=== PATIENT | male | born 1945 | race Caucasian/White ===

== ENCOUNTER → 2018-08-30 10:08 | Outpatient (CLI) | payer MEDICARE, SELFPAY ==
--- NOTE | 2018-08-30 10:39 | EKG12_ITS ---
Test Reason : PREOP Blood Pressure : / mmHG Vent. Rate : 077 BPM Atrial Rate : 077 BPM P-R Int : 178 ms QRS Dur : 074 ms QT Int : 340 ms P-R-T Axes : 054 017 -17 degrees QTc Int : 384 ms Normal sinus rhythm Possible inferior and posterior infarct, age undetermined Abnormal ECG When compared with ECG of 11-OCT-2007 01:23, No significant change was found Confirmed by JESENIA BARNETT ([id number]), photographic editor DEVONTE JENNINGS ([id number]) on 09/01/2018 10:58:08 AM Referred By: Shari Dunaway Confirmed By:JESENIA BARNETT
[2018-08-30 10:49] LABS: Absolute Lymphocyte Count 1.76 X10^3/ul (0.83-4.51); Absolute Neutrophil Count 2.7 X10^3/uL (2.0-7.7); Basophil# 0.02 X10^3/uL; Basophil% 0.4 % (0-1); Eosinophil# 0.19 X10^3/uL; Eosinophils% 3.8 % (0-5); Hematocrit 44.8 % (40-54); Hemoglobin 14.9 g/dl (13.0-16.5); Lymphocyte # 1.76 X10^3/ul (4.0); Lymphocyte % 34.9 % (19-41); Mean Corp Hgb Conc 33.3 g/gl (32-36); Mean Corpuscular Hgb 31.2 pg (27.0-32.0); Mean Corpuscular Volume 93.7 fL (80-94); Mean Platelet Vol. 9.2 fl (6.2-12.0); Monocyte# 0.39 X10^3/uL; Monocyte% 7.7 % (0-10); Neutrophil # 2.66 X10^3/uL (2.7-7.7); Neutrophil % 52.8 % (47-70); Platelet Count 224 K/mm3 (150-450); RBC Distribution Width CV 13.3 % (11.6-14.6); RBC Distribution Width SD 44.5 fl (35.1-43.9); Red Blood Count 4.78 M/mm3 (4.6-6.2)
[2018-08-30 10:50] LABS: POSITIVE COUNT NO; POSITIVE DIFFERENTIAL NO; POSITIVE MORPHOLOGY NO
[2018-08-30 11:20] LABS: Anion Gap 10 (5-15); BUN 16 mg/dL (7-18); BUN/Creat Ratio 17.4 RATIO (10-20); Calcium,Total 8.9 mg/dL (8.5-10.1); Chloride 107 mmol/L (98-107); Creatinine, Serum 0.92 mg/dL (0.70-1.30); EST Glomerular Filtration Rate 86 mL/min (>60); Est Glom Filt Rate - Afr Amer 104 mL/min (>60); Glucose 104 mg/dL (74-106); Potassium 4.1 mmol/L (3.5-5.1); Sodium Level 143 mmol/L (136-145)
== END ==
PROVIDERS: Family Provider Internal Medicine; PCP Internal Medicine; Referring Provider Podiatrist Foot & Ankle Surgery; Visit Provider Podiatrist Foot & Ankle Surgery
DX: Z01.810 Encounter for preprocedural cardiovascular examination (principal); Z01.818 Encounter for other preprocedural examination
CPT/HCPCS: 36415; 80048; 85025; 93005

== ENCOUNTER 2018-09-07 09:05 | Day surgery (SDC) | payer MEDICARE, SELFPAY ==
[2018-09-07 09:27] VITALS: BP 130/71; PULSE 84; RESP 18; TEMP 36.6; O2SAT 97; BMI 25.7
[2018-09-07] MEDS: Cefazolin 2 GM in 0.9% Normal Saline 100 ML IV (10:35)
--- NOTE | 2018-09-07 10:52 | RAD_ITS ---
STUDY: X-RAY - RIGHT ANKLE REASON FOR EXAM: Male, 73 years old. Open reduction and internal fixation of the distal fibular fracture. TECHNIQUE: 6 cone-down intraoperative view(s) of the ankle. COMPARISON: None. FINDINGS: Intraoperative imaging was provided for open reduction and fixation of the distal fibular fracture using screws and sideplate fixation device. RAD/Ankle 2 Views IMPRESSION: Intraoperative imaging provided for open reduction and internal fixation of the distal fibula. Electronically Signed: Yohan Ohara MD at 14:15 EST Tel [phone], Service support ,
[2018-09-07 12:55] VITALS: BP 110/75; BP 130/71; PULSE 66; RESP 18; TEMP 36.2; O2SAT 95
[2018-09-07 13:00] VITALS: BP 116/83; BP 130/71; PULSE 67; RESP 18; O2SAT 95
--- NOTE | 2018-09-07 13:01 | PCM.IMDPSTOP ---
Immediate Post-Op Note Date of Procedure: 09/07/18 Primary Surgeon/Physician: Shari Dunaway DPM assembler cards and announcements: Herberth Baig Pre-Operative Diagnosis: R distal fibula fracture with syndesmotic disruption Post-Operative Diagnosis: same Surgery/Procedure Performed:: R ORIF distal fibula with transsyndesmotic screw fixation Description of Surgical Findings:: see dictation Estimated Blood Loss: minimal Specimen's removed: none Drains: none Type of Anesthesia:: Block,Regional - post operative RLE distal sciatic block by anesthesia, Spinal - Admit VTE Documentation VTE Present on Admission: No VTE Mechan Device Prophylaxis: SCD's, Knee High DIAMOND Gómez
--- NOTE | 2018-09-07 13:04 | OP.PN_ITS ---
Immediate Post-Op Note Date of Procedure: 09/07/18 Primary Surgeon/Physician: Shari Dunaway DPM carroter: Herberth Baig Pre-Operative Diagnosis: R distal fibula fracture with syndesmotic disruption Post-Operative Diagnosis: same Surgery/Procedure Performed:: R ORIF distal fibula with transsyndesmotic screw fixation Description of Surgical Findings:: see dictation Estimated Blood Loss: minimal Specimen's removed: none Drains: none Type of Anesthesia:: Block,Regional - post operative RLE distal sciatic block by anesthesia, Spinal - Admit VTE Documentation VTE Present on Admission: No VTE Mechan Device Prophylaxis: SCD's, Knee High DIAMOND Gómez
--- NOTE | 2018-09-07 13:04 | PCM.DC.ORTHO ---
Discharge Activity: May Not Drive, May not drive while taking narcotic pain medications., May Not Shower, Use Walker, Use Crutches Ice area for (Minutes): 20 - 20 minutes of each hour while awake behind right knee Weight Bearing Status: No weight bearing Keep extremity elevated above heart level: Operative Extremity Call your doctor if your incision/area has: Sudden Increased Bleeding, Increased Pain/ Swelling Call your doctor if you observe: Fever of 101 or Higher, Numbness or Tingling, Inability to urinate, Shortness of breath, Chest pain, Calf discomfort, Uncontrolled pain Cleanse incision/area with: Keep Dressing Clean & Dry Allergies/Adverse Reactions: Allergies aspirin Adverse Reaction (Verified 09/06/18 08:43) Other GASTRIC ISSUES naproxen Adverse Reaction (Verified 09/06/18 08:43) Other GASTRIC ISSUES Medications to take at Discharge Diclofenac [Voltaren] 75 mg PO BIDCM 09/06/18 Doxazosin Mesylate [Cardura] 2 mg PO DAILY 09/06/18 Omeprazole [Prilosec] 20 mg PO DAILY 09/06/18 Hydrocodone Bitart/Apap 5-325 [[place] 5MG-325MG] 1 tab PO Q4H PRN PRN 7 Days #30 tab 09/07/18 The following prescriptions were given: Hydrocodone Bitart/Apap 5-325 [[place] 5MG-325MG] 1 tab PO Q4H PRN PRN 7 Days #30 tab PRN Reason: Pain Primary Care Physician: Aggie Powers MD [Primary Care Provider] - Test Results: Test results from this visit will be discussed in further detail at your follow-up appointment, if applicable. Please Follow Up With: Shari Dunaway DPM When: at your previousyl scheduled post operative appointment
--- NOTE | 2018-09-07 13:09 | DCINST_ITS ---
Discharge Activity: May Not Drive, May not drive while taking narcotic pain medications., May Not Shower, Use Walker, Use Crutches Ice area for (Minutes): 20 - 20 minutes of each hour while awake behind right knee Weight Bearing Status: No weight bearing Keep extremity elevated above heart level: Operative Extremity Call your doctor if your incision/area has: Sudden Increased Bleeding, Increased Pain/ Swelling Call your doctor if you observe: Fever of 101 or Higher, Numbness or Tingling, Inability to urinate, Shortness of breath, Chest pain, Calf discomfort, Uncontrolled pain Cleanse incision/area with: Keep Dressing Clean & Dry Allergies/Adverse Reactions: Allergies aspirin Adverse Reaction (Verified 09/06/18 08:43) Other GASTRIC ISSUES naproxen Adverse Reaction (Verified 09/06/18 08:43) Other GASTRIC ISSUES Medications to take at Discharge Diclofenac [Voltaren] 75 mg PO BIDCM 09/06/18 Doxazosin Mesylate [Cardura] 2 mg PO DAILY 09/06/18 Omeprazole [Prilosec] 20 mg PO DAILY 09/06/18 Hydrocodone Bitart/Apap 5-325 [[place] 5MG-325MG] 1 tab PO Q4H PRN PRN 7 Days #30 tab 09/07/18 The following prescriptions were given: Hydrocodone Bitart/Apap 5-325 [[place] 5MG-325MG] 1 tab PO Q4H PRN PRN 7 Days #30 tab PRN Reason: Pain Primary Care Physician: Aggie Powers MD [Primary Care Provider] - Test Results: Test results from this visit will be discussed in further detail at your follow- up appointment, if applicable. Please Follow Up With: Shari Dunaway DPM When: at your previousyl scheduled post operative appointment
[2018-09-07 13:15] VITALS: BP 115/92; BP 130/71; PULSE 66; RESP 18; O2SAT 95
[2018-09-07 13:30] VITALS: BP 124/80; BP 130/71; PULSE 61; RESP 18; TEMP 36.1; O2SAT 96
[2018-09-07 15:27] VITALS: BP 124/67; BP 130/71; PULSE 74; RESP 16; TEMP 36.2; O2SAT 96
--- NOTE | 2018-09-09 10:44 | OP.PCM_ITS ---
Report of Operation Date of Procedure: 09/07/18 Pre-Operative Diagnosis: R distal fibula fracture with syndesmotic disruption Post-Operative Diagnosis: same Surgery/Procedure Performed:: R ORIF distal fibula with transsyndesmotic screw fixation Description of Surgical Findings:: see dictation research and development chemist: Herberth Baig Type of Anesthesia:: Block,Regional - post operative RLE distal sciatic block by anesthesia, Spinal Specimen's removed: none Drains: none Estimated Blood Loss (mL): minimal Description of Procedure: Indications: Pt is a 73 yo M who presented to my clinic for a Right distal fibula oblique fracture with syndesmotic disruption and a increased medial clear space on radiographs. Pt presents today for surgical intervention. All risk, complications and alternatives were discussed with the patient and the patient signed an informed consent. No guarantees were given. Procedure: on September 07, 2018 Miranda Barr was visually and verbally identified in the pre operative holding area. The consent was again reviewed, as were all risks, complications and alternatives. The patient wished to proceed with the proposed surgery. The right ankle was marked as the correct operative extremity. The patient was brought into the room and placed on the operating room table in a lazy lateral position. A time out was performed and all present were in agreement. After anesthesia was confirmed a pneumatic thigh tourniquet was placed on the right leg. The right leg was then prepped and draped in the usual sterile fashion. The right leg was then elevated and after exsanguination with an esmarch the thigh tourniquet was then inflated to 300mmHg. At this time attention was directed to the right lateral ankle. The fracture of the fibula was again identified on intra operative fluoroscopy and the a curvilinear incision was made over the distal fibula. The incision was carried bluntly carried deep with all bleeders tied or bovied as necessary, all vital neurovascular structures and tendons were retracted. The fracture was identified and using curettes the fracture was debrided and all soft tissue was retracted. Using a bone hook and bone reduction clamps the fracture was reduced. This was directly visualized and also confirmed on intra operative fluoroscopy. The f ibula was noted to be out to length and with proper rotation. I decided to not place an interfragmentary screw across the fracture site given its nature and location and the need to obtain stability of the syndesmosis and ankle joint with a syndesmotic screw. A queenie variax plate was then placed wit marques combination of locking and nonlocking screws. The plate and screws were measured and placed under intra operative fluroscopy and direct visualization After stabilization of the fibula a bone hook was used to stress the ankle as well as external rotation. It was noted to have increase tibiofibular joint widening and increased medial clear space. A syndesmotic screw was then placed from the fibula through the plate into the tibia. The stress views were then repeat and decreased gapping that was most appropriate was noted. The incision was the flushed with copious amounts of normal sterile saline and layered closure was initiated. 2.0 vicryl was used for deep layers, 3.0 vicryl for subcutaneous layers and 3.0 prolene for skin. Adaptic, DSD and PRECIOUS compression dressing with a posterior splint was applied. Total tourniquet time was 101 minutes and immediate capillary refill was noted to all digits upon deflation. The patient tolerated the procedure and anesthesia well. A RLE lower sciatic block was placed by anesthesia for post operative pain control. The patient was transported to the PACu by myself and member of the anesthesia care team with AVSS and NV RLE equal to pre operative levels. At the end of the case, all needle sponge and instrument counts were found to be the same. Grafts/Implants Used: Queenie Variax plate and locking and nonlocking screws - Complications none - Admit VTE Documentation VTE Present on Admission: No VTE Mechan Device Prophylaxis: SCD's, Knee High DIAMOND Hose VTE Pharm Prophylaxis ordered?: Yes
== END 2018-09-07 15:46 | disposition home or self-care (01) ==
LOC: SDC 09:05 → AC 09:06
PROVIDERS: Family Provider Internal Medicine; PCP Internal Medicine; Referring Provider Podiatrist Foot & Ankle Surgery; Visit Provider Podiatrist Foot & Ankle Surgery
PROC: (CPT 27792; principal; 2018-09-07 10:10)
DX: S82.831A Other fracture of upper and lower end of right fibula, initial encounter for closed fracture (principal); W18.40XA Slipping, tripping and stumbling without falling, unspecified, initial encounter; Y93.53 Activity, golf; Y92.9 Unspecified place or not applicable; K21.9 Gastro-esophageal reflux disease without esophagitis; Z79.899 Other long term (current) drug therapy; R33.9 Retention of urine, unspecified; Z98.890 Other specified postprocedural states; N40.0 Benign prostatic hyperplasia without lower urinary tract symptoms
CPT/HCPCS: 27792; 64445; 51702; 64450; 73600; 76000; 81001; 99283; C1713; J7120

== ENCOUNTER 2018-09-07 19:42 | Emergency (ER) | payer MEDICARE, SELFPAY ==
[2018-09-07 19:42] VITALS: BP 173/89; PULSE 107; RESP 18; TEMP 36.8; O2SAT 95; BMI 25.5
[2018-09-07 20:31] LABS: Mucous, Urine 0 SEEN /hpf (<or=2+); Squamous Epithelial Cells - UA 0 SEEN /hpf (0-5); White Blood Cells 0 SEEN /hpf (0-5)
[2018-09-07 20:36] LABS: Color, Urine Yellow (Yellow); Glucose, Dipstick Normal (Normal); Ketone-Dipstick Negative (Negative); Leukocyte Esterase-Dipstick Negative /ul (Negative); Nitrite-Dipstick Negative (Negative); Occult Blood-Urine 25 /ul (Negative); Protein-Dipstick Negative (Negative); Urine Bilirubin Dipstick Negative (Negative); Urine Clarity Clear (Clear); Urine Urobilinogen Normal (Normal); Urine pH 6.5 (5.0 - 8.0)
--- NOTE | 2018-09-07 20:39 | ED.VISSUMM ---
- ER Visit Summary Date of Service: 09/07/18 Chief Complaint: Unable to urinate History of Present Illness: The patient is a 73 M has a prior history of urinary retention after surgery. Today patient had a right foot surgery done at [facility]. And is been unable to void since. Prior to the surgery he said he felt fine. Denies any gross hematuria or dysuria. He does have a history of enlarged prostate. He has needed Luis catheters before in the past. Otherwise he denies fever or chills. He denies nausea or vomiting. He is complaining of suprapubic abdominal discomfort. Physical Examination: Older male complaining of urinary retention. Vital signs are stable afebrile. HEENT exam unremarkable. Lungs clear to auscultation. Heart regular rhythm no murmur rate about 107. Abdomen soft. Suprapubic bladder distention and tender. Otherwise abdomen is nontender. And soft. Positive bowel sounds. No pulsatile mass. He is moving all 4 extremities. He has a large dressing on his right lower extremity. Neurologically he is awake and alert. Test Results: Urinalysis is pending. Emergency Department Course and Treatment: Nurse was able to place a 16 Romanian Luis catheter without difficulty. He had over 900 cc of clear yellow urine out. No gross blood. On repeat exam patient is doing very well at 2039. He is pain-free. He wants to be discharged home. Treatment Plan: Follow-up with Dr. Carpenter. Patient states he will most likely pull the Luis catheter out himself he is done this before. Disposition: Discharge Impression: Acute urinary retention status post right foot surgery History of BPH This note was generated with Nazar dictation software. It may contain incorrect words, spelling, and punctuation that were not noted in review of the chart prior to signing ED Disposition - Plan for ED Patient: Chief Complaint: Complaint Referrals: Aggie Powers MD [Primary Care Provider] -
--- NOTE | 2018-09-07 20:42 | ED.DEP ---
ED Disposition - Plan for ED Patient: Disposition: Home or Assisted Living Chief Complaint: Complaint Instructions: ED Retention Urinary Male Referrals: Joseph Carpenter MD [STAFF PHYSICIAN] - 2 Days Additional Instructions: Return if Luis not working or gross blood. Follow-up with a urologist.
[2018-09-07 20:45] LABS: Red Blood Cells-Urine 0-5 SEEN /hpf (0-5)
[2018-09-07 20:46] LABS: Bacteria RARE /hpf (None Seen)
[2018-09-07 21:00] VITALS: BP 154/80; PULSE 76; RESP 16; O2SAT 98
== END 2018-09-07 21:03 | disposition home or self-care (01) ==
PROVIDERS: Emergency Provider Emergency Medicine; Family Provider Internal Medicine; PCP Internal Medicine
DX: R33.9 Retention of urine, unspecified (principal); Z98.890 Other specified postprocedural states; N40.0 Benign prostatic hyperplasia without lower urinary tract symptoms; Z79.899 Other long term (current) drug therapy
CPT/HCPCS: 51702; 81001

== ENCOUNTER → 2022-12-25 | Outpatient (CLI) | payer MEDICARE, SELFPAY ==
[2022-12-25 09:55] LABS: Absolute Lymphocyte Count 2.61 X10^3/uL (0.83-4.51); Basophil# 0.04 X10^3/uL; Basophil% 0.8 % (0-1); Eosinophil# 0.27 X10^3/uL; Eosinophils% 5.2 % (0-5); Hematocrit 47.8 % (40-54); Hemoglobin 15.6 g/dL (13.0-16.5); Lymphocyte # 2.61 X10^3/ul (0.83-4.51); Mean Corp Hgb Conc 32.6 g/dL (32-36); Mean Corpuscular Hgb 30.8 pg (27.0-32.0); Mean Corpuscular Volume 94.3 fL (80-94); Mean Platelet Vol. 9.4 fl (6.2-12.0); Monocyte# 0.32 X10^3/uL; Monocyte% 6.1 % (0-10); NRBC Flagged by Analyzer 0 % (0-5); Neutrophil # 1.96 X10^3/uL (2.7-7.7); Neutrophil % 37.5 % (47-70); Platelet Count 207 K/mm3 (150-450); RBC Distribution Width CV 12.8 % (11.6-14.6); RBC Distribution Width SD 44.2 fl (35.1-43.9); Red Blood Count 5.07 M/mm3 (4.6-6.2); White Blood Count 5.2 K/mm3 (4.4-11.0)
[2022-12-25 10:24] LABS: Vitamin D,25 Hydroxy 14.4 ng/mL
[2022-12-25 10:29] LABS: AST(SGOT) 24 U/L (15-37); Alanine Aminotransfer ALT/SGPT 33 U/L (16-61); Albumin, Serum 3.8 g/dL (3.2-5.0); Alkaline Phosphatase 50 U/L (45-117); Anion Gap 5 (5-15); BUN 17 mg/dL (7-18); BUN/Creat Ratio 17.8 RATIO (10-20); Chloride 104 mmol/L (98-107); Cholesterol 185 mg/dL (200); Creatinine, Serum 0.96 mg/dL (0.70-1.30); EST Glomerular Filtration Rate 81 mL/min (>60); Est Glom Filt Rate - Afr Amer 98 mL/min (>60); Globulin 3.7 g/dL (2.2-4.2); Glucose 100 mg/dL (74-106); High Density Lipoprotein 36 mg/dL; PSA,Total - Annual Screen 3.19 ng/mL (0.00-4.00); Potassium 3.9 mmol/L (3.5-5.1); Protein, Total 7.5 g/dL (6.4-8.2); Sodium Level 138 mmol/L (136-145); Thyroid Stim Hormone (TSH) 2.08 uIU/mL (0.358-3.74); Triglycerides 111 mg/dL; Very Low Density Lipoprotein 22 mg/dL (5-40)
== END | disposition home or self-care (01) ==
PROVIDERS: PCP Internal Medicine; Referring Provider Internal Medicine; Visit Provider Internal Medicine
DX: E78.5 Hyperlipidemia, unspecified (principal); K21.9 Gastro-esophageal reflux disease without esophagitis; Z12.5 Encounter for screening for malignant neoplasm of prostate; E55.9 Vitamin D deficiency, unspecified
CPT/HCPCS: 36415; 80053; 80061; 82306; 84153; 84443; 85025; G0103

== ENCOUNTER → 2023-08-03 | Outpatient (CLI) | payer MEDICARE, SELFPAY ==
--- NOTE | 2023-08-03 13:32 | CT_ITS ---
ACR Level 3 findings have been noted. An addendum which confirms receipt of the report will follow. INDICATION: GROSS HEMATURIA EXAMINATION: CT UROGRAM- CT Abdomen And Pelvis WO/W Contrast Injection TECHNIQUE: Helically acquired images were obtained of the abdomen and pelvis both before and after IV contrast. A radiation dose optimization technique was used for this scan. Noncontrast images were obtained through the abdomen. Postcontrast images were acquired through the abdomen and pelvis during the nephrographic and urographic phases. IV Contrast dosage and agent: 100 Isovue 300 Oral contrast: None. RADIATION DOSAGE (If Supplied By Facility): CTDIvol = ( 14.14 ) mGy, DLP = ( 1757.30 ) mGycm COMPARISON: No relevant prior comparison study available FINDINGS: LOWER CHEST: Lung bases are clear. No cardiomegaly or pericardial effusion. Coronary calcifications present. KIDNEYS, URETERS AND BLADDER: Normal in size, axis and morphology exhibiting symmetric enhancement bilaterally. There are a few bilateral simple renal cysts which are benign. No urinary calculi. Ureters normal in course and caliber. No hydronephrosis. There is a 2.4 x 1.9 x 2.6 cm mass in the left posterolateral bladder compatible with a neoplasm. LIVER: Normal in size, contour and morphology. There are a couple subcentimeter cysts. No suspicious liver lesions. GALLBLADDER AND BILIARY TREE: No calcified gallstones. No gallbladder distension or wall edema. No intra- or extrahepatic biliary ductal dilation. PANCREAS: No focal cystic or solid mass. SPLEEN: Normal size without focal cystic or solid mass. ADRENAL GLANDS: No nodules. PERITONEUM: No ascites or free air. No other fluid collection. BOWEL: No intestinal obstruction or inflammation. Left clonic diverticulosis without evidence of diverticulitis. No evidence of appendicitis. LYMPH NODES: No enlarged mesenteric or retroperitoneal lymph nodes. VESSELS: Aorta is non-dilated. REPRODUCTIVE ORGANS: No pelvic masses. ABDOMINAL WALL: There is a direct internal hernia on the right containing a portion of the right anterolateral bladder. Previous left inguinal herniorrhaphy. Small fat-containing umbilical hernia. BONES: No acute or suspicious osseous abnormalities. CT/CT Abd/Pelvis W/WO Contrast IMPRESSION: * There is a 2.6 cm mass in the left posterolateral bladder compatible with a urothelial neoplasm. Urology consultation recommended. * No evidence of metastatic disease within the abdomen or pelvis. Electronically Signed: Kalen Masters MD at 19:35 EDT ,
[2023-08-03 14:07] LABS: CREATININE FINGERSTICK < 0.9 mg/dL (0.70-1.30); EGFR FINGERSTICK > 60.0000 mL/min (>60)
== END | disposition home or self-care (01) ==
LOC: CT 13:30
PROVIDERS: PCP Internal Medicine; Referring Provider Nurse Practitioner; Visit Provider Nurse Practitioner
DX: R31.0 Gross hematuria (principal)
CPT/HCPCS: 74178; Q9967; A4216

== ENCOUNTER 2023-10-07 12:29 | Day surgery (SDC) | payer MEDICARE, SELFPAY ==
[2023-10-07] VITALS (7 sets, daily range): BP systolic 142–153; BP diastolic 68–85; PULSE 67–82; RESP 16–18; TEMP 36.2–36.7; O2SAT 96–98; BMI 25.4
--- NOTE | 2023-10-07 | BLB_PTH ---
PATIENT: ARIA HERNANDEZ LOC: [facility] – [place], [place] U#:[id number] AGE/SX: 78/M ROOM: RE10/07/[address]: Dr. Joseph Carpenter MD : [id number] BED: DIS: 10/07/2023 SPEC #: [id number] RECD: 10/07/23 18:25 STATUS: ANGUS REDano #: [id number] NEO: 10/07/23 00:[address]: Joseph Carpenter DEPT: SURGICAL PATHOLOGY RECD BY: Osmany Vizcaino ENTERED: 10/08/23 08:59 SP TYPE: TURB OTHR DR: Dr. Mary Ellen Jules MD Tissues: Urinary bladder, NOS Procedures: Surgery Specimen Level V HEADER OPERATION: Transurethral resection of bladder tumor PRE-OP DIAGNOSIS: Bladder tumor TISSUE SUBMITTED: Bladder tumor MICROSCOPIC DIAGNOSIS Urinary bladder tumor, transurethral resection: Papillary urothelial carcinoma. See synoptic report below. AM:hugo 10/09/2023 COMMENT BLADDER CANCER (TUR) SUMMARY Procedure: Transurethral resection of bladder tumor (TURBT) Tumor site: Not specified Histologic type: Papillary urothelial carcinoma Associated epithelial lesions: None identified Histologic grade: 1-2/3 Tumor configuration: Papillary Muscularis propria presence: Muscularis propria is present and free of tumor. Lymphvascular invasion: Not identified Tumor extension: Confined to urothelium. Additional pathologic findings: Minimal chronic inflammation. PATHOLOGIC STAGE: The above summary is in compliance with [employer] [place] [employer] (CAP) Cancer Protocols Checklist and [place] Joint Committee on Cancer (AJCC), Staging Manual, 8th Ed. Case has been reviewed in consultation with Dr. Patterson who concurs with the above diagnosis. DINO:SONIA MICROSCOPIC DESCRIPTION Slides are reviewed. GROSS DESCRIPTION Received in fixative is one container labeled with the patient's name and designated bladder tumor. The specimen consists of multiple irregular fragments of brown soft tissue that in aggregate measure 5.0 x 3.0 x 0.3 cm. The entire specimen is submitted in two cassettes. / SJ:hugo 10/08/2023 TC:0 CPT: 20349
--- NOTE | 2023-10-07 12:30 | EKG12_ITS ---
Test Reason : PREOP Blood Pressure : / mmHG Vent. Rate : 073 BPM Atrial Rate : 073 BPM P-R Int : 180 ms QRS Dur : 074 ms QT Int : 352 ms P-R-T Axes : 046 024 -16 degrees QTc Int : 387 ms Normal sinus rhythm Low voltage QRS Borderline ECG When compared with ECG of 30-AUG-2018 10:46, No significant change was found Confirmed by ANABEL STEVENSON, ROBERT ([id number]), technical editor SHAI PATTERSON ([id number]) on 10/13/2023 11:25:22 AM Referred By: Joseph Carpenter Confirmed By:ROBERT LITTLE MD
[2023-10-07] MEDS: Lactated Ringers 1,000 ML 15 ML IV (13:12)
--- NOTE | 2023-10-07 14:51 | PCM.HP.STD ---
HPI - General General Date of Service: 10/07/23 Chief Complaint: Bladder tumor HPI Narrative ARIA HERNANDEZ, is a 78 M who presents transurethral resection of a bladder tumor [facility] Medical History (Updated 09/16/23 @ 11:27 by Gale Garvin) Abnormal prostate by palpation Alcohol use Back pain Bladder disease Gastric reflux History of echocardiogram History of stress test Leg cramps Non-smoker Right fibular fracture Superior mesenteric artery syndrome Torn Achilles tendon Wears glasses Home Medications doxazosin 2 mg tablet (Cardura) 2 mg PO QHS #90 tabs 06/17/23 [Rx Last Taken Unknown] omeprazole 20 mg capsule,delayed release 20 mg PO QHS #90 caps 06/17/23 [Rx Last Taken Unknown] Allergy/AdvReac Type Severity Reaction Status Date / Time aspirin AdvReac Other Verified 10/07/23 13:05 Family History Mother Mental disorder Alzheimer's after age 80 Surgical History (Updated 09/16/23 @ 11:27 by Gale Garvin) H/O hemorrhoidectomy H/O hernia repair History of appendectomy History of cataract extraction with lens replacement History of open reduction and internal fixation (ORIF) procedure Hx of tonsillectomy Social History Smoking Status: Never smoker alcohol intake: current details: beer or wine only and very infrequently substance use type: does not use what type of physical activity do you participate in: walking frequency: 1-2 times per week Vital Signs Vital Signs Vital Signs: 10/07/23 13:07 10/07/23 13:07 Temperature 98.0 F Temperature Source Temporal Pulse Rate 72 Respiratory Rate 18 Respiratory Pattern Normal Blood Pressure 151/68 H Blood Pressure Mean 95 Blood Pressure Source Monitor Blood Pressure Position Sitting Blood Pressure Location Left Arm Pulse Ox 98 Oxygen Delivery Method Room Air Weight Weight: 83 kg Body Mass Index (BMI) 25.4
[2023-10-07] MEDS: Cefazolin 2 GM in 0.9% Normal Saline (100mL Bag) 100 ML IV (15:14)
--- NOTE | 2023-10-07 15:25 | PCM.DC ---
Discharge Instructions Diet Discharge Diet: No restrictions Activity Discharge Activity: Return to Normal Activity Dressing / Incision Catheter: Luis to leg bag and Luis to large bag Drain: [place] Follow Up Care Please Follow Up With: Joseph Carpenter MD When: call for appt Test Results: Test results from this visit will be discussed in further detail at your follow-up appointment, if applicable. Discharge Plan Admission Primary Reason for Your Visit: Resection of bladder tumor Attending Provider: Joseph Carpenter Primary Care Provider: Mary Ellen Jules Discharge Orders/Prescriptions Prescriptions: New ciprofloxacin HCl [Cipro] 500 mg tablet 500 mg PO BID Qty: 10 0RF ibuprofen 600 mg tablet 600 mg PO Q6H PRN (Reason: fever or pain) Qty: 20 0RF phenazopyridine [Pyridium] 100 mg tablet 100 mg PO TID PRN (Reason: pain) Qty: 14 0RF Continued doxazosin [Cardura] 2 mg tablet 2 mg PO QHS Qty: 90 3RF omeprazole 20 mg capsule,delayed release(DR/EC) 20 mg PO QHS Qty: 90 3RF Referrals / Follow Up: Joseph Carpenter MD [Med Staff - Active Staff] - Mary Ellen Jules MD [Primary Care Provider] - Disposition Disposition (needs filled in before D/C Order can be placed): Home, Self Care
--- NOTE | 2023-10-07 16:05 | PCM.OPRPT ---
Report of Operation Date of Procedure: 10/07/23 Pre-Operative Diagnosis: Bladder tumor Post-Operative Diagnosis: The same Description of Surgical Findings:: Patient presented to the hospital for treatment of a tumor that was found in the bladder on CT scan. Patient understands is possible it may not be able to resect the entire tumor. Patient also understands is possible that the patient may need multiple procedures or more invasive procedures to cure him of this cancer. Patient was taken back to the operating room after smooth induction of anesthesia the patient was placed supine on the table. The patient was placed in dorsolithotomy position. The urethra and genitals prepped and draped in usual sterile fashion. I went into the bladder with a 30 degree lens and a cystoscope was performed and identified the tumor the tumors which was about 5 cm in size and occupying mostly the left lateral wall of the bladder. I then switched over to the 70 degree lens and inspected the rest of the bladder with a 70 degree lens to make sure there is no other tumors in the bladder and to identify all the tumor locations. The right and left ureteral orifice were identified. The tumor was not involved in the ureteral orifices. I then placed the Olympus bipolar resectoscope with a large loop into the bladder. I then started resected the tumor and started superficially shaving small little pieces working my way to the base of the tumor. As I went along I then cauterize any bleeders that were encountered during the resection. The tumor pieces were then flushed out of the bladder and continued resecting the tumor until finally I got down to the base of the tumor and the muscle of the bladder was then identified a small little bit of muscle was taken with the resection. The Ellik was used then to evacuate all the tumor pieces out of the bladder. I then cauterized extensively the tumor base and also circumferentially around where the tumor was. Again we made sure to evacuate all the pieces out the bladder. I made sure there was no more bleeding from the base of the bladder and then over the tumor pieces were then evacuated out and sent off as a specimen. After the resection of the entire tumor was completed then treatment with Mitomycin-C was performed. We then placed the catheter in the bladder and the patient was taken back to the PACU in stable condition. Surgeon: Joseph Carpenter Type of Anesthesia: General Drains: 20 fr velez Estimated Blood Loss (mL): 0 Admit VTE Documentation VTE Present on Admission: No VTE Mechan Device Prophylaxis: SCD's VTE Pharm Prophylaxis ordered?: No
[2023-10-07] MEDS: MitoMYcin 40 MG in Syringe 1 EACH 2400 MG INSTILLAT (16:10)
--- NOTE | 2023-10-07 17:44 | SUR.PHASEII ---
PT CAME TO PACU WITH DALEY IN PLACE, SWITCHED TO LEG BAG AND GIVEN SUPPLIES TO D/C CATHETER AND TO REINSERT IF NEEDED AT HOME, THIS WAS PER DR. HARTMANN.
== END 2023-10-07 18:09 | disposition home or self-care (01) ==
LOC: SDC 12:35 → AC 12:54
PROVIDERS: PCP Internal Medicine; Referring Provider Urology; Visit Provider Urology
PROC: 0T5B8ZZ Destruction of Bladder, Via Natural or Artificial Opening Endoscopic (ICD-10-PCS; CPT 51720; principal; 2023-10-07 14:25)
DX: C67.9 Malignant neoplasm of bladder, unspecified (principal); K21.9 Gastro-esophageal reflux disease without esophagitis; Z79.899 Other long term (current) drug therapy
CPT/HCPCS: 52235; 00912; 88307; 93005; J7120; J9280; A4216; J2405

== ENCOUNTER 2023-10-11 20:59 | Emergency (ER) | payer MEDICARE, SELFPAY ==
[2023-10-11 21:00] VITALS: BP 142/81; PULSE 91; RESP 16; TEMP 36.4; O2SAT 94; BMI 26.5
[2023-10-11 22:34] LABS: Bacteria 0 SEEN /hpf (None Seen); Mucous, Urine 0 SEEN /hpf (<or=2+); White Blood Cells 0 SEEN /hpf (0-5)
[2023-10-11 22:36] LABS: Color, Urine Red (Yellow); Glucose, Dipstick Normal (Normal); Ketone-Dipstick 5 mg/dl (Negative); Leukocyte Esterase-Dipstick Negative /ul (Negative); Nitrite-Dipstick Negative (Negative); Occult Blood-Urine 150 /ul (Negative); Protein-Dipstick 500 mg/dl (Negative); Urine Bilirubin Dipstick Negative (Negative); Urine Clarity Cloudy (Clear); Urine Urobilinogen Normal (Normal); Urine pH 6.5 (5.0 - 8.0)
[2023-10-11 22:39] LABS: Red Blood Cells-Urine > 100 SEEN /hpf (0-5); Squamous Epithelial Cells - UA 0-5 SEEN /hpf (0-5)
[2023-10-11 22:40] LABS: Amorphous Sediment 1+ URATE
--- NOTE | 2023-10-11 22:56 | EDS_ITS ---
HPI History of Present Illness Chief Complaint: Complaint Informant: patient Narrative Narrative: Patient started having hematuria today along with pain at the tip of the penis, no abdominal pain, nausea, vomiting, lightheadedness, fevers or chills. 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 Catheter was removed, she still was not able to urinate so the catheter was placed back in within the last couple days, and spontaneous bleeding started tonight. He denies any blockage of flow of urine or leaking around the catheter. He is on no anticoagulants or antiplatelets. [facility] Medical History Abnormal prostate by palpation Alcohol use Back pain Bladder disease Gastric reflux History of echocardiogram History of stress test Leg cramps Non-smoker Right fibular fracture Superior mesenteric artery syndrome Torn Achilles tendon Wears glasses Home Medications doxazosin 2 mg tablet (Cardura) 2 mg PO QHS #90 tabs 06/17/23 [Rx Last Taken Unknown] omeprazole 20 mg capsule,delayed release 20 mg PO QHS #90 caps 06/17/23 [Rx Last Taken Unknown] ciprofloxacin HCl 500 mg tablet (Cipro) 500 mg PO BID #10 tabs 10/07/23 [Rx Last Taken Unknown] ibuprofen 600 mg tablet 600 mg PO Q6H PRN fever or pain #20 tabs 10/07/23 [Rx Last Taken Unknown] Allergy/AdvReac Type Severity Reaction Status Date / Time phenazopyridine Allergy Severe other Verified 10/11/23 21:04 aspirin AdvReac Other Verified 10/07/23 13:05 Family History Mother Mental disorder Alzheimer's after age 80 Surgical History H/O hemorrhoidectomy H/O hernia repair History of appendectomy History of cataract extraction with lens replacement History of open reduction and internal fixation (ORIF) procedure Hx of tonsillectomy Social History Smoking Status: Never smoker alcohol intake: current details: beer or wine only and very infrequently substance use type: does not use what type of physical activity do you participate in: walking frequency: 1-2 times per week ROS ROS ED Constitutional Constitutional ED: Denies chills or fever(s) Eyes Eyes: Denies change in vision or diplopia ENT ENT ED: Denies rhinorrhea or sore throat Cardiovascular Cardiovascular: Denies chest pain or palpitations Respiratory/Chest Respiratory/Chest: Denies cough or dyspnea Gastrointestinal Gastrointestinal: Denies abdominal pain, diarrhea, nausea or vomiting Genitourinary Genitourinary ED: Reports hematuria and other Details: Penile pain see HPI ; Denies dysuria Musculoskeletal Musculoskeletal: Denies back pain or neck pain Integumentary Denies abscess or rash Neurologic Neurologic: Denies headache(s), paresthesias or weakness Psychiatric Psychiatric: Denies anxiety or suicidal thoughts EXAM Physical Exam Const Vital Signs: 10/11/23 21:00 Temperature 97.5 F L Temperature Source Temporal Pulse Rate 91 Respiratory Rate 16 Blood Pressure 142/81 H Blood Pressure Mean 101 Pulse Ox 94 Oxygen Delivery Method Room Air Positive well nourished and well developed General Appearance ED: well developed and NAD HEENT Reports moist mucous membranes normocephalic and atraumatic Eyes PERRL and EOMs intact bilaterally Neck full ROM and supple Resp normal respiratory effort and clear to auscultation bilaterally GI non-tender and non-distended Auscultation: normoactive bowel sounds Palpation: soft Narrative: Luis catheter within uncircumcised penis, normal-appearing no tenderness no leakage around the catheter. Gross hematuria within the catheter in the bag. Back/Spine no CVA tenderness General Back: other FROM Extremity normal to inspection General Extremety ED: Negative for edema, pulses abnormal or tenderness General Extremity: Negative for edema or pulses abnormal Neuro oriented x3, CN's II-XII intact bilaterally and no sensory deficits noted Sensorium / Orientation: awake and alert Motor Exam: strength 5/5 throughout Skin no rashes or lesions noted and no wounds MDM MDM MDM Narrative Medical decision making narrative: Nursing irrigated the catheter, and after 700 cc of irrigating, it was draining clear urine. However then it started to get bloody again and on my evaluation it is pink without clots. Patient is feeling better. He prefers to go home. I discussed with his surgeon Dr. Carpenter, and he agrees and will have the patient follow-up and call tomorrow. Lab Data Attestation: I reviewed the patient's lab results. Labs: Laboratory Results - last 24 hr 10/11/23 22:32 Urine Color Red Urine Clarity Cloudy Urine pH 6.5 Ur Specific [place] 1.020 Urine Protein 500 H Urine Glucose (UA) Normal Urine Ketones 5 H Urine Occult Blood 150 H Urine Nitrite Negative Urine Bilirubin Negative Urine Urobilinogen Normal Ur Leukocyte Esterase Negative Urine RBC > 100 SEEN Urine WBC 0 SEEN Ur Squamous Epith Cells 0-5 SEEN Amorphous Sediment 1+ URATE Urine Bacteria 0 SEEN Urine Mucus 0 SEEN Management Discussion w/another healthcare provider: [employer] (Urology) Discharge Plan Triage Chief Complaint: Complaint ED Provider: Jabari Elizabeth Dx/Rx/DC Orders Clinical Impression: Hematuria Instructions: ED Hematuria Prescriptions: No Action doxazosin [Cardura] 2 mg tablet 2 mg PO QHS Qty: 90 3RF omeprazole 20 mg capsule,delayed release(DR/EC) 20 mg PO QHS Qty: 90 3RF ciprofloxacin HCl [Cipro] 500 mg tablet 500 mg PO BID Qty: 10 0RF ibuprofen 600 mg tablet 600 mg PO Q6H PRN (Reason: fever or pain) Qty: 20 0RF Primary Care Provider: Mary Ellen Jules Referrals: Joseph Carpenter MD [Med Staff - Active Staff] - As soon as possible Mary Ellen Jules MD [Primary Care Provider] - Disposition Disposition: Home, Self Care
== END 2023-10-12 01:32 | disposition home or self-care (01) ==
PROVIDERS: Emergency Provider Emergency Medicine; PCP Internal Medicine; Referring Provider Emergency Medicine; Visit Provider Emergency Medicine
DX: R31.9 Hematuria, unspecified (principal); K21.9 Gastro-esophageal reflux disease without esophagitis; Z79.899 Other long term (current) drug therapy; Z90.49 Acquired absence of other specified parts of digestive tract; Z98.49 Cataract extraction status, unspecified eye
CPT/HCPCS: 81001; 99282

== ENCOUNTER 2023-10-14 16:51 | Observation (INO) | payer MEDICARE, SELFPAY ==
[2023-10-14 16:52] VITALS: BP 167/70; PULSE 82; RESP 14; TEMP 37; O2SAT 98; BMI 26.2
--- NOTE | 2023-10-14 17:11 | EDS_ITS ---
HPI <JESSE Muñoz - Last Filed: 10/14/23 19:35> History of Present Illness Chief Complaint: Luis C/O Narrative Narrative: Patient presenting today due to urinary retention that he has had since around 10 AM this morning. He reports that around 8 AM, he woke up and noticed that his urinary Luis bag had a moderate amount of bloody urine in it. He then clamped his Luis catheter. He called his urologist, Dr. Carpenter who encouraged him to come into the ED for evaluation. Patient recently underwent a transurethral resection of a bladder tumor on 10/07/23. He is not on any blood thinners. He reports suprapubic discomfort. He denies any fever or chills. PFSH <JESSE Muñoz - Last Filed: 10/14/23 19:35> PFSH Medical History Abnormal prostate by palpation Alcohol use Back pain Bladder disease Gastric reflux History of echocardiogram History of stress test Leg cramps Non-smoker Right fibular fracture Superior mesenteric artery syndrome Torn Achilles tendon Wears glasses Home Medications doxazosin 2 mg tablet (Cardura) 2 mg PO QHS BLOOD PRESSURE #90 tabs 06/17/23 [Rx Last Taken 10/13/23] omeprazole 20 mg capsule,delayed release 20 mg PO QHS ACID REFLUX #90 caps 06/17/23 [Rx Last Taken 10/13/23] Allergy/AdvReac Type Severity Reaction Status Date / Time phenazopyridine Allergy Severe other Verified 10/14/23 16:51 aspirin AdvReac Other Verified 10/14/23 16:51 Family History Mother Mental disorder Alzheimer's after age 80 Surgical History H/O hemorrhoidectomy H/O hernia repair History of appendectomy History of cataract extraction with lens replacement History of open reduction and internal fixation (ORIF) procedure Hx of tonsillectomy Social History Smoking Status: Never smoker alcohol intake: current details: beer or wine only and very infrequently substance use type: does not use what type of physical activity do you participate in: walking frequency: 1-2 times per week ROS <JESSE Muñoz - Last Filed: 10/14/23 19:35> ROS ED Constitutional Constitutional ED: Denies chills or fever(s) Cardiovascular Cardiovascular: Denies chest pain Respiratory/Chest Respiratory/Chest: Denies cough or dyspnea Gastrointestinal Gastrointestinal: Denies abdominal pain, nausea or vomiting Genitourinary Genitourinary ED: Reports hematuria Musculoskeletal Musculoskeletal: Denies arthralgias or myalgias Integumentary Denies rash Neurologic Neurologic: Denies weakness EXAM <JESSE Muñoz - Last Filed: 10/14/23 19:35> Physical Exam Const Vital Signs: 10/14/23 16:52 Temperature 98.6 F Temperature Source Temporal Pulse Rate 82 Respiratory Rate 14 Blood Pressure 167/70 H Blood Pressure Mean 102 Pulse Ox 98 Oxygen Delivery Method Room Air Positive well nourished, well developed and no apparent distress General Appearance ED: well developed HEENT Reports normocephalic and head/scalp atraumatic Mouth ED: Yes moist mucous membranes normal Eyes PERRL and EOMs intact bilaterally Neck full ROM and supple Chest Wall inspection of chest normal Resp normal respiratory effort and clear to auscultation bilaterally Cardio regular rate and regular rhythm GI soft to palpation, non-tender, non-distended and no masses Back/Spine normal ROM and normal to inspection Extremity normal to inspection and full ROM Neuro oriented x3, CN's II-XII intact bilaterally, moves all extremities, no focal motor deficits and no sensory deficits noted Sensorium / Orientation: awake and alert Psych mental status grossly normal and thought process normal Skin no rashes or lesions noted and no wounds <Benedicto Garland MD - Last Filed: 10/14/23 21:55> Physical Exam Const Vital Signs: 10/14/23 16:52 Temperature 98.6 F Temperature Source Temporal Pulse Rate 82 Respiratory Rate 14 Blood Pressure 167/70 H Blood Pressure Mean 102 Pulse Ox 98 Oxygen Delivery Method Room Air MDM <JESSE Muñoz - Last Filed: 10/14/23 19:35> MDM MDM Narrative Medical decision making narrative: Patient presenting due to hematuria. He is well-appearing and in no acute distress. He had a transurethral bladder tumor removal performed by Dr. Carpenter 10/07/23. He presented here on 10/11/2023 due to hematuria, his Luis was irrigated at that time and he was discharged home but continued to have problems with it. Today he woke up with a large amount of blood in his Luis bag and then eventually clamped it off to stop the bleeding and came in for evaluation. His urologist, Dr. Carpenter, called to give report and requested that labs be obtained and requested that the Luis be irrigated as he may possibly be taking patient to surgery. Luis was irrigated, the Luis is now draining well and is slightly bloody, but much improved from earlier today. Dr. Carpenter and I did come in to see the patient and will be admitting him under his service for possible surgery/observation. Basic labs are unremarkable, patient will be admitted in stable condition and is comfortable with plan. Lab Data Attestation: I reviewed the patient's lab results. Labs: Laboratory Results - last 24 hr 10/14/23 17:35 WBC 6.8 RBC 4.80 Hgb 14.7 Hct 45.3 MCV 94.4 H MCH 30.6 MCHC 32.5 RDW Std Deviation 44.2 H RDW Coeff of Jose 12.8 Plt Count 243 MPV 9.3 Immature Gran % (Auto) 0.900 Neut % (Auto) 67.3 Lymph % (Auto) 22.0 Walsh % (Auto) 6.8 Eos % (Auto) 2.3 Baso % (Auto) 0.7 Absolute Neuts (auto) 4.6 Absolute Lymphs (auto) 1.50 Nucleated RBC % 0 Sodium 141 Potassium 3.8 Chloride 106 Carbon Dioxide 25.0 Anion Gap 10 BUN 17 Creatinine 1.03 Estim Creat Clear Calc 61.94 Est GFR (MDRD) Af Amer 90 Est GFR (MDRD) Non-Af 74 BUN/Creatinine Ratio 16.5 Glucose 109 H Calcium 8.9 <Benedicto Garland MD - Last Filed: 10/14/23 21:55> [facility] MDM Narrative Medical decision making narrative: Patient presenting due to hematuria. He is well-appearing and in no acute distress. He had a transurethral bladder tumor removal performed by Dr. Carpenter 10/07/23. He presented here on 10/11/2023 due to hematuria, his Luis was irrigated at that time and he was discharged home but continued to have problems with it. Today he woke up with a large amount of blood in his Luis bag and then eventually clamped it off to stop the bleeding and came in for evaluation. His urologist, Dr. Carpenter, called to give report and requested that labs be obtained and requested that the Luis be irrigated as he may possibly be taking patient to surgery. Luis was irrigated, the Luis is now draining well and is slightly bloody, but much improved from earlier today. Dr. Carpenter and I did come in to see the patient and will be admitting him under his service for possible surgery/observation. Basic labs are unremarkable, patient will be admitted in stable condition and is comfortable with plan. Dr. Garland: I have personally performed a face to face assessment of the patient and have reviewed the MAURICIO Note. I performed a substantive portion of the visit including all aspects of the following. My davis findings include: History is hematuria, clogged Luis catheter. History of bladder tumor resection 1 week ago. Seen by urology on Thursday, yesterday. Sent in for clogged Luis and possible cystoscopy in the OR. Exam is afebrile. Vital signs noted. Regular rate and rhythm. Lungs clear to auscultation bilaterally. Abdomen soft and nontender with normal active bowel sounds. Luis bag brought in containing dark red urine. Medical Decision Making: Check labs. Discussed with Dr. Carpenter with urology who would like laboratory work. I reviewed the laboratory results which are grossly unremarkable with a hemoglobin of 14.7, BUN normal at 17 with creatinine 1.03. Luis was irrigated. Urology to admit. Patient is in stable condition. Other additions or changes: [None] History & Record Review Discussion w/independent historian: Patient Additional record(s) reviewed:: Prior ED visit Lab Data Labs: Laboratory Results - last 24 hr 10/14/23 17:35 WBC 6.8 RBC 4.80 Hgb 14.7 Hct 45.3 MCV 94.4 H MCH 30.6 MCHC 32.5 RDW Std Deviation 44.2 H RDW Coeff of Jose 12.8 Plt Count 243 MPV 9.3 Immature Gran % (Auto) 0.900 Neut % (Auto) 67.3 Lymph % (Auto) 22.0 Walsh % (Auto) 6.8 Eos % (Auto) 2.3 Baso % (Auto) 0.7 Absolute Neuts (auto) 4.6 Absolute Lymphs (auto) 1.50 Nucleated RBC % 0 Sodium 141 Potassium 3.8 Chloride 106 Carbon Dioxide 25.0 Anion Gap 10 BUN 17 Creatinine 1.03 Estim Creat Clear Calc 61.94 Est GFR (MDRD) Af Amer 90 Est GFR (MDRD) Non-Af 74 BUN/Creatinine Ratio 16.5 Glucose 109 H Calcium 8.9 Discharge Plan Dx/Rx/DC Orders Clinical Impression: Indwelling Luis catheter present, Recurrent gross hematuria Disposition Disposition: Acute Care Hospital [facility] Discharge Date/Time: 10/14/23 19:08
--- OUTSIDE RECORDS SUMMARY | 2023-10-14 17:31 | XMS RPT_ITS | CCD ---
Author Name Unknown Address [address] [place] [address] [id number] [place] [address] Organization [facility] Care Team Providers Care Study Director Name Role Phone Vita Pacheco PA-C Primary Care Provider Allergies Allergy Classification Reported Allergen(s) Allergy Type Date of Onset Reaction(s) Facility (2 sources) Salicylic Acid Drug Allergy 10-11-2007 GI Upset [facility] Medications Completed/Discontinued Medications Medication Drug Class(es) Dates Sig (Normalized) Sig (Original) acetaminophen 500 mg oral tablet (2 sources) Start: 03-26-2020 take 2 tablets by mouth every eight hours as needed acetaminophen (TYLENOL EXTRA STRENGTH) 500 mg tablet Take 2 tablets by mouth every 8 hours as needed for Pain. 0 03/26/2020 Active Problems Active Problems Problem Classification Problem Date Documented Date Episodic/Chronic Esophageal disorders (2 sources) Gastroesophageal reflux disease; Translations: [Gastro-esophageal reflux disease without esophagitis] Onset: 10-11-2007 10-11-2007 Chronic Hyperplasia of prostate (2 sources) Benign prostatic hyperplasia; Translations: [Benign prostatic hyperplasia without lower urinary tract symptoms] Onset: 06-13-2009 03-23-2019 Chronic Past or Other Problems Problem Classification Problem Date Documented Da te Episodic/Chronic Abdominal hernia (2 sources) Diaphragmatic hernia; Translations: [Diaphragmatic hernia without obstruction or gangrene] Onset: 12-13-2007 12-13-2007 Episodic Other connective tissue disease (2 sources) Plantar fascial fibromatosis; Translations: [Plantar fascial fibromatosis] Onset: 09-07-2013 09-07-2013 Episodic Other gastrointestinal disorders (2 sources) History of gastritis; Translations: [Personal history of other diseases of the digestive system] Onset: 07-18-2019 07-18-2019 Episodic Results Test Name Value Interpretation Reference Range Facil ity Encounters Encounter Date Encounter Type Care Provider Facility Start: 04-18-2022 Angelia Watkins on PA-C Work Phone: [facility] Procedures Date Procedure Procedure Detail Performing Clinician Start: 12-08-2020 Adult depression screening assessment Andre Weiss MD Work Phone: Plan of Treatment Date Care Activity Detail Author Start: 11-27-2023 DIABETES SCREEN DIABETES SCREEN [facility] Start: 12-08-2021 Adult depression scr eening assessment DEPRESSION SCREENING [facility] Start: 11-29-2021 COVID-19 VACCINE (4 - Booster for Pfizer series) COVID-19 VACCINE (4 - Booster for Pfizer series) [facility] Start: 10-26-2021 ADVANCE DIRECTIVE DISCUSSION ADVANCE DIRECTIVE DISCUSSION [facility] Start: 06-14-2009 Urine microalbumin profile DTAP,TDAP ,TD (1 - Tdap) [facility] Start: 1963 HEPATITIS C SCREENING HEPATITIS C SC REENING [facility] Immunizations Immunization Date Immunization Notes Care Provider Yvonne ridley 08-19-2021 influenza, high dose seasonal, preservative-free Andre Weiss MD Work Phone: [facility] 07-29-2021 COVID-19 vaccine, ag e 12+ yr (PFIZER-BIONTECH - PURPLE TOP) Andre Weiss MD Work Phone: [facility] 12-29-2020 COVID-19 vaccine, ag e 12+ yr (PFIZER-BIONTECH - PURPLE TOP) Andre Weiss MD Work Phone: [facility] 12-08-2020 COVID-19 vaccine, ag e 12+ yr (PFIZER-BIONTECH - PURPLE TOP) Andre Weiss MD Work Phone: [facility] 10-24-2020 zoster vaccine recombinant Andre Weiss MD Work Phone: [facility] 06-28-2020 zoster vaccine recombinant Andre Weiss MD Work Phone: [facility] 07-18-2019 influenza, high dose seasonal, preservative-free Andre Weiss MD Work Phone: [facility] 08-27-2018 influenza, high dose seasonal, preservative-free Andre Weiss MD Work Phone: [facility] 08-25-2017 influenza, high dose seasonal, preservative-free Andre Weiss MD Work Phone: [facility] 01-01-2017 pneumococcal polysaccharide vaccine, 23 valent Andre Weiss MD Work Phone: [facility] Work Phone: 08-13-2016 influenza, high dose seasonal, preservative-free Andre Weiss MD Work Phone: [facility] Work Phone: 07-26-2015 influenza, high dose seasonal, preservative-free Andre Weiss MD Work Phone: [facility] 06-27-2015 pneumococcal conjuga te vaccine, 13 valent Andre Weiss MD Work Phone: [facility] 07-24-2014 influenza, seasonal, injectable Andre Weiss MD Work Phone: [facility] 08-12-2013 influenza virus vacc ine, unspecified formulation Andre Weiss MD Work Phone: [facility] 08-13-2012 influenza virus vacc ine, unspecified formulation Andre Weiss MD Work Phone: [facility] Work Phone: 07-26-2009 zoster vaccine, live Andre Weiss MD Work Phone: [facility] Work Phone: 06-13-2009 tetanus and diphther ia toxoids, adsorbed, preservative free, for adult use (2 Lf of tetanus toxoid and 2 Lf of diphtheria toxoid) Andre Weiss MD Work Phone: [facility] 09-12-2008 influenza virus vacc ine, unspecified formulation Andre Weiss MD Work Phone: [facility] 09-03-2007 influenza virus vacc ine, unspecified formulation Andre Weiss MD Work Phone: [facility] Work Phone: 09-03-2007 pneumococcal polysaccharide vaccine, 23 valent Andre Weiss MD Work Phone: [facility] Work Phone: Payers Date Payer Category Payer Medicare [employer] MEDICARE A ETNA MEDICARE PPO [id number] 2010-Present [phone] [address] [place] [address] PPO [id number] Social History Date Type Detail Facility Tobacco smoking status NHIS Never smoked tobacco [facility] Start: 12-10-2020 Alcohol intake Current non-dr medical cost consultant of alcohol (finding) [facility] Start: 03-20-2020 History SDOH Alcohol Frequency 3 [facility] Start: 03-20-2020 End: 12-08-2020 History SDOH Alcohol Std Drinks 1 [facility] Start: 03-20-2020 End: 12-08-2020 History SDOH Social Connections Phone 2 [facility] Start: 03-20-2020 History SDOH Social Connections Get Together 98 [facility] Start: 03-20-2020 History SDOH Financial 5 [facility] Start: 03-20-2020 Education 20 [facility] Start: 1945 Sex Assigned At Male C [facility] Note 04-18-2022 Telephone Encounter - Lisbet Espino RN - 04/18/2022 10:44 AM EDT Note Date & Type Note Facility 04-18-2022 Miscellaneous Notes Opened in Error documented in this encounter [facility] Note 04-07-2022 Telephone Encounter - Saul Newman LPN - 04/07/2022 1:49 PM EDT Note Date & Type Note Facility 04-07-2022 Miscellaneous Notes Patient phones requesting refills as follows: Pending Prescriptions Disp Refills DOXAZOSIN 2 MG TABLET 90 tablet 3 Sig: Take 1 tablet by mouth once daily. SAMMI: No ABIGAIL 12/10/20 NOV no upcoming appt. *Pt overdue for follow up appt. message to pt advising of the same. Awaiting response. Please review and advise. Saul Newman LPN documented in this encounter [facility] History of Past illness Narrative 06-07-2015 Note Date & Type Note Facility documented as of this encounter (statuses as of 04/08/2022) [facility] History of Past illness Narrative 06-07-2015 Note Date & Type Note Facility documented as of this encounter (statuses as of 04/18/2022) [facility] Summary Purpose Family History No Family History Records Found Advance Directives No Advanced Directives Records Found Additional Source Comments (unrecognized sect ion and content) No Status Records Found INFORMATION SOURCE (unrecogn ized section and content) Source Comments (unrecognize d section and content) In the event this informatio n is protected by the Federal Confidentiality of Alcohol and Drug Abuse Patient Records regulations: The Federal rules restrict any use of the information to criminally investigate or prosecute any alcohol or drug abuse patient.[facility] the event this information is protected by the Federal Confidentiality of Alcohol and Drug Abuse Patient Records regulations: The Federal rules restrict any use of the information to criminally investigate or prosecute any alcohol or drug abuse patient.[facility] Reason for Visit (unrecogniz ed section and content) Reason Onset Date Comments Opened In Error 04/18/2022 Care Teams (unrecognized sec tion and content) Study Director Relationship Specialty Start Date End Date Vita Pacheco PA-C [address] [place] [address] PCP - General Family Practice 07/18/19 FOR RECORDS PERTAINING TO PATIENTS WHO ARE OR HAVE BEEN ENROLLED IN A CHEMICAL DEPENDENCY/SUBSTANCEABUSE PROGRAM, SOME INFORMATION MAY BE OMITTED. This clinical summary was aggregated from multiple sources. Caution should be exercised in using it in the provision of clinical care. This summary normalizes information from multiple sources, and as a consequence, information in this document may materially change the coding, format and clinical context of patient data. In addition, data may be omitted in some cases. CLINICAL DECISIONS SHOULD BE BASED ON THE PRIMARY CLINICAL RECORDS. [employer] [facility]. provides no warranty or guarantee of the accuracy or completeness of information in this document.
[2023-10-14 17:50] LABS: Absolute Neutrophil Count 4.6 X10^3/uL (2.0-7.7); Basophil# 0.05 X10^3/uL; Basophil% 0.7 % (0-1); Eosinophil# 0.16 X10^3/uL; Eosinophils% 2.3 % (0-5); Hematocrit 45.3 % (40-54); Hemoglobin 14.7 g/dL (13.0-16.5); Mean Corp Hgb Conc 32.5 g/dL (32-36); Mean Corpuscular Hgb 30.6 pg (27.0-32.0); Mean Corpuscular Volume 94.4 fL (80-94); Mean Platelet Vol. 9.3 fl (6.2-12.0); Monocyte# 0.46 X10^3/uL; Monocyte% 6.8 % (0-10); NRBC Flagged by Analyzer 0 % (0-5); Neutrophil # 4.58 X10^3/uL (2.7-7.7); Neutrophil % 67.3 % (47-70); Platelet Count 243 K/mm3 (150-450); RBC Distribution Width CV 12.8 % (11.6-14.6); RBC Distribution Width SD 44.2 fl (35.1-43.9); White Blood Count 6.8 K/mm3 (4.4-11.0)
[2023-10-14 18:00] LABS: Anion Gap 10 (5-15); BUN 17 mg/dL (7-18); BUN/Creat Ratio 16.5 RATIO (10-20); Calcium,Total 8.9 mg/dL (8.5-10.1); Chloride 106 mmol/L (98-107); Creatinine, Serum 1.03 mg/dL (0.70-1.30); EST Glomerular Filtration Rate 74 mL/min (>60); Est Glom Filt Rate - Afr Amer 90 mL/min (>60); Estimated Creatinine Clearance 61.94 ml/min; Glucose 109 mg/dL (74-106); Potassium 3.8 mmol/L (3.5-5.1); Sodium Level 141 mmol/L (136-145)
--- NOTE | 2023-10-14 18:00 | ED.RN ---
velez now draining light pink. no clots noted.
--- NOTE | 2023-10-14 18:24 | HP.PCM_ITS ---
HPI - General General Date of Admission: 10/14/23 Chief Complaint: Gross hematuria status post TURBT HPI Narrative 78-year-old male presents with gross hematuria, had a resection of bladder tumor will admit the patient for observation [facility] Medical History Abnormal prostate by palpation Alcohol use Back pain Bladder disease Gastric reflux History of echocardiogram History of stress test Leg cramps Non-smoker Right fibular fracture Superior mesenteric artery syndrome Torn Achilles tendon Wears glasses Home Medications doxazosin 2 mg tablet (Cardura) 2 mg PO QHS #90 tabs 06/17/23 [Rx Last Taken Un known] omeprazole 20 mg capsule,delayed release 20 mg PO QHS #90 caps 06/17/23 [Rx Last Taken Unknown] ciprofloxacin HCl 500 mg tablet (Cipro) 500 mg PO BID #10 tabs 10/07/23 [Rx Last Taken Unknown] ibuprofen 600 mg tablet 600 mg PO Q6H PRN fever or pain #20 tabs 10/07/23 [Rx Last Taken Unknown] Allergy/AdvReac Type Severity Reaction Status Date / Time phenazopyridine Allergy Severe other Verified 10/14/23 16:51 aspirin AdvReac Other Verified 10/14/23 16:51 Family History Mother Mental disorder Alzheimer's after age 80 Surgical History H/O hemorrhoidectomy H/O hernia repair History of appendectomy History of cataract extraction with lens replacement History of open reduction and internal fixation (ORIF) procedure Hx of tonsillectomy Social History Smoking Status: Never smoker alcohol intake: current details: beer or wine only and very infrequently substance use type: does not use what type of physical activity do you participate in: walking frequency: 1-2 times per week ROS Constitutional Constitutional: Denies chills, fever(s) or malaise Eyes Eyes: Denies blurry vision or change in vision ENT HEENT: Reports none Cardiovascular Cardiovascular: Denies chest pain or palpitations Respiratory/Chest Respiratory/Chest: Denies cough or shortness of breath with exertion Gastrointestinal Gastrointestinal: Denies abdominal pain, constipation or diarrhea Musculoskeletal Musculoskeletal: Denies back pain, joint stiffness or joint swelling Integumentary Integumentary: Denies dry skin, jaundice, lesions or rash Neurologic Neurologic: Denies confusion, syncope or weakness Psychiatric Psychiatric: Reports none; Denies anxiety or depression Endocrine Endocrinology: Denies excessive sweating, fatigue or flushing Hematologic/Lymphatic Hematologic/Lymphatic: Denies anemia, easy bleeding or easy bruising Vital Signs Vital Signs Vital Signs: 10/14/23 16:52 Temperature 98.6 F Temperature Source Temporal Pulse Rate 82 Respiratory Rate 14 Blood Pressure 167/70 H Blood Pressure Mean 102 Pulse Ox 98 Oxygen Delivery Method Room Air Weight Weight: 85.1 kg Body Mass Index (BMI) 26.2 Physical Exam Const alert and oriented x3 General Appearance: cooperative HEENT normocephalic, head/scalp atraumatic, EAC's normal and TM's normal bilaterally Eyes PERRL and EOMs intact bilaterally Pupil: sluggish Neck no lymphadenopathy, supple and no JVD General: trachea midline Lymph Lymphatic: no lymphadenopathy noted, lymphedema and lymphadenopathy Resp normal respiratory effort, normal air movement and clear to auscultation bilaterally Cardio regular rate, regular rhythm and peripheral pulses 2+ throughout GI soft to palpation, non-tender and non-distended Extremity normal capillary refill and no clubbing, cyanosis or edema General Extremity: no tenderness to palpation of joints or extremities Skin no rashes or lesions noted General Skin Exam: turgor normal Lesions: no lesions Rashes: no rashes Neuro CN's II-XII intact bilaterally Speech: speech normal Motor Exam: strength 5/5 throughout; Negative for general weakness Psych thought process normal, cooperative and affect normal Appearance: appropriate Results Medical Records Data Attestation: I reviewed the patient's medical records Lab / Micro Data 10/14/23 17:35 10/14/23 17:35 Labs: Laboratory Results - last 24 hr 10/14/23 17:35: WBC 6.8, RBC 4.80, Hgb 14.7, Hct 45.3, MCV 94.4 H, MCH 30.6, M CHC 32.5, RDW Std Deviation 44.2 H, RDW Coeff of Jose 12.8, Plt Count 243, MPV 9.3, Immature Gran % (Auto) 0.900, Neut % (Auto) 67.3, Lymph % (Auto) 22.0, Harvey % (Auto) 6.8, Eos % (Auto) 2.3, Baso % (Auto) 0.7, Absolute Neuts (auto) 4.6, Absolute Lymphs (auto) 1.50, Nucleated RBC % 0, Sodium 141, Potassium 3.8, Chloride 106, Carbon Dioxide 25.0, Anion Gap 10, BUN 17, Creatinine 1.03, Estim Creat Clear Calc 61.94, Est GFR (MDRD) Af Amer 90, Est GFR (MDRD) Non-Af 74, BUN/Creatinine Ratio 16.5, Glucose 109 H, Calcium 8.9 Assessment & Plan Assessment/Plan (1) Recurrent gross hematuria:
--- NOTE | 2023-10-14 18:25 | DCINST_ITS ---
Discharge Instructions Diet Discharge Diet: No restrictions Activity Discharge Activity: Return to Normal Activity and May Not Drive (while taking narcotic pain medications.) Dressing / Incision Call your doctor if you observe: Fever of 101 or Higher Follow Up Care Please Follow Up With: Joseph Carpenter MD When: Call [phone] for an appointment Test Results: Test results from this visit will be discussed in further detail at your follow- up appointment, if applicable. Discharge Plan Triage Chief Complaint: Luis C/O ED Midlevel Provider: Stephanie Delgado ED Provider: Benedicto Garland Dx/Rx/DC Orders Prescriptions: No Action doxazosin [Cardura] 2 mg tablet 2 mg PO QHS Qty: 90 3RF omeprazole 20 mg capsule,delayed release(DR/EC) 20 mg PO QHS Qty: 90 3RF ciprofloxacin HCl [Cipro] 500 mg tablet 500 mg PO BID Qty: 10 0RF ibuprofen 600 mg tablet 600 mg PO Q6H PRN (Reason: fever or pain) Qty: 20 0RF Primary Care Provider: Mary Ellen Jules Referrals: Mary Ellen Jules MD [Primary Care Provider] -
--- OUTSIDE RECORDS SUMMARY | 2023-10-14 18:50 | XMS RPT_ITS | CCD ---
Author Name Unknown Address [address] [place] [address] [address] [place] [address] Organization [facility] Care Team Providers Care Superintendent Of Schools Name Role Phone Vita Pacheco PA-C Primary Care Provider Allergies Allergy Classification Reported Allergen(s) Allergy Type Date of Onset Reaction(s) Facility (2 sources) Salicylic Acid Drug Allergy 10-11-2007 GI Upset [facility] Medications Completed/Discontinued Medications Medication Drug Class(es) [...] Watkins on PA-C Work Phone: [facility] [place] Procedures Date Procedure Procedure Detail Performing Clinician Start: 12-08-2020 Adult depression screening assessment Andre Weiss MD Work Phone: Plan of Treatment Date Care Activity Detail Author Start: 11-27-2023 DIABETES SCREEN DIABETES SCREEN [facility] Start: 12-08-2021 Adult depression scr eening assessment DEPRESSION SCREENING [facility] Start: 11-29-2021 COVID-19 VACCINE (4 - Booster for Pfizer series) COVID-19 VACCINE (4 - Booster for Pfizer series) [facility] Start: 10-26-2021 ADVANCE DIRECTIVE DISCUSSION ADVANCE DIRECTIVE DISCUSSION [facility] Start: 06-14-2009 Urine microalbumin profile DTAP,TDAP ,TD (1 - Tdap) [facility] Start: 1963 HEPATITIS C SCREENING HEPATITIS C SC REENING [facility] Immunizations Immunization Date Immunization Notes Care Provider Yvonne ridley 08-19-2021 influenza, high dose seasonal, preservative-free Andre Weiss MD Work Phone: [facility] 07-29-2021 COVID-19 vaccine, ag e 12+ yr (PFIZER-BIONTECH - PURPLE TOP) Andre Weiss MD Work Phone: [facility] 12-29-2020 COVID-19 vaccine, ag e 12+ yr (PFIZER-BIONTECH - PURPLE TOP) Andre Weiss MD Work Phone: [facility] 12-08-2020 COVID-19 vaccine, ag e 12+ yr (PFIZER-BIONTECH - PURPLE TOP) Andre Weiss MD Work Phone: [facility] 10-24-2020 zoster vaccine recombinant Andre Weiss MD Work Phone: [facility] 06-28-2020 zoster vaccine recombinant Andre Weiss MD Work Phone: [facility] 07-18-2019 influenza, high dose seasonal, preservative-free Andre Weiss MD Work Phone: [facility] 08-27-2018 influenza, high dose seasonal, preservative-free Andre Weiss MD Work Phone: [facility] 08-25-2017 influenza, high dose seasonal, preservative-free Andre Weiss MD Work Phone: [facility] 01-01-2017 pneumococcal polysaccharide vaccine, 23 valent Andre Weiss MD Work Phone: [facility] Work Phone: 08-13-2016 influenza, high dose seasonal, preservative-free Andre Weiss MD Work Phone: [facility] Work Phone: 07-26-2015 influenza, high dose seasonal, preservative-free Andre Weiss MD Work Phone: [facility] 06-27-2015 pneumococcal conjuga te vaccine, 13 valent Andre Weiss MD Work Phone: [facility] 07-24-2014 influenza, seasonal, injectable Andre Weiss MD Work Phone: [facility] 08-12-2013 influenza virus vacc ine, unspecified formulation Andre Weiss MD Work Phone: [facility] 08-13-2012 influenza virus vacc ine, unspecified formulation Andre Weiss MD Work Phone: [facility] Work Phone: 07-26-2009 zoster vaccine, live Andre Weiss MD Work Phone: [facility] Work Phone: 06-13-2009 tetanus and diphther ia toxoids, adsorbed, preservative free, for adult use (2 Lf of tetanus toxoid and 2 Lf of diphtheria toxoid) Andre Weiss MD Work Phone: [facility] 09-12-2008 influenza virus vacc ine, unspecified formulation Andre Weiss MD Work Phone: [facility] 09-03-2007 influenza virus vacc ine, unspecified formulation Andre Weiss MD Work Phone: [facility] Work Phone: 09-03-2007 pneumococcal polysaccharide vaccine, 23 valent Andre Weiss MD Work Phone: [facility] Work Phone: Payers Date Payer Category Payer Medicare [employer] MEDICARE A ETNA MEDICARE PPO [id number] 2010-Present [phone] [address] [place] [address] PPO [id number] Social History Date Type Detail Facility Tobacco smoking status NHIS Never smoked tobacco [facility] Start: 12-10-2020 Alcohol intake Current non-dr respiratory scientist of alcohol (finding) [facility] Start: 03-20-2020 History SDOH Alcohol Frequency 3 [facility] Start: 03-20-2020 End: 12-08-2020 History SDOH Alcohol Std Drinks 1 [facility] Start: 03-20-2020 End: 12-08-2020 History SDOH Social Connections Phone 2 [facility] Start: 03-20-2020 History SDOH Social Connections Get Together 98 [facility] Start: 03-20-2020 History SDOH Financial 5 [facility] Start: 03-20-2020 Education 20 [facility] Start: 1945 Sex Assigned At Male C [facility] Note 04-18-2022 Telephone Encounter - Lisbet Espino RN - 04/18/2022 10:44 AM EDT Note Date & Type Note Facility 04-18-2022 Miscellaneous Notes Opened in Error documented in this encounter [facility] Note 04-07-2022 Telephone Encounter - Saul [...] Saul Newman LPN documented in this encounter [facility] History of Past illness Narrative 06-07-2015 Note Date & Type Note Facility documented as of this encounter (statuses as of 04/08/2022) [facility] History of Past illness Narrative 06-07-2015 Note Date & Type Note Facility documented as of this encounter (statuses as of 04/18/2022) [facility] Summary Purpose Family History No Family [...] or prosecute any alcohol or drug abuse patient.[facility] the event this information is protected by the Federal Confidentiality of Alcohol and Drug Abuse Patient Records regulations: The Federal rules restrict any use of the information to criminally investigate or prosecute any alcohol or drug abuse patient.[facility] Reason for Visit (unrecogniz ed section and content) Reason Onset Date Comments Opened In Error 04/18/2022 Care Teams (unrecognized sec tion and content) Superintendent Of Schools Relationship Specialty Start Date End Date Vita Pacheco PA-C [address] [place] [address] PCP - General Family Practice 07/18/19 FOR [...] BE BASED ON THE PRIMARY CLINICAL RECORDS. [employer] [facility]. provides no warranty or guarantee of the accuracy or completeness of information in this document.
[2023-10-14 19:06] VITALS: BP 142/87; PULSE 72; RESP 16; O2SAT 97
[2023-10-14 19:52] VITALS: BMI 25.4
[2023-10-14 20:01] VITALS: BP 147/75; PULSE 72; RESP 16; TEMP 36.4; O2SAT 96
[2023-10-14] MEDS: 0.9% Normal Saline (1000mL) 1,000 ML 75 ML IV (20:05)
[2023-10-14] MEDS: Pantoprazole Sodium 20 MG Tablet PO (21:25)
[2023-10-14] MEDS: Doxazosin 1 MG Tablet 2 MG PO (21:25)
[2023-10-14] MEDS: Cefazolin 1 GM/50 ML BAG IV (21:26)
[2023-10-15 03:00] VITALS: BP 125/63; PULSE 74; RESP 18; TEMP 36.6; O2SAT 94
[2023-10-15] MEDS: Cefazolin 1 GM/50 ML BAG IV (06:37)
[2023-10-15] MEDS: 0.9% Normal Saline (1000mL) 1,000 ML 75 ML IV (06:38)
--- NOTE | 2023-10-15 07:19 | PCM.PN.GU ---
Subjective Subjective Status post TURBT was admitted last night for gross hematuria the urine is clear this morning I took out his Luis catheter he should be able to go home today if he is able to urinate okay one of the urinate several times check a bladder residual make sure is not high. Objective Data Objective Data Vital Signs: Vital Signs Temp Pulse Resp BP Pulse Ox O2 Del Method 98 F 74 18 125/63 H 94 Room Air 10/15/23 03:00 10/15/23 03:00 10/15/23 03:00 10/15/23 03:00 10/15/23 03:00 10/15/23 03:00 Oxygen Delivery Method Room Air Weight: 82.9 kg Body Mass Index (BMI) 25.4 Intake & Output: Intake and Output for Last 24 Hours 10/13/23 10/14/23 10/15/23 23:59 23:59 23:59 Intake Total 50 / 50 841.25 / 841.25 Output Total 1000 / 1000 650 / 650 Balance -950 / -950 191.25 / 191.25 Lab / Micro Data 10/14/23 17:35 10/14/23 17:35 Labs: Laboratory Results - last 24 hr 10/14/23 17:35: WBC 6.8, RBC 4.80, Hgb 14.7, Hct 45.3, MCV 94.4 H, MCH 30.6, MCHC 32.5, RDW Std Deviation 44.2 H, RDW Coeff of Jose 12.8, Plt Count 243, MPV 9.3, Immature Gran % (Auto) 0.900, Neut % (Auto) 67.3, Lymph % (Auto) 22.0, [place] % (Auto) 6.8, Eos % (Auto) 2.3, Baso % (Auto) 0.7, Absolute Neuts (auto) 4.6, Absolute Lymphs (auto) 1.50, Nucleated RBC % 0, Sodium 141, Potassium 3.8, Chloride 106, Carbon Dioxide 25.0, Anion Gap 10, BUN 17, Creatinine 1.03, Estim Creat Clear Calc 61.94, Est GFR (MDRD) Af Amer 90, Est GFR (MDRD) Non-Af 74, BUN/Creatinine Ratio 16.5, Glucose 109 H, Calcium 8.9
[2023-10-15 09:49] VITALS: BP 138/72; PULSE 83; RESP 16; TEMP 37; O2SAT 96
--- NOTE | 2023-10-15 10:00 | CASEMGMT ---
Social Work SW met with pt to discuss advance directives.? Pt confirms he has completed a living will and health care POA naming his Lavern Barr. Living will found in EMR and printed and placed on pt chart.? Pt notified that HCPOA is not on file at [facility] and SW requested it be brought in for scanning into the EMR.? LUCY Banks
== END 2023-10-15 12:25 | disposition home or self-care (01) ==
LOC: ED 18:37 → MS3 18:48
PROVIDERS: Admitting Provider Urology; Emergency Provider Emergency Medicine; PCP Internal Medicine; Visit Provider Urology
DX: R31.0 Gross hematuria (principal); Y73.8 Miscellaneous gastroenterology and urology devices associated with adverse incidents, not elsewhere classified; K21.9 Gastro-esophageal reflux disease without esophagitis; Z79.899 Other long term (current) drug therapy
CPT/HCPCS: 80048; 85025; 96361; 96365; 96366; 99221; 99284; J7030; A4216; G0378

== ENCOUNTER → 2023-12-16 | Outpatient (CLI) | payer MEDICARE, SELFPAY ==
--- NOTE | 2023-12-16 08:15 | LES_PTH ---
PATHOLOGY RESULTS PATIENT: ARIA HERNANDEZ LOC: [facility] U#:[id number] AGE/SX: 78/M ROOM: RE12/16/[address]: Dr. Anuel Bland MD : 1945 BED: DIS: 12/16/2023 SPEC #: [id number] RECD: 12/16/23 12:03 STATUS: ANGUS PETERSEN #: [id number] NEO: 12/16/23 08:[address]: Anuel Bland DEPT: SURGICAL PATHOLOGY RECD BY: Alejandra Orozco ENTERED: 12/16/23 12:03 SP TYPE: Lesion OTHR DR: Dr. Mary Ellen Jules MD Tissues: Skin of wrist and hand Procedures: Surgery Specimen Level IV HEADER OPERATION: Excision of right hand PRE-OP DIAGNOSIS: Skin lesions TISSUE SUBMITTED: Right hand lesion MICROSCOPIC DIAGNOSIS Skin lesion of right hand, biopsy: Verrucoid keratosis with associated cutaneous horn, inflamed. Solar elastosis. AM:hugo 12/17/2023 MICROSCOPIC DESCRIPTION Slides are reviewed. GROSS DESCRIPTION Received in fixative is one container labeled with the patient's name and designated right hand lesion. The specimen consists of a raised, chung-brown lesion measuring 1.5 x 1.2 x 0.5 cm. The specimen is inked, serially sectioned and submitted entirely in two cassettes. / SJ:hugo 12/16/2023 TC:5 CPT: 69847
== END | disposition home or self-care (01) ==
LOC: LABSPEC 11:27
PROVIDERS: PCP Internal Medicine; Referring Provider Surgery; Visit Provider Surgery
DX: L98.9 Disorder of the skin and subcutaneous tissue, unspecified (principal)
CPT/HCPCS: 88305

== ENCOUNTER → 2024-07-12 | Outpatient (CLI) | payer MEDICARE, SELFPAY ==
[2024-07-12 08:50] LABS: Mucous, Urine 0 SEEN /hpf (<or=2+); Squamous Epithelial Cells - UA 0 SEEN /hpf (0-5)
[2024-07-12 12:10] LABS: Absolute Lymphocyte Count 1.67 X10^3/uL (0.83-4.51); Absolute Neutrophil Count 4.8 X10^3/uL (2.0-7.7); Basophil# 0.06 X10^3/uL; Basophil% 0.8 % (0-1); Eosinophils% 2.6 % (0-5); Hematocrit 42.8 % (40-54); Hemoglobin 13.7 g/dL (13.0-16.5); Lymphocyte # 1.67 X10^3/ul (0.83-4.51); Lymphocyte % 22.1 % (19-41); Mean Corpuscular Hgb 30.4 pg (27.0-32.0); Mean Corpuscular Volume 94.9 fL (80-94); Mean Platelet Vol. 9.5 fl (6.2-12.0); Monocyte# 0.71 X10^3/uL; Monocyte% 9.4 % (0-10); NRBC Flagged by Analyzer 0 % (0-5); Neutrophil # 4.84 X10^3/uL (2.7-7.7); Neutrophil % 63.9 % (47-70); Platelet Count 328 K/mm3 (150-450); RBC Distribution Width CV 13.1 % (11.6-14.6); RBC Distribution Width SD 45.5 fl (35.1-43.9); Red Blood Count 4.51 M/mm3 (4.6-6.2); White Blood Count 7.6 K/mm3 (4.4-11.0)
[2024-07-12 12:23] LABS: Color, Urine Yellow (Yellow); Glucose, Dipstick Normal (Normal); Ketone-Dipstick Negative (Negative); Leukocyte Esterase-Dipstick 500 /ul (Negative); Nitrite-Dipstick Negative (Negative); Occult Blood-Urine 25 /ul (Negative); Protein-Dipstick 30 mg/dl (Negative); Specific Gravity, Urine 1.015 (1.002-1.030); Urine Bilirubin Dipstick Negative (Negative); Urine Clarity Cloudy (Clear); Urine Urobilinogen Normal (Normal); Urine pH 6.5 (5.0 - 8.0)
[2024-07-12 12:24] LABS: Erythrocyte Sedimentation Rate 65 mm/hr (0-20)
[2024-07-12 12:48] LABS: White Blood Cells >100 SEEN /hpf (0-5)
[2024-07-12 12:49] LABS: Bacteria 2+ /hpf (None Seen); Renal Epithelial Cells 10-25 SEEN /hpf (0-5); Transitional Epithelial - Ur 0-5 SEEN /hpf (0-5)
[2024-07-12 12:50] LABS: Red Blood Cells-Urine 5-10 SEEN /hpf (0-5)
[2024-07-12 12:56] LABS: ALB/GLOB Ratio 0.7 RATIO (0.9-2.4); AST(SGOT) 26 U/L (15-37); Alanine Aminotransfer ALT/SGPT 52 U/L (16-61); Albumin, Serum 3.3 g/dL (3.2-5.0); Alkaline Phosphatase 70 U/L (45-117); Anion Gap 8 (5-15); BUN 17 mg/dL (7-18); Calcium,Total 9.5 mg/dL (8.5-10.1); Chloride 106 mmol/L (98-107); Creatinine, Serum 0.94 mg/dL (0.70-1.30); EST Glomerular Filtration Rate 82 mL/min (>60); Est Glom Filt Rate - Afr Amer 99 mL/min (>60); Globulin 4.5 g/dL (2.2-4.2); Glucose 109 mg/dL (74-106); LDH 224 U/L (87-241); Protein, Total 7.8 g/dL (6.4-8.2); Sodium Level 138 mmol/L (136-145)
== END | disposition home or self-care (01) ==
LOC: BIMLAB 08:49
PROVIDERS: PCP Internal Medicine; Visit Provider Internal Medicine
DX: R50.9 Fever, unspecified (principal); R21 Rash and other nonspecific skin eruption
CPT/HCPCS: 36415; 80053; 81001; 83615; 85025; 85652; 86140

== ENCOUNTER → 2024-07-25 | Outpatient (CLI) | payer MEDICARE, SELFPAY ==
[2024-07-25 09:51] LABS: Bacteria 0 SEEN /hpf (None Seen); Mucous, Urine 0 SEEN /hpf (<or=2+)
[2024-07-25 12:23] LABS: Color, Urine Yellow (Yellow); Glucose, Dipstick Normal (Normal); Ketone-Dipstick Negative (Negative); Leukocyte Esterase-Dipstick 25 /ul (Negative); Nitrite-Dipstick Negative (Negative); Occult Blood-Urine Negative /ul (Negative); Protein-Dipstick 15 mg/dl (Negative); Urine Bilirubin Dipstick Negative (Negative); Urine Clarity Clear (Clear); Urine Urobilinogen Normal (Normal); Urine pH 6.5 (5.0 - 8.0)
[2024-07-25 12:55] LABS: Red Blood Cells-Urine 0-5 SEEN /hpf (0-5); Squamous Epithelial Cells - UA 0-5 SEEN /hpf (0-5); White Blood Cells 5-10 SEEN /hpf (0-5)
[2024-07-25 12:56] LABS: CRP < 2.90 mg/L (0.0-3.0)
[2024-07-25 14:12] LABS: Erythrocyte Sedimentation Rate 20 mm/hr (0-20)
== END | disposition home or self-care (01) ==
LOC: BIMLAB 09:39
PROVIDERS: PCP Internal Medicine; Referring Provider Internal Medicine; Visit Provider Internal Medicine
DX: N39.0 Urinary tract infection, site not specified (principal); R50.9 Fever, unspecified; R21 Rash and other nonspecific skin eruption
CPT/HCPCS: 36415; 81001; 85652; 86140; 87086

== ENCOUNTER → 2024-11-01 | Outpatient (CLI) | payer MEDICARE, SELFPAY ==
--- NOTE | 2024-11-01 | CYSPIN_PTH ---
PATIENT: ARIA HERNANDEZ LOC: [facility] U#:[id number] AGE/SX: 79/M ROOM: RE11/01/[address]: Isa Rgoers : 1945 BED: DIS: 11/01/2024 SPEC #: [id number] RECD: 11/01/24 16:33 STATUS: ANGUS NICOLA #: [id number] NEO: 11/01/24 00:[address]: Isa Rogers DEPT: CYTOLOGY RECD BY: Laurent Mello ENTERED: 11/02/24 08:59 SP TYPE: CYSPIN FL OTHR DR: Dr. 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 JS, 11/02/2024 CYTOLOGY STUDY Slides are reviewed. CYTOLOGY GROSS Received is 30 ml of yellow-cloudy fluid labeled with the patient's name and and designated per the requisition as urine. Submitted for cytology preparation. Mr 11/02/2024 TC:2 CPT: 87672
[2024-11-01 16:34] LABS: Cytology, Body Fluid / CSF SEE PATHOLOGY REPORT
== END | disposition home or self-care (01) ==
LOC: LABSPEC 16:28
PROVIDERS: PCP Internal Medicine; Referring Provider Nurse Practitioner; Visit Provider Nurse Practitioner
DX: C67.2 Malignant neoplasm of lateral wall of bladder (principal)
CPT/HCPCS: 88108; 88313

== ENCOUNTER → 2025-02-28 | Outpatient (CLI) | payer MEDICARE, SELFPAY ==
[2025-02-28 12:50] LABS: Erythrocyte Sedimentation Rate 4 mm/hr (0-20)
[2025-02-28 12:58] LABS: Absolute Lymphocyte Count 2.17 X10^3/uL (0.83-4.51); Absolute Neutrophil Count 2.5 X10^3/uL (2.0-7.7); Basophil# 0.06 X10^3/uL; Basophil% 1.1 % (0-1); Eosinophil# 0.33 X10^3/uL; Eosinophils% 6.1 % (0-5); Hematocrit 46.9 % (40-54); Hemoglobin 15.5 g/dL (13.0-16.5); Lymphocyte # 2.17 X10^3/ul (0.83-4.51); Mean Corpuscular Hgb 31.6 pg (27.0-32.0); Mean Corpuscular Volume 95.7 fL (80-94); Mean Platelet Vol. 10.1 fl (6.2-12.0); Monocyte# 0.37 X10^3/uL; Monocyte% 6.8 % (0-10); NRBC Flagged by Analyzer 0 % (0-5); Neutrophil # 2.48 X10^3/uL (2.7-7.7); Neutrophil % 45.8 % (47-70); Platelet Count 199 K/mm3 (150-450); RBC Distribution Width CV 13.2 % (11.6-14.6); RBC Distribution Width SD 46.7 fl (35.1-43.9); White Blood Count 5.4 K/mm3 (4.4-11.0)
[2025-02-28 13:09] LABS: Hemoglobin A1c 5.8 % (<=5.6)
[2025-02-28 13:27] LABS: ALB/GLOB Ratio 1.4 RATIO (0.9-2.4); AST(SGOT) 24 U/L (<=37); Alanine Aminotransfer ALT/SGPT 27 U/L (<=46); Albumin, Serum 4.4 g/dL (3.4-4.8); Alkaline Phosphatase 49 U/L (40-129); Anion Gap 11 (5-15); BUN 15 mg/dL (4-19); BUN/Creat Ratio 16.4 RATIO (10-20); Calcium,Total 9.4 mg/dL (7.6-11.0); Carbon Dioxide 24.3 mmol/L (21.0-32.0); Chloride 104 mmol/L (98-108); Cholesterol 208 mg/dL (<=200); Creatinine, Serum 0.91 mg/dL (0.70-1.20); EST Glomerular Filtration Rate 85 (>60); Globulin 3.1 g/dL (2.2-4.2); Glucose 118 mg/dL (70-99); High Density Lipoprotein 41 mg/dL; Low Density Lipoprotein Calc. 149 mg/dL; PSA,Total - Annual Screen 0.98 ng/mL (0.02-4.00); Potassium 4.5 mmol/L (3.3-5.1); Protein, Total 7.5 g/dL (5.9-8.4); Sodium Level 139 mmol/L (133-145); Total Bilirubin 0.37 mg/dL (0.00-1.30); Triglycerides 90 mg/dL; Very Low Density Lipoprotein 18 mg/dL (5-40); Vitamin B12 425 pg/mL (180-914); Vitamin D,25 Hydroxy 13.8 ng/mL (30-100); cholesterol:hdl ratio screen 5.07
== END | disposition home or self-care (01) ==
LOC: BIMLAB 08:01
PROVIDERS: PCP Internal Medicine; Visit Provider Internal Medicine
DX: K21.9 Gastro-esophageal reflux disease without esophagitis (principal); R53.83 Other fatigue; E53.8 Deficiency of other specified B group vitamins; R73.9 Hyperglycemia, unspecified; E78.5 Hyperlipidemia, unspecified; Z13.220 Encounter for screening for lipoid disorders; E55.9 Vitamin D deficiency, unspecified; Z12.5 Encounter for screening for malignant neoplasm of prostate
CPT/HCPCS: 36415; 80053; 80061; 82306; 82607; 83036; 83735; 84153; 84402; 84403; 84439; 84443; 84481; 85025; 85652; G0103

== ENCOUNTER → 2025-05-09 | Outpatient (CLI) | payer MEDICARE, SELFPAY ==
--- NOTE | 2025-05-09 | FLU_PTH ---
PATIENT: ARIA HERNANDEZ LOC: [facility] U#:[id number] AGE/SX: 79/M ROOM: RE05/09/[address]: Isa Rogers : 1945 BED: DIS: 05/09/2025 SPEC #: [id number] RECD: 05/09/25 08:30 STATUS: ANGUS NICOLA #: [id number] NEO: 05/09/25 00:[address]: Isa Rogers DEPT: CYTOLOGY RECD BY: Dain Henriquez ENTERED: 05/10/25 09:40 SP TYPE: Fluid OTHR DR: Dr. Mary Ellen Jules MD Tissues: A - Urine Procedures: Special Stain Group II Surgery Specimen Level IV Cytospin Fluid HEADER OPERATION: Not noted PRE-OP DIAGNOSIS: Malignant neoplasm of lateral wall of bladder TISSUE SUBMITTED: A- Urine for cytology DIAGNOSIS CYTOLOGY A. Urine: * Negative for high grade urothelial carcinoma CYTOLOGY STUDY Slides are reviewed. CYTOLOGY GROSS A. Received is 50 ml of yellow-cloudy fluid labeled with the patient's name and and designated per the requisition as urine. Submitted for cytology preparation. Mr 05/10/2025 CPT: 84979
--- NOTE | 2025-05-09 | FLU_PTH ---
PATIENT: ARIA HERNANDEZ LOC: [facility] U#:[id number] AGE/SX: 79/M ROOM: RE05/09/[address]: Isa Rogers : 1945 BED: DIS: 05/09/2025 SPEC #: [id number] RECD: 05/09/25 08:30 STATUS: ANGUS NICOLA #: [id number] NEO: 05/09/25 00:[address]: Isa Rogers DEPT: CYTOLOGY RECD BY: Dain Henriquez ENTERED: 05/10/25 09:40 SP TYPE: Fluid OTHR DR: Dr. Mary Ellen Jules MD Tissues: A - Urine Procedures: Special Stain Group II Surgery Specimen Level IV Cytospin Fluid HEADER OPERATION: Not noted PRE-OP DIAGNOSIS: Malignant neoplasm of lateral wall of bladder TISSUE SUBMITTED: A- Urine for cytology DIAGNOSIS CYTOLOGY A. Urine: * Negative for high grade urothelial carcinoma CYTOLOGY STUDY Slides are reviewed. CYTOLOGY GROSS A. Received is 50 ml of yellow-cloudy fluid labeled with the patient's name and and designated per the requisition as urine. Submitted for cytology preparation. Mr 05/10/2025 CPT: 77276
[2025-05-09 17:01] LABS: Cytology, Body Fluid / CSF SEE PATHOLOGY REPORT
--- OUTSIDE RECORDS SUMMARY | 2025-05-09 22:18 | XMS RPT_ITS | CCD ---
Author Organization [facility] Care Team Providers Care Chocolatier Name Role Phone Vita Pacheco PA-C Primary Care Provider [phone] Dr. Mary Ellen Jules Attending Provider [phone] Dr. Anuel Bland Attending Provider Dr. Mary Ellen Jules Referring Provider [phone] Mary Ellen Jules Attending Provider Dr. Anuel Bland Attending Provider Dr. Mary Ellen Jules Referring Provider Dr. Mary Ellen Jules Primary Care Provider Dr. Will Olivo Attending Provider Dr. Will Olivo Referring Provider Dr. Mary Ellen uJles MD Primary Care Provider [phone] Dr. Mary Ellen Jules MD Attending Provider Mary Ellen Jules Primary Care Unavailable Mary Ellen uJles Attending Unavailable Mary Ellen Jules Referring Unavailable Mary Ellen Jules Primary Care Unavailable Mary Ellen Jules Attending Unavailable Mary Ellen Jules Primary Care Unavailable SlaterIsa Attending Unavailable SlaterIsa Referring Unavailable Mary Ellen Jules Primary Care Unavailable Mary Ellen Jules Attending Unavailable Mary Ellen Jules Primary Care Unavailable Mary Ellen Jules Attending Unavailable Mary Ellen Jules Primary Care Unavailable Gennaro Rivas Attending Unavailable SlaterIsa Referring Unavailable Mary Ellen Jules Primary Care Unavailable Mary Ellen Jules Attending Unavailable Allergies Allergy Classification Reported Allergen(s) Allergy Type Date of Onset Reaction(s) Facility (2 sources) Salicylic Acid Drug Allergy 7 GI Upset [facility] (8 sources) Aspirin Drug Allergy 2 Other [facility] Comment on above: GASTRIC ISSUES (2 sources) Naproxen Drug Allergy 2 Other [facility] (1 source) acetylsalicylic acid Allergy to substance 2 Other [facility] (5 sources) Phenazopyridine Drug Allergy 3 other [facility] Comment on above: the dye will change the color of my lenses in my eyes (1 source) Aspirin Drug Allergy 5 [facility] (1 source) Phenazopyridine Drug Allergy 5 [facility] Medications Current Medications Medication Drug Class(es) Dates Sig (Normalized) Sig (Original) cholecalciferol 0.025 mg oral capsule (1 source) Vitamin D Start: 03-30-2025 take 1 capsule by mouth once daily Cholecalciferol (Vitamin D3) 25 mcg (1,000 unit) capsule Active 25 ug PO daily March 30, 2025 12:00am finasteride 5 mg oral tablet (2 sources) 5-alpha Reductase Inhibitor Start: 11-25-2023 take 1 tablet by mouth once daily Finasteride 5 mg tablet Active 5 mg PO DAILY November 25, 2023 1:00am Completed/Discontinued Medications Medication Drug Class(es) Dates Sig (Normalized) Sig (Original) acetaminophen 500 mg oral tablet (2 sources) Start: 03-26-2020 take 2 tablets by mouth every eight hours as needed acetaminophen (TYLENOL EXTRA STRENGTH) 500 mg tablet Take 2 tablets by mouth every 8 hours as needed for Pain. 0 03/26/2020 Active Comment on above: Take 2 tablets by mo [facility] every 8 hours as needed for Pain. acetaminophen 325 mg / HYDROcodone bitartrate 5 mg oral tablet (8 sources) Opioid Agonist Start: 09-07-2018 End: 09-14-2018 take 1 tablet by mouth every four hours as needed for pain Hydrocodone-Acetami nophen 1 TABLET tablet Discontinued 1 {tbl} PO EVERY 4 HOURS NEEDED as needed for Pain 30 7 September 07, 2018 1:00am September 13, 2018 1:00am September 14, 2018 1:09am Take 1 tab po q4h prn pain Start: 09-07-2018 End: 09-14-2018 take 1 tablet by mouth every four hours as needed for pain Hydrocodone-Acetaminophen Discontinued 1 TABLET PO EVERY 4 HOURS NEEDED 24 05September 07, 2018 12:00am September 14, 2018 12:09am Take 1 tab po q4h prn pain ciprofloxacin 500 mg oral tablet (11 sources) Quinolone Antimicrobial Start: 07-12-2024 End: 03-30-2025 take 1 tablet by mouth twice daily Ciprofloxacin Hcl 500 mg tablet Discontinued 500 mg PO TWICE A DAY July 12, 2024 12:00am March 30, 2025 7:50am Start: 10-07-2023 End: 11-25-2023 take 1 tablet by mouth twice daily Ciprofloxacin Hcl (Cipro) 500 mg tablet Discontinued 500 mg PO TWICE A DAY October 15, 2023 1:00am November 25, 2023 10:30am diclofenac sodium 75 mg delayed release oral tablet (8 sources) Nonsteroidal Anti-inflammatory Drug Start: 09-06-2018 End: 05-22-2022 take 1 tablet by mouth twice daily at mealtime Diclofenac Sodium 75 MG tablet Discontinued 75 mg PO TWICE DAILY WITH MEALS September 06, 2018 1:00am May 22, 2022 8:44am doxazosin 2 mg oral tablet (20 sources) alpha-Adrenergic Nupur Start: 09-06-2018 End: 12-19-2024 take 1 tablet by mouth at bedtime Doxazosin (Cardura) 2 mg tablet Discontinued 2 mg PO AT BEDTIME December 14, 2023 12:11pm December 19, 2024 11:11am Comment on above: Take 1 tablet by bob once daily. famciclovir 500 mg oral tablet (2 sources) Herpes Simplex Virus Nucleoside Analog DNA Polymerase Inhibitor Start: 05-26-2024 End: 05-26-2024 take 1 tablet by mouth every eight hours Famciclovir 500 mg tablet Discontinued 500 mg PO Q8H 15 05May 26, 2024 12:00am June 01, 2024 12:00am May 26, 2024 9:55am ibuprofen 600 mg oral tablet (6 sources) Nonsteroidal Anti-inflammatory Drug Start: 10-07-2023 End: 10-14-2023 take 1 tablet by mouth every six hours as needed for pain Ibuprofen 600 mg tablet Discontinued 600 mg PO EVERY 6 HOURS as needed for fever or pain October 07, 2023 1:00am October 14, 2023 7:41pm omeprazole 20 mg delayed release oral capsule (20 sources) Proton Pump Inhibitor Start: 09-06-2018 End: 12-19-2024 take 1 capsule by mouth at bedtime Omeprazole 20 mg capsule,delayed release(DR/EC) Discontinued 20 mg PO AT BEDTIME December 14, 2023 1:18pm December 19, 2024 11:11am Comment on above: Take 1 capsule by [facility] once daily. phenazopyridine hydrochloride 100 mg oral tablet (6 sources) Start: 10-07-2023 End: 10-09-2023 take 1 tablet by mouth three times daily as needed for pain Phenazopyridine (Pyridium) 100 mg tablet Discontinued 100 mg PO THREE TIMES A DAY as needed for pain October 07, 2023 1:00am October 09, 2023 2:35pm predniSONE 10 mg oral tablet (2 sources) Start: 05-26-2024 End: 03-30-2025 Prednisone 10 mg tablet Discontinued 10 mg PO As Directed May 26, 2024 12:00am March 30, 2025 7:51am Take 4 tabs daily x 3 days then 2 tabs daily x 3 days then 1 tab daily x 3 days then stop. Problems Active Problems Problem Classification Problem Date Documented Date Episodic/Chronic Cancer of bladder (1 source) Malignant neoplasm of lateral wall of bladder; Translations: [Malignant neoplasm of lateral wall of bladder] Onset: 11-29-2024 Chronic Esophageal disorders (12 sources) Gastroesophageal reflux disease; Translations: [Gastro-esophageal reflux disease without esophagitis] Onset: 10-11-2007 10-11-2007 Chronic Genitourinary symptoms and ill-defined conditions (5 sources) Blood in urine; Translations: [Hematuria, unspecified] 10-12-2023 Episodic Hyperplasia of prostate (2 sources) Benign prostatic hyperplasia; Translations: [Benign prostatic hyperplasia without lower urinary tract symptoms] Onset: 06-13-2009 03-23-2019 Chronic Malaise and fatigue (2 sources) Fatigue; Translations: [Other fatigue] 02-27-2025 Episodic Nephritis; nephrosis; renal sclerosis (14 sources) Recurrent bay hematuria; Translations: [Recurrent and persistent hematuria with unspecified morphologic changes] 06-17-2023 Chronic Other diseases of bladder and urethra (3 sources) Disorder of bladder; Translations: [Bladder disorder, unspecified] 01-20-2024 Chronic Comment on above: TUMOR Other male genital disorders (8 sources) H/O: male genital disorder; Translations: [Personal history of other diseases of male genital organs] 01-08-2023 Episodic Other nervous system disorders (2 sources) Tremor; Translations: [Tremor, unspecified] 03-30-2025 Episodic Other skin disorders (7 sources) Mass of skin of right lower limb; Translations: [Disorder of the skin and subcutaneous tissue, unspecified] 06-17-2023 Episodic Other skin disorders (10 sources) Disorder of the skin and subcutaneous tissue, unspecified; Translations: [Unspecified disorder of skin and subcutaneous tissue] 06-17-2023 Episodic Other skin disorders (2 sources) Eruption; Translations: [Rash and other nonspecific skin eruption] 05-26-2024 Episodic Other skin disorders (2 sources) Disorder of hand; Translations: [Disorder of the skin and subcutaneous tissue, unspecified] 12-16-2023 Episodic Residual codes; unclassified (3 sources) Urinary catheter in situ; Translations: [Presence of other specified devices] 10-14-2023 Episodic Residual codes; unclassified (1 source) Presence of other specified devices; Translations: [Other postprocedural status] 10-15-2023 Episodic Past or Other Problems Problem Classification Problem Date Documented Da te Episodic/Chronic Abdominal hernia (2 sources) Diaphragmatic hernia; Translations: [Diaphragmatic hernia without obstruction or gangrene] Onset: 12-13-2007 12-13-2007 Episodic Fever of unknown origin (3 sources) Fever; Translations: [Fever, unspecified] Onset: 08-03-2024 07-08-2024 Episodic Other connective tissue disease (2 sources) Plantar fascial fibromatosis; Translations: [Plantar fascial fibromatosis] Onset: 09-07-2013 09-07-2013 Episodic Other gastrointestinal disorders (2 sources) History of gastritis; Translations: [Personal history of other diseases of the digestive system] Onset: 07-18-2019 07-18-2019 Episodic Urinary tract infections (3 sources) Urinary tract infectious disease; Translations: [Urinary tract infection, site not specified] Onset: 08-17-2024 07-24-2024 Episodic Results Test Name Value Interpretation Reference Range Facility MR/BMS.[facility] 03-30-2025 MR/BMS.[facility] [address] [place], [place] [id number] OFFICE VISIT Date of Service: 03/30/25 MR#: [id number] Acct: [id number] Name: ARIA HERNANDEZ Rep #: [id number] : 1945 Provider: Dr. Mary Ellen hunt MD Age/Sex: 79/M Location: 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 Accompanied by: Self Is patient in pain?: No Allergies phenazopyridine Allergy (Severe, Verified 03/30/25 07:50) other aspirin Adverse Reaction (Verified 03/30/25 07:50) Other Medications ???Medication ???Instructions ???Recorded ???Confirmed ???Type finasteride 5 mg tablet 5 mg PO DAILY 11/25/23 03/30/25 Hi story doxazosin 2 mg tablet (Cardura) 2 mg PO QHS PROSTATE #90 tabs 11/2703/30/25 Rx omeprazole 20 mg capsule,delayed 20 mg PO QHS ACID REFLUX #90 caps 12/19/24 03/30/25 Rx release cholecalciferol (vitamin D3) 25 25 mcg PO QDAY 03/30/25 03/30/25 H istory mcg (1,000 unit) capsule Have you fallen in the past year?: Yes (02/2025) [facility] Medical History (Updated 03/30/25 @ 14:[address] Mary Ellen Jules MD) Generalized weakness Shakiness Fatigue UTI (urinary tract infection) Fever Rash and nonspecific skin eruption Indwelling Luis catheter present Wears glasses Alcohol use Bladder disease Back pain Superior mesenteric artery syndrome Gastric reflux Non-smoker Leg cramps History of stress test History of echocardiogram Recurrent gross hematuria Right fibular fracture Torn Achilles tendon Abnormal prostate by palpation Surgical History History of open reduction and internal fixation (ORIF) procedure History of cataract extraction with lens replacement H/O hemorrhoidectomy H/O hernia repair History of appendectomy Hx of tonsillectomy Family History Mother Mental disorder Alzheimer's after age 80 Social History Smoking Status: Never smoker alcohol intake: current details: beer or wine only and very infrequently substance use type: does not use what type of physical activity do you participate in: walking frequency: 1-2 times per week HPI HPI Chief Complaint: Shakiness Details: ARIA HERNANDEZ, is a 79 M who presents to the office today for an acute care follow-up visit because of shaky feeling. Patient has a history of BPH, GERD and is on long-term omeprazole, finasteride and doxazosin. There have been no changes in medical regimen recently. He is otherwise healthy. Labs were obtained recently including CBC, CMP, lipid profile, testosterone levels, PSA, vitamin D and B12 and reviewed. No significant bothersome abnormal findings. Patient states that over the late winter, spring time he has noted more of a generalized sense of some weakness in the arms and legs, some sense of shakiness. He summarized the way he has been feeling and observations and a document that is scanned to the chart. He noted that through the winter, he was doing a regular exercise protocol that he received from physical therapy. Seem like through the winter generally speaking felt okay but by spring did have some sense that things were heavier than they were feeling previous. In mid January, noted leg fatigue, tiredness same day as well as day following playing a round of golf for the first time of the season. 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 In early February, during 1 episode of a sense of weakness of the extremities he did check his blood glucose by glucometer and repeated it, 58 and second 62. He has not really checked since. In February he contacted me and we obtained lab work including CBC, metabolic profile, lipids, thyroid functions, testosterone levels all of which were generally speaking good. We did an A1c as well which was 5.8, mildly elevated. He has not had any painful problems with this. He was out of the area, from mid to late February and the only significant physical activity during that was 18 holes of golf that went well. 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 Seems to still feel some weakness and perhaps some shakiness in the mornings but then once he gets working that dissipates. He has not started on any ne (more content not included)... Normal [facility] Testosterone, Total / Freeon 03-15-2025 TESTOSTER,FREE 13.32 ng/dL Normal 5.00-21.00 [facility] Comment on above: Order Comment: NUNK Performed By: #### L 501.5200, L101.9900, L501.9910, L500.4100, L3100.5310, L506.1001, L501.9985, L500.4050, L503.0106, L506.0400, L100.0100, L501.59635, L501.9520 ####[facility] [id number] [place], [place], [address] TESTOSTER,TOTAL 535 ng/dL Normal 264-916 [facility] Comment on above: Order Comment: NUNK Result Comment: Adul t male reference interval is based on a population of healthy nonobese males (BMI <30) between 19 and 39 years old. rosemary Schmid.al. JCEM 2017,102;3597-9807. PMID: [id number]. Performed By: #### L 501.5200, L101.9900, L501.9910, L500.4100, L3100.5310, L506.1001, L501.9985, L500.4050, L503.0106, L506.0400, L100.0100, L501.05566, L501.9520 ####[facility] [id number] [place], [place], [phone] TESTOSTERONE,%F 2.49 Normal 1.50-4.20 [facility] Comment on above: Order Comment: NUNK Result Comment: Perf ormed at: - [facility] [address] [id number] Fertilizer Mixer: Luan Cheng PhD, Phone: [phone] Performed at: - [facility] [address] [id number] Fertilizer Mixer: Jasmyne Drummond MD, Phone: [phone] Performed By: #### L 501.5200, L101.9900, L501.9910, L500.4100, L3100.5310, L506.1001, L501.9985, L500.4050, L503.0106, L506.0400, L100.0100, L501.05290, L501.9520 ####[facility] [id number] [place], [place], [id number] Absolute lymphocyte countOrd ered By: Mary Ellen Jules on 02-28-2025 Lymphocytes Auto (Unsp spec) [#/Vol] 2.17 10*3/uL 0.83-4.51 [facility] Absolute neutrophil countOrd ered By: Mary Ellen Jules on 02-28-2025 Neutrophils (Bld) [#/Vol] 2.5 10*3/uL 2.0-7.7 [facility] Anion gap in Serum or Plasma Ordered By: Mary Ellen Jules on 02-28-2025 Anion gap [Moles/Vol] 11 mmol/L 5-15 [facility] Automated lymphocyte count a s percentage of total leukocytesOrdered By: Mary Ellen Jules on 02-28-2025 Lymphocytes/100 WBC Auto (Unsp spec) 40.0 % - [facility] BUN/creatinine ratioOrdered By: Mary Ellen Jules on 02-28-2025 Urea nitrogen/Creatinine [Mass ratio] 16.4 mg/mg 10-20 [facility] Basophil percentageOrdered B y: Mary Ellen Jules on 02-28-2025 Basophils/100 WBC (Bld) 1.1 % High 0-1 [facility] Bilirubin, totalOrdered By: Mary Ellen Jules on 02-28-2025 Bilirubin [Mass/Vol] 0.37 mg/dL 0.00-1.30 [facility] CBC W/Diff, Automatedon Absolute Lymph 2.17 X10 3/uL Normal 0.83-4.51 [facility] Comment on above: Performed By: #### L 501.5200, L101.9900, L501.9910, L500.4100, L3100.5310, L506.1001, L501.9985, L500.4050, L503.0106, L506.0400, L100.0100, L501.63240, L501.9520 #### [facility] [address] [place], [place], [id number] (716) Absolute Neut 2.5 X10 3/uL Normal 2.0-7.7 [facility] Comment on above: Performed By: #### L 501.5200, L101.9900, L501.9910, L500.4100, L3100.5310, L506.1001, L501.9985, L500.4050, L503.0106, L506.0400, L100.0100, L501.27866, L501.9520 #### [facility] [address] [place], [place], [phone] (164 Basophils/100 WBC (Bld) 1.1 % High 0-1 [facility] Comment on above: Performed By: #### L 501.5200, L101.9900, L501.9910, L500.4100, L3100.5310, L506.1001, L501.9985, L500.4050, L503.0106, L506.0400, L100.0100, L501.03501, L501.9520 #### [facility] [address] [place], [place], [phone] ([address] Eosinophils/100 WBC (Bld) 6.1 % High 0-5 [facility] Comment on above: Performed By: #### L 501.5200, L101.9900, L501.9910, L500.4100, L3100.5310, L506.1001, L501.9985, L500.4050, L503.0106, L506.0400, L100.0100, L501.14627, L501.9520 #### [facility] [address] [place], [address] Erythrocyte distribution width (RBC) [Ratio] 13.2 % Normal 11.6-14.6 [facility] Comment on above: Performed By: #### L 501.5200, L101.9900, L501.9910, L500.4100, L3100.5310, L506.1001, L501.9985, L500.4050, L503.0106, L506.0400, L100.0100, L501.07125, L501.9520 #### [facility] [address] [place], [place], [id number] (874) Hematocrit (Bld) [Volume fraction] 46.9 % Normal 40-54 [facility] Comment on above: Performed By: #### L 501.5200, L101.9900, L501.9910, L500.4100, L3100.5310, L506.1001, L501.9985, L500.4050, L503.0106, L506.0400, L100.0100, L501.71589, L501.9520 #### [facility] [address] [place], [address] Hemoglobin (Bld) [Mass/Vol] 15.5 g/dL Normal 13.0-16.5 [facility] Comment on above: Performed By: #### L 501.5200, L101.9900, L501.9910, L500.4100, L3100.5310, L506.1001, L501.9985, L500.4050, L503.0106, L506.0400, L100.0100, L501.43671, L501.9520 #### [facility] [address] [place], [address] IG% 0.200 Normal 0.0-0.9 [facility] Comment on above: Result Comment: IG% - Immature Granulocytes (promyelocytes, myelocytes and metamyelocytes) > 1% indicates that a LEFT SHIFT is Present. Performed By: #### L 501.5200, L101.9900, L501.9910, L500.4100, L3100.5310, L506.1001, L501.9985, L500.4050, L503.0106, L506.0400, L100.0100, L501.09470, L501.9520 #### [facility] [address] [place], [address] Lymphocytes/100 WBC (Bld) 40.0 % Normal 19-41 [facility] Comment on above: Performed By: #### L 501.5200, L101.9900, L501.9910, L500.4100, L3100.5310, L506.1001, L501.9985, L500.4050, L503.0106, L506.0400, L100.0100, L501.06089, L501.9520 #### [facility] [address] [place], [address] MCH (RBC) [Entitic mass] 31.6 pg Normal 27.0-32.0 [facility] Comment on above: Performed By: #### L 501.5200, L101.9900, L501.9910, L500.4100, L3100.5310, L506.1001, L501.9985, L500.4050, L503.0106, L506.0400, L100.0100, L501.90188, L501.9520 #### [facility] [address] [place], [address] MCHC (RBC) [Mass/Vol] 33.0 g/dL Normal 32-36 [facility] Comment on above: Performed By: #### L 501.5200, L101.9900, L501.9910, L500.4100, L3100.5310, L506.1001, L501.9985, L500.4050, L503.0106, L506.0400, L100.0100, L501.54030, L501.9520 #### [facility] [address] [place], [address] ( MCV (RBC) [Entitic vol] 95.7 fL High 80-94 [facility] Comment on above: Performed By: #### L 501.5200, L101.9900, L501.9910, L500.4100, L3100.5310, L506.1001, L501.9985, L500.4050, L503.0106, L506.0400, L100.0100, L501.62150, L501.9520 #### [facility] [address] [place], [address] Monocytes/100 WBC (Bld) 6.8 % Normal 0-10 [facility] Comment on above: Performed By: #### L 501.5200, L101.9900, L501.9910, L500.4100, L3100.5310, L506.1001, L501.9985, L500.4050, L503.0106, L506.0400, L100.0100, L501.71056, L501.9520 #### [facility] [address] [place], [address] Neutrophils/100 WBC (Bld) 45.8 % Low 47-70 [facility] Comment on above: Performed By: #### L 501.5200, L101.9900, L501.9910, L500.4100, L3100.5310, L506.1001, L501.9985, L500.4050, L503.0106, L506.0400, L100.0100, L501.11101, L501.9520 #### [facility] [address] [place], [address] Nucleated RBC (Bld) [#/Vol] 0 10*3/uL Normal 0-5 [facility] Comment on above: Performed By: #### L 501.5200, L101.9900, L501.9910, L500.4100, L3100.5310, L506.1001, L501.9985, L500.4050, L503.0106, L506.0400, L100.0100, L501.75953, L501.9520 #### [facility] [address] [place], [place], [id number] (152) Platelet mean volume (Bld) [Entitic vol] 10.1 fL Normal 6.2-12.0 [facility] Comment on above: Performed By: #### L 501.5200, L101.9900, L501.9910, L500.4100, L3100.5310, L506.1001, L501.9985, L500.4050, L503.0106, L506.0400, L100.0100, L501.98280, L501.9520 #### [facility] [address] [place], [place], [id number] (069) Platelets (Bld) [#/Vol] 199 10*3/uL Normal 150-450 [facility] Comment on above: Performed By: #### L 501.5200, L101.9900, L501.9910, L500.4100, L3100.5310, L506.1001, L501.9985, L500.4050, L503.0106, L506.0400, L100.0100, L501.50996, L501.9520 #### [facility] [address] [place], [address] RBC (Bld) [#/Vol] 4.90 10*6/uL Normal 4.6-6.2 [facility] Comment on above: Performed By: #### L 501.5200, L101.9900, L501.9910, L500.4100, L3100.5310, L506.1001, L501.9985, L500.4050, L503.0106, L506.0400, L100.0100, L501.65137, L501.9520 #### [facility] [address] [place], [address] RDW SD 46.7 fl High 35.1-43.9 [facility] Comment on above: Performed By: #### L 501.5200, L101.9900, L501.9910, L500.4100, L3100.5310, L506.1001, L501.9985, L500.4050, L503.0106, L506.0400, L100.0100, L501.33035, L501.9520 #### [facility] [address] [place], [address] WBC (Bld) [#/Vol] 5.4 10*3/uL Normal 4.4-11.0 [facility] Comment on above: Performed By: #### L 501.5200, L101.9900, L501.9910, L500.4100, L3100.5310, L506.1001, L501.9985, L500.4050, L503.0106, L506.0400, L100.0100, L501.57271, L501.9520 #### [facility] [address] [place], [address] Calculated very low density lipoprotein (VLDL) cholesterol measurementOrdered By: Mary Ellen Jules on 02-28-2025 Calculated very low density lipoprotein (VLDL) cholesterol measurement 18 mg/dL 5-40 [facility] Carbon dioxide, total [Moles /volume] in Central venous bloodOrdered By: Mary Ellen Jules on 02-28-2025 CO2 [Moles/Vol] 24.3 mmol/L 21.0-32.0 [facility] Chloride assayOrdered By: Katina Jules on 02-28-2025 Chloride [Moles/Vol] 104 mmol/L 98-108 [facility] Comprehensive Metabolic Prof ilon 02-28-2025 Albumin [Mass/Vol] 4.4 g/dL Normal 3.4-4.8 [facility] Comment on above: Order Comment: UNK Performed By: #### L 501.5200, L101.9900, L501.9910, L500.4100, L3100.5310, L506.1001, L501.9985, L500.4050, L503.0106, L506.0400, L100.0100, L501.31152, L501.9520 #### [facility] [address] [place], [place], [id number] Albumin/Globulin [Mass ratio] 1.4 {ratio} Normal 0.9-2.4 [facility] Comment on above: Order Comment: UNK Performed By: #### L 501.5200, L101.9900, L501.9910, L500.4100, L3100.5310, L506.1001, L501.9985, L500.4050, L503.0106, L506.0400, L100.0100, L501.93869, L501.9520 #### [facility] [address] [place], [place], [id number] ALK PHOS 49 U/L Normal 40-129 [facility] Comment on above: Order Comment: UNK Performed By: #### L 501.5200, L101.9900, L501.9910, L500.4100, L3100.5310, L506.1001, L501.9985, L500.4050, L503.0106, L506.0400, L100.0100, L501.25848, L501.9520 #### [facility] [address] [place], [address] ALT [Catalytic activity/Vol] 27 U/L Normal <=46 [facility] Comment on above: Order Comment: UNK Performed By: #### L 501.5200, L101.9900, L501.9910, L500.4100, L3100.5310, L506.1001, L501.9985, L500.4050, L503.0106, L506.0400, L100.0100, L501.98880, L501.9520 #### [facility] [address] [place], [place], [id number] (355) AST [Catalytic activity/Vol] 24 U/L Normal <=37 [facility] Comment on above: Order Comment: UNK Performed By: #### L 501.5200, L101.9900, L501.9910, L500.4100, L3100.5310, L506.1001, L501.9985, L500.4050, L503.0106, L506.0400, L100.0100, L501.54056, L501.9520 #### [facility] [address] [place], [place], [id number] Bilirubin [Mass/Vol] 0.37 mg/dL Normal 0.00-1.30 [facility] Comment on above: Order Comment: UNK Performed By: #### L 501.5200, L101.9900, L501.9910, L500.4100, L3100.5310, L506.1001, L501.9985, L500.4050, L503.0106, L506.0400, L100.0100, L501.47735, L501.9520 #### [facility] [address] [place], [place], [id number] BUN/CRE 16.4 RATIO Normal 10-20 [facility] Comment on above: Order Comment: UNK Performed By: #### L 501.5200, L101.9900, L501.9910, L500.4100, L3100.5310, L506.1001, L501.9985, L500.4050, L503.0106, L506.0400, L100.0100, L501.70043, L501.9520 #### [facility] [address] [place], [address] Calcium [Mass/Vol] 9.4 mg/dL Normal 7.6-11.0 [facility] Comment on above: Order Comment: UNK Performed By: #### L 501.5200, L101.9900, L501.9910, L500.4100, L3100.5310, L506.1001, L501.9985, L500.4050, L503.0106, L506.0400, L100.0100, L501.79703, L501.9520 #### [facility] [address] [place], [address] Chloride [Moles/Vol] 104 mmol/L Normal 98-108 [facility] Comment on above: Order Comment: UNK Performed By: #### L 501.5200, L101.9900, L501.9910, L500.4100, L3100.5310, L506.1001, L501.9985, L500.4050, L503.0106, L506.0400, L100.0100, L501.95011, L501.9520 #### [facility] [address] [place], [address] CO2 [Moles/Vol] 24.3 mmol/L Normal 21.0-32.0 [facility] Comment on above: Order Comment: UNK Performed By: #### L 501.5200, L101.9900, L501.9910, L500.4100, L3100.5310, L506.1001, L501.9985, L500.4050, L503.0106, L506.0400, L100.0100, L501.80424, L501.9520 #### [facility] [address] [place], [place], [address] Creatinine [Mass/Vol] 0.91 mg/dL Normal 0.70-1.20 [facility] Comment on above: Order Comment: UNK Performed By: #### L 501.5200, L101.9900, L501.9910, L500.4100, L3100.5310, L506.1001, L501.9985, L500.4050, L503.0106, L506.0400, L100.0100, L501.33710, L501.9520 #### [facility] [address] [place], [place], [address] GAP 11 Normal 5-15 [facility] Comment on above: Order Comment: UNK Performed By: #### L 501.5200, L101.9900, L501.9910, L500.4100, L3100.5310, L506.1001, L501.9985, L500.4050, L503.0106, L506.0400, L100.0100, L501.60482, L501.9520 #### [facility] [address] [facility] [place], [place], [address] GFR/1.73 sq M.predicted among non-blacks MDRD (S/P/Bld) [Vol rate/Area] 85 mL/min/{1.73_m2} Normal >60 [facility] Comment on above: Order Comment: UNK Result Comment: mL/m in/1.73m2 CKD-EPI Creatinine Equation (2020) Performed By: #### L 501.5200, L101.9900, L501.9910, L500.4100, L3100.5310, L506.1001, L501.9985, L500.4050, L503.0106, L506.0400, L100.0100, L501.81465, L501.9520 #### [facility] [address] [place], [address] Globulin (S) [Mass/Vol] 3.1 g/dL Normal 2.2-4.2 [facility] Comment on above: Order Comment: UNK Performed By: #### L 501.5200, L101.9900, L501.9910, L500.4100, L3100.5310, L506.1001, L501.9985, L500.4050, L503.0106, L506.0400, L100.0100, L501.68868, L501.9520 #### [facility] [address] [place], [address] Glucose [Mass/Vol] 118 mg/dL High 70-99 [facility] Comment on above: Order Comment: UNK Performed By: #### L 501.5200, L101.9900, L501.9910, L500.4100, L3100.5310, L506.1001, L501.9985, L500.4050, L503.0106, L506.0400, L100.0100, L501.93724, L501.9520 #### [facility] [address] [place], [place], [id number] (886) Potassium [Moles/Vol] 4.5 mmol/L Normal 3.3-5.1 [facility] Comment on above: Order Comment: UNK Performed By: #### L 501.5200, L101.9900, L501.9910, L500.4100, L3100.5310, L506.1001, L501.9985, L500.4050, L503.0106, L506.0400, L100.0100, L501.13765, L501.9520 #### [facility] [address] [place], [place], [address] (748) Sodium [Moles/Vol] 139 mmol/L Normal 133-145 [facility] Comment on above: Order Comment: UNK Performed By: #### L 501.5200, L101.9900, L501.9910, L500.4100, L3100.5310, L506.1001, L501.9985, L500.4050, L503.0106, L506.0400, L100.0100, L501.47023, L501.9520 #### [facility] [address] [place], [place], [address] T PROT 7.5 g/dL Normal 5.9-8.4 [facility] Comment on above: Order Comment: UNK Performed By: #### L 501.5200, L101.9900, L501.9910, L500.4100, L3100.5310, L506.1001, L501.9985, L500.4050, L503.0106, L506.0400, L100.0100, L501.75953, L501.9520 #### [facility] [address] [place], [address] Urea nitrogen [Mass/Vol] 15 mg/dL Normal 4-19 [facility] Comment on above: Order Comment: UNK Performed By: #### L 501.5200, L101.9900, L501.9910, L500.4100, L3100.5310, L506.1001, L501.9985, L500.4050, L503.0106, L506.0400, L100.0100, L501.81438, L501.9520 #### [facility] [address] [place], [address] Eosinophil percentageOrdered By: Mary Ellen Jules on 02-28-2025 Eosinophils/100 WBC (Bld) 6.1 % High 0-5 [facility] Erythrocyte Sed Rateon 02-28 SED RATE 4 mm/hr Normal 0-20 [facility] Comment on above: Performed By: #### L 501.5200, L101.9900, L501.9910, L500.4100, L3100.5310, L506.1001, L501.9985, L500.4050, L503.0106, L506.0400, L100.0100, L501.40057, L501.9520 #### [facility] [address] [place], [place], [address] Erythrocyte distribution wid th ratioOrdered By: Mary Ellen Jules on 02-28-2025 Erythrocyte distribution width (RBC) [Ratio] 13.2 % 11.6-14.6 [facility] Erythrocyte distribution wid th standard deviationOrdered By: Mary Ellen Jules on 02-28-2025 Erythrocyte distribution width (RBC) [Ratio] 46.7 fl High 35.1-43.9 [facility] Erythrocyte sedimentation ra teOrdered By: Mary Ellen Jules on 02-28-2025 ESR (Bld) [Velocity] 4 mm/h 0-20 [facility] Free T3on 02-28-2025 Free T3 [Mass/Vol] 3.0 pg/mL Normal 2.18-3.98 [facility] Comment on above: Order Comment: NUNK Performed By: #### L 501.5200, L101.9900, L501.9910, L500.4100, L3100.5310, L506.1001, L501.9985, L500.4050, L503.0106, L506.0400, L100.0100, L501.72550, L501.9520 ####[facility] [address] [place], [place], [id number] Free U1Gvwdtkb By: Mary Ellen ríos on 02-28-2025 Free T3 [Mass/Vol] 3.0 pg/mL 2.18-3.98 [facility] Free testosterone percentage Ordered By: Mary Ellen Jules on 02-28-2025 Testosterone Free/Testosterone.total [Mass fraction] 2.49 % 1.50-4.20 [facility] Comment on above: Performed at: [address], [place], [place] [id number] Director: Luan Cheng PhD, Phone: [phone] at: [address] [id number] Director: Jasmyne Drummond MD, Phone: [phone] Glomerular filtration rate ( GFR) estimation/1.73 sq m using serum, plasma, or whole bOrdered By: Mary Ellen Jules on 02-28-2025 GFR/1.73 sq M.predicted among non-blacks MDRD (S/P/Bld) [Vol rate/Area] 85 mL/min/{1.73_m2} >60 [facility] Comment on above: mL/min/1.73m2 CKD-EP I Creatinine Equation (2020) Hematocrit Auto (Bld) [Volum e fraction]Ordered By: Mary Ellen Jules on 02-28-2025 Hematocrit (Bld) [Volume fraction] 46.9 % 40-54 [facility] Hemoglobin A1con 02-28-2025 HbA1c (Bld) [Mass fraction] 5.8 % High <=5.6 [facility] Comment on above: Result Comment: Norm al < 5.7 % Prediabetic 5.7 - 6.4 % Diabetic >or= 6.5 % Please note range changes. Performed By: #### L 501.5200, L101.9900, L501.9910, L500.4100, L3100.5310, L506.1001, L501.9985, L500.4050, L503.0106, L506.0400, L100.0100, L501.22050, L501.9520 #### [facility] [address] [place], [address] Hemoglobin A1c percentageOrd ered By: Mary Ellen Jules on 02-28-2025 HbA1c (Bld) [Mass fraction] 5.8 % High <5.7 [facility] Comment on above: Normal < 5.7 % Predi abetic 5.7 - 6.4 % Diabetic >or= 6.5 % Please note range changes. Hemoglobin measurementOrdere d By: Mary Ellen Jules on 02-28-2025 Hemoglobin (Bld) [Mass/Vol] 15.5 g/dL 13.0-16.5 [facility] Immature granulocytes/100 WB C Auto (Bld)Ordered By: Mary Ellen Jules on 02-28-2025 Immature granulocytes/100 WBC (Bld) 0.200 % 0.0-0.9 [facility] Comment on above: IG% - Immature Granu locytes (promyelocytes, myelocytes and metamyelocytes) > 1% indicates that a LEFT SHIFT is Present. LDL calc ser/plasOrdered By: Mary Ellen Jules on 02-28-2025 Cholesterol in LDL [Mass/Vol] 149 mg/dL [facility] Comment on above: Fnrkiwnmtt=106-470 m g/dL & Higher Drxk=297 mg/dL or greater Laboratory - Chemistry and C hemistry - challengeOrdered By: Mary Ellen Jules on 02-28-2025 AST [Catalytic activity/Vol] 24 U/L <38 [facility] Lipid Profileon 02-28-2025 CHOL:HDL 5.07 Normal [facility] Comment on above: Performed By: #### L 501.5200, L101.9900, L501.9910, L500.4100, L3100.5310, L506.1001, L501.9985, L500.4050, L503.0106, L506.0400, L100.0100, L501.94939, L501.9520 #### [facility] [place], [address] Cholesterol [Mass/Vol] 208 mg/dL High <=200 [facility] Comment on above: Result Comment: Chol esterol level, Desirable <200 mg/dL Borderline high cholesterol 200-239 mg/dL High cholesterol >=240 mg/dL Recommendations of the NCEP Adult Treatment Panel for the following risk-cutoff thresholds for the [place] population. Performed By: #### L 501.5200, L101.9900, L501.9910, L500.4100, L3100.5310, L506.1001, L501.9985, L500.4050, L503.0106, L506.0400, L100.0100, L501.38675, L501.9520 #### [facility] [address] [place], [address] Cholesterol in HDL [Mass/Vol] 41 mg/dL Normal [facility] Comment on above: Result Comment: Livia onal Cholesterol Education Program (NCEP) guidelines: <40 mg/dL: Low HDL-cholesterol (major risk factor for CHD) >= 60 mg/dL: High HDL-cholesterol (negative risk factor for CHD) HDL-cholesterol is affected by a number of factors, e.g. smoking, exercise, hormones, sex and age. Performed By: #### L 501.5200, L101.9900, L501.9910, L500.4100, L3100.5310, L506.1001, L501.9985, L500.4050, L503.0106, L506.0400, L100.0100, L501.50246, L501.9520 #### [facility] [address] [facility] [place], [place], [id number] (444) Cholesterol in LDL [Mass/Vol] 149 mg/dL Normal [facility] Comment on above: Result Comment: Bord ygaaff=908-271 mg/dL Higher Ayip=953 mg/dL or greater Performed By: #### L 501.5200, L101.9900, L501.9910, L500.4100, L3100.5310, L506.1001, L501.9985, L500.4050, L503.0106, L506.0400, L100.0100, L501.93088, L501.9520 #### [facility] [address] [place], [place], [id number] ([address] Cholesterol in VLDL [Mass/Vol] 18 mg/dL Normal 5-40 [facility] Comment on above: Performed By: #### L 501.5200, L101.9900, L501.9910, L500.4100, L3100.5310, L506.1001, L501.9985, L500.4050, L503.0106, L506.0400, L100.0100, L501.69439, L501.9520 #### [facility] [address] [place], [place], [address] Triglyceride [Mass/Vol] 90 mg/dL Normal [facility] Comment on above: Result Comment: The drugs N-Acetylcysteine and Metamizole may falsely depress this assay. Normal range: <150 mg/dL Borderline High: 150-199 mg/dL High: 200-499 mg/dL Very High: >500 mg/dL Performed By: #### L 501.5200, L101.9900, L501.9910, L500.4100, L3100.5310, L506.1001, L501.9985, L500.4050, L503.0106, L506.0400, L100.0100, L501.67196, L501.9520 #### [facility] [address] [place], [place], [address] MCV (mean corpuscular volume ) determinationOrdered By: Mary Ellen Jules on 02-28-2025 MCV (RBC) [Entitic vol] 95.7 fL High 80-94 [facility] Magnesiumon 02-28-2025 Magnesium [Mass/Vol] 2.0 mg/dL Normal 1.5-2.2 [facility] Comment on above: Performed By: #### L 501.5200, L101.9900, L501.9910, L500.4100, L3100.5310, L506.1001, L501.9985, L500.4050, L503.0106, L506.0400, L100.0100, L501.43529, L501.9520 #### [facility] [address] [place], [place], [address] Magnesium measurement (mass/ volume)Ordered By: Mary Ellen Jules on 02-28-2025 Magnesium (Unsp spec) [Mass/Vol] 2.0 mg/dL 1.5-2.2 [facility] Mean corpuscular hemoglobin (MCH) determinationOrdered By: Mary Ellen Jules on 02-28-2025 MCH (RBC) [Entitic mass] 31.6 pg 27.0-32.0 [facility] Mean corpuscular hemoglobin concentration (MCHC) determinationOrdered By: Mary Ellen Jorge A on 02-28-2025 MCHC (RBC) [Mass/Vol] 33.0 g/dL 32-36 [facility] Mean platelet volume determi nationOrdered By: Mary Ellengalen Jules on 02-28-2025 Platelet mean volume (Bld) [Entitic vol] 10.1 fL 6.2-12.0 [facility] Monocyte percentageOrdered B y: Mary Ellen Jules on 02-28-2025 Monocytes/100 WBC (Bld) 6.8 % 0-10 [facility] Neutrophil percentageOrdered By: [facility] Jorge A on 02-28-2025 Neutrophils/100 WBC (Bld) 45.8 % Low 47-70 [facility] Nucleated red blood cell per centageOrdered By: [facility] Jorge A on 02-28-2025 Nucleated RBC/100 WBC (Bld) [Ratio] 0 % 0-5 [facility] PSA,Total - Annual Screenon 02-28-2025 PSA,TOT SCREEN 0.98 ng/mL Normal 0.02-4.00 [facility] Comment on above: Result Comment: This test was performed using the [employer] tPSA method. Measured values of a patient??sample can vary depending on the testing procedure used. PSA values determined on patient samples by different testing procedures cannot be used interchangeably. If there is a change in PSA assays while monitoring therapy, sequential testing should be performed to confirm baseline values. Performed By: #### L 501.5200, L101.9900, L501.9910, L500.4100, L3100.5310, L506.1001, L501.9985, L500.4050, L503.0106, L506.0400, L100.0100, L501.94142, L501.9520 ####[facility] [address] [place], [place], [id number] Platelet countOrdered By: Katina Jules on 02-28-2025 Platelets (Bld) [#/Vol] 199 10*3/uL 150-450 [facility] Potassium measurement (mass/ volume)Ordered By: Mary Ellen Jules on 02-28-2025 Potassium (Unsp spec) [Mass/Vol] 4.5 mmol/L 3.3-5.1 [facility] RBC Auto (Bld) [#/Vol]Ordere d By: Mary Ellen Jules on 02-28-2025 RBC (Bld) [#/Vol] 4.90 10*6/uL 4.6-6.2 [facility] Screening total cholesterol/ high density lipoprotein (HDL) cholesterol ratioOrdered By: Mary Ellen Jules on 02-28-2025 Cholesterol.total/Choles terol in HDL [Mass ratio] 5.07 {ratio} [facility] Serum creatinine measurement (mass/volume)Ordered By: Mary Ellen Jules on 02-28-2025 Creatinine [Mass/Vol] 0.91 mg/dL 0.70-1.20 [facility] Serum globulin measurementOr dered By: Mary Ellen Jules on 02-28-2025 Globulin (S) [Mass/Vol] 3.1 g/dL 2.2-4.2 [facility] Serum glucose measurement (m ass/volume)Ordered By: Mary Ellen Jules on 02-28-2025 Glucose [Mass/Vol] 118 mg/dL High 70-99 [facility] Serum or plasma alanine mehta otransferase (ALT) measurementOrdered By: Mary Ellen Jules on 02-28-2025 ALT [Catalytic activity/Vol] 27 U/L <47 [facility] Serum or plasma albumin sharon urement (mass/volume)Ordered By: Mary Ellen Jules on 02-28-2025 Albumin [Mass/Vol] 4.4 g/dL 3.4-4.8 [facility] Serum or plasma albumin/glob ulin mass ratioOrdered By: Mary Ellen Jules on 02-28-2025 Albumin/Globulin [Mass ratio] 1.4 {ratio} 0.9-2.4 [facility] Serum or plasma alkaline litzy sphatase measurementOrdered By: Mary Ellen Jules on 02-28-2025 ALP [Catalytic activity/Vol] 49 U/L 40-129 [facility] Serum or plasma calcium sharon urement (mass/volume)Ordered By: Mary Ellen Jules on 02-28-2025 Calcium [Mass/Vol] 9.4 mg/dL 7.6-11.0 [facility] Serum or plasma cholesterol in HDL measurement (mass/volume)Ordered By: Mary Ellen Jules on 02-28-2025 Cholesterol in HDL [Mass/Vol] 41 mg/dL >40 [facility] Comment on above: National Cholesterol Education Program (NCEP) guidelines:<40 mg/dL: Low HDL-cholesterol (major risk factor for CHD)>= 60 mg/dL: High HDL-cholesterol (negative risk factor for CHD)HDL-cholesterol is affected by a number of factors, e.g. smoking, exercise, hormones, sex and age. Serum or plasma cholesterol measurement (mass/volume)Ordered By: Mary Ellen Jules on 02-28-2025 Cholesterol [Mass/Vol] 208 mg/dL High <201 [facility] Comment on above: Cholesterol level, D esirable <200 mg/dLBorderline high cholesterol 200-239 mg/dLHigh cholesterol >=240 mg/dLRecommendations of the NCEP Adult Treatment Panel for the following risk-cutoff thresholds for the [place] population. Serum or plasma free testost erone measurement (mass/volume)Ordered By: Mary Ellen Jules on 02-28-2025 Testosterone Free [Mass/Vol] 13.32 ng/dL 5.00-21.00 [facility] Serum or plasma urea nitroge n measurement (mass/volume)Ordered By: Mary Ellen Jules on 02-28-2025 Urea nitrogen [Mass/Vol] 15 mg/dL 4-19 [facility] Sodium levelOrdered By: Tami Jules on 02-28-2025 Sodium [Moles/Vol] 139 mmol/L 133-145 [facility] T4 Free Directon 02-28-2025 T4 FREE DIRECT 1.00 ng/dL Normal 0.76-1.46 [facility] Comment on above: Order Comment: NUNK Performed By: #### L 501.5200, L101.9900, L501.9910, L500.4100, L3100.5310, L506.1001, L501.9985, L500.4050, L503.0106, L506.0400, L100.0100, L501.09266, L501.9520 ####[facility] [address] [place], [place], [id number] T4 freeOrdered By: Mary Ellen ríos on 02-28-2025 Free T4 [Mass/Vol] 1.00 ng/dL 0.76-1.46 [facility] TSH DL <= 0.005 mIU/L QnOrde red By: Mary Ellen Jules on 02-28-2025 TSH Qn 4.560 uIU/mL High 0.300-4.200 [facility] Testosterone, totalOrdered B y: Mary Ellen Jules on 02-28-2025 Testosterone [Mass/Vol] 535 ng/dL 264-916 [facility] Comment on above: Adult male reference interval is based on a population ofhealthy nonobese males (BMI <30) between 19 and 39 yearsold. rosemary Schmid.al. JCEM 2017,102;0946-5122. PMID:[id number]. Thyroid Stim Hormone (TSH)on 02-28-2025 TSH 4.560 uIU/mL High 0.300-4.200 [facility] Comment on above: Performed By: #### L 501.5200, L101.9900, L501.9910, L500.4100, L3100.5310, L506.1001, L501.9985, L500.4050, L503.0106, L506.0400, L100.0100, L501.32865, L501.9520 ####[facility] [address] [place], [place], [id number] Total proteinOrdered By: Leslie Jules on 02-28-2025 Protein [Mass/Vol] 7.5 g/dL 5.9-8.4 [facility] Triglycerides measurementOrd ered By: Mary Ellen Jules on 02-28-2025 Triglyceride [Mass/Vol] 90 mg/dL <199 [facility] Comment on above: The drugs N-Acetylcy steine and Metamizole may falsely depress this assay. Normal range: <150 mg/dLBorderline High: 150-199 mg/dLHigh: 200-499 mg/dLVery High: >500 mg/dL Vitamin B12on 02-28-2025 Cobalamin (Vitamin B12) [Mass/Vol] 425 pg/mL Normal 180-914 [facility] Comment on above: Performed By: #### L 501.5200, L101.9900, L501.9910, L500.4100, L3100.5310, L506.1001, L501.9985, L500.4050, L503.0106, L506.0400, L100.0100, L501.64432, L501.9520 ####[facility] [address] [facility] [place], [place], [address] Vitamin B12 ser/plasOrdered By: Mary Ellen Jules on 02-28-2025 Cobalamin (Vitamin B12) [Mass/Vol] 425 pg/mL 180-914 [facility] Vitamin D,25 Hydroxyon 02-28 Vitamin D 25-OH 13.8 ng/mL Low 30-100 [facility] Comment on above: Result Comment: Gayle min D Status Deficiency: <20 ng/mL (50nmol/L) Insufficiency: 20-30 ng/mL (50-75 nmol/L) Sufficiency: 30-100 ng/mL (75-250 nmol/L) Toxicity: >100 ng/mL (>250 nmol/L) Performed By: #### L 501.5200, L101.9900, L501.9910, L500.4100, L3100.5310, L506.1001, L501.9985, L500.4050, L503.0106, L506.0400, L100.0100, L501.40507, L501.9520 ####[facility] [address] [facility] [place], [address] White blood cell (WBC) count Ordered By: Mary Ellen Jules on 02-28-2025 WBC (Bld) [#/Vol] 5.4 10*3/uL 4.4-11.0 [facility] Cytology, Body Fluid / CSFon 11-01-2024 CYTOLOGY,BF/CSF SEE PATHOLOGY REPORT Normal [facility] Comment on above: Order Comment: URINE Result Comment: Spec imen submitted to Anatomical Pathology Department for testing. Performed By: #### L 350.1000 #### [facility] [address] 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 JS, 11/02/2024 CYTOLOGY STUDY Slides are reviewed. CYTOLOGY GROSS Received is 30 ml of yellow-cloudy fluid labeled with the patient's name and and designated per the requisition as urine. Submitted for cytology preparation. Mr 11/02/2024 TC:2 CPT: 26771 Signed (signature on file) Dr. Gennaro Rivas MD 11/02/24 1546 Normal [facility] Comment on above: Performed By: #### P PAPS #### [facility] [address] [place], [address] Urine Cultureon 07-26-2024 URC Culture exhibits no growth. Normal [facility] Comment on above: Performed By: #### M 100.2200, L400.0001 ####[facility] [address] [place], [address] CRPon 07-25-2024 C-REACTIVE PROT < 2.90 Normal 0.0-3.0 [facility] Comment on above: Result Comment: C-Re active Protein (CRP) provides useful information for the diagnosis, therapy and monitoring of inflammatory processes and associated diseases. For the evaluation of Relative Risk for Cardiovascular Disease, a High Sensitivity CRP (HSCRP) should be ordered. Performed By: #### L 501.6710, L101.9900 ####[facility] [address], [address] Erythrocyte Sed Rateon 07-25 SED RATE 20 mm/hr Normal 0-20 [facility] Comment on above: Performed By: #### L 501.6710, L101.9900 ####[facility] [address] [place], [address] Urinalysis, Completeon 07-25 EPI,SQUAMOUS 0-5 SEEN Normal 0-5 [facility] Comment on above: Order Comment: CHLOE CTOR TO SPECIFY Performed By: #### M 100.2200, L400.0001 ####[facility] [address] [place], [address] RBC 0-5 SEEN Normal 0-5 [facility] Comment on above: Order Comment: CHLOE CTOR TO SPECIFY Performed By: #### M 100.2200, L400.0001 ####[facility] [address] [place], [address] WBC 5-10 SEEN Normal 0-5 [facility] Comment on above: Order Comment: CHLOE CTOR TO SPECIFY Performed By: #### M 100.2200, L400.0001 ####[facility] [address] [place], [address] BACTERIA 0 SEEN Normal None Seen [facility] Comment on above: Order Comment: CHLOE CTOR TO SPECIFY Performed By: #### M 100.2200, L400.0001 ####[facility] [address] [place], [address] Mucus Ql (Urine sed) 0 SEEN Normal [facility] Comment on above: Order Comment: CHLOE CTOR TO SPECIFY Performed By: #### M 100.2200, L400.0001 ####[facility] [address] [place], [address] CBC W/Diff, Automatedon 06-26 Absolute Lymph 1.67 X10 3/uL Normal 0.83-4.51 [facility] Comment on above: Performed By: #### L 101.9900, L100.0100, L400.0001, L504.2610, L501.6710, L500.4050 ####[facility] [address] [place], [address] Absolute Neut 4.8 X10 3/uL Normal 2.0-7.7 [facility] Comment on above: Performed By: #### L 101.9900, L100.0100, L400.0001, L504.2610, L501.6710, L500.4050 ####[facility] [address] [place], [address] Basophils/100 WBC (Bld) 0.8 % Normal 0-1 [facility] Comment on above: Performed By: #### L 101.9900, L100.0100, L400.0001, L504.2610, L501.6710, L500.4050 ####[facility] [address] [place], [address] Eosinophils/100 WBC (Bld) 2.6 % Normal 0-5 [facility] Comment on above: Performed By: #### L 101.9900, L100.0100, L400.0001, L504.2610, L501.6710, L500.4050 ####[facility] [address] [place], [address] Erythrocyte distribution width (RBC) [Ratio] 13.1 % Normal 11.6-14.6 [facility] Comment on above: Performed By: #### L 101.9900, L100.0100, L400.0001, L504.2610, L501.6710, L500.4050 ####[facility] [address] [place], [address] Hematocrit (Bld) [Volume fraction] 42.8 % Normal 40-54 [facility] Comment on above: Performed By: #### L 101.9900, L100.0100, L400.0001, L504.2610, L501.6710, L500.4050 ####[facility] [address] [place], [address] Hemoglobin (Bld) [Mass/Vol] 13.7 g/dL Normal 13.0-16.5 [facility] Comment on above: Performed By: #### L 101.9900, L100.0100, L400.0001, L504.2610, L501.6710, L500.4050 ####[facility] [address] [place], [address] IG% 1.200 High 0.0-0.9 [facility] Comment on above: Result Comment: IG% - Immature Granulocytes (promyelocytes, myelocytes and metamyelocytes) > 1% indicates that a LEFT SHIFT is Present. Performed By: #### L 101.9900, L100.0100, L400.0001, L504.2610, L501.6710, L500.4050 ####[facility] [address] [place], [address] Lymphocytes/100 WBC (Bld) 22.1 % Normal 19-41 [facility] Comment on above: Performed By: #### L 101.9900, L100.0100, L400.0001, L504.2610, L501.6710, L500.4050 ####[facility] [address] [place], [address] MCH (RBC) [Entitic mass] 30.4 pg Normal 27.0-32.0 [facility] Comment on above: Performed By: #### L 101.9900, L100.0100, L400.0001, L504.2610, L501.6710, L500.4050 ####[facility] [address] [place], [address] MCHC (RBC) [Mass/Vol] 32.0 g/dL Normal 32-36 [facility] Comment on above: Performed By: #### L 101.9900, L100.0100, L400.0001, L504.2610, L501.6710, L500.4050 ####[facility] [address] [place], [address] MCV (RBC) [Entitic vol] 94.9 fL High 80-94 [facility] Comment on above: Performed By: #### L 101.9900, L100.0100, L400.0001, L504.2610, L501.6710, L500.4050 ####[facility] [address] [place], [address] Monocytes/100 WBC (Bld) 9.4 % Normal 0-10 [facility] Comment on above: Performed By: #### L 101.9900, L100.0100, L400.0001, L504.2610, L501.6710, L500.4050 ####[facility] [address] [place], [address] Neutrophils/100 WBC (Bld) 63.9 % Normal 47-70 [facility] Comment on above: Performed By: #### L 101.9900, L100.0100, L400.0001, L504.2610, L501.6710, L500.4050 ####[facility] [address] [place], [address] Nucleated RBC (Bld) [#/Vol] 0 10*3/uL Normal 0-5 [facility] Comment on above: Performed By: #### L 101.9900, L100.0100, L400.0001, L504.2610, L501.6710, L500.4050 ####[facility] [address] [place], [address] Platelet mean volume (Bld) [Entitic vol] 9.5 fL Normal 6.2-12.0 [facility] Comment on above: Performed By: #### L 101.9900, L100.0100, L400.0001, L504.2610, L501.6710, L500.4050 ####[facility] [address] [place], [address] Platelets (Bld) [#/Vol] 328 10*3/uL Normal 150-450 [facility] Comment on above: Performed By: #### L 101.9900, L100.0100, L400.0001, L504.2610, L501.6710, L500.4050 ####[facility] [address] [place], [address] RBC (Bld) [#/Vol] 4.51 10*6/uL Low 4.6-6.2 [facility] Comment on above: Performed By: #### L 101.9900, L100.0100, L400.0001, L504.2610, L501.6710, L500.4050 ####[facility] [address] [place], [address] RDW SD 45.5 fl High 35.1-43.9 [facility] Comment on above: Performed By: #### L 101.9900, L100.0100, L400.0001, L504.2610, L501.6710, L500.4050 ####[facility] [address] [place], [address] WBC (Bld) [#/Vol] 7.6 10*3/uL Normal 4.4-11.0 [facility] Comment on above: Performed By: #### L 101.9900, L100.0100, L400.0001, L504.2610, L501.6710, L500.4050 ####[facility] [address] [place], [address] CRPon 07-12-2024 C-REACTIVE PROT 30.80 mg/L High 0.0-3.0 [facility] Comment on above: Order Comment: 1 Result Comment: C-Re active Protein (CRP) provides useful information for the diagnosis, therapy and monitoring of inflammatory processes and associated diseases. For the evaluation of Relative Risk for Cardiovascular Disease, a High Sensitivity CRP (HSCRP) should be ordered. Performed By: #### L 101.9900, L100.0100, L400.0001, L504.2610, L501.6710, L500.4050 ####[facility] [address] [place], [address] Comprehensive Metabolic Prof ilon 07-12-2024 Albumin [Mass/Vol] 3.3 g/dL Normal 3.2-5.0 [facility] Comment on above: Order Comment: 1 Performed By: #### L 101.9900, L100.0100, L400.0001, L504.2610, L501.6710, L500.4050 ####[facility] [address] [place], [address] Albumin/Globulin [Mass ratio] 0.7 {ratio} Low 0.9-2.4 [facility] Comment on above: Order Comment: 1 Performed By: #### L 101.9900, L100.0100, L400.0001, L504.2610, L501.6710, L500.4050 ####[facility] [address] [place], [address] ALK P 70 U/L Normal 45-117 [facility] Comment on above: Order Comment: 1 Performed By: #### L 101.9900, L100.0100, L400.0001, L504.2610, L501.6710, L500.4050 ####[facility] [address] [place], [address] ALT [Catalytic activity/Vol] 52 U/L Normal 16-61 [facility] Comment on above: Order Comment: 1 Performed By: #### L 101.9900, L100.0100, L400.0001, L504.2610, L501.6710, L500.4050 ####[facility] [address] [place], [address] AST [Catalytic activity/Vol] 26 U/L Normal 15-37 [facility] Comment on above: Order Comment: 1 Performed By: #### L 101.9900, L100.0100, L400.0001, L504.2610, L501.6710, L500.4050 ####[facility] [address] [place], [address] Bilirubin [Mass/Vol] 0.60 mg/dL Normal 0.20-1.00 [facility] Comment on above: Order Comment: 1 Result Comment: For patients on eltrombopag therapy, use of Dimension Guy TBIL is not recommended. Performed By: #### L 101.9900, L100.0100, L400.0001, L504.2610, L501.6710, L500.4050 ####[facility] [address] [place], [address] BUN/CRE 18.0 RATIO Normal 10-20 [facility] Comment on above: Order Comment: 1 Performed By: #### L 101.9900, L100.0100, L400.0001, L504.2610, L501.6710, L500.4050 ####[facility] [address] [place], [address] CA,Total 9.5 mg/dL Normal 8.5-10.1 [facility] Comment on above: Order Comment: 1 Performed By: #### L 101.9900, L100.0100, L400.0001, L504.2610, L501.6710, L500.4050 ####[facility] [address] [place], [address] Chloride [Moles/Vol] 106 mmol/L Normal 98-107 [facility] Comment on above: Order Comment: 1 Performed By: #### L 101.9900, L100.0100, L400.0001, L504.2610, L501.6710, L500.4050 ####[facility] [address] [place], [address] CO2 [Moles/Vol] 24.0 mmol/L Normal 21.0-32.0 [facility] Comment on above: Order Comment: 1 Performed By: #### L 101.9900, L100.0100, L400.0001, L504.2610, L501.6710, L500.4050 ####[facility] [address] [place], [address] Creatinine [Mass/Vol] 0.94 mg/dL Normal 0.70-1.30 [facility] Comment on above: Order Comment: 1 Result Comment: The validity of the calculated GFR GFRAA in patients over 70 years has not been determined. Clinical correlation is essential. Performed By: #### L 101.9900, L100.0100, L400.0001, L504.2610, L501.6710, L500.4050 ####[facility] [address] [place], [address] EST GFR - AA 99 mL/min Normal >60 [facility] Comment on above: Order Comment: 1 Result Comment: Afri can [place] GFR Calc Performed By: #### L 101.9900, L100.0100, L400.0001, L504.2610, L501.6710, L500.4050 ####[facility] [address] [place], [address] GAP 8 Normal 5-15 [facility] Comment on above: Order Comment: 1 Performed By: #### L 101.9900, L100.0100, L400.0001, L504.2610, L501.6710, L500.4050 ####[facility] [address] [place], [address] GFR/1.73 sq M.predicted among non-blacks MDRD (S/P/Bld) [Vol rate/Area] 82 mL/min/{1.73_m2} Normal >60 [facility] Comment on above: Order Comment: 1 Result Comment: Non- GFR Calc Performed By: #### L 101.9900, L100.0100, L400.0001, L504.2610, L501.6710, L500.4050 ####[facility] [address] [place], [address] Globulin (S) [Mass/Vol] 4.5 g/dL High 2.2-4.2 [facility] Comment on above: Order Comment: 1 Performed By: #### L 101.9900, L100.0100, L400.0001, L504.2610, L501.6710, L500.4050 ####[facility] [address] [place], [address] Glucose [Mass/Vol] 109 mg/dL High 74-106 [facility] Comment on above: Order Comment: 1 Result Comment: Fast ing Glucose result from 100 to 125 mg/dL suggests IMPAIRED HOMEOSTASIS per A.D.A. criteria. Performed By: #### L 101.9900, L100.0100, L400.0001, L504.2610, L501.6710, L500.4050 ####[facility] [address] [place], [address] Potassium [Moles/Vol] 4.0 mmol/L Normal 3.5-5.1 [facility] Comment on above: Order Comment: 1 Performed By: #### L 101.9900, L100.0100, L400.0001, L504.2610, L501.6710, L500.4050 ####[facility] [address] [place], [address] Sodium [Moles/Vol] 138 mmol/L Normal 136-145 [facility] Comment on above: Order Comment: 1 Performed By: #### L 101.9900, L100.0100, L400.0001, L504.2610, L501.6710, L500.4050 ####[facility] [address] [place], [address] T PROT 7.8 g/dL Normal 6.4-8.2 [facility] Comment on above: Order Comment: 1 Performed By: #### L 101.9900, L100.0100, L400.0001, L504.2610, L501.6710, L500.4050 ####[facility] [address] [place], [address] Urea nitrogen [Mass/Vol] 17 mg/dL Normal 7-18 [facility] Comment on above: Order Comment: 1 Performed By: #### L 101.9900, L100.0100, L400.0001, L504.2610, L501.6710, L500.4050 ####[facility] [address] [place], [address] Erythrocyte Sed Rateon 07-12 SED RATE 65 mm/hr High 0-20 [facility] Comment on above: Performed By: #### L 101.9900, L100.0100, L400.0001, L504.2610, L501.6710, L500.4050 ####[facility] [address] [place], [address] LDHon 07-12-2024 LDH 224 U/L Normal 87-241 [facility] Comment on above: Order Comment: 1 Performed By: #### L 101.9900, L100.0100, L400.0001, L504.2610, L501.6710, L500.4050 ####[facility] [address] [place], [address] Urinalysis, Completeon 07-12 RBC 5-10 SEEN Normal 0-5 [facility] Comment on above: Order Comment: COLLE CTOR TO SPECIFY Performed By: #### L 101.9900, L100.0100, L400.0001, L504.2610, L501.6710, L500.4050 ####[facility] [address] [place], [address] BACTERIA 2+ /hpf Normal None Seen [facility] Comment on above: Order Comment: COLLE CTOR TO SPECIFY Performed By: #### L 101.9900, L100.0100, L400.0001, L504.2610, L501.6710, L500.4050 ####[facility] [address] [place], [address] EPI,RENAL 10-25 SEEN Normal 0-5 [facility] Comment on above: Order Comment: COLLE CTOR TO SPECIFY Performed By: #### L 101.9900, L100.0100, L400.0001, L504.2610, L501.6710, L500.4050 ####[facility] [address] [place], [address] EPI,TRANSITION 0-5 SEEN Normal 0-5 [facility] Comment on above: Order Comment: COLLE CTOR TO SPECIFY Performed By: #### L 101.9900, L100.0100, L400.0001, L504.2610, L501.6710, L500.4050 ####[facility] [address] [place], [address] WBC >100 SEEN Normal 0-5 [facility] Comment on above: Order Comment: COLLE CTOR TO SPECIFY Performed By: #### L 101.9900, L100.0100, L400.0001, L504.2610, L501.6710, L500.4050 ####[facility] [address] [place], [address] EPI,SQUAMOUS 0 SEEN Normal 0-5 [facility] Comment on above: Order Comment: COLLE CTOR TO SPECIFY Performed By: #### L 101.9900, L100.0100, L400.0001, L504.2610, L501.6710, L500.4050 ####[facility] [address] [place], [address] Mucus Ql (Urine sed) 0 SEEN Normal [facility] Comment on above: Order Comment: COLLE CTOR TO SPECIFY Performed By: #### L 101.9900, L100.0100, L400.0001, L504.2610, L501.6710, L500.4050 ####[facility] [address] [place], [address] MR/Toby 05-26-2024 MR/PAUL [facility] [address] [place] [address] OFFICE VISIT Date of Service: 05/26/24 MR#: [id number] Acct: [id number] Name: ARIA HERNANDEZ Rep #: [id number] : 1945 Provider: Dr. Mary Ellen hunt MD Age/Sex: 78/M Location: 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: No PFSH Medical History (Updated 05/26/24 @ 10:[address] Mary Ellen Jules MD) Rash and nonspecific skin eruption Indwelling Luis catheter present Wears glasses Alcohol use Bladder disease Back pain Superior mesenteric artery syndrome Gastric reflux Non-smoker Leg cramps History of stress test History of echocardiogram Recurrent gross hematuria Right fibular fracture Torn Achilles tendon Abnormal prostate by palpation Surgical History History of open reduction and internal fixation (ORIF) procedure History of cataract extraction with lens replacement H/O hemorrhoidectomy H/O hernia repair History of appendectomy Hx of tonsillectomy Family History Mother Mental disorder Alzheimer's after age 80 Social History Smoking Status: Never smoker alcohol intake: current details: beer or wine only and very infrequently substance use type: does not use what type of physical activity do you participate in: walking frequency: 1-2 times per week HPI HPI Details: ARIA HERNANDEZ, is a 78 M who presents to the office today for an acute care visit. Initially he called in this morning, with a rash that started approximately 72 hours ago, developed rapidly, and expanding quickly, involving the legs, waist, abdomen, little in the lower chest area, back, back of the arms. Sparing the feet, hands. This is somewhat itchy at times, not painful. He initially felt it might be shingles. He texted me a picture but upon reviewing this I really did not feel it was consistent with shingles so we asked him to come in for a visit. He has a diffuse rash as above. Started about 72 hours ago, nonpainful, somewhat itching at times. No high-grade fever or shaking chills. No new dietary issues or foods out of the ordinary. Does not feel ill otherwise. He did have remote shingles vaccine and then did the Shingrix series when it first came out a few years ago. Never had shingles before. Did have chickenpox as a child. Review of systems per chart. Physical exam. Vital signs on chart. Exam is limited. Patient has a somewhat diffuse rash, involving somewhat the chest, particular lower part, abdomen, waist area anteriorly and laterally, somewhat across the low back. More prominent in the backs of the arms and posterior axillary areas. Sparing the axilla. Sparing the feet and hands, neck and face. Slightly raised pinkish lesions maculopapular. Not pustular, not draining, diffuse range of sizes. Some of them have a little bit of clearing around the edges. No central clearing of lesions. There was no herald patch. ROS Const Constitutional: No body ache, chills, excessive sweating, fatigue, fever(s), frequent falls, headache(s), snoring, weakness, weight change, sleep problems or change in appetite Eyes Eyes: No blurry vision, change in vision, eye pain or Light sensitivity ENT ENT: No abnormal hearing, ear or mastoid pain, tinnitus, nasal congestion, headache(s), neck pain or sore throat Resp Respiratory: No cough, shortness of breath, snoring or wheezing Cardio Cardiology: No chest pain at rest, chest pain with exertion, excessive sweating, shortness of breath, dyspnea on exertion, lightheadedness, orthopnea or palpitati (more content not included)... Normal [facility] Absolute lymphocyte countOrd ered By: Benedicto Garland on 10-14-2023 Lymphocytes Auto (Unsp spec) [#/Vol] 1.50 10*3/uL 0.83-4.51 [facility] Basophil percentageOrdered B y: Benedicto Garland on 10-14-2023 Basophils/100 WBC (Bld) 0.7 % 0-1 [facility] Chloride [Moles/Vol] 106 mmol/L 98-107 [facility] Eosinophils/100 WBC (Bld) 2.3 % 0-5 [facility] Glucose [Mass/Vol] 109 mg/dL 74-106 [facility] Comment on above: Fasting Glucose resu lt from 100 to 125 mg/dL suggests IMPAIRED HOMEOSTASIS per A.D.A. criteria. Neutrophils (Bld) [#/Vol] 4.6 10*3/uL 2.0-7.7 [facility] Neutrophils/100 WBC (Bld) 67.3 % 47-70 [facility] Potassium [Moles/Vol] 3.8 mmol/L 3.5-5.1 [facility] Sodium [Moles/Vol] 141 mmol/L 136-145 [facility] WBC (Bld) [#/Vol] 6.8 10*3/uL 4.4-11.0 [facility] Blood erythrocytes count (nu mber/volume)Ordered By: Benedicto Garland on 10-14-2023 RBC (Bld) [#/Vol] 4.80 10*6/uL 4.6-6.2 [facility] Blood hemoglobin measurement (mass/volume)Ordered By: Benedicto Garland on 10-14-2023 Hemoglobin (Bld) [Mass/Vol] 14.7 g/dL 13.0-16.5 [facility] Blood lymphocytes/100 leukoc ytesOrdered By: Benedicto Garland on 10-14-2023 Lymphocytes/100 WBC (Bld) 22.0 % 19-41 [facility] Blood monocytes/100 leukocyt esOrdered By: Benedicto Garland on 10-14-2023 Monocytes/100 WBC (Bld) 6.8 % 0-10 [facility] Blood platelet mean volumeOr dered By: Benedicto Garland on 10-14-2023 Platelet mean volume (Bld) [Entitic vol] 9.3 fL 6.2-12.0 [facility] Determination of erythrocyte mean corpuscular volume (MCV)Ordered By: Benedicto Garland on 10-14-2023 MCV (RBC) [Entitic vol] 94.4 fL 80-94 [facility] Hematocrit Auto (Bld) [Volum e fraction]Ordered By: Benedicto Garland on 10-14-2023 Hematocrit (Bld) [Volume fraction] 45.3 % 40-54 [facility] Laboratory - Chemistry and C hemistry - challengeOrdered By: Benedicto Garland on 10-14-2023 CO2 [Moles/Vol] 25.0 mmol/L 21.0-32.0 [facility] Urea nitrogen/Creatinine [Mass ratio] 16.5 mg/mg 10-20 [facility] - Hematology and Cell countsOrdered By: Benedicto Garland on 10-14-2023 Erythrocyte distribution width (RBC) [Entitic vol] 44.2 fL 35.1-43.9 [facility] Erythrocyte distribution width (RBC) [Ratio] 12.8 % 11.6-14.6 [facility] Immature granulocytes/100 WBC (Bld) 0.900 % 0.0-0.9 [facility] Comment on above: IG% - Immature Granu locytes (promyelocytes, myelocytes and metamyelocytes) > 1% indicates that a LEFT SHIFT is Present. MCH (RBC) [Entitic mass] 30.6 pg 27.0-32.0 [facility] Nucleated RBC/100 WBC (Bld) [Ratio] 0 % 0-5 [facility] MCHC Auto (RBC) [Mass/Vol]Or dered By: Benedicto Garland on 10-14-2023 MCHC (RBC) [Mass/Vol] 32.5 g/dL 32-36 [facility] No Panel InformationOrdered By: Benedicto Garland on 10-14-2023 Estimated Creatinine Clearance Calc 61.94 ml/min [facility] Estimated GFR (MDRD) Amer 90 mL/min >60 [facility] Comment on above: GFR Calc Estimated GFR (MDRD) Non-Af Amer 74 mL/min >60 [facility] Comment on above: Non- GFR Calc Platelets bldOrdered By: Ida Garland on 10-14-2023 Platelets (Bld) [#/Vol] 243 10*3/uL 150-450 [facility] Serum or plasma calcium sharon urement (mass/volume)Ordered By: Benedicto Garland on 10-14-2023 Calcium [Mass/Vol] 8.9 mg/dL 8.5-10.1 [facility] Serum or plasma creatinine m easurement (mass/volume)Ordered By: Benedicto Garland on 10-14-2023 Creatinine [Mass/Vol] 1.03 mg/dL 0.70-1.30 [facility] Comment on above: The validity of the calculated GFR & GFRAA in patients over 70 years has not been determined. Clinical correlation is essential. Serum or plasma urea nitroge n measurement (mass/volume)Ordered By: Benedicto Garland on 10-14-2023 Urea nitrogen [Mass/Vol] 17 mg/dL 7-18 [facility] Thin prep Papanicolaou smear with manual screeningOrdered By: Benedicto Garland on 10-14-2023 Thin prep Papanicolaou smear with manual screening 10 5-15 [facility] Amorphous sediment detection in urine sediment by light microscopyOrdered By: Jabari Elizabeth on 10-11-2023 Amorphous sediment LM Ql (Urine sed) 1+ URATE [facility] Basophil percentageOrdered B y: Jabari Elizabeth on 10-11-2023 Basophil percentage 0 SEEN /hpf 0-5 [facility] Bilirubin Test strip Ql (U)O rdered By: Jabari Elizabeth on 10-11-2023 Bilirubin Ql (U) Negative Negative [facility] Ketones Test strip Ql (U)Ord ered By: Jabari Elizabeth on 10-11-2023 Ketones Ql (U) 5 mg/dl Negative [facility] Mucus LM Ql (Urine sed)Order ed By: Jabari Elizabeth on 10-11-2023 Mucus Ql (Urine sed) 0 SEEN /hpf [facility] Nitrite Test strip Ql (U)Ord ered By: Jabari Elizabeth on 10-11-2023 Nitrite Ql (U) Negative Negative [facility] Protein Test strip Ql (U)Ord ered By: Jabari Elizabeth on 10-11-2023 Protein Ql (U) 500 mg/dl Negative [facility] Squamous epithelial cells de tection in urine sediment by light microscopyOrdered By: Jabari Elizabeth on 10-11-2023 Epithelial cells.squamous LM Ql (Urine sed) 0-5 SEEN /hpf 0-5 [facility] Urine blood detectionOrdered By: Jabari Elizabeth on 10-11-2023 RBC Ql (U) 150 /ul Negative [facility] RBC Ql (U) > 100 SEEN /hpf 0-5 [facility] Urine clarityOrdered By: Peter Elizabeth on 10-11-2023 Clarity (U) Cloudy Clear [facility] Urine color determinationOrd ered By: Jabari Elizabeth on 10-11-2023 Color (U) Red Yellow [facility] Urine glucose detectionOrder ed By: Jabari Elizabeth on 10-11-2023 Glucose Ql (U) Normal mg/dl Normal [facility] Urine leukocyte esterase det ection by dipstickOrdered By: Jabari Elizabeth on 10-11-2023 Leukocyte esterase Test strip Ql (U) Negative Negative [facility] Urine pHOrdered By: Jabari Elizabeth on 10-11-2023 pH (U) 6.5 [pH] 5.0 - 8.0 [facility] Urine sediment bacteria coun t by microscopy (number/high power field)Ordered By: Jabari Elizabeth on 10-11-2023 Bacteria LM.HPF (Urine sed) [#/Area] 0 /[HPF] None Seen [facility] Urine specific gravity measu rementOrdered By: Jabari Elizabeth on 10-11-2023 Specific gravity (U) [Rel density] 1.020 1.002-1.030 [facility] Urobilinogen Auto test strip Ql (U)Ordered By: Jabari Elizabeth on 10-11-2023 Urobilinogen Ql (U) Normal mg/dl Normal [facility] Basophil percentageOrdered B y: Isa Hansoning on 08-03-2023 Basophil percentage < 0.9 mg/dL 0.70-1.30 [facility] No Panel InformationOrdered By: Isa Hansoning on 08-03-2023 Bedside Estimated GFR (eGFR) > 60.0000 mL/min >60 [facility] Absolute lymphocyte countOrd ered By: Dr. Jules on 12-25-2022 Lymphocytes Auto (Unsp spec) [#/Vol] 2.61 10*3/uL 0.83-4.51 [facility] Basophil percentageOrdered B y: Dr. Jules on 12-25-2022 Basophils/100 WBC (Bld) 0.8 % 0-1 [facility] Bilirubin [Mass/Vol] 0.70 mg/dL 0.20-1.00 [facility] Comment on above: For patients on eltr ombopag therapy, use of Dimension Guy TBIL is not recommended. Chloride [Moles/Vol] 104 mmol/L 98-107 [facility] Cholesterol [Mass/Vol] 185 mg/dL <200 [facility] Comment on above: <200 mg/dL Desirable 200-240 mg/dL Borderline >240 mg/dL High Risk Eosinophils/100 WBC (Bld) 5.2 % 0-5 [facility] Glucose [Mass/Vol] 100 mg/dL 74-106 [facility] Comment on above: Fasting Glucose resu lt from 100 to 125 mg/dL suggests IMPAIRED HOMEOSTASIS per A.D.A. criteria. Neutrophils (Bld) [#/Vol] 2.0 10*3/uL 2.0-7.7 [facility] Neutrophils/100 WBC (Bld) 37.5 % 47-70 [facility] Potassium [Moles/Vol] 3.9 mmol/L 3.5-5.1 [facility] Protein [Mass/Vol] 7.5 g/dL 6.4-8.2 [facility] Sodium [Moles/Vol] 138 mmol/L 136-145 [facility] Triglyceride [Mass/Vol] 111 mg/dL <199 [facility] Comment on above: The drugs N-Acetylcy steine and Metamizole may falsely depress this assay.Serum Triglycerides Reference Interval Normal <150 mg/dL Borderline high 150 - 199 mg/dL High 200 - 499 mg/dL Very High > or = 500 mg/dL WBC (Bld) [#/Vol] 5.2 10*3/uL 4.4-11.0 [facility] Blood erythrocytes count (nu mber/volume)Ordered By: Dr. Jules on 12-25-2022 RBC (Bld) [#/Vol] 5.07 10*6/uL 4.6-6.2 [facility] Blood hemoglobin measurement (mass/volume)Ordered By: Dr. Jules on 12-25-2022 Hemoglobin (Bld) [Mass/Vol] 15.6 g/dL 13.0-16.5 [facility] Blood lymphocytes/100 leukoc ytesOrdered By: Dr. Jules on 12-25-2022 Lymphocytes/100 WBC (Bld) 50.0 % 19-41 [facility] Blood monocytes/100 leukocyt esOrdered By: Dr. Jules on 12-25-2022 Monocytes/100 WBC (Bld) 6.1 % 0-10 [facility] Blood platelet mean volumeOr dered By: Dr. Jules on 12-25-2022 Platelet mean volume (Bld) [Entitic vol] 9.4 fL 6.2-12.0 [facility] Determination of erythrocyte mean corpuscular volume (MCV)Ordered By: Dr. Jules on 12-25-2022 MCV (RBC) [Entitic vol] 94.3 fL 80-94 [facility] Hematocrit Auto (Bld) [Volum e fraction]Ordered By: Dr. Jules on 12-25-2022 Hematocrit (Bld) [Volume fraction] 47.8 % 40-54 [facility] Laboratory - Chemistry and C hemistry - challengeOrdered By: Dr. Jules on 12-25-2022 ALP [Catalytic activity/Vol] 50 U/L 45-117 [facility] ALT [Catalytic activity/Vol] 33 U/L 16-61 [facility] CO2 [Moles/Vol] 29.0 mmol/L 21.0-32.0 [facility] Globulin (S) [Mass/Vol] 3.7 g/dL 2.2-4.2 [facility] Urea nitrogen/Creatinine [Mass ratio] 17.8 mg/mg 10-20 [facility] Laboratory - Hematology and Cell countsOrdered By: Dr. Jules on 12-25-2022 Erythrocyte distribution width (RBC) [Entitic vol] 44.2 fL 35.1-43.9 [facility] Erythrocyte distribution width (RBC) [Ratio] 12.8 % 11.6-14.6 [facility] Immature granulocytes/100 WBC (Bld) 0.400 % 0.0-0.9 [facility] Comment on above: IG% - Immature Granu locytes (promyelocytes, myelocytes and metamyelocytes) > 1% indicates that a LEFT SHIFT is Present. MCH (RBC) [Entitic mass] 30.8 pg 27.0-32.0 [facility] Nucleated RBC/100 WBC (Bld) [Ratio] 0 % 0-5 [facility] MCHC Auto (RBC) [Mass/Vol]Or dered By: Dr. Jules on 12-25-2022 MCHC (RBC) [Mass/Vol] 32.6 g/dL 32-36 [facility] No Panel InformationOrdered By: Dr. Jules on 12-25-2022 Estimated GFR (MDRD) Amer 98 mL/min >60 [facility] Comment on above: GFR Calc Estimated GFR (MDRD) Non-Af Amer 81 mL/min >60 [facility] Comment on above: Non- GFR Calc Prostate Specific Antigen Screen 3.19 ng/mL 0.00-4.00 [facility] Comment on above: This test was perfor med using the TPSA assay method for the[employer] chemistry system. Values obtained with differentassay methods cannot be used interchangably.When changing PSA assays in the course of monitoring apatient, additional sequential testing should be carriedout to confirm baseline values. Thyroid Stimulating Hormone (TSH) 2.08 uIU/mL 0.358-3.74 [facility] Vitamin D 25-Hydroxy 14.4 ng/mL [facility] Comment on above: Vitamin D 25(OH) Sta tus Range Deficiency <20 ng/mL (50nmol/L) Insufficiency 20 - 30 ng/mL (50 - 75 nmol/L) Sufficiency 30 - 100 ng/mL (75 - 250 nmol/L) Toxicity >100 ng/mL (>250 nmol/L) Platelets bldOrdered By: Dr. Jules on 12-25-2022 Platelets (Bld) [#/Vol] 207 10*3/uL 150-450 [facility] Serum or plasma albumin sharon urement (mass/volume)Ordered By: Dr. Jules on 12-25-2022 Albumin [Mass/Vol] 3.8 g/dL 3.2-5.0 [facility] Serum or plasma albumin/glob ulin mass ratioOrdered By: Dr. Jules on 12-25-2022 Albumin/Globulin [Mass ratio] 1.0 {ratio} 0.9-2.4 [facility] Serum or plasma calcium sharon urement (mass/volume)Ordered By: Dr. Jules on 12-25-2022 Calcium [Mass/Vol] 9.0 mg/dL 8.5-10.1 [facility] Serum or plasma cholesterol in HDL measurement (mass/volume)Ordered By: Dr. Jules on 12-25-2022 Cholesterol in HDL [Mass/Vol] 36 mg/dL >40 [facility] Comment on above: The drugs N-Acetylcy steine and Metamizole may falsely depress this assay. Reference Range HDL <40 mg/dL Low HDL Cholesterol HDL >or= 60 mg/dL High HDL Cholesterol Serum or plasma cholesterol in VLDL measurement (mass/volume)Ordered By: Dr. Jules on 12-25-2022 Cholesterol in VLDL [Mass/Vol] 22 mg/dL 5-40 [facility] Serum or plasma creatinine m easurement (mass/volume)Ordered By: Dr. Jules on 12-25-2022 Creatinine [Mass/Vol] 0.96 mg/dL 0.70-1.30 [facility] Comment on above: The validity of the calculated GFR & GFRAA in patients over 70 years has not been determined. Clinical correlation is essential. Serum or plasma low density lipoprotein (LDL) cholesterol measurement (mass/volume)Ordered By: Dr. Jules on 12-25-2022 Cholesterol in LDL [Mass/Vol] 127 mg/dL 0-130 [facility] Serum or plasma urea nitroge n measurement (mass/volume)Ordered By: Dr. Jules on 12-25-2022 Urea nitrogen [Mass/Vol] 17 mg/dL 7-18 [facility] Thin prep Papanicolaou smear with manual screeningOrdered By: Dr. Jules on 12-25-2022 Thin prep Papanicolaou smear with manual screening 24 U/L 15-37 [facility] Thin prep Papanicolaou smear with manual screening 5 5-15 [facility] CNCOon 12-04-2021 CNCO Letter Text Normal [facility] CNPNon 10-04-2021 CNPN Telephone (FAMWS) ARIA HERNANDEZ ([id number]) 1945 M TXT Date Time Provider Department 10/04/21 [facility] During your visit today, we recorded the following information about you: Anabella Hayden Pss 10/04/2021 6:21 PM Signed Contacted patient they will do a rapid test so no need to schedule Anabella Hayden Pss Allergies As of Date: 10/04/2021 Noted Allergy Reaction ASPIRIN (SALICYLATES) 10/11/2007 8 - GI Upset Date Reviewed: 12/10/2020 Reviewed by: Mary Schroeder Ma - Fully Assessed Reason for Visit: Appointment Cancelled [1023] Prescriptions as of 10/04/2021 - omeprazole (PRILOSEC) 20 mg capsule Take 1 capsule by mouth once daily. - doxazosin (CARDURA) 2 mg tablet Take 1 tablet by mouth once daily. - acetaminophen (TYLENOL EXTRA STRENGTH) 500 mg tablet Take 2 tablets by mouth every 8 hours as needed for Pain. Meds Comments as of 07/18/2019: Local Pharmacy - [facility] Problem List As Of Date 10/04/2021 Noted Resolved ESOPHAGEAL REFLUX [K21.9] 10/11/2007 Other chest pain [R07.89] 11/08/2007 07/18/2019 Acute gastritis without mention of hemorrhage [*12/13/2007 07/18/2019 DIAPHRAGMATIC HERNIA [K44.9] 12/13/2007 BPH without obstruction/lower urinary tract sym*06/13/2009 Diverticulitis [K57.92] 07/18/2019 Skin lesion [L98.9] 06/09/2013 06/27/2015 Plantar fascial fibromatosis [M72.2] 09/07/2013 Diarrhea [R19.7] 06/07/2015 06/27/2015 Projectile vomiting with nausea [R11.12] 06/07/2015 07/18/2019 Hx of acute gastritis [Z87.19] 07/18/2019 Encounter Status:Closed by ANABELLA GONG on 10/04/21 [facility] OBSOLETEon 05-28-2021 OBSOLETE Refill (FAMPWS) ARIA HERNANDEZ ([id number]) 1945 M TXT Date Time Provider Department 05/28/21 [facility] FAMPWS During your visit today, we recorded the following information about you: Kaylan Griffith 05/28/2021 11:55 AM Signed Patient phones requesting refills as follows: Pending Prescriptions Disp Refills OMEPRAZOLE 20 MG CAPSULE,DELAYED RELEASE 90 capsule 3 Sig: Take 1 capsule by mouth once daily. SAMMI: No ABIGAIL-12/10/20 with PCP Labs-11/27/20 NOV-none Please review and advise. 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 - doxazosin (CARDURA) 2 mg tablet Take 1 tablet by mouth once daily. - acetaminophen (TYLENOL EXTRA STRENGTH) 500 mg tablet Take 2 tablets by mouth every 8 hours as needed for Pain. Meds Comments as of 07/18/2019: Local Pharmacy - [facility] Problem List As Of Date 05/28/2021 Noted Resolved ESOPHAGEAL REFLUX [K21.9] 10/11/2007 Other chest pain [R07.89] 11/08/2007 07/18/2019 Acute gastritis without mention of hemorrhage [*12/13/2007 07/18/2019 DIAPHRAGMATIC HERNIA [K44.9] 12/13/2007 BPH without obstruction/lower urinary tract sym*06/13/2009 Diverticulitis [K57.92] 07/18/2019 Skin lesion [L98.9] 06/09/2013 06/27/2015 Plantar fascial fibromatosis [M72.2] 09/07/2013 Diarrhea [R19.7] 06/07/2015 06/27/2015 Projectile vomiting with nausea [R11.12] 06/07/2015 07/18/2019 Hx of acute gastritis [Z87.19] 07/18/2019 Prescriptions ordered this encounter Disp Refills Start End OMEPRAZOLE 20 MG CAPSULE,DELAYED REL* 90 c* 3 05/28/2021 Route: ORAL Sig: Take 1 capsule by mouth once daily. Medications Discontinued During This Encounter Prescriptions - omeprazole (PRILOSEC) 20 mg capsule (Discontinued) Take 1 capsule by mouth once daily. Encounter Status:Closed by [facility]ita PACHECO on 05/28/21 [facility] OBSOLETEon 04-07-2021 OBSOLETE Refill (REGINO) ARIA HERNANDEZ ([id number]) 1945 M TXT Date Time Provider Department 04/07/21 PODLOGAR, JOSÉ MANUEL LACY During your visit today, we recorded the following information about you: Allergies As of Date: 04/07/2021 Noted Allergy Reaction ASPIRIN (SALICYLATES) 10/11/2007 8 - GI Upset Date Reviewed: 12/10/2020 Reviewed by: Mary Schroeder Ma - Fully Assessed Reason for Visit: Refill Request [94] Order(s):doxazosin (CARDURA) 2 mg tabletTake 1 tablet by mouth once daily.Disp: 90 tabletRfl: 3 Prescriptions as of 04/07/2021 Sig: DOXAZOSIN 2 MG TABLET Take 1 tablet by mouth once d* OMEPRAZOLE 20 MG CAPSULE,RO* Take 1 capsule by mouth once * ACETAMINOPHEN 500 MG TABLET Take 2 tablets by mouth every* Problem List As Of Date 04/07/2021 Noted Resolved ESOPHAGEAL REFLUX [K21.9] 10/11/2007 Other chest pain [R07.89] 11/08/2007 07/18/2019 Acute gastritis without mention of hemorrhage [*12/13/2007 07/18/2019 DIAPHRAGMATIC HERNIA [K44.9] 12/13/2007 BPH without obstruction/lower urinary tract sym*06/13/2009 Diverticulitis [K57.92] 07/18/2019 Skin lesion [L98.9] 06/09/2013 06/27/2015 Plantar fascial fibromatosis [M72.2] 09/07/2013 Diarrhea [R19.7] 06/07/2015 06/27/2015 Projectile vomiting with nausea [R11.12] 06/07/2015 07/18/2019 Hx of acute gastritis [Z87.19] 07/18/2019 Prescriptions ordered this encounter Disp Refills Start End DOXAZOSIN 2 MG TABLET 90 t* 3 04/08/2021 Route: ORAL Sig: Take 1 tablet by mouth once daily. Medications Discontinued During This Encounter Prescriptions - doxazosin (CARDURA) 2 mg tablet (Discontinued) Take 1 tablet by mouth once daily. Encounter Status:Closed by ELISSA WEISS on 04/08/21 Normal [facility] Vital Signs Date Time Vital Sign Value Performing Clinician Faci sheriy 03-30-2025 07:57-0400 Body height 180.[address] Mary Ellen Jules MD Work Phone: [facility] 03-30-2025 07:57-0400 Body mass index (BMI) [Ratio] 25.8 kg/m2 Dr. Mary Ellen Jules MD Work Phone: [facility] 03-30-2025 07:57-0400 Body temperature 98.2 [degF] Dr. Mary Ellen Jules MD Work Phone: [facility] 03-30-2025 07:57-0400 Body weight 84.[address] Mary Ellen Jules MD Work Phone: [facility] 03-30-2025 07:57-0400 Diastolic blood pressure 70 mm[Hg] Dr. Mary Ellen Jules MD Work Phone: [facility] 03-30-2025 07:57-0400 Heart rate 78 /min Dr. Mary Ellen Jules MD Work Phone: [facility] 03-30-2025 07:57-0400 Respiratory rate 16 /min Dr. Mary Ellen Jules MD Work Phone: [facility] 03-30-2025 07:57-0400 SaO2% (BldA) [Mass fraction] 94 % Dr. Mary Ellen Jules MD Work Phone: [facility] 03-30-2025 07:57-0400 Systolic blood pressure 128 mm[Hg] Dr. Mary Ellen Jules MD Work Phone: [facility] 10-15-2023 09:49-0500 Body temperature 98.6 [degF] Dr. Mary Ellen Jules Work Phone: [facility] 10-15-2023 09:49-0500 Diastolic blood pressure 72 mm[Hg] Dr. Mary Ellen Jules Work Phone: [facility] 10-15-2023 09:49-0500 Heart rate 83 /min Dr. Mary Ellen Jules Work Phone: [facility] 10-15-2023 09:49-0500 Respiratory rate 16 /min Dr. Mary Ellen Jules Work Phone: [facility] 10-15-2023 09:49-0500 SaO2% (BldA) [Mass fraction] 96 % Dr. Mary Ellen Jules Work Phone: [facility] 10-15-2023 09:49-0500 Systolic blood pressure 138 mm[Hg] Dr. Mary Ellen Jules Work Phone: [facility] 10-14-2023 19:52-0500 Body height 180.[address] Mary Ellen Jules Work Phone: [facility] 10-14-2023 19:52-0500 Body mass index (BMI) [Ratio] 25.4 kg/m2 Dr. Mary Ellen Jules Work Phone: [facility] 10-14-2023 19:52-0500 Body weight 82.[address] Mary Ellen Jules Work Phone: [facility] 10-14-2023 19:06-0500 Diastolic blood pressure 87 mm[Hg] Dr. Mary Ellen Jules Work Phone: [facility] 10-14-2023 19:06-0500 Heart rate 72 /min Dr. Mary Ellen Jules Work Phone: [facility] 10-14-2023 19:06-0500 Respiratory rate 16 /min Dr. Mary Ellen Jules Work Phone: [facility] 10-14-2023 19:06-0500 SaO2% (BldA) [Mass fraction] 97 % Dr. Mary Ellen Jules Work Phone: [facility] 10-14-2023 19:06-0500 Systolic blood pressure 142 mm[Hg] Dr. Mary Ellen Jules Work Phone: [facility] 10-14-2023 16:52-0500 Body height 180.[address] Mary Ellen Jules Work Phone: [facility] 10-14-2023 16:52-0500 Body mass index (BMI) [Ratio] 26.2 kg/m2 Dr. Mary Ellen Jules Work Phone: [facility] 10-14-2023 16:52-0500 Body temperature 98.6 [degF] Dr. Mary Ellen Jules Work Phone: [facility] 10-14-2023 16:52-0500 Body weight 85.[address] Mary Ellen Jules Work Phone: [facility] 10-11-2023 21:00-0500 Body height 180.[address] Mary Ellen Jules Work Phone: [facility] 10-11-2023 21:00-0500 Body mass index (BMI) [Ratio] 26.5 kg/m2 Dr. Mary Ellen Jules Work Phone: [facility] 10-11-2023 21:00-0500 Body temperature 97.5 [degF] Dr. Mary Ellen Jules Work Phone: [facility] 10-11-2023 21:00-0500 Body weight 86.[address] Mary Ellen Jules Work Phone: [facility] 10-11-2023 21:00-0500 Diastolic blood pressure 81 mm[Hg] Dr. Mary Ellen Jules Work Phone: [facility] 10-11-2023 21:00-0500 Heart rate 91 /min Dr. Mary Ellen Jules Work Phone: [facility] 10-11-2023 21:00-0500 Respiratory rate 16 /min Dr. Mary Ellen Jules Work Phone: [facility] 10-11-2023 21:00-0500 SaO2% (BldA) [Mass fraction] 94 % Dr. Mary Ellen Jules Work Phone: [facility] 10-11-2023 21:00-0500 Systolic blood pressure 142 mm[Hg] Dr. Mary Ellen Jules Work Phone: [facility] 10-07-2023 16:57-0500 Body temperature 97.7 [degF] Dr. Mary Ellen Jules Work Phone: [facility] 10-07-2023 16:57-0500 Diastolic blood pressure 76 mm[Hg] Dr. Mary Ellen Jules Work Phone: [facility] 12-13-2023 16:57-0500 Heart rate 67 /min Dr. Mary Ellen Jules Work Phone: [facility] 10-07-2023 16:57-0500 Respiratory rate 16 /min Dr. Mary Ellen Jules Work Phone: [facility] 10-07-2023 16:57-0500 SaO2% (BldA) [Mass fraction] 98 % Dr. Mary Ellen Jules Work Phone: [facility] 10-07-2023 16:57-0500 Systolic blood pressure 153 mm[Hg] Dr. Mary Ellen Jules Work Phone: [facility] 10-07-2023 13:07-0500 Body height 180.[address] Mary Ellen Jules Work Phone: [facility] 10-07-2023 13:07-0500 Body mass index (BMI) [Ratio] 25.4 kg/m2 Dr. Mary Ellen Jules Work Phone: [facility] 10-07-2023 13:07-0500 Body weight [address] Mary Ellen Jules Work Phone: [facility] 07-07-2023 14:03-0400 Body height 180.[address] Mary Ellen Jules Work Phone: [facility] 07-07-2023 14:03-0400 Body mass index (BMI) [Ratio] 25.7 kg/m2 Dr. Mary Ellen Jules Work Phone: [facility] 07-07-2023 14:03-0400 Body temperature 97.3 [degF] Dr. Mary Ellen Jules Work Phone: [facility] 07-07-2023 14:03-0400 Body weight 83.[address] Mary Ellen Jules Work Phone: [facility] 07-07-2023 14:03-0400 Diastolic blood pressure 75 mm[Hg] Dr. Mary Ellen Jules Work Phone: [facility] 07-07-2023 14:03-0400 Heart rate 69 /min Dr. Mary Ellen Jules Work Phone: [facility] 07-07-2023 14:03-0400 Respiratory rate 16 /min Dr. Mary Ellen Jules Work Phone: [facility] 07-07-2023 14:03-0400 SaO2% (BldA) [Mass fraction] 95 % Dr. Mary Ellen Jules Work Phone: [facility] 07-07-2023 14:03-0400 Systolic blood pressure 147 mm[Hg] Dr. Mary Ellen Jules Work Phone: [facility] 06-17-2023 10:55-0400 Body mass index (BMI) [Ratio] 25.7 kg/m2 Dr. Mary Ellen Jules Work Phone: [facility] 06-17-2023 10:55-0400 Body temperature 98.3 [degF] Dr. Mary Ellen Jules Work Phone: [facility] 06-17-2023 10:55-0400 Body weight 83.[address] Mary Ellen Jules Work Phone: [facility] 06-17-2023 10:55-0400 Diastolic blood pressure 76 mm[Hg] Dr. Mary Ellen Jules Work Phone: [facility] 06-17-2023 10:55-0400 Heart rate 73 /min Dr. Mary Ellen Jules Work Phone: [facility] 06-17-2023 10:55-0400 Respiratory rate 16 /min Dr. Mary Ellen Jules Work Phone: [facility] 06-17-2023 10:55-0400 SaO2% (BldA) [Mass fraction] 93 % Dr. Mary Ellen Jules Work Phone: [facility] 06-17-2023 10:55-0400 Systolic blood pressure 128 mm[Hg] Dr. Mary Ellen Jules Work Phone: [facility] Encounters Encounter Date Encounter Type Care Provider Facility Start: 03-30-2025 End: 03-30-[address] Mary Ellen Jules MD -[facility] Work Phone: Start: 03-30-2025 End: 03-30-2025 ambulatory Mary Ellen Jules Facility:[facility] Start: 02-28-2025 End: 02-28-[address] Mary Ellen Jules MD Work Phone: [facility] Work Phone: Start: 02-28-2025 End: 02-28-[address] Mary Ellen Jules MD -Laboratory, [facility] Start: 02-28-2025 End: 02-28-2025 ambulatory Mary Ellengalen Jules Facility:[facility] Start: 11-02-2024 ambulatory [facility] Jorge A Facility :[facility] Start: 11-01-2024 End: 11-01-2024 ambulatory [facility] Jorge A Facility:[facility] Start: 07-25-2024 End: 07-25-2024 ambulatory [facility] Jorge A Facility:[facility] Start: 07-12-2024 End: 07-12-2024 ambulatory [facility] Jorge A Facility:[facility] Start: 05-26-2024 End: 05-26-2024 ambulatory Mary Ellen Jules Facility:[facility] Start: 10-14-2023 End: 10-15-2023 Evaluation and management of inpatient Dr. Mary Ellen Jules Work Phone: [facility] Work Phone: Start: 10-14-2023 End: 10-15-[address] Mary Ellen Jules Work Phone: [facility] Work Phone: Start: 10-11-2023 End: 10-12-2023 Emergency department patient visit Dr. Mary Ellen Jules Work Phone: [facility] Work Phone: Start: 10-07-2023 End: 10-07-2023 Non-patient / Non-visit Dr. Mary Ellen Jules Work Phone: [facility] Work Phone: Start: 10-07-2023 End: 10-07-2023 Admission to same day surgery center Dr. Mary Ellen Jules Work Phone: [facility] Start: 10-07-2023 End: 10-07-[address] Mary Ellen Jules Work Phone: [facility] Work Phone: Start: 08-03-2023 End: 08-03-[address] Mary Ellen Jules Work Phone: [facility] Work Phone: Start: 08-03-2023 End: 08-03-[address] Mary Ellen Jules Work Phone: [facility] Work Phone: Start: 07-07-2023 End: 07-07-[address] Mary Ellen Jules Work Phone: [facility] Work Phone: Start: 06-17-2023 End: 06-17-[address] Mary Ellen Jules Work Phone: [facility] Work Phone: Start: 12-25-2022 End: 12-25-2022 ambulatory [facility] Work Phone: Start: 12-25-2022 End: 12-25-2022 Patient encounter procedure [facility] Start: 04-18-2022 Angelia steiner PA-C Work Phone: [facility] [place] Comment on above: Opened In Error Start: 04-07-2022 Refill Elissa Weiss MD Work Phone: [facility] Comment on above: Refill Request Procedures Date Procedure Procedure Detail Performing Clinician Start: 02-28-2025 Prostate specific an tigen measurement Dr. Mary Ellen Jules MD Work Phone: Comment on above: This test was perfor med using the [employer] tPSA method. Measured values of a patient sample can vary depending on the testing procedure used. PSA values determined on patient samples by different testing procedures cannot be used interchangeably. If there is a change in PSA assays while monitoring therapy, sequential testing should be performed to confirm baseline values. Start: 02-28-2025 Vitamin D, 25-hydrox y measurement Dr. Mary Ellen Jules MD Work Phone: Comment on above: Vitamin D StatusDefi ciency: <20 ng/mL (50nmol/L)Insufficiency: 20-30 ng/mL (50-75 nmol/L)Sufficiency: 30-100 ng/mL (75-250 nmol/L)Toxicity: >100 ng/mL (>250 nmol/L) Start: 10-07-2023 Cysto,Transurethra R esec BladderTum MitC (Not Applicable) Dr. Mary Ellen Jules Work Phone: Start: 08-03-2023 Computed tomography of abdomen and pelvis with contrast Dr. Mary Ellen Jules Work Phone: Start: 12-08-2020 Adult depression scr eening assessment Elissa Weiss MD Work Phone: Plan of Treatment Date Care Activity Detail Author Start: 11-27-2023 DIABETES SCREEN DIABETES SCREEN [facility] Start: 10-15-2023 Patient discharge [facility] Start: 10-15-2023 Application of intermittent pneumatic compression device [facility] Start: 10-14-2023 Following clinical pathway protocol [facility] Start: 10-14-2023 Admission procedure [facility] Start: 10-14-2023 Measuring intake and output [facility] Start: 10-14-2023 Patient education [facility] Start: 10-14-2023 Provision of activity privileges [facility] Start: 10-14-2023 Taking patient vital signs [facility] Start: 10-14-2023 Vital signs measurements [facility] Start: 10-14-2023 [facility] Start: 10-14-2023 Hospital admission, emergency, from emergency room, medical nature [facility] Start: 10-14-2023 Consultation [facility] Start: 10-12-2023 [facility] Start: 10-07-2023 Ambulation without limitation [facility] Start: 10-07-2023 Medical regimen orders management [facility] Start: 10-07-2023 Medication education [facility] Start: 10-07-2023 Patient discharge [facility] Start: 10-07-2023 Taking patient vital signs [facility] Start: 10-07-2023 End: 10-07-2023 [facility] Start: 10-07-2023 Anes transurethral resection of bladder tumor ANESTH BLADDER TUMOR SURG [facility] Start: 10-07-2023 Cystourethroscopy w/dest &/rmvl med bladder gibran CYSTOSCOPY AND TREATMENT [facility] Start: 06-17-2023 Patient referral [facility] Work Phone: Start: 12-08-2021 Adult depression screening assessment DEPRESSION SCREENING [facility] Start: 11-29-2021 COVID-19 VACCINE (4 - Booster for Pfizer series) COVID-19 VACCINE (4 - Booster for Pfizer series) [facility] Start: 10-26-2021 ADVANCE DIRECTIVE DISCUSSION ADVANCE DIRECTIVE DISCUSSION [facility] Start: 06-14-2009 Urine microalbumin profile DTAP,TDAP,TD (1 - Tdap) [facility] Start: 1963 HEPATITIS C SCREENING HEPATITIS C SCREENING [facility] Patient Education ED Hematuria [facility] Work Phone: Patient referral [facility] Work Phone: Serum testosterone measurement [facility] Testosterone Free [Mass/volume] in Serum or Plasma [facility] Testosterone measurement [facility] Immunizations Immunization Date Immunization Notes Care Provider Yvonne ridley 01-31-2025 Covid (Pfizer) Dr. Mary Ellen ríos MD Work Phone: [facility] 06-22-2024 Covid Pfizer Bivalen t Booster Dr. Mary Ellen Jules MD Work Phone: [facility] 06-22-2024 influenza, injectabl e, quadrivalent, preservative free Dr. Mary Ellen Jules MD Work Phone: [facility] 08-04-2023 influenza, injectabl e, quadrivalent, preservative free Dr. Mary Ellen Jules Work Phone: [facility] 08-04-2023 Pfizer Covid-19 (Comirnaty) Dr. Mary Ellen Jules Work Phone: [facility] 08-01-2022 Covid Pfizer Bivalen t Booster Dr. Mary Ellen Jules Work Phone: [facility] 08-01-2022 influenza, injectabl e, quadrivalent, preservative free Dr. Mary Ellen Jules Work Phone: [facility] 02-06-2022 Covid (Pfizer) Dr. Mary Ellen ríos Work Phone: [facility] 08-19-2021 influenza, high dose seasonal, preservative-free Elissa Weiss MD Work Phone: [facility] 08-19-2021 influenza, injectabl e, quadrivalent, preservative free Dr. Mary Ellen Jules Work Phone: [facility] 07-29-2021 COVID-19 vaccine, ag e 12+ yr (PFIZER-BIONTECH - PURPLE TOP) Elissa Weiss MD Work Phone: [facility] 12-29-2020 COVID-19 vaccine, ag e 12+ yr (PFIZER-BIONTECH - PURPLE TOP) Elissa Weiss MD Work Phone: [facility] 12-08-2020 COVID-19 vaccine, ag e 12+ yr (PFIZER-BIONTECH - PURPLE TOP) Elissa Weiss MD Work Phone: [facility] 10-24-2020 zoster vaccine recombinant Elissa Weiss MD Work Phone: [facility] 06-28-2020 influenza, injectabl e, quadrivalent, preservative free Dr. Mary Ellen Jules Work Phone: [facility] 06-28-2020 zoster vaccine recombinant Elissa Weiss MD Work Phone: [facility] 07-18-2019 Influenza, high dose seasonal Dr. Mary Ellen Jules MD Work Phone: [facility] 07-18-2019 influenza, high dose seasonal, preservative-free Elissa Weiss MD Work Phone: [facility] 01-17-2019 influenza, injectabl e, quadrivalent, preservative free Dr. Mary Ellen Jules Work Phone: [facility] 01-17-2019 pneumococcal polysaccharide vaccine, [address] Mary Ellen Jules Work Phone: [facility] 08-27-2018 Influenza, high dose seasonal Dr. Mary Ellen Jules MD Work Phone: [facility] 08-27-2018 influenza, high dose seasonal, preservative-free Elissa Weiss MD Work Phone: [facility] 08-25-2017 Influenza, high dose seasonal Dr. Mary Ellen Jules MD Work Phone: [facility] 08-25-2017 influenza, high dose seasonal, preservative-free Elissa Weiss MD Work Phone: [facility] 01-01-2017 pneumococcal polysaccharide vaccine, 23 valent Elissa Weiss MD Work Phone: [facility] Work Phone: 08-13-2016 Influenza, high dose seasonal Dr. Mary Ellen Jules MD Work Phone: [facility] 08-13-2016 influenza, high dose seasonal, preservative-free Elissa Weiss MD Work Phone: [facility] Work Phone: 07-26-2015 influenza, high dose seasonal, preservative-free Elissa Weiss MD Work Phone: [facility] 07-26-2015 influenza, injectabl e, quadrivalent, preservative free Dr. Mary Ellen Jules Work Phone: [facility] 06-27-2015 pneumococcal conjuga te vaccine, 13 valent Elissa Weiss MD Work Phone: [facility] 07-24-2014 influenza, injectabl e, quadrivalent, preservative free Dr. Mary Ellen Jules Work Phone: [facility] 07-24-2014 influenza, seasonal, injectable Elissa Weiss MD Work Phone: [facility] 08-12-2013 influenza virus vacc ine, unspecified formulation Elissa Weiss MD Work Phone: [facility] 08-13-2012 influenza virus vacc ine, unspecified formulation Elissa Weiss MD Work Phone: [facility] Work Phone: 08-06-2010 influenza, injectabl e, quadrivalent, preservative free Dr. Mary Ellen Jules Work Phone: [facility] 07-26-2009 zoster vaccine, live Elissa Weiss MD Work Phone: [facility] Work Phone: 06-13-2009 tetanus and diphther ia toxoids, adsorbed, preservative free, for adult use (2 Lf of tetanus toxoid and 2 Lf of diphtheria toxoid) Elissa Weiss MD Work Phone: [facility] 09-12-2008 influenza virus vacc ine, unspecified formulation Elissa Weiss MD Work Phone: [facility] 09-03-2007 influenza virus vacc ine, unspecified formulation Elissa Weiss MD Work Phone: [facility] Work Phone: 09-03-2007 pneumococcal polysaccharide vaccine, 23 valent Elissa Weiss MD Work Phone: [facility] Work Phone: Payers Date Payer Category Payer Private Health Insurance [id number] 2024 Self-pay [id number] 2010 Medicare AETNA MEDICARE A ETNA MEDICARE PPO [id number] 2010-Present [phone] [address] [place] [address] PPO [id number] Private Health Insurance AETNA [id number] Unknown [id number] 62 Unknown [id number] 62 Unknown [id number] 62 Unknown [id number] 62 Unknown [id number] 62 Unknown [id number] 62 Unknown [id number] 62 Social History Date Type Detail Facility Start: 05-26-2024 Tobacco smoking stat [facility] Never smoked tobacco [facility] Start: 12-10-2020 Alcohol intake Current non-dr countersinker balance screw hole of alcohol (finding) [facility] Start: 03-20-2020 History SDOH Alcohol Frequency 3 [facility] Start: 03-20-2020 End: 12-08-2020 History SDOH Alcohol Std Drinks 1 [facility] Start: 03-20-2020 End: 12-08-2020 History SDOH Social Connections Phone 2 [facility] Start: 03-20-2020 History SDOH Social Connections Get Together 98 [facility] Start: 03-20-2020 History SDOH Financial 5 [facility] Start: 03-20-2020 Education 20 [facility] Start: 1945 Sex Assigned At Male C [facility] Start: 05-22-2022 End: 10-14-2023 Tobacco smoking status GAIS Unknown if ever smoked [facility] Medical Equipment Procedure Code Equipment Code Equipment Origin al Text Equipment Identifier Dates ORIF, ankle 3.5MM LOCKING SCREW FDA Star t: 09-07-2018 ORIF, ankle 3.5MM LOCKING SCREW FDA Star t: 09-07-2018 ORIF, ankle 3.5MM LOCKING SCREW FDA Star t: 09-07-2018 ORIF, ankle 3.5MM NON LOCKIN G SCREW FDA Start: 09-07-2018 ORIF, ankle 3.5MM NON LOCKIN G SCREWS FDA Start: 09-07-2018 ORIF, ankle 3.5MM NON LOCKIN G SCREWS FDA Start: 09-07-2018 ORIF, ankle 3.5MM NON LOCKIN G SCREWS FDA Start: 09-07-2018 ORIF, ankle 3.MM NON LOCKING SCREWS FDA Start: 09-07-2018 ORIF, ankle DISTAL LATERAL FIBULA PLATE FDA Start: 09-07-2018 ORIF, ankle 3.5MM LOCKING SCREW FDA Star t: 09-07-2018 ORIF, ankle 3.5MM LOCKING SCREW FDA Star t: 09-07-2018 ORIF, ankle 3.5MM LOCKING SCREW FDA Star t: 09-07-2018 ORIF, ankle 3.5MM NON LOCKIN G SCREW FDA Start: 09-07-2018 ORIF, ankle 3.5MM NON LOCKIN G SCREWS FDA Start: 09-07-2018 ORIF, ankle 3.5MM NON LOCKIN G SCREWS FDA Start: 09-07-2018 ORIF, ankle 3.5MM NON LOCKIN G SCREWS FDA Start: 09-07-2018 ORIF, ankle 3.MM NON LOCKING SCREWS FDA Start: 09-07-2018 ORIF, ankle DISTAL LATERAL FIBULA PLATE FDA Start: 09-07-2018 ORIF, ankle 3.5MM LOCKING SCREW FDA Star t: 09-07-2018 ORIF, ankle 3.5MM LOCKING SCREW FDA Star t: 09-07-2018 ORIF, ankle 3.5MM LOCKING SCREW FDA Star t: 09-07-2018 ORIF, ankle 3.5MM NON LOCKIN G SCREW FDA Start: 09-07-2018 ORIF, ankle 3.5MM NON LOCKIN G SCREWS FDA Start: 09-07-2018 ORIF, ankle 3.5MM NON LOCKIN G SCREWS FDA Start: 09-07-2018 ORIF, ankle 3.5MM NON LOCKIN G SCREWS FDA Start: 09-07-2018 ORIF, ankle 3.MM NON LOCKING SCREWS FDA Start: 09-07-2018 ORIF, ankle DISTAL LATERAL FIBULA PLATE FDA Start: 09-07-2018 ORIF, ankle 3.5MM LOCKING SCREW FDA Star t: 09-07-2018 ORIF, ankle 3.5MM LOCKING SCREW FDA Star t: 09-07-2018 ORIF, ankle 3.5MM LOCKING SCREW FDA Star t: 09-07-2018 ORIF, ankle 3.5MM NON LOCKIN G SCREW FDA Start: 09-07-2018 ORIF, ankle 3.5MM NON LOCKIN G SCREWS FDA Start: 09-07-2018 ORIF, ankle 3.5MM NON LOCKIN G SCREWS FDA Start: 09-07-2018 ORIF, ankle 3.5MM NON LOCKIN G SCREWS FDA Start: 09-07-2018 ORIF, ankle 3.MM NON LOCKING SCREWS FDA Start: 09-07-2018 ORIF, ankle DISTAL LATERAL FIBULA PLATE FDA Start: 09-07-2018 ORIF, ankle 3.5MM LOCKING SCREW FDA Star t: 09-07-2018 ORIF, ankle 3.5MM LOCKING SCREW FDA Star t: 09-07-2018 ORIF, ankle 3.5MM LOCKING SCREW FDA Star t: 09-07-2018 ORIF, ankle 3.5MM NON LOCKIN G SCREW FDA Start: 09-07-2018 ORIF, ankle 3.5MM NON LOCKIN G SCREWS FDA Start: 09-07-2018 ORIF, ankle 3.5MM NON LOCKIN G SCREWS FDA Start: 09-07-2018 ORIF, ankle 3.5MM NON LOCKIN G SCREWS FDA Start: 09-07-2018 ORIF, ankle 3.MM NON LOCKING SCREWS FDA Start: 09-07-2018 ORIF, ankle DISTAL LATERAL FIBULA PLATE FDA Start: 09-07-2018 ORIF, ankle 3.5MM LOCKING SCREW FDA Star t: 09-07-2018 ORIF, ankle 3.5MM LOCKING SCREW FDA Star t: 09-07-2018 ORIF, ankle 3.5MM LOCKING SCREW FDA Star t: 09-07-2018 ORIF, ankle 3.5MM NON LOCKIN G SCREW FDA Start: 09-07-2018 ORIF, ankle 3.5MM NON LOCKIN G SCREWS FDA Start: 09-07-2018 ORIF, ankle 3.5MM NON LOCKIN G SCREWS FDA Start: 09-07-2018 ORIF, ankle 3.5MM NON LOCKIN G SCREWS FDA Start: 09-07-2018 ORIF, ankle 3.MM NON LOCKING SCREWS FDA Start: 09-07-2018 ORIF, ankle DISTAL LATERAL FIBULA PLATE FDA Start: 09-07-2018 ORIF, ankle 3.5MM LOCKING SCREW FDA Star t: 09-07-2018 ORIF, ankle 3.5MM LOCKING SCREW FDA Star t: 09-07-2018 ORIF, ankle 3.5MM LOCKING SCREW FDA Star t: 09-07-2018 ORIF, ankle 3.5MM NON LOCKIN G SCREW FDA Start: 09-07-2018 ORIF, ankle 3.5MM NON LOCKIN G SCREWS FDA Start: 09-07-2018 ORIF, ankle 3.5MM NON LOCKIN G SCREWS FDA Start: 09-07-2018 ORIF, ankle 3.5MM NON LOCKIN G SCREWS FDA Start: 09-07-2018 ORIF, ankle 3.MM NON LOCKING SCREWS FDA Start: 09-07-2018 ORIF, ankle DISTAL LATERAL FIBULA PLATE FDA Start: 09-07-2018 ORIF, ankle 3.5MM LOCKING SCREW FDA Star t: 09-07-2018 ORIF, ankle 3.5MM LOCKING SCREW FDA Star t: 09-07-2018 ORIF, ankle 3.5MM LOCKING SCREW FDA Star t: 09-07-2018 ORIF, ankle 3.5MM NON LOCKIN G SCREW FDA Start: 09-07-2018 ORIF, ankle 3.5MM NON LOCKIN G SCREWS FDA Start: 09-07-2018 ORIF, ankle 3.5MM NON LOCKIN G SCREWS FDA Start: 09-07-2018 ORIF, ankle 3.5MM NON LOCKIN G SCREWS FDA Start: 09-07-2018 ORIF, ankle 3.MM NON LOCKING SCREWS FDA Start: 09-07-2018 ORIF, ankle DISTAL LATERAL FIBULA PLATE FDA Start: 09-07-2018 Goals Date Patient Goal Desired Activity /State Functional Status Date Assessment Result Facility 10-15-2023 Functional status Ambulates [facility] Work Phone: Mental Status Date Assessment Result Facility 10-15-2023 Cognitive function Voice/Name [facility] Work Phone: 10-07-2023 Cognitive function Level Of Cons ciousness Awake;Alert;Appropriate;Follow s Commands [facility] Work Phone: 10-07-2023 Cognitive function Voice/Name [facility] Work Phone: Clinical Notes 06-07-2015 to 10-15-2023 Note Date & Type Note Facility 10-15-2023 Progress note Note Date/Time October 15, 2023 7:20am [facility] Medical Records Department [address] [place] [address] Progress Note - Urology 10/15/23 0719 MR#: [id number] Acct: [id number] Name: ARIA HERNANDEZ Rep #:[id number] : 1945 78 From: Joseph Carpenter MD PCP: Dr. Mary Ellen Jules MD Status:ADM SOPHIA Location: MS3 [id number] Subjective Subjective Status post TURBT was admitted last night for gross hematuria the urine is clearthis morning I took out his Luis catheter he should be able to go home today ifhe is able to urinate okay one of the urinate several times check a bladder residual make sure is not high. Objective Data Objective Data Vital Signs: Vital Signs Temp Pulse Resp BP Pulse Ox O2 Del Method 98 F 74 18 125/63 H 94 Room Air 10/15/23 03:00 10/15/23 03:00 10/15/23 03:00 10/15/23 03:00 10/15/23 03:00 10/15/23 03:00 Oxygen Delivery Method Room Air Weight: 82.9 kg Body Mass Index (BMI) 25.4 Intake & Output: Intake and Output for Last 24 Hours 10/13/23 10/14/23 10/15/23 23:59 23:59 23:59 Intake Total 50 / 50 841.25 / 841.25 Output Total 1000 / 1000 650 / 650 Balance -950 / -950 191.25 / 191.25 Lab / Micro Data 10/14/23 17:35 10/14/23 17:35 Labs: Laboratory Results - last 24 hr 10/14/23 17:35: WBC 6.8, RBC 4.80, Hgb 14.7, Hct 45.3, MCV 94.4 H, MCH 30.6, MCHC 32.5, RDW Std Deviation 44.2 H, RDW Coeff of Jose 12.8, Plt Count 243, MPV 9.3, Immature Gran % (Auto) 0.900, Neut % (Auto) 67.3, Lymph % (Auto) 22.0, [place]% (Auto) 6.8, Eos % (Auto) 2.3, Baso % (Auto) 0.7, Absolute Neuts (auto) 4.6, Absolute Lymphs (auto) 1.50, Nucleated RBC % 0, Sodium 141, Potassium 3.8, Chloride 106, Carbon Dioxide 25.0, Anion Gap 10, BUN 17, Creatinine 1.03, Estim Creat Clear Calc 61.94, Est GFR (MDRD) Af Amer 90, Est GFR (MDRD) Non-Af 74, BUN/Creatinine Ratio 16.5, Glucose 109 H, Calcium 8.9 10/15/23 0720 <Electronically signed by Joseph Carpenter MD> Cosigner Signature (if applicable): CC: ~ Signed [facility] Work Phone: 1(949) 683-993312-20-2023 Discharge summary Author Benedicto Garland [facility] October 14, 2023 9:55pm Note Date/Time October 14, 2023 5:12pm [facility] Medical Records Department [address] [place] [address] Emergency Department Summary 10/14/23 MR#: [id number] Acct: [id number] Name: ARIA HERNANDEZ Rep #:[id number] : 1945 78 From: Benedicto Garland MD PCP: Dr. Mary Ellen Jules MD Status:ADM SOPHIA Location: [place] [address] HPI <JESSE Muñoz - Last Filed: 10/14/23 19:35> History of Present Illness Chief Complaint: Luis C/O Narrative Narrative: Patient presenting today due to urinary retention that he has had since around 10 AM this morning. He reports that around 8 AM, he woke up and noticed that his urinary Luis bag had a moderate amount of bloody urine in it. He then clamped his Luis catheter. He called his urologist, Dr. Carpenter who encouraged him to come into the ED for evaluation. Patient recently underwent a transurethral resection of a bladder tumor on 10/07/23. He is not on any blood thinners. He reports suprapubic discomfort. He denies any fever or chills. PFSH <JESSE Muñoz - Last Filed: 10/14/23 19:35> PFSH Medical History Abnormal prostate by palpation Alcohol use Back pain Bladder disease Gastric reflux History of echocardiogram History of stress test Leg cramps Non-smoker Right fibular fracture Superior mesenteric artery syndrome Torn Achilles tendon Wears glasses Home Medications doxazosin 2 mg tablet (Cardura) 2 mg PO QHS BLOOD PRESSURE #90 tabs 06/17/23 [Rx Last Taken 10/13/23] omeprazole 20 mg capsule,delayed release 20 mg PO QHS ACID REFLUX #90 caps 06/17/23 [Rx Last Taken 10/13/23] Allergy/AdvReac Type Severity Reaction Status Date / Time phenazopyridine Allergy Severe other Verified 10/14/23 16:51 aspirin AdvReac Other Verified 10/14/23 16:51 Family History Mother Mental disorder Alzheimer's after age 80 Surgical History H/O hemorrhoidectomy H/O hernia repair History of appendectomy History of cataract extraction with lens replacement History of open reduction and internal fixation (ORIF) procedure Hx of tonsillectomy Social History Smoking Status: Never smoker alcohol intake: current details: beer or wine only and very infrequently substance use type: does not use what type of physical activity do you participate in: walking frequency: 1-2 times per week ROS <JESSE Muñoz - Last Filed: 10/14/23 19:35> ROS ED Constitutional Constitutional ED: Denies chills or fever(s) Cardiovascular Cardiovascular: Denies chest pain Respiratory/Chest Respiratory/Chest: Denies cough or dyspnea Gastrointestinal Gastrointestinal: Denies abdominal pain, nausea or vomiting Genitourinary Genitourinary ED: Reports hematuria Musculoskeletal Musculoskeletal: Denies arthralgias or myalgias Integumentary Denies rash Neurologic Neurologic: Denies weakness EXAM <JESSE Muñoz - Last Filed: 10/14/23 19:35> Physical Exam Const Vital Signs: 10/14/23 16:52 Temperature 98.6 F Temperature Source Temporal Pulse Rate 82 Respiratory Rate 14 Blood Pressure 167/70 H Blood Pressure Mean 102 Pulse Ox 98 Oxygen Delivery Method Room Air Positive well nourished, well developed and no apparent distress General Appearance ED: well developed HEENT Reports normocephalic and head/scalp atraumatic Mouth ED: Yes moist mucous membranes normal Eyes PERRL and EOMs intact bilaterally Neck full ROM and supple Chest Wall inspection of chest normal Resp normal respiratory effort and clear to auscultation bilaterally Cardio regular rate and regular rhythm GI soft to palpation, non-tender, non-distended and no masses Back/Spine normal ROM and normal to inspection Extremity normal to inspection and full ROM Neuro oriented x3, CN's II-XII intact bilaterally, moves all extremities, no focal motor deficits and no sensory deficits noted Sensorium / Orientation: awake and alert Psych mental status grossly normal and thought process normal Skin no rashes or lesions noted and no wounds <Benedicto Garland MD - Last Filed: 10/14/23 21:55> Physical Exam Const Vital Signs: 10/14/23 16:52 Temperature 98.6 F Temperature Source Temporal Pulse Rate 82 Respiratory Rate 14 Blood Pressure 167/70 H Blood Pressure Mean 102 Pulse Ox 98 Oxygen Delivery Method Room Air MDM <JESSE Muñoz - Last Filed: 10/14/23 19:35> [facility] Narrative Medical decision making narrative: Patient presenting due to hematuria. He is well-appearing and in no acute distress. He had a transurethral bladder tumor removal performed by Dr. Carpenter 10/07/23. He presented here on 10/11/2023 due to hematuria, his Luis was irrigated at that time and he was discharged home but continued to have problemswith it. Today he woke up with a large amount of blood in his Luis bag and then eventually clamped it off to stop the bleeding and came in for evaluation. His urologist, Dr. Carpenter, called to give report and requested thatlabs be obtained and requested that the Luis be irrigated as he may possibly betaking patient to surgery. Luis was irrigated, the Luis is now draining well and is slightly bloody, but much improved from earlier today. Dr. Carpenter and I did come in to see the patient and will be admitting him under his service for possible surgery/observation. Basic labs are unremarkable, patient will be admitted in stable condition and is comfortable with plan. Lab Data Attestation: I reviewed the patient's lab results. Labs: Laboratory Results - last 24 hr 10/14/23 17:35 WBC 6.8 RBC 4.80 Hgb 14.7 Hct 45.3 MCV 94.4 H MCH 30.6 MCHC 32.5 RDW Std Deviation 44.2 H RDW Coeff of Jose 12.8 Plt Count 243 MPV 9.3 Immature Gran % (Auto) 0.900 Neut % (Auto) 67.3 Lymph % (Auto) 22.0 [place] % (Auto) 6.8 Eos % (Auto) 2.3 Baso % (Auto) 0.7 Absolute Neuts (auto) 4.6 Absolute Lymphs (auto) 1.50 Nucleated RBC % 0 Sodium 141 Potassium 3.8 Chloride 106 Carbon Dioxide 25.0 Anion Gap 10 BUN 17 Creatinine 1.03 Estim Creat Clear Calc 61.94 Est GFR (MDRD) Af Amer 90 Est GFR (MDRD) Non-Af 74 BUN/Creatinine Ratio 16.5 Glucose 109 H Calcium 8.9 <Benedicto Garland MD - Last Filed: 10/14/23 21:55> MDM MDM Narrative Medical decision making narrative: Patient presenting due to hematuria. He is well-appearing and in no acute distress. He had a transurethral bladder tumor removal performed by Dr. Carpenter 10/07/23. He presented here on 10/11/2023 due to hematuria, his Luis was irrigated at that time and he was discharged home but continued to have problemswith it. Today he woke up with a large amount of blood in his Luis bag and then eventually clamped it off to stop the bleeding and came in for evaluation. His urologist, Dr. Carpenter, called to give report and requested thatlabs be obtained and requested that the Luis be irrigated as he may possibly betaking patient to surgery. Luis was irrigated, the Luis is now draining well and is slightly bloody, but much improved from earlier today. Dr. Carpenter and I did come in to see the patient and will be admitting him under his service for possible surgery/observation. Basic labs are unremarkable, patient will be admitted in stable condition and is comfortable with plan. Dr. Garland: I have personally performed a face to face assessment of the patient and have reviewed the MAURICIO Note. I performed a substantive portion of the visit including all aspects of the following. My davis findings include: History is hematuria, clogged Luis catheter. History of bladder tumor resection 1 week ago. Seen by urology on Thursday, yesterday. Sent in for clogged Luis and possible cystoscopy in the OR. Exam is afebrile. Vital signs noted. Regular rate and rhythm. Lungs clear to auscultation bilaterally. Abdomen soft and nontender with normal active bowel sounds. Luis bag brought in containing dark red urine. Medical Decision Making: Check labs. Discussed with Dr. Carpenter with urology whowould like laboratory work. I reviewed the laboratory results which are grosslyunremarkable with a hemoglobin of 14.7, BUN normal at 17 with creatinine 1.03. Luis was irrigated. Urology to admit. Patient is in stable condition. Other additions or changes: [None] History & Record Review Discussion w/independent historian: Patient Additional record(s) reviewed:: Prior ED visit Lab Data Labs: Laboratory Results - last 24 hr 10/14/23 17:35 WBC 6.8 RBC 4.80 Hgb 14.7 Hct 45.3 MCV 94.4 H MCH 30.6 MCHC 32.5 RDW Std Deviation 44.2 H RDW Coeff of Jose 12.8 Plt Count 243 MPV 9.3 Immature Gran % (Auto) 0.900 Neut % (Auto) 67.3 Lymph % (Auto) 22.0 [place] % (Auto) 6.8 Eos % (Auto) 2.3 Baso % (Auto) 0.7 Absolute Neuts (auto) 4.6 Absolute Lymphs (auto) 1.50 Nucleated RBC % 0 Sodium 141 Potassium 3.8 Chloride 106 Carbon Dioxide 25.0 Anion Gap 10 BUN 17 Creatinine 1.03 Estim Creat Clear Calc 61.94 Est GFR (MDRD) Af Amer 90 Est GFR (MDRD) Non-Af 74 BUN/Creatinine Ratio 16.5 Glucose 109 H Calcium 8.9 Discharge Plan Dx/Rx/DC Orders Clinical Impression: Indwelling Luis catheter present, Recurrent gross hematuria Disposition Disposition: Acute Care Hospital [facility] Discharge Date/Time: 10/14/23 19:08 What to do if you have Problems For any increased pain, shortness of breath, bleeding, nausea or vomiting, chest pain, or any unexpected problems, contact your Primary Care Provider. Call [facility] ([phone]) or report to the closest Emergency Room. Call 911 if necessary. 10/14/232154 <Electronically signed by Benedicto Garland MD> Cosigner Signature (if applicable): 10/14/231934 <Electronically signed by Stephanie MOLINA> CC: Dr. Mary Ellen Jules MD ~ Signed [facility] Work Phone: 1(395) 650-143512-20-2023 Discharge summary Author Joseph Carpenter [facility] October 14, 2023 6:26pm Note Date/Time October 14, 2023 6:26pm [facility] Medical Records Department [address] [place] [address] Instructions for Home/Discharge Instructions 10/14/23 1825 MR#: [id number] Acct: [id number] Name: ARIA HERNANDEZ Rep #:[id number] : 1945 78 From: Joseph Carpenter MD PCP: Dr. Mary Ellen Jules MD Status:REG ER Discharge Instructions Diet Discharge Diet: No restrictions Activity Discharge Activity: Return to Normal Activity and May Not Drive (while taking narcotic pain medications.) Dressing / Incision Call your doctor if you observe: Fever of 101 or Higher Follow Up Care Please Follow Up With: Joseph Carpenter MD When: Call [phone] for an appointment Test Results: Test results from this visit will be discussed in further detail at your follow- up appointment, if applicable. Discharge Plan Triage Chief Complaint: Luis C/O ED Midlevel Provider: Stephanie Delgado ED Provider: Benedicto Garland Dx/Rx/DC Orders Prescriptions: No Action doxazosin [Cardura] 2 mg tablet 2 mg PO QHS Qty: 90 3RF omeprazole 20 mg capsule,delayed release(DR/EC) 20 mg PO QHS Qty: 90 3RF ciprofloxacin HCl [Cipro] 500 mg tablet 500 mg PO BID Qty: 10 0RF ibuprofen 600 mg tablet 600 mg PO Q6H PRN (Reason: fever or pain) Qty: 20 0RF Primary Care Provider: Mary Ellen Jules Referrals: Mary Ellen Jules MD [Primary Care Provider] - 10/14/231825<Electronically signed by Joseph Carpenter MD>Joseph Carpenter MD CC: Dr. Mary Ellen Jules MD ~ Signed [facility] Work Phone: 1(711) 616-200012-20-2023 History and physical note Author Joseph Carpenter [facility] October 14, 2023 6:25pm Note Date/Time October 14, 2023 6:26pm [facility] Medical Records Department [address] [place] [address] History & Physical Exam 10/14/231823 MR#: [id number] Acct: [id number] Name: ARIA HERNANDEZ Rep #:[id number] : 1945 78 From: Joseph Carpenter MD PCP: Dr. Mary Ellen Jules MD Status:REG ER Location: ED HPI - General General Date of Admission: 10/14/23 Chief Complaint: Gross hematuria status post TURBT HPI Narrative 78-year-old male presents with gross hematuria, had a resection of bladder tumorwill admit the patient for observation [facility] Medical History Abnormal prostate by palpation Alcohol use Back pain Bladder disease Gastric reflux History of echocardiogram History of stress test Leg cramps Non-smoker Right fibular fracture Superior mesenteric artery syndrome Torn Achilles tendon Wears glasses Home Medications doxazosin 2 mg tablet (Cardura) 2 mg PO QHS #90 tabs 06/17/23 [Rx Last Taken Unknown] omeprazole 20 mg capsule,delayed release 20 mg PO QHS #90 caps 06/17/23 [Rx Last Taken Unknown] ciprofloxacin HCl 500 mg tablet (Cipro) 500 mg PO BID #10 tabs 10/07/23 [Rx Last Taken Unknown] ibuprofen 600 mg tablet 600 mg PO Q6H PRN fever or pain #20 tabs 10/07/23 [Rx Last Taken Unknown] Allergy/AdvReac Type Severity Reaction Status Date / Time phenazopyridine Allergy Severe other Verified 10/14/23 16:51 aspirin AdvReac Other Verified 10/14/23 16:51 Family History Mother Mental disorder Alzheimer's after age 80 Surgical History H/O hemorrhoidectomy H/O hernia repair History of appendectomy History of cataract extraction with lens replacement History of open reduction and internal fixation (ORIF) procedure Hx of tonsillectomy Social History Smoking Status: Never smoker alcohol intake: current details: beer or wine only and very infrequently substance use type: does not use what type of physical activity do you participate in: walking frequency: 1-2 times per week ROS Constitutional Constitutional: Denies chills, fever(s) or malaise Eyes Eyes: Denies blurry vision or change in vision ENT HEENT: Reports none Cardiovascular Cardiovascular: Denies chest pain or palpitations Respiratory/Chest Respiratory/Chest: Denies cough or shortness of breath with exertion Gastrointestinal Gastrointestinal: Denies abdominal pain, constipation or diarrhea Musculoskeletal Musculoskeletal: Denies back pain, joint stiffness or joint swelling Integumentary Integumentary: Denies dry skin, jaundice, lesions or rash Neurologic Neurologic: Denies confusion, syncope or weakness Psychiatric Psychiatric: Reports none; Denies anxiety or depression Endocrine Endocrinology: Denies excessive sweating, fatigue or flushing Hematologic/Lymphatic Hematologic/Lymphatic: Denies anemia, easy bleeding or easy bruising Vital Signs Vital Signs Vital Signs: 10/14/23 16:52 Temperature 98.6 F Temperature Source Temporal Pulse Rate 82 Respiratory Rate 14 Blood Pressure 167/70 H Blood Pressure Mean 102 Pulse Ox 98 Oxygen Delivery Method Room Air Weight Weight: 85.1 kg Body Mass Index (BMI) 26.2 Physical Exam Const alert and oriented x3 General Appearance: cooperative HEENT normocephalic, head/scalp atraumatic, EAC's normal and TM's normal bilaterally Eyes PERRL and EOMs intact bilaterally Pupil: sluggish Neck no lymphadenopathy, supple and no JVD General: trachea midline Lymph Lymphatic: no lymphadenopathy noted, lymphedema and lymphadenopathy Resp normal respiratory effort, normal air movement and clear to auscultation bilaterally Cardio regular rate, regular rhythm and peripheral pulses 2+ throughout GI soft to palpation, non-tender and non-distended Extremity normal capillary refill and no clubbing, cyanosis or edema General Extremity: no tenderness to palpation of joints or extremities Skin no rashes or lesions noted General Skin Exam: turgor normal Lesions: no lesions Rashes: no rashes Neuro CN's II-XII intact bilaterally Speech: speech normal Motor Exam: strength 5/5 throughout; Negative for general weakness Psych thought process normal, cooperative and affect normal Appearance: appropriate Results Medical Records Data Attestation: I reviewed the patient's medical records Lab / Micro Data 10/14/23 17:35 10/14/23 17:35 Labs: Laboratory Results - last 24 hr 10/14/23 17:35: WBC 6.8, RBC 4.80, Hgb 14.7, Hct 45.3, MCV 94.4 H, MCH 30.6, MCHC 32.5, RDW Std Deviation 44.2 H, RDW Coeff of Jose 12.8, Plt Count 243, MPV 9.3, Immature Gran % (Auto) 0.900, Neut % (Auto) 67.3, Lymph % (Auto) 22.0, [place]% (Auto) 6.8, Eos % (Auto) 2.3, Baso % (Auto) 0.7, Absolute Neuts (auto) 4.6, Absolute Lymphs (auto) 1.50, Nucleated RBC % 0, Sodium 141, Potassium 3.8, Chloride 106, Carbon Dioxide 25.0, Anion Gap 10, BUN 17, Creatinine 1.03, Estim Creat Clear Calc 61.94, Est GFR (MDRD) Af Amer 90, Est GFR (MDRD) Non-Af 74, BUN/Creatinine Ratio 16.5, Glucose 109 H, Calcium 8.9 Assessment & Plan Assessment/Plan (1) Recurrent gross hematuria: 10/14/231824 <Electronically signed by Joseph Carpenter MD> Cosigner Signature (if applicable): CC: Dr. Joseph Carpenter MD; Dr. Mary Ellen Jules MD~ Signed [facility] Work Phone: 1(894) 602-437712-18-2023 Discharge summary Author Jabari Elizabeth [facility] October 12, 2023 1:26am Note Date/Time October 11, 2023 10:58pm [facility] Medical Records Department [address] [place] [address] Emergency Department Summary 10/11/23 MR#: [id number] Acct: [id number] Name: ARIA HERNANDEZ Rep #:[id number] : 1945 78 From: Jabari Elizabeth MD PCP: Dr. Mary Ellen Jules MD Status:REG ER Location: ED HPI History of Present Illness Chief Complaint: Complaint Informant: patient Narrative Narrative: Patient started having hematuria today along with pain at the tip of the penis, no abdominal pain, nausea, vomiting, lightheadedness, fevers or chills. 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 Catheter was removed, she still was not able to urinate so the catheter was placed back in within the last couple days, and spontaneous bleeding startedtonight. He denies any blockage of flow of urine or leaking around the catheter. He is on no anticoagulants or antiplatelets. [facility] Medical History Abnormal prostate by palpation Alcohol use Back pain Bladder disease Gastric reflux History of echocardiogram History of stress test Leg cramps Non-smoker Right fibular fracture Superior mesenteric artery syndrome Torn Achilles tendon Wears glasses Home Medications doxazosin 2 mg tablet (Cardura) 2 mg PO QHS #90 tabs 06/17/23 [Rx Last Taken Unknown] omeprazole 20 mg capsule,delayed release 20 mg PO QHS #90 caps 06/17/23 [Rx Last Taken Unknown] ciprofloxacin HCl 500 mg tablet (Cipro) 500 mg PO BID #10 tabs 10/07/23 [Rx Last Taken Unknown] ibuprofen 600 mg tablet 600 mg PO Q6H PRN fever or pain #20 tabs 10/07/23 [Rx Last Taken Unknown] Allergy/AdvReac Type Severity Reaction Status Date / Time phenazopyridine Allergy Severe other Verified 10/11/23 21:04 aspirin AdvReac Other Verified 10/07/23 13:05 Family History Mother Mental disorder Alzheimer's after age 80 Surgical History H/O hemorrhoidectomy H/O hernia repair History of appendectomy History of cataract extraction with lens replacement History of open reduction and internal fixation (ORIF) procedure Hx of tonsillectomy Social History Smoking Status: Never smoker alcohol intake: current details: beer or wine only and very infrequently substance use type: does not use what type of physical activity do you participate in: walking frequency: 1-2 times per week ROS ROS ED Constitutional Constitutional ED: Denies chills or fever(s) Eyes Eyes: Denies change in vision or diplopia ENT ENT ED: Denies rhinorrhea or sore throat Cardiovascular Cardiovascular: Denies chest pain or palpitations Respiratory/Chest Respiratory/Chest: Denies cough or dyspnea Gastrointestinal Gastrointestinal: Denies abdominal pain, diarrhea, nausea or vomiting Genitourinary Genitourinary ED: Reports hematuria and other Details: Penile pain see HPI ; Denies dysuria Musculoskeletal Musculoskeletal: Denies back pain or neck pain Integumentary Denies abscess or rash Neurologic Neurologic: Denies headache(s), paresthesias or weakness Psychiatric Psychiatric: Denies anxiety or suicidal thoughts EXAM Physical Exam Const Vital Signs: 10/11/23 21:00 Temperature 97.5 F L Temperature Source Temporal Pulse Rate 91 Respiratory Rate 16 Blood Pressure 142/81 H Blood Pressure Mean 101 Pulse Ox 94 Oxygen Delivery Method Room Air Positive well nourished and well developed General Appearance ED: well developed and NAD HEENT Reports moist mucous membranes normocephalic and atraumatic Eyes PERRL and EOMs intact bilaterally Neck full ROM and supple Resp normal respiratory effort and clear to auscultation bilaterally GI non-tender and non-distended Auscultation: normoactive bowel sounds Palpation: soft Narrative: Luis catheter within uncircumcised penis, normal-appearing no tenderness no leakage around the catheter. Gross hematuria within the catheter in the bag. Back/Spine no CVA tenderness General Back: other FROM Extremity normal to inspection General Extremety ED: Negative for edema, pulses abnormal or tenderness General Extremity: Negative for edema or pulses abnormal Neuro oriented x3, CN's II-XII intact bilaterally and no sensory deficits noted Sensorium / Orientation: awake and alert Motor Exam: strength 5/5 throughout Skin no rashes or lesions noted and no wounds MDM MDM MDM Narrative Medical decision making narrative: Nursing irrigated the catheter, and after 700 cc of irrigating, it was draining clear urine. However then it started to get bloody again and on my evaluation it is pink without clots. Patient is feeling better. He prefers to go home. Idiscussed with his surgeon Dr. Carpenter, and he agrees and will have the patient follow-up and call tomorrow. Lab Data Attestation: I reviewed the patient's lab results. Labs: Laboratory Results - last 24 hr 10/11/23 22:32 Urine Color Red Urine Clarity Cloudy Urine pH 6.5 Ur Specific [place] 1.020 Urine Protein 500 H Urine Glucose (UA) Normal Urine Ketones 5 H Urine Occult Blood 150 H Urine Nitrite Negative Urine Bilirubin Negative Urine Urobilinogen Normal Ur Leukocyte Esterase Negative Urine RBC > 100 SEEN Urine WBC 0 SEEN Ur Squamous Epith Cells 0-5 SEEN Amorphous Sediment 1+ URATE Urine Bacteria 0 SEEN Urine Mucus 0 SEEN Management Discussion w/another healthcare provider: [employer] (Urology) Discharge Plan Triage Chief Complaint: Complaint ED Provider: Jabari Elizabeth Dx/Rx/DC Orders Clinical Impression: Hematuria Instructions: ED Hematuria Prescriptions: No Action doxazosin [Cardura] 2 mg tablet 2 mg PO QHS Qty: 90 3RF omeprazole 20 mg capsule,delayed release(DR/EC) 20 mg PO QHS Qty: 90 3RF ciprofloxacin HCl [Cipro] 500 mg tablet 500 mg PO BID Qty: 10 0RF ibuprofen 600 mg tablet 600 mg PO Q6H PRN (Reason: fever or pain) Qty: 20 0RF Primary Care Provider: Mary Ellen Jules Referrals: Joseph Carpenter MD [Med Staff - Active Staff] - As soon as possible Mary Ellen Jules MD [Primary Care Provider] - Disposition Disposition: Home, Self Care What to do if you have Problems For any increased pain, shortness of breath, bleeding, nausea or vomiting, chestpain, or any unexpected problems, contact your Primary Care Provider. Call [facility] ([phone]) or report to the closest Emergency Room. Call 911 if necessary. 10/12/23 0126 <Electronically signed by Jabari Elizabeth MD> Cosigner Signature (if applicable): CC: Dr. Mary Ellen Jules MD ~ Signed [facility] Work Phone: 1(587) 362-982212-13-2023 Discharge summary Author Joseph Carpenter [facility] October 07, 2023 3:25pm Note Date/Time October 07, 2023 3:25pm [facility] Medical Records Department [address] [place] [address] Instructions for Home/Discharge Instructions 10/07/23 1525 MR#: [id number] Acct: [id number] Name: ARIA HERNANDEZ Rep #:[id number] : 1945 78 From: Joseph Carpenter MD PCP: Dr. Mary Ellen Jules MD Status:REG [facility] Discharge Instructions Diet Discharge Diet: No restrictions Activity Discharge Activity: Return to Normal Activity Dressing / Incision Catheter: Luis to leg bag and Luis to large bag Drain: [place] Follow Up Care Please Follow Up With: Joseph Carpenter MD When: call for appt Test Results: Test results from this visit will be discussed in further detail at your follow- up appointment, if applicable. Discharge Plan Admission Primary Reason for Your Visit: Resection of bladder tumor Attending Provider: Joseph Carpenter Primary Care Provider: Mary Ellen Jules Discharge Orders/Prescriptions Prescriptions: New ciprofloxacin HCl [Cipro] 500 mg tablet 500 mg PO BID Qty: 10 0RF ibuprofen 600 mg tablet 600 mg PO Q6H PRN (Reason: fever or pain) Qty: 20 0RF phenazopyridine [Pyridium] 100 mg tablet 100 mg PO TID PRN (Reason: pain) Qty: 14 0RF Continued doxazosin [Cardura] 2 mg tablet 2 mg PO QHS Qty: 90 3RF omeprazole 20 mg capsule,delayed release(DR/EC) 20 mg PO QHS Qty: 90 3RF Referrals / Follow Up: Joseph Carpenter MD [Med Staff - Active Staff] - Mary Ellen Jules MD [Primary Care Provider] - Disposition Disposition (needs filled in before D/C Order can be placed): Home, Self Care 10/07/23 1525<Electronically signed by Joseph Carpenter MD>Joseph Carpenter MD CC: Dr. Mary Ellen Jules MD ~ Signed [facility] Work Phone: 1([phone]) 296-937912-13-2023 History and physical note Author Joseph Carpenter [facility] October 07, 2023 2:51pm Note Date/Time October 07, 2023 2:52pm [facility] Medical Records Department [address] [place] [address] History & Physical Exam 10/07/23 1451 MR#: [id number] Acct: [id number] Name: ARIA HERNANDEZ Rep #:[id number] : 1945 78 From: Joseph Carpenter MD PCP: Dr. Mary Ellen Jules MD Status:REG [facility] Location: [address] - General General Date of Service: 10/07/23 Chief Complaint: Bladder tumor HPI Narrative ARIA HERNANDEZ, is a 78 M who presents transurethral resection of a bladder tumor [facility] Medical History (Updated 09/16/23 @ 11:27 by Gale Garvin) Abnormal prostate by palpation Alcohol use Back pain Bladder disease Gastric reflux History of echocardiogram History of stress test Leg cramps Non-smoker Right fibular fracture Superior mesenteric artery syndrome Torn Achilles tendon Wears glasses Home Medications doxazosin 2 mg tablet (Cardura) 2 mg PO QHS #90 tabs 06/17/23 [Rx Last Taken Unknown] omeprazole 20 mg capsule,delayed release 20 mg PO QHS #90 caps 06/17/23 [Rx Last Taken Unknown] Allergy/AdvReac Type Severity Reaction Status Date / Time aspirin AdvReac Other Verified 10/07/23 13:05 Family History Mother Mental disorder Alzheimer's after age 80 Surgical History (Updated 09/16/23 @ 11:27 by Gale Garvin) H/O hemorrhoidectomy H/O hernia repair History of appendectomy History of cataract extraction with lens replacement History of open reduction and internal fixation (ORIF) procedure Hx of tonsillectomy Social History Smoking Status: Never smoker alcohol intake: current details: beer or wine only and very infrequently substance use type: does not use what type of physical activity do you participate in: walking frequency: 1-2 times per week Vital Signs Vital Signs Vital Signs: 10/07/23 13:07 10/07/23 13:07 Temperature 98.0 F Temperature Source Temporal Pulse Rate 72 Respiratory Rate 18 Respiratory Pattern Normal Blood Pressure 151/68 H Blood Pressure Mean 95 Blood Pressure Source Monitor Blood Pressure Position Sitting Blood Pressure Location Left Arm Pulse Ox 98 Oxygen Delivery Method Room Air Weight Weight: 83 kg Body Mass Index (BMI) 25.4 10/07/23 1451 <Electronically signed by Joseph Carpenter MD> Cosigner Signature (if applicable): CC: Dr. Joseph Carpenter MD; Dr. Mary Ellen Jules MD~ Signed [facility] Work Phone: 1(761) 770-529612-13-2023 Procedure [facility] 04-18-2022 Miscellaneous Notes* Telephone Encounter - Lisbet Espino RN - 04/18/2022 10:44 AM EDT Opened in Error [facility] Miscellaneous Notes* Telephone Encounter - Saul Newman LPN - 04/07/2022 1:49 PM EDT Patient phones requesting refills as follows: Pending Prescriptions Disp Refills DOXAZOSIN 2 MG TABLET 90 tablet 3 Sig: Take 1 tablet by mouth once daily. SAMMI: No ABIGAIL 12/10/20 NOV no upcoming appt. *Pt overdue for follow up appt. message to pt advising of the same. Awaiting response. Please review and advise. Saul Newman LPN documented in this encounterOhio [facility]2015 History of Past illness Narrative* Problem Noted Date Resolved Date Diarrhea 06/07/2015 06/27/2015 Projectile vomiting with nausea 06/07/2015 07/18/2019 Skin lesion 06/09/2013 06/27/2015 Acute gastritis without mention of hemorrhage 07/18/2019 Other chest pain 11/08/2007 07/18/2019 Diverticulitis 07/18/2019 documented as of this encounter (statuses as of 04/08/2022) [facility] History of Past illness Narrative* Problem Noted Date Resolved Date Diarrhea 06/07/2015 06/27/2015 Projectile vomiting with nausea 06/07/2015 07/18/2019 Skin lesion 06/09/2013 06/27/2015 Acute gastritis without mention of hemorrhage 07/18/2019 Other chest pain 11/08/2007 07/18/2019 Diverticulitis 07/18/2019 documented as of this encounter (statuses as of 04/18/2022) [facility] October 14, 2023 6:26pm Note Date/Time October 14, 2023 6:26pm [facility] Medical Records Department [address] [place] [address] Instructions for Home/Discharge Instructions 10/14/23 1825 MR#: [id number] Acct: [id number] Name: ARIA HERNANDEZ Rep #:[id number] : 1945 78 From: Joseph Carpenter MD PCP: Dr. Mary Ellen Jules MD Status:REG ER Discharge Instructions Diet Discharge Diet: No restrictions Activity Discharge Activity: Return to Normal Activity and May Not Drive (while taking narcotic pain medications.) Dressing / Incision Call your doctor if you observe: Fever of 101 or Higher Follow Up Care Please Follow Up With: Joseph Carpenter MD When: Call [phone] for an appointment Test Results: Test results from this visit will be discussed in further detail at your follow- up appointment, if applicable. Discharge Plan Triage Chief Complaint: Luis C/O ED Midlevel Provider: Stephanie Delgado ED Provider: Benedicto Garland Dx/Rx/DC Orders Prescriptions: No Action doxazosin [Cardura] 2 mg tablet 2 mg PO QHS Qty: 90 3RF omeprazole 20 mg capsule,delayed release(DR/EC) 20 mg PO QHS Qty: 90 3RF ciprofloxacin HCl [Cipro] 500 mg tablet 500 mg PO BID Qty: 10 0RF ibuprofen 600 mg tablet 600 mg PO Q6H PRN (Reason: fever or pain) Qty: 20 0RF Primary Care Provider: Mary Ellen Jules Referrals: Mary Ellen Jules MD [Primary Care Provider] - 10/14/231825<Electronically signed by Joseph Carpenter MD>Joseph Carpenter MD CC: Dr. Mary Ellen Jules MD ~ Signed [facility] Work Phone: evaluation noteNo assessment information available [facility] Work Phone: evaluation note* Diagnosis Onset Date Resolution Status Recurrent gross hematuria ac [place] Skin lesion of right leg acu te Skin lesion of right leg acu te [facility] Work Phone: evaluation note* Diagnosis Onset Date Resolution Status Recurrent gross hematuria ac [place] Skin lesion of right leg acu te Skin lesion of right leg acu te Recurrent gross hematuria ac [facility] Work Phone: evaluation note* Diagnosis Onset Date Resolution Status Recurrent gross hematuria ac [place] Skin lesion of right leg acu te Skin lesion of right leg acu te Indwelling Luis catheter present acute Recurrent gross hematuria ac [facility] Work Phone: evaluation note* Diagnosis Onset Date Resolution Status Admit Date Bladder disease acute March 30, 2025 7:52am GERD (gastroesophageal reflu x disease) acute March 30, 2025 7 :52am History of benign prostatic hyperplasia acute March 30, 2025 7 :52am Shakiness acute March 30, 2025 7:52am [facility] Work Phone: History and physical note Author Joseph Carpenter [facility] October 14, 2023 6:25pm Note Date/Time October 14, 2023 6:26pm [facility] Medical Records Department [address] [place] [address] History & Physical Exam 10/14/231823 MR#: [id number] Acct: [id number] Name: ARIA HERNANDEZ Rep #:[id number] : 1945 78 From: Joseph Carpenter MD PCP: Dr. Mary Ellen Jules MD Status:REG ER Location: ED HPI - General General Date of Admission: 10/14/23 Chief Complaint: Gross hematuria status post TURBT HPI Narrative 78-year-old male presents with gross hematuria, had a resection of bladder tumorwill admit the patient for observation [facility] Medical History Abnormal prostate by palpation Alcohol use Back pain Bladder disease Gastric reflux History of echocardiogram History of stress test Leg cramps Non-smoker Right fibular fracture Superior mesenteric artery syndrome Torn Achilles tendon Wears glasses Home Medications doxazosin 2 mg tablet (Cardura) 2 mg PO QHS #90 tabs 06/17/23 [Rx Last Taken Unknown] omeprazole 20 mg capsule,delayed release 20 mg PO QHS #90 caps 06/17/23 [Rx Last Taken Unknown] ciprofloxacin HCl 500 mg tablet (Cipro) 500 mg PO BID #10 tabs 10/07/23 [Rx Last Taken Unknown] ibuprofen 600 mg tablet 600 mg PO Q6H PRN fever or pain #20 tabs 10/07/23 [Rx Last Taken Unknown] Allergy/AdvReac Type Severity Reaction Status Date / Time phenazopyridine Allergy Severe other Verified 10/14/23 16:51 aspirin AdvReac Other Verified 10/14/23 16:51 Family History Mother Mental disorder Alzheimer's after age 80 Surgical History H/O hemorrhoidectomy H/O hernia repair History of appendectomy History of cataract extraction with lens replacement History of open reduction and internal fixation (ORIF) procedure Hx of tonsillectomy Social History Smoking Status: Never smoker alcohol intake: current details: beer or wine only and very infrequently substance use type: does not use what type of physical activity do you participate in: walking frequency: 1-2 times per week ROS Constitutional Constitutional: Denies chills, fever(s) or malaise Eyes Eyes: Denies blurry vision or change in vision ENT HEENT: Reports none Cardiovascular Cardiovascular: Denies chest pain or palpitations Respiratory/Chest Respiratory/Chest: Denies cough or shortness of breath with exertion Gastrointestinal Gastrointestinal: Denies abdominal pain, constipation or diarrhea Musculoskeletal Musculoskeletal: Denies back pain, joint stiffness or joint swelling Integumentary Integumentary: Denies dry skin, jaundice, lesions or rash Neurologic Neurologic: Denies confusion, syncope or weakness Psychiatric Psychiatric: Reports none; Denies anxiety or depression Endocrine Endocrinology: Denies excessive sweating, fatigue or flushing Hematologic/Lymphatic Hematologic/Lymphatic: Denies anemia, easy bleeding or easy bruising Vital Signs Vital Signs Vital Signs: 10/14/23 16:52 Temperature 98.6 F Temperature Source Temporal Pulse Rate 82 Respiratory Rate 14 Blood Pressure 167/70 H Blood Pressure Mean 102 Pulse Ox 98 Oxygen Delivery Method Room Air Weight Weight: 85.1 kg Body Mass Index (BMI) 26.2 Physical Exam Const alert and oriented x3 General Appearance: cooperative HEENT normocephalic, head/scalp atraumatic, EAC's normal and TM's normal bilaterally Eyes PERRL and EOMs intact bilaterally Pupil: sluggish Neck no lymphadenopathy, supple and no JVD General: trachea midline Lymph Lymphatic: no lymphadenopathy noted, lymphedema and lymphadenopathy Resp normal respiratory effort, normal air movement and clear to auscultation bilaterally Cardio regular rate, regular rhythm and peripheral pulses 2+ throughout GI soft to palpation, non-tender and non-distended Extremity normal capillary refill and no clubbing, cyanosis or edema General Extremity: no tenderness to palpation of joints or extremities Skin no rashes or lesions noted General Skin Exam: turgor normal Lesions: no lesions Rashes: no rashes Neuro CN's II-XII intact bilaterally Speech: speech normal Motor Exam: strength 5/5 throughout; Negative for general weakness Psych thought process normal, cooperative and affect normal Appearance: appropriate Results Medical Records Data Attestation: I reviewed the patient's medical records Lab / Micro Data 10/14/23 17:35 10/14/23 17:35 Labs: Laboratory Results - last 24 hr 10/14/23 17:35: WBC 6.8, RBC 4.80, Hgb 14.7, Hct 45.3, MCV 94.4 H, MCH 30.6, MCHC 32.5, RDW Std Deviation 44.2 H, RDW Coeff of Jose 12.8, Plt Count 243, MPV 9.3, Immature Gran % (Auto) 0.900, Neut % (Auto) 67.3, Lymph % (Auto) 22.0, [place]% (Auto) 6.8, Eos % (Auto) 2.3, Baso % (Auto) 0.7, Absolute Neuts (auto) 4.6, Absolute Lymphs (auto) 1.50, Nucleated RBC % 0, Sodium 141, Potassium 3.8, Chloride 106, Carbon Dioxide 25.0, Anion Gap 10, BUN 17, Creatinine 1.03, Estim Creat Clear Calc 61.94, Est GFR (MDRD) Af Amer 90, Est GFR (MDRD) Non-Af 74, BUN/Creatinine Ratio 16.5, Glucose 109 H, Calcium 8.9 Assessment & Plan Assessment/Plan (1) Recurrent gross hematuria: 10/14/235 <Electronically signed by Joseph Carpenter MD> Cosigner Signature (if applicable): CC: Dr. Joseph Carpenter MD; Dr. Mary Ellen Jules MD~ Signed [facility] Work Phone: Reason for referral (narrative)No reason for referral information availableWWyandot Memorial Hospital Work Phone: Summary Purpose Family History Relationship Condition Age at Onset Recorded Date/T aki mother Mental disorder Unknown Advance Directives Advance Directive Response Recorded Date/ Time Living Will Yes September 07 8:17pm Power of Machine Silk Screen Printer Yes September 07, 2018 8:17pm Advance Directive Response Recorded Date/ Time Living Will Yes September 07 018 9:17pm Power of Machine Silk Screen [employer]inter Yes September 07, 2018 9:17pm Advance Directive Response Recorded Date/ Time Name of Medical Power of Machine Silk Screen Printer September 16, 2023 11:10am Living Will Yes September 16 023 11:10am Power of Machine Silk Screen Printer Yes September 16, 2023 11:10am Advance Directive Response Recorded Date/ Time Name of Medical Power of Machine Silk Screen Printer September 16, 2023 11:10am Name of Medical Power of Machine Silk Screen Printer October 11, 2023 10:31pm Living Will Yes October 11 023 10:31pm Power of Machine Silk Screen Printer Yes October 11, 2023 10:31pm Advance Directive Response Recorded Date/ Time Name of Medical Power of Machine Silk Screen Printer kendrick, October 14, 2023 5:23pm Living Will Yes October 14, 2 023 5:23pm Power of Machine Silk Screen Printer Yes October 14, 2023 5:23pm Name of Medical Power of Machine Silk Screen Printer September 16, 2023 11:10am Name of Medical Power of Machine Silk Screen Printer October 11, 2023 10:31pm Advance Directive Response Recorded Date/ Time Name of Medical Power of Machine Silk Screen Printer CALISTA GUO October 14, 2023 7:56pm Living Will Yes October 14, 2 023 7:56pm Power of Machine Silk Screen Printer Yes October 14, 2023 7:56pm Name of Medical Power of Machine Silk Screen Printer September 16, 2023 11:10am Name of Medical Power of Machine Silk Screen Printer October 11, 2023 10:31pm Chief Complaint and Reason for Visit Chief Complaint INT LABS Chief Complaint Wart, Other Concerns SKIN LESION BACK OF R KNEE/BACK OF RIGHT HAND Gross hematuria Reason for Visit Recurrent gross aquiles turia Skin lesion of right leg Skin lesion of right leg Chief Complaint Wart, Other Concerns SKIN LESION BACK OF R KNEE/BACK OF RIGHT HAND Gross hematuria Cysto,Transurethra Resec BladderTum, medium MitC Reason for Visit Recurrent gross aquiles turia Skin lesion of right leg Skin lesion of right leg Chief Complaint Wart, Other Concerns SKIN LESION BACK OF R KNEE/BACK OF RIGHT HAND Gross hematuria Cysto,Transurethra Resec BladderTum, medium MitC gu complaint Reason for Visit Recurrent gross aquiles turia Skin lesion of right leg Skin lesion of right leg Chief Complaint Wart, Other Concerns SKIN LESION BACK OF R KNEE/BACK OF RIGHT HAND Gross hematuria Cysto,Transurethra Resec BladderTum, medium MitC PREOP gu complaint GROSS HEMATURIA STATUS POST TURBT Reason for Visit Recurrent gross aquiles turia Skin lesion of right leg Skin lesion of right leg Recurrent gross hematuria Chief Complaint Wart, Other Concerns SKIN LESION BACK OF R KNEE/BACK OF RIGHT HAND Gross hematuria Cysto,Transurethra Resec BladderTum, medium MitC PREOP gu complaint GROSS HEMATURIA STATUS POST TURBT Reason for Visit Recurrent gross aquiles turia Skin lesion of right leg Skin lesion of right leg Indwelling Luis catheter present Recurrent gross hematuria Chief Complaint Admit Date Shakiness March 30, 2025 7:52a m Reason for Visit Admit Date Bladder disease March 30, 2025 7:52a m GERD (gastroesophageal reflux disease) J une 2024 7:52am History of benign prostatic hyperplasia March 30, 2025 7:52am Shakiness March 30, 2025 7:52a m Additional Source Comments (unrecognized sect ion and content) No Status Records FoundNo Status Records Found INFORMATION SOURCE (unrecogn ized section and content) DATE CREATED AUTHOR 12/14/2021 [facility] DATE CREATED AUTHOR AUTHOR'S ORGANIZ ATION 03/30/2025 [facility] Source Comments (unrecognize d section and content) In the event this informatio n is protected by the Federal Confidentiality of Alcohol and Drug Abuse Patient Records regulations: The Federal rules restrict any use of the information to criminally investigate or prosecute any alcohol or drug abuse patient.[facility] the event this information is protected by the Federal Confidentiality of Alcohol and Drug Abuse Patient Records regulations: The Federal rules restrict any use of the information to criminally investigate or prosecute any alcohol or drug abuse patient.[facility] Reason for Visit (unrecogniz ed section and content) Reason Onset Date Comments Refill Request 04/07/2022 Reason Onset Date Comments Opened In Error 04/18/2022 Care Teams (unrecognized sec tion and content) Chocolatier Relationship Specialty Start Date End Date Vita Pacheco PA-C [id number] [place] [address] PCP - General Family Practice 07/18/19 Chocolatier Relationship Specialty Start Date End Date Vita Pacheco, JESSE-C [address] [place] [address] PCP - General Family Practice 07/18/19 Team Status: Active Member Role Status Dates Aggie Powers MD Family Provider Active Dr. Mary Ellen Jules MD Primary Care Provider Active Team Status: Inactive Member Role Status Dates Dr. Mary Ellen Jules MD Primary Care Pro vider, Attending Provider, Referring Provider Active Team Status: Active Member Role Status Dates Aggie DIAS MD Family Provider Active Dr. Mary Ellen Jules MD Primary Care Provider Active Team Status: Inactive Member Role Status Dates Dr. Mary Ellen Jules MD Attending Provider Active Team Status: Inactive Member Role Status Dates Dr. Anuel Bland MD Attending Provider Active Dr. Mary Ellen Jules MD Referring Provider Active Team Status: Inactive Member Role Status Dates Isa Rogers Attending Provider, Referring Provide r Active Dr. Mary Ellen Juels MD Primary Care Provider Active Team Status: Inactive Member Role Status Dates Dr. Mary Ellen Jules MD Primary Care Provider Active Dr. Joseph Carpenter MD Attending Provider, Referr ing Provider Active Team Status: Inactive Member Role Status Dates Dr. Mary Ellen Jules MD Primary Care Provider Active Dr. Jabari Elizabeth MD Referring Provider, Emergency Provider Active Team Status: Active Member Role Status Dates Dr. Mary Ellen Jules MD Primary Care Provider Active Dr. Will Olivo MD Attending Provider, Referring Pro vider Active Team Status: Active Member Role Status Dates Dr. Mary Ellen Jules MD Primary Care Provider Active Benedicto Garland MD Emergency Provider Active Dr. Joseph Carpenter MD Admit Provider, Attending Provider Active Team Status: Inactive Member Role Status Dates Dr. Mary Ellen Jules MD Primary Care Provider Active Benedicto Garland MD Emergency Provider Active Dr. Joseph Carpenter MD Admit Provid er, Attending Provider, Other Provider Active Team Status: Inactive Member Role Status Dates Dr. Mary Ellen Jules MD Primary Care Provider Active Dr. Jabari Elizabeth MD Attending Provid er, Referring Provider, Emergency Provider Active Team Status: Inactive Member Role Status Dates Dr. Mary Ellen Jules MD Primary Care Provider Active Start: February 28, 2025 End: February 28, 2025 Dr. Mary Ellen Jules MD Attending Provider Active Start: February 28, 2025 End: February 28, 2025 Team Status: Inactive Member Role Status Dates Dr. Mary Ellen Jules MD Primary Care Provider Active Start: March 30, 2025 End: March 30, 2025 Dr. Mary Ellen Jules MD Attending Provider Active Start: March 30, 2025 End: March 30, 2025 Goals (unrecognized section and content) Goals may be documented in a n alternate sectionGoals may be documented in an alternate sectionGoals may be documented in an alternate sectionGoals may be documented in an alternate section FOR RECORDS PERTAINING TO PATIENTS WHO ARE [...] BE BASED ON THE PRIMARY CLINICAL RECORDS. [employer] provides no warranty or guarantee of the accuracy or completeness of information in this document.
--- OUTSIDE RECORDS SUMMARY | 2025-05-09 22:18 | XMS RPT_ITS | CCD ---
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 Mary Ellen Jules Attending Provider Dr. Anuel Bland Attending Provider Dr. Mary Ellen Jules Referring Provider [phone] Mary Ellen Jules Attending Provider Dr. Anuel Bland Attending Provider Dr. Mary Ellen Jules Referring Provider Dr. Mary Ellen Jules Primary Care Provider Dr. Will Olivo Attending Provider Dr. Will Olivo Referring Provider Dr. Mary Ellen Jules MD Primary Care Provider [phone] Dr. Mary Ellen Jules MD Attending Provider Mary Ellen Jules Primary Care Unavailable Mary Ellen Jules Attending Unavailable Mary Ellen Jules Referring Unavailable Mary Ellen Jules Primary Care Unavailable Mary Ellen Jules Attending Unavailable Mary Ellen Jules Primary Care Unavailable [place] Attending Unavailable [place] Referring Unavailable Mary Ellen Jules Primary Care Unavailable Mary Ellen Jules Attending Unavailable Mary Ellen Jules Primary Care Unavailable Mary Ellen Jules Attending Unavailable Mary Ellen Jules Primary Care Unavailable Gennaro Rivas Attending Unavailable [place] Referring Unavailable Mary Ellen Jules Primary Care Unavailable Mary Ellen Jules Attending Unavailable Allergies Allergy Classification Reported Allergen(s) Allergy Type Date of Onset Reaction(s) Facility (2 sources) Salicylic Acid Drug Allergy 7 GI Upset [facility] (8 sources) Aspirin Drug Allergy 2 Other [facility] Comment on above: GASTRIC ISSUES (2 sources) Naproxen Drug Allergy 2 Other [facility] (1 source) acetylsalicylic acid Allergy to substance 2 Other [facility] (5 sources) Phenazopyridine Drug Allergy 3 other [facility] Comment on above: the dye will change the color of my lenses in my eyes (1 source) Aspirin Drug Allergy 5 [facility]ository (1 source) Phenazopyridine Drug Allergy 5 [facility] Medications Current Medications Medication Drug Class(es) [...] on above: Take 2 tablets by mo [facility] every 8 hours as needed for Pain. [...] Comment on above: Take 1 capsule by [facility] once daily. phenazopyridine hydrochloride 100 mg oral [...] Test Name Value Interpretation Reference Range Facility MR/BMS.[facility] 03-30-2025 MR/BMS.B [facility] [address] [place], [place] [address] OFFICE VISIT Date of Service: 03/30/25 MR#: [id number] Acct: [id number] Name: ARIA HERNANDEZ Rep #: [id number] : 1945 Provider: Dr. 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 In early February, [...] any ne (more content not included)... Normal [facility] Testosterone, Total / Freeon 03-15-2025 TESTOSTER,FREE 13.32 ng/dL Normal 5.00-21.00 [facility] Comment on above: Order Comment: NUNK Performed By: #### L 501.5200, L101.9900, L501.9910, L500.4100, L3100.5310, L506.1001, L501.9985, L500.4050, L503.0106, L506.0400, L100.0100, L501.00812, L501.9520 ####[facility] [address] [place], [place], [address] TESTOSTER,TOTAL 535 ng/dL Normal 264-916 [facility] Comment on above: Order Comment: NUNK Result Comment: Adul t male reference interval is based on a population of healthy nonobese males (BMI <30) between 19 and 39 years old. rosemary Schmid.al. JCEM 2017,102;8628-3322. PMID: [id number]. Performed By: #### L 501.5200, L101.9900, L501.9910, L500.4100, L3100.5310, L506.1001, L501.9985, L500.4050, L503.0106, L506.0400, L100.0100, L501.70646, L501.9520 ####[facility] [address] [place], [place], [phone] TESTOSTERONE,%F 2.49 Normal 1.50-4.20 [facility] Comment on above: Order Comment: NUNK Result Comment: Perf ormed at: - [facility] [address] [id number] Control Room Agent: Luan Cheng PhD, Phone: [phone] Performed at: - [facility] [address] [id number] Control Room Agent: Jasmyne Drummond MD, Phone: [phone] Performed By: #### L 501.5200, L101.9900, L501.9910, L500.4100, L3100.5310, L506.1001, L501.9985, L500.4050, L503.0106, L506.0400, L100.0100, L501.83848, L501.9520 ####[facility] [address] [place], [place], [id number] Absolute lymphocyte countOrd ered By: Mary Ellen Jules on 02-28-2025 Lymphocytes Auto (Unsp spec) [#/Vol] 2.17 10*3/uL 0.83-4.51 [facility] Absolute neutrophil countOrd ered By: Mary Ellen Jules on 02-28-2025 Neutrophils (Bld) [#/Vol] 2.5 10*3/uL 2.0-7.7 [facility] Anion gap in Serum or Plasma Ordered By: Mary Ellen Jules on 02-28-2025 Anion gap [Moles/Vol] 11 mmol/L 5-15 [facility] Automated lymphocyte count a s percentage of total leukocytesOrdered By: Mary Ellen Jules on 02-28-2025 Lymphocytes/100 WBC Auto (Unsp spec) 40.0 % - [facility] BUN/creatinine ratioOrdered By: Mary Ellen Jules on 02-28-2025 Urea nitrogen/Creatinine [Mass ratio] 16.4 mg/mg 10-20 [facility] Basophil percentageOrdered B y: Mary Ellen Jules on 02-28-2025 Basophils/100 WBC (Bld) 1.1 % High 0-1 [facility] Bilirubin, totalOrdered By: Mary Ellen Jules on 02-28-2025 Bilirubin [Mass/Vol] 0.37 mg/dL 0.00-1.30 [facility] CBC W/Diff, Automatedon Absolute Lymph 2.17 X10 3/uL Normal 0.83-4.51 [facility] Comment on above: Performed By: #### L 501.5200, L101.9900, L501.9910, L500.4100, L3100.5310, L506.1001, L501.9985, L500.4050, L503.0106, L506.0400, L100.0100, L501.14109, L501.9520 #### [facility] [address] [place], [place], [id number] (159) Absolute Neut 2.5 X10 3/uL Normal 2.0-7.7 [facility] Comment on above: Performed By: #### L 501.5200, L101.9900, L501.9910, L500.4100, L3100.5310, L506.1001, L501.9985, L500.4050, L503.0106, L506.0400, L100.0100, L501.67925, L501.9520 #### [facility] [address] [place], [place], [phone] (9[address] Basophils/100 WBC (Bld) 1.1 % High 0-1 [facility] Comment on above: Performed By: #### L 501.5200, L101.9900, L501.9910, L500.4100, L3100.5310, L506.1001, L501.9985, L500.4050, L503.0106, L506.0400, L100.0100, L501.15796, L501.9520 #### [facility] [address] [place], [place], [phone] ([address] Eosinophils/100 WBC (Bld) 6.1 % High 0-5 [facility] Comment on above: Performed By: #### L 501.5200, L101.9900, L501.9910, L500.4100, L3100.5310, L506.1001, L501.9985, L500.4050, L503.0106, L506.0400, L100.0100, L501.39221, L501.9520 #### [facility] [address] [place], [address] Erythrocyte distribution width (RBC) [Ratio] 13.2 % Normal 11.6-14.6 [facility] Comment on above: Performed By: #### L 501.5200, L101.9900, L501.9910, L500.4100, L3100.5310, L506.1001, L501.9985, L500.4050, L503.0106, L506.0400, L100.0100, L501.01489, L501.9520 #### [facility] [address] [place], [place], [id number] (942) Hematocrit (Bld) [Volume fraction] 46.9 % Normal 40-54 [facility] Comment on above: Performed By: #### L 501.5200, L101.9900, L501.9910, L500.4100, L3100.5310, L506.1001, L501.9985, L500.4050, L503.0106, L506.0400, L100.0100, L501.55601, L501.9520 #### [facility] [address] [place], [address] Hemoglobin (Bld) [Mass/Vol] 15.5 g/dL Normal 13.0-16.5 [facility] Comment on above: Performed By: #### L 501.5200, L101.9900, L501.9910, L500.4100, L3100.5310, L506.1001, L501.9985, L500.4050, L503.0106, L506.0400, L100.0100, L501.40177, L501.9520 #### [facility] [address] [place], [address] IG% 0.200 Normal 0.0-0.9 [facility] Comment on above: Result Comment: IG% - Immature Granulocytes (promyelocytes, myelocytes and metamyelocytes) > 1% indicates that a LEFT SHIFT is Present. Performed By: #### L 501.5200, L101.9900, L501.9910, L500.4100, L3100.5310, L506.1001, L501.9985, L500.4050, L503.0106, L506.0400, L100.0100, L501.17849, L501.9520 #### [facility] [address] [place], [address] Lymphocytes/100 WBC (Bld) 40.0 % Normal 19-41 [facility] Comment on above: Performed By: #### L 501.5200, L101.9900, L501.9910, L500.4100, L3100.5310, L506.1001, L501.9985, L500.4050, L503.0106, L506.0400, L100.0100, L501.94955, L501.9520 #### [facility] [address] [place], [address] MCH (RBC) [Entitic mass] 31.6 pg Normal 27.0-32.0 [facility] Comment on above: Performed By: #### L 501.5200, L101.9900, L501.9910, L500.4100, L3100.5310, L506.1001, L501.9985, L500.4050, L503.0106, L506.0400, L100.0100, L501.93718, L501.9520 #### [facility] [address] [place], [address] MCHC (RBC) [Mass/Vol] 33.0 g/dL Normal 32-36 [facility] Comment on above: Performed By: #### L 501.5200, L101.9900, L501.9910, L500.4100, L3100.5310, L506.1001, L501.9985, L500.4050, L503.0106, L506.0400, L100.0100, L501.79604, L501.9520 #### [facility] [address] [place], [address] ( MCV (RBC) [Entitic vol] 95.7 fL High 80-94 [facility] Comment on above: Performed By: #### L 501.5200, L101.9900, L501.9910, L500.4100, L3100.5310, L506.1001, L501.9985, L500.4050, L503.0106, L506.0400, L100.0100, L501.91026, L501.9520 #### [facility] [address] [place], [address] Monocytes/100 WBC (Bld) 6.8 % Normal 0-10 [facility] Comment on above: Performed By: #### L 501.5200, L101.9900, L501.9910, L500.4100, L3100.5310, L506.1001, L501.9985, L500.4050, L503.0106, L506.0400, L100.0100, L501.41419, L501.9520 #### [facility] [address] [place], [address] Neutrophils/100 WBC (Bld) 45.8 % Low 47-70 [facility] Comment on above: Performed By: #### L 501.5200, L101.9900, L501.9910, L500.4100, L3100.5310, L506.1001, L501.9985, L500.4050, L503.0106, L506.0400, L100.0100, L501.15587, L501.9520 #### [facility] [address] [place], [address] Nucleated RBC (Bld) [#/Vol] 0 10*3/uL Normal 0-5 [facility] Comment on above: Performed By: #### L 501.5200, L101.9900, L501.9910, L500.4100, L3100.5310, L506.1001, L501.9985, L500.4050, L503.0106, L506.0400, L100.0100, L501.88799, L501.9520 #### [facility] [address] [place], [place], [id number] (734) Platelet mean volume (Bld) [Entitic vol] 10.1 fL Normal 6.2-12.0 [facility] Comment on above: Performed By: #### L 501.5200, L101.9900, L501.9910, L500.4100, L3100.5310, L506.1001, L501.9985, L500.4050, L503.0106, L506.0400, L100.0100, L501.03556, L501.9520 #### [facility] [address] [place], [place], [id number] (541) Platelets (Bld) [#/Vol] 199 10*3/uL Normal 150-450 [facility] Comment on above: Performed By: #### L 501.5200, L101.9900, L501.9910, L500.4100, L3100.5310, L506.1001, L501.9985, L500.4050, L503.0106, L506.0400, L100.0100, L501.94334, L501.9520 #### [facility] [address] [place], [address] RBC (Bld) [#/Vol] 4.90 10*6/uL Normal 4.6-6.2 [facility] Comment on above: Performed By: #### L 501.5200, L101.9900, L501.9910, L500.4100, L3100.5310, L506.1001, L501.9985, L500.4050, L503.0106, L506.0400, L100.0100, L501.23613, L501.9520 #### [facility] [address] [place], [address] RDW SD 46.7 fl High 35.1-43.9 [facility] Comment on above: Performed By: #### L 501.5200, L101.9900, L501.9910, L500.4100, L3100.5310, L506.1001, L501.9985, L500.4050, L503.0106, L506.0400, L100.0100, L501.75353, L501.9520 #### [facility] [address] [place], [address] WBC (Bld) [#/Vol] 5.4 10*3/uL Normal 4.4-11.0 [facility] Comment on above: Performed By: #### L 501.5200, L101.9900, L501.9910, L500.4100, L3100.5310, L506.1001, L501.9985, L500.4050, L503.0106, L506.0400, L100.0100, L501.56324, L501.9520 #### [facility] [address] [place], [address] Calculated very low density lipoprotein (VLDL) cholesterol measurementOrdered By: Mary Ellen Jules on 02-28-2025 Calculated very low density lipoprotein (VLDL) cholesterol measurement 18 mg/dL 5-40 [facility] Carbon dioxide, total [Moles /volume] in Central venous bloodOrdered By: Mary Ellen Jules on 02-28-2025 CO2 [Moles/Vol] 24.3 mmol/L 21.0-32.0 [facility] Chloride assayOrdered By: Katina Jules on 02-28-2025 Chloride [Moles/Vol] 104 mmol/L 98-108 [facility] Comprehensive Metabolic Prof ilon 02-28-2025 Albumin [Mass/Vol] 4.4 g/dL Normal 3.4-4.8 [facility] Comment on above: Order Comment: UNK Performed By: #### L 501.5200, L101.9900, L501.9910, L500.4100, L3100.5310, L506.1001, L501.9985, L500.4050, L503.0106, L506.0400, L100.0100, L501.46690, L501.9520 #### [facility] [address] [place], [place], [address] Albumin/Globulin [Mass ratio] 1.4 {ratio} Normal 0.9-2.4 [facility] Comment on above: Order Comment: UNK Performed By: #### L 501.5200, L101.9900, L501.9910, L500.4100, L3100.5310, L506.1001, L501.9985, L500.4050, L503.0106, L506.0400, L100.0100, L501.54807, L501.9520 #### [facility] [address] [place], [place], [address] ALK PHOS 49 U/L Normal 40-129 [facility] Comment on above: Order Comment: UNK Performed By: #### L 501.5200, L101.9900, L501.9910, L500.4100, L3100.5310, L506.1001, L501.9985, L500.4050, L503.0106, L506.0400, L100.0100, L501.05066, L501.9520 #### [facility] [address] [place], [address] ALT [Catalytic activity/Vol] 27 U/L Normal <=46 [facility] Comment on above: Order Comment: UNK Performed By: #### L 501.5200, L101.9900, L501.9910, L500.4100, L3100.5310, L506.1001, L501.9985, L500.4050, L503.0106, L506.0400, L100.0100, L501.97323, L501.9520 #### [facility] [address] [place], [place], [id number] (776) AST [Catalytic activity/Vol] 24 U/L Normal <=37 [facility] Comment on above: Order Comment: UNK Performed By: #### L 501.5200, L101.9900, L501.9910, L500.4100, L3100.5310, L506.1001, L501.9985, L500.4050, L503.0106, L506.0400, L100.0100, L501.94977, L501.9520 #### [facility] [address] [place], [place], [address] Bilirubin [Mass/Vol] 0.37 mg/dL Normal 0.00-1.30 [facility] Comment on above: Order Comment: UNK Performed By: #### L 501.5200, L101.9900, L501.9910, L500.4100, L3100.5310, L506.1001, L501.9985, L500.4050, L503.0106, L506.0400, L100.0100, L501.79010, L501.9520 #### [facility] [address] [place], [place], [id number] BUN/CRE 16.4 RATIO Normal 10-20 [facility] Comment on above: Order Comment: UNK Performed By: #### L 501.5200, L101.9900, L501.9910, L500.4100, L3100.5310, L506.1001, L501.9985, L500.4050, L503.0106, L506.0400, L100.0100, L501.52145, L501.9520 #### [facility] [address] [place], [address] Calcium [Mass/Vol] 9.4 mg/dL Normal 7.6-11.0 [facility] Comment on above: Order Comment: UNK Performed By: #### L 501.5200, L101.9900, L501.9910, L500.4100, L3100.5310, L506.1001, L501.9985, L500.4050, L503.0106, L506.0400, L100.0100, L501.85242, L501.9520 #### [facility] [address] [place], [address] Chloride [Moles/Vol] 104 mmol/L Normal 98-108 [facility] Comment on above: Order Comment: UNK Performed By: #### L 501.5200, L101.9900, L501.9910, L500.4100, L3100.5310, L506.1001, L501.9985, L500.4050, L503.0106, L506.0400, L100.0100, L501.62404, L501.9520 #### [facility] [address] [place], [address] CO2 [Moles/Vol] 24.3 mmol/L Normal 21.0-32.0 [facility] Comment on above: Order Comment: UNK Performed By: #### L 501.5200, L101.9900, L501.9910, L500.4100, L3100.5310, L506.1001, L501.9985, L500.4050, L503.0106, L506.0400, L100.0100, L501.26687, L501.9520 #### [facility] [address] [place], [place], [address] Creatinine [Mass/Vol] 0.91 mg/dL Normal 0.70-1.20 [facility] Comment on above: Order Comment: UNK Performed By: #### L 501.5200, L101.9900, L501.9910, L500.4100, L3100.5310, L506.1001, L501.9985, L500.4050, L503.0106, L506.0400, L100.0100, L501.50653, L501.9520 #### [facility] [address] [place], [place], [address] GAP 11 Normal 5-15 [facility] Comment on above: Order Comment: UNK Performed By: #### L 501.5200, L101.9900, L501.9910, L500.4100, L3100.5310, L506.1001, L501.9985, L500.4050, L503.0106, L506.0400, L100.0100, L501.47339, L501.9520 #### [facility] [address] [facility] [place], [place], [address] GFR/1.73 sq M.predicted among non-blacks MDRD (S/P/Bld) [Vol rate/Area] 85 mL/min/{1.73_m2} Normal >60 [facility] Comment on above: Order Comment: UNK Result Comment: mL/m in/1.73m2 CKD-EPI Creatinine Equation (2020) Performed By: #### L 501.5200, L101.9900, L501.9910, L500.4100, L3100.5310, L506.1001, L501.9985, L500.4050, L503.0106, L506.0400, L100.0100, L501.81187, L501.9520 #### [facility] [address] [place], [address] Globulin (S) [Mass/Vol] 3.1 g/dL Normal 2.2-4.2 [facility] Comment on above: Order Comment: UNK Performed By: #### L 501.5200, L101.9900, L501.9910, L500.4100, L3100.5310, L506.1001, L501.9985, L500.4050, L503.0106, L506.0400, L100.0100, L501.25992, L501.9520 #### [facility] [address] [place], [address] Glucose [Mass/Vol] 118 mg/dL High 70-99 [facility] Comment on above: Order Comment: UNK Performed By: #### L 501.5200, L101.9900, L501.9910, L500.4100, L3100.5310, L506.1001, L501.9985, L500.4050, L503.0106, L506.0400, L100.0100, L501.42245, L501.9520 #### [facility] [address] [place], [place], [address] (277) Potassium [Moles/Vol] 4.5 mmol/L Normal 3.3-5.1 [facility] Comment on above: Order Comment: UNK Performed By: #### L 501.5200, L101.9900, L501.9910, L500.4100, L3100.5310, L506.1001, L501.9985, L500.4050, L503.0106, L506.0400, L100.0100, L501.97411, L501.9520 #### [facility] [address] [place], [place], [id number] (172) Sodium [Moles/Vol] 139 mmol/L Normal 133-145 [facility] Comment on above: Order Comment: UNK Performed By: #### L 501.5200, L101.9900, L501.9910, L500.4100, L3100.5310, L506.1001, L501.9985, L500.4050, L503.0106, L506.0400, L100.0100, L501.27836, L501.9520 #### [facility] [address] [place], [place], [address] T PROT 7.5 g/dL Normal 5.9-8.4 [facility] Comment on above: Order Comment: UNK Performed By: #### L 501.5200, L101.9900, L501.9910, L500.4100, L3100.5310, L506.1001, L501.9985, L500.4050, L503.0106, L506.0400, L100.0100, L501.20817, L501.9520 #### [facility] [address] [place], [address] Urea nitrogen [Mass/Vol] 15 mg/dL Normal 4-19 [facility] Comment on above: Order Comment: UNK Performed By: #### L 501.5200, L101.9900, L501.9910, L500.4100, L3100.5310, L506.1001, L501.9985, L500.4050, L503.0106, L506.0400, L100.0100, L501.69891, L501.9520 #### [facility] [address] [place], [address] Eosinophil percentageOrdered By: Mary Ellen Jules on 02-28-2025 Eosinophils/100 WBC (Bld) 6.1 % High 0-5 [facility] Erythrocyte Sed Rateon 02-28 SED RATE 4 mm/hr Normal 0-20 [facility] Comment on above: Performed By: #### L 501.5200, L101.9900, L501.9910, L500.4100, L3100.5310, L506.1001, L501.9985, L500.4050, L503.0106, L506.0400, L100.0100, L501.52270, L501.9520 #### [facility] [address] [place], [place], [id number] Erythrocyte distribution wid th ratioOrdered By: Mary Ellen Jules on 02-28-2025 Erythrocyte distribution width (RBC) [Ratio] 13.2 % 11.6-14.6 [facility] Erythrocyte distribution wid th standard deviationOrdered By: Mary Ellen Jules on 02-28-2025 Erythrocyte distribution width (RBC) [Ratio] 46.7 fl High 35.1-43.9 [facility] Erythrocyte sedimentation ra teOrdered By: Mary Ellen Jules on 02-28-2025 ESR (Bld) [Velocity] 4 mm/h 0-20 [facility] Free T3on 02-28-2025 Free T3 [Mass/Vol] 3.0 pg/mL Normal 2.18-3.98 [facility] Comment on above: Order Comment: NUNK Performed By: #### L 501.5200, L101.9900, L501.9910, L500.4100, L3100.5310, L506.1001, L501.9985, L500.4050, L503.0106, L506.0400, L100.0100, L501.24704, L501.9520 ####[facility] [address] [place], [place], [id number] Free V0Zjmffsm By: Mary Ellen ríos on 02-28-2025 Free T3 [Mass/Vol] 3.0 pg/mL 2.18-3.98 [facility] Free testosterone percentage Ordered By: Mary Ellen Jules on 02-28-2025 Testosterone Free/Testosterone.total [Mass fraction] 2.49 % 1.50-4.20 [facility] Comment on above: Performed at: [address], [place], [place] [id number] Director: Luan Cheng PhD, Phone: [phone] at: [address] [id number] Director: Jasmyne Drummond MD, Phone: [phone] Glomerular filtration rate ( GFR) estimation/1.73 sq m using serum, plasma, or whole bOrdered By: Mary Ellen Jules on 02-28-2025 GFR/1.73 sq M.predicted among non-blacks MDRD (S/P/Bld) [Vol rate/Area] 85 mL/min/{1.73_m2} >60 [facility] Comment on above: mL/min/1.73m2 CKD-EP I Creatinine Equation (2020) Hematocrit Auto (Bld) [Volum e fraction]Ordered By: Mary Ellen Jules on 02-28-2025 Hematocrit (Bld) [Volume fraction] 46.9 % 40-54 [facility] Hemoglobin A1con 02-28-2025 HbA1c (Bld) [Mass fraction] 5.8 % High <=5.6 [facility] Comment on above: Result Comment: Norm al < 5.7 % Prediabetic 5.7 - 6.4 % Diabetic >or= 6.5 % Please note range changes. Performed By: #### L 501.5200, L101.9900, L501.9910, L500.4100, L3100.5310, L506.1001, L501.9985, L500.4050, L503.0106, L506.0400, L100.0100, L501.87947, L501.9520 #### [facility] [address] [place], [address] Hemoglobin A1c percentageOrd ered By: Mary Ellen Jules on 02-28-2025 HbA1c (Bld) [Mass fraction] 5.8 % High <5.7 [facility] Comment on above: Normal < 5.7 % Predi abetic 5.7 - 6.4 % Diabetic >or= 6.5 % Please note range changes. Hemoglobin measurementOrdere d By: Mary Ellen Jules on 02-28-2025 Hemoglobin (Bld) [Mass/Vol] 15.5 g/dL 13.0-16.5 [facility] Immature granulocytes/100 WB C Auto (Bld)Ordered By: Mary Ellen Jules on 02-28-2025 Immature granulocytes/100 WBC (Bld) 0.200 % 0.0-0.9 [facility] Comment on above: IG% - Immature Granu locytes (promyelocytes, myelocytes and metamyelocytes) > 1% indicates that a LEFT SHIFT is Present. LDL calc ser/plasOrdered By: Mary Ellen Jules on 02-28-2025 Cholesterol in LDL [Mass/Vol] 149 mg/dL [facility] Comment on above: Aycniqhayi=068-288 m g/dL & Higher Cpzi=017 mg/dL or greater Laboratory - Chemistry and C hemistry - challengeOrdered By: Mary Ellen Jules on 02-28-2025 AST [Catalytic activity/Vol] 24 U/L <38 [facility] Lipid Profileon 02-28-2025 CHOL:HDL 5.07 Normal [facility] Comment on above: Performed By: #### L 501.5200, L101.9900, L501.9910, L500.4100, L3100.5310, L506.1001, L501.9985, L500.4050, L503.0106, L506.0400, L100.0100, L501.72324, L501.9520 #### [facility] [place], [address] Cholesterol [Mass/Vol] 208 mg/dL High <=200 [facility] Comment on above: Result Comment: Chol esterol level, Desirable <200 mg/dL Borderline high cholesterol 200-239 mg/dL High cholesterol >=240 mg/dL Recommendations of the NCEP Adult Treatment Panel for the following risk-cutoff thresholds for the [place] population. Performed By: #### L 501.5200, L101.9900, L501.9910, L500.4100, L3100.5310, L506.1001, L501.9985, L500.4050, L503.0106, L506.0400, L100.0100, L501.48738, L501.9520 #### [facility] [address] [place], [address] Cholesterol in HDL [Mass/Vol] 41 mg/dL Normal [facility] Comment on above: Result Comment: Livia onal Cholesterol Education Program (NCEP) guidelines: <40 mg/dL: Low HDL-cholesterol (major risk factor for CHD) >= 60 mg/dL: High HDL-cholesterol (negative risk factor for CHD) HDL-cholesterol is affected by a number of factors, e.g. smoking, exercise, hormones, sex and age. Performed By: #### L 501.5200, L101.9900, L501.9910, L500.4100, L3100.5310, L506.1001, L501.9985, L500.4050, L503.0106, L506.0400, L100.0100, L501.22442, L501.9520 #### [facility] [address] [facility] [place], [place], [id number] ([address]) Cholesterol in LDL [Mass/Vol] 149 mg/dL Normal [facility] Comment on above: Result Comment: Bord pywclj=383-706 mg/dL Higher Jcjp=483 mg/dL or greater Performed By: #### L 501.5200, L101.9900, L501.9910, L500.4100, L3100.5310, L506.1001, L501.9985, L500.4050, L503.0106, L506.0400, L100.0100, L501.75722, L501.9520 #### [facility] [address] [place], [place], [phone] Cholesterol in VLDL [Mass/Vol] 18 mg/dL Normal 5-40 [facility] Comment on above: Performed By: #### L 501.5200, L101.9900, L501.9910, L500.4100, L3100.5310, L506.1001, L501.9985, L500.4050, L503.0106, L506.0400, L100.0100, L501.22535, L501.9520 #### [facility] [address] [place], [place], [id number] Triglyceride [Mass/Vol] 90 mg/dL Normal [facility] Comment on above: Result Comment: The drugs N-Acetylcysteine and Metamizole may falsely depress this assay. Normal range: <150 mg/dL Borderline High: 150-199 mg/dL High: 200-499 mg/dL Very High: >500 mg/dL Performed By: #### L 501.5200, L101.9900, L501.9910, L500.4100, L3100.5310, L506.1001, L501.9985, L500.4050, L503.0106, L506.0400, L100.0100, L501.54846, L501.9520 #### [facility] [address] [place], [place], [id number] MCV (mean corpuscular volume ) determinationOrdered By: Mary Ellen Jules on 02-28-2025 MCV (RBC) [Entitic vol] 95.7 fL High 80-94 [facility] Magnesiumon 02-28-2025 Magnesium [Mass/Vol] 2.0 mg/dL Normal 1.5-2.2 [facility] Comment on above: Performed By: #### L 501.5200, L101.9900, L501.9910, L500.4100, L3100.5310, L506.1001, L501.9985, L500.4050, L503.0106, L506.0400, L100.0100, L501.51199, L501.9520 #### [facility] [address] [place], [place], [id number] Magnesium measurement (mass/ volume)Ordered By: Mary Ellen Jules on 02-28-2025 Magnesium (Unsp spec) [Mass/Vol] 2.0 mg/dL 1.5-2.2 [facility] Mean corpuscular hemoglobin (MCH) determinationOrdered By: Mary Ellen Jules on 02-28-2025 MCH (RBC) [Entitic mass] 31.6 pg 27.0-32.0 [facility] Mean corpuscular hemoglobin concentration (MCHC) determinationOrdered By: Mary Ellen Jogre A on 02-28-2025 MCHC (RBC) [Mass/Vol] 33.0 g/dL 32-36 [facility] Mean platelet volume determi nationOrdered By: Mary Ellengalen Jules on 02-28-2025 Platelet mean volume (Bld) [Entitic vol] 10.1 fL 6.2-12.0 [facility] Monocyte percentageOrdered B y: Mary Ellen Jules on 02-28-2025 Monocytes/100 WBC (Bld) 6.8 % 0-10 [facility] Neutrophil percentageOrdered By: [facility] Jorge A on 02-28-2025 Neutrophils/100 WBC (Bld) 45.8 % Low 47-70 [facility] Nucleated red blood cell per centageOrdered By: [facility] Jorge A on 02-28-2025 Nucleated RBC/100 WBC (Bld) [Ratio] 0 % 0-5 [facility] PSA,Total - Annual Screenon 02-28-2025 PSA,TOT SCREEN 0.98 ng/mL Normal 0.02-4.00 [facility] Comment on above: Result Comment: This test [...] L3100.5310, L506.1001, L501.9985, L500.4050, L503.0106, L506.0400, L100.0100, L501.12676, L501.9520 ####[facility] [address] [place], [place], [phone] Platelet countOrdered By: Katina Jules on 02-28-2025 Platelets (Bld) [#/Vol] 199 10*3/uL 150-450 [facility] Potassium measurement (mass/ volume)Ordered By: Mary Ellen Jules on 02-28-2025 Potassium (Unsp spec) [Mass/Vol] 4.5 mmol/L 3.3-5.1 [facility] RBC Auto (Bld) [#/Vol]Ordere d By: Mary Ellen Jules on 02-28-2025 RBC (Bld) [#/Vol] 4.90 10*6/uL 4.6-6.2 [facility] Screening total cholesterol/ high density lipoprotein (HDL) cholesterol ratioOrdered By: Mary Ellen Jules on 02-28-2025 Cholesterol.total/Choles terol in HDL [Mass ratio] 5.07 {ratio} [facility] Serum creatinine measurement (mass/volume)Ordered By: Mary Ellen Jules on 02-28-2025 Creatinine [Mass/Vol] 0.91 mg/dL 0.70-1.20 [facility] Serum globulin measurementOr dered By: Mary Ellen Jules on 02-28-2025 Globulin (S) [Mass/Vol] 3.1 g/dL 2.2-4.2 [facility] Serum glucose measurement (m ass/volume)Ordered By: Mary Ellen Jules on 02-28-2025 Glucose [Mass/Vol] 118 mg/dL High 70-99 [facility] Serum or plasma alanine mehta otransferase (ALT) measurementOrdered By: Mary Ellen Jules on 02-28-2025 ALT [Catalytic activity/Vol] 27 U/L <47 [facility] Serum or plasma albumin sharon urement (mass/volume)Ordered By: Mary Ellen Jules on 02-28-2025 Albumin [Mass/Vol] 4.4 g/dL 3.4-4.8 [facility] Serum or plasma albumin/glob ulin mass ratioOrdered By: Mary Ellen Jules on 02-28-2025 Albumin/Globulin [Mass ratio] 1.4 {ratio} 0.9-2.4 [facility] Serum or plasma alkaline litzy sphatase measurementOrdered By: Mary Ellen Jules on 02-28-2025 ALP [Catalytic activity/Vol] 49 U/L 40-129 [facility] Serum or plasma calcium sharon urement (mass/volume)Ordered By: Mary Ellen Jules on 02-28-2025 Calcium [Mass/Vol] 9.4 mg/dL 7.6-11.0 [facility] Serum or plasma cholesterol in HDL measurement (mass/volume)Ordered By: Mary Ellen Jules on 02-28-2025 Cholesterol in HDL [Mass/Vol] 41 mg/dL >40 [facility] Comment on above: National Cholesterol Education Program (NCEP) guidelines:<40 mg/dL: Low HDL-cholesterol (major risk factor for CHD)>= 60 mg/dL: High HDL-cholesterol (negative risk factor for CHD)HDL-cholesterol is affected by a number of factors, e.g. smoking, exercise, hormones, sex and age. Serum or plasma cholesterol measurement (mass/volume)Ordered By: Mary Ellen Jules on 02-28-2025 Cholesterol [Mass/Vol] 208 mg/dL High <201 [facility] Comment on above: Cholesterol level, D esirable <200 mg/dLBorderline high cholesterol 200-239 mg/dLHigh cholesterol >=240 mg/dLRecommendations of the NCEP Adult Treatment Panel for the following risk-cutoff thresholds for the [place] population. Serum or plasma free testost erone measurement (mass/volume)Ordered By: Mary Ellen Jules on 02-28-2025 Testosterone Free [Mass/Vol] 13.32 ng/dL 5.00-21.00 [facility] Serum or plasma urea nitroge n measurement (mass/volume)Ordered By: Mary Ellen Jules on 02-28-2025 Urea nitrogen [Mass/Vol] 15 mg/dL 4-19 [facility] Sodium levelOrdered By: Tami Jules on 02-28-2025 Sodium [Moles/Vol] 139 mmol/L 133-145 [facility] T4 Free Directon 02-28-2025 T4 FREE DIRECT 1.00 ng/dL Normal 0.76-1.46 [facility] Comment on above: Order Comment: NUNK Performed By: #### L 501.5200, L101.9900, L501.9910, L500.4100, L3100.5310, L506.1001, L501.9985, L500.4050, L503.0106, L506.0400, L100.0100, L501.48589, L501.9520 ####[facility] [address] [place], [place], [phone] T4 freeOrdered By: Mary Ellen ríos on 02-28-2025 Free T4 [Mass/Vol] 1.00 ng/dL 0.76-1.46 [facility] TSH DL <= 0.005 mIU/L QnOrde red By: Mary Ellen Jules on 02-28-2025 TSH Qn 4.560 uIU/mL High 0.300-4.200 [facility] Testosterone, totalOrdered B y: Mary Ellen Jules on 02-28-2025 Testosterone [Mass/Vol] 535 ng/dL 264-916 [facility] Comment on above: Adult male reference interval is based on a population ofhealthy nonobese males (BMI <30) between 19 and 39 yearsold. rosemary Schmid.al. JCEM 2017,102;0443-4059. PMID:27244008. Thyroid Stim Hormone (TSH)on 02-28-2025 TSH 4.560 uIU/mL High 0.300-4.200 [facility] Comment on above: Performed By: #### L 501.5200, L101.9900, L501.9910, L500.4100, L3100.5310, L506.1001, L501.9985, L500.4050, L503.0106, L506.0400, L100.0100, L501.89939, L501.9520 ####[facility] [address] [place], [place], [phone] Total proteinOrdered By: Leslie Jules on 02-28-2025 Protein [Mass/Vol] 7.5 g/dL 5.9-8.4 [facility] Triglycerides measurementOrd ered By: Mary Ellen Jules on 02-28-2025 Triglyceride [Mass/Vol] 90 mg/dL <199 [facility] Comment on above: The drugs N-Acetylcy steine and Metamizole may falsely depress this assay. Normal range: <150 mg/dLBorderline High: 150-199 mg/dLHigh: 200-499 mg/dLVery High: >500 mg/dL Vitamin B12on 02-28-2025 Cobalamin (Vitamin B12) [Mass/Vol] 425 pg/mL Normal 180-914 [facility] Comment on above: Performed By: #### L 501.5200, L101.9900, L501.9910, L500.4100, L3100.5310, L506.1001, L501.9985, L500.4050, L503.0106, L506.0400, L100.0100, L501.98997, L501.9520 ####[facility] [address] [facility] [place], [place], [id number] Vitamin B12 ser/plasOrdered By: Mary Ellen Jules on 02-28-2025 Cobalamin (Vitamin B12) [Mass/Vol] 425 pg/mL 180-914 [facility] Vitamin D,25 Hydroxyon 02-28 Vitamin D 25-OH 13.8 ng/mL Low 30-100 [facility] Comment on above: Result Comment: Gayle min D Status Deficiency: <20 ng/mL (50nmol/L) Insufficiency: 20-30 ng/mL (50-75 nmol/L) Sufficiency: 30-100 ng/mL (75-250 nmol/L) Toxicity: >100 ng/mL (>250 nmol/L) Performed By: #### L 501.5200, L101.9900, L501.9910, L500.4100, L3100.5310, L506.1001, L501.9985, L500.4050, L503.0106, L506.0400, L100.0100, L501.10095, L501.9520 ####[facility] [address] [place], [address] White blood cell (WBC) count Ordered By: Mary Ellen Jules on 02-28-2025 WBC (Bld) [#/Vol] 5.4 10*3/uL 4.4-11.0 [facility] Cytology, Body Fluid / CSFon 11-01-2024 CYTOLOGY,BF/CSF SEE PATHOLOGY REPORT Normal [facility] Comment on above: Order Comment: URINE Result Comment: Spec imen submitted to Anatomical Pathology Department for testing. Performed By: #### L 350.1000 #### [facility] [address] [place], [address] Pap Stain (control)on 2024 Pap Stain (control) Patient Age/Sex Location Account Attending Physician ARIA HERNANDEZ 79/M LABSPEC [id number] Isa Rogers Specimen: [id number] Received: 11/01/24 Status: ANGUS Crystal Num: [id number] Spec Type: CYSJOSHUA Quinonez Dr: Isa Rogers [...] for cytology preparation. Mr 11/02/2024 TC:2 CPT: 88033 Signed (signature on file) Dr. Gennaro Rivas MD 11/02/24 1546 Normal [facility] Comment on above: Performed By: #### P PAPS #### [facility] [address] [place], [address] Urine Cultureon 07-26-2024 URC Culture exhibits no growth. Normal [facility] Comment on above: Performed By: #### M 100.2200, L400.0001 ####[facility] [address] [place], [address] CRPon 07-25-2024 C-REACTIVE PROT < 2.90 Normal 0.0-3.0 [facility] Comment on above: Result Comment: C-Re active Protein (CRP) provides useful information for the diagnosis, therapy and monitoring of inflammatory processes and associated diseases. For the evaluation of Relative Risk for Cardiovascular Disease, a High Sensitivity CRP (HSCRP) should be ordered. Performed By: #### L 501.6710, L101.9900 ####[facility] [address] [place], [address] Erythrocyte Sed Rateon 07-25 SED RATE 20 mm/hr Normal 0-20 [facility] Comment on above: Performed By: #### L 501.6710, L101.9900 ####[facility] [address] [place], [address] Urinalysis, Completeon 07-25 EPI,SQUAMOUS 0-5 SEEN Normal 0-5 [facility] Comment on above: Order Comment: CHLOE CTOR TO SPECIFY Performed By: #### M 100.2200, L400.0001 ####[facility] [address] [place], [address] RBC 0-5 SEEN Normal 0-5 [facility] Comment on above: Order Comment: CHLOE CTOR TO SPECIFY Performed By: #### M 100.2200, L400.0001 ####[facility] [address] [place], [address] WBC 5-10 SEEN Normal 0-5 [facility] Comment on above: Order Comment: CHLOE CTOR TO SPECIFY Performed By: #### M 100.2200, L400.0001 ####[facility] [address] [place], [address] BACTERIA 0 SEEN Normal None Seen [facility] Comment on above: Order Comment: CHLOE CTOR TO SPECIFY Performed By: #### M 100.2200, L400.0001 ####[facility] [address] [place], [address] Mucus Ql (Urine sed) 0 SEEN Normal [facility] Comment on above: Order Comment: CHLOE CTOR TO SPECIFY Performed By: #### M 100.2200, L400.0001 ####[facility] [address] [place], [address] CBC W/Diff, Automatedon 06-26 Absolute Lymph 1.67 X10 3/uL Normal 0.83-4.51 [facility] Comment on above: Performed By: #### L 101.9900, L100.0100, L400.0001, L504.2610, L501.6710, L500.4050 ####[facility] [address] [place], [address] Absolute Neut 4.8 X10 3/uL Normal 2.0-7.7 [facility] Comment on above: Performed By: #### L 101.9900, L100.0100, L400.0001, L504.2610, L501.6710, L500.4050 ####[facility] [address] [place], [address] Basophils/100 WBC (Bld) 0.8 % Normal 0-1 [facility] Comment on above: Performed By: #### L 101.9900, L100.0100, L400.0001, L504.2610, L501.6710, L500.4050 ####[facility] [address] [place], [address] Eosinophils/100 WBC (Bld) 2.6 % Normal 0-5 [facility] Comment on above: Performed By: #### L 101.9900, L100.0100, L400.0001, L504.2610, L501.6710, L500.4050 ####[facility] [address] [place], [address] Erythrocyte distribution width (RBC) [Ratio] 13.1 % Normal 11.6-14.6 [facility] Comment on above: Performed By: #### L 101.9900, L100.0100, L400.0001, L504.2610, L501.6710, L500.4050 ####[facility] [address] [place], [address] Hematocrit (Bld) [Volume fraction] 42.8 % Normal 40-54 [facility] Comment on above: Performed By: #### L 101.9900, L100.0100, L400.0001, L504.2610, L501.6710, L500.4050 ####[facility] [address] [place], [address] Hemoglobin (Bld) [Mass/Vol] 13.7 g/dL Normal 13.0-16.5 [facility] Comment on above: Performed By: #### L 101.9900, L100.0100, L400.0001, L504.2610, L501.6710, L500.4050 ####[facility] [address] [place], [address] IG% 1.200 High 0.0-0.9 [facility] Comment on above: Result Comment: IG% - Immature Granulocytes (promyelocytes, myelocytes and metamyelocytes) > 1% indicates that a LEFT SHIFT is Present. Performed By: #### L 101.9900, L100.0100, L400.0001, L504.2610, L501.6710, L500.4050 ####[facility] [address] [place], [address] Lymphocytes/100 WBC (Bld) 22.1 % Normal 19-41 [facility] Comment on above: Performed By: #### L 101.9900, L100.0100, L400.0001, L504.2610, L501.6710, L500.4050 ####[facility] [address] [place], [address] MCH (RBC) [Entitic mass] 30.4 pg Normal 27.0-32.0 [facility] Comment on above: Performed By: #### L 101.9900, L100.0100, L400.0001, L504.2610, L501.6710, L500.4050 ####[facility] [address] [place], [address] MCHC (RBC) [Mass/Vol] 32.0 g/dL Normal 32-36 [facility] Comment on above: Performed By: #### L 101.9900, L100.0100, L400.0001, L504.2610, L501.6710, L500.4050 ####[facility] [address] [place], [address] MCV (RBC) [Entitic vol] 94.9 fL High 80-94 [facility] Comment on above: Performed By: #### L 101.9900, L100.0100, L400.0001, L504.2610, L501.6710, L500.4050 ####[facility] [address] [place], [address] Monocytes/100 WBC (Bld) 9.4 % Normal 0-10 [facility] Comment on above: Performed By: #### L 101.9900, L100.0100, L400.0001, L504.2610, L501.6710, L500.4050 ####[facility] [address] [place], [address] Neutrophils/100 WBC (Bld) 63.9 % Normal 47-70 [facility] Comment on above: Performed By: #### L 101.9900, L100.0100, L400.0001, L504.2610, L501.6710, L500.4050 ####[facility] [address] [place], [address] Nucleated RBC (Bld) [#/Vol] 0 10*3/uL Normal 0-5 [facility] Comment on above: Performed By: #### L 101.9900, L100.0100, L400.0001, L504.2610, L501.6710, L500.4050 ####[facility] [address] [place], [address] Platelet mean volume (Bld) [Entitic vol] 9.5 fL Normal 6.2-12.0 [facility] Comment on above: Performed By: #### L 101.9900, L100.0100, L400.0001, L504.2610, L501.6710, L500.4050 ####[facility] [address] [place], [address] Platelets (Bld) [#/Vol] 328 10*3/uL Normal 150-450 [facility] Comment on above: Performed By: #### L 101.9900, L100.0100, L400.0001, L504.2610, L501.6710, L500.4050 ####[facility] [address] [place], [address] RBC (Bld) [#/Vol] 4.51 10*6/uL Low 4.6-6.2 [facility] Comment on above: Performed By: #### L 101.9900, L100.0100, L400.0001, L504.2610, L501.6710, L500.4050 ####[facility] [address] [place], [address] RDW SD 45.5 fl High 35.1-43.9 [facility] Comment on above: Performed By: #### L 101.9900, L100.0100, L400.0001, L504.2610, L501.6710, L500.4050 ####[facility] [address] [place], [address] WBC (Bld) [#/Vol] 7.6 10*3/uL Normal 4.4-11.0 [facility] Comment on above: Performed By: #### L 101.9900, L100.0100, L400.0001, L504.2610, L501.6710, L500.4050 ####[facility] [address] [place], [address] CRPon 07-12-2024 C-REACTIVE PROT 30.80 mg/L High 0.0-3.0 [facility] Comment on above: Order Comment: 1 Result Comment: C-Re active Protein (CRP) provides useful information for the diagnosis, therapy and monitoring of inflammatory processes and associated diseases. For the evaluation of Relative Risk for Cardiovascular Disease, a High Sensitivity CRP (HSCRP) should be ordered. Performed By: #### L 101.9900, L100.0100, L400.0001, L504.2610, L501.6710, L500.4050 ####[facility] [address] [place], [address] Comprehensive Metabolic Prof ilon 07-12-2024 Albumin [Mass/Vol] 3.3 g/dL Normal 3.2-5.0 [facility] Comment on above: Order Comment: 1 Performed By: #### L 101.9900, L100.0100, L400.0001, L504.2610, L501.6710, L500.4050 ####[facility] [address] [place], [address] Albumin/Globulin [Mass ratio] 0.7 {ratio} Low 0.9-2.4 [facility] Comment on above: Order Comment: 1 Performed By: #### L 101.9900, L100.0100, L400.0001, L504.2610, L501.6710, L500.4050 ####[facility] [address] [place], [address] ALK P 70 U/L Normal 45-117 [facility] Comment on above: Order Comment: 1 Performed By: #### L 101.9900, L100.0100, L400.0001, L504.2610, L501.6710, L500.4050 ####[facility] [address] [place], [address] ALT [Catalytic activity/Vol] 52 U/L Normal 16-61 [facility] Comment on above: Order Comment: 1 Performed By: #### L 101.9900, L100.0100, L400.0001, L504.2610, L501.6710, L500.4050 ####[facility] [address] [place], [address] AST [Catalytic activity/Vol] 26 U/L Normal 15-37 [facility] Comment on above: Order Comment: 1 Performed By: #### L 101.9900, L100.0100, L400.0001, L504.2610, L501.6710, L500.4050 ####[facility] [address] [place], [address] Bilirubin [Mass/Vol] 0.60 mg/dL Normal 0.20-1.00 [facility] Comment on above: Order Comment: 1 Result Comment: For patients on eltrombopag therapy, use of Dimension [place] TBIL is not recommended. Performed By: #### L 101.9900, L100.0100, L400.0001, L504.2610, L501.6710, L500.4050 ####[facility] [address] [place], [address] BUN/CRE 18.0 RATIO Normal 10-20 [facility] Comment on above: Order Comment: 1 Performed By: #### L 101.9900, L100.0100, L400.0001, L504.2610, L501.6710, L500.4050 ####[facility] [address] [place], [address] CA,Total 9.5 mg/dL Normal 8.5-10.1 [facility] Comment on above: Order Comment: 1 Performed By: #### L 101.9900, L100.0100, L400.0001, L504.2610, L501.6710, L500.4050 ####[facility] [address] [place], [address] Chloride [Moles/Vol] 106 mmol/L Normal 98-107 [facility] Comment on above: Order Comment: 1 Performed By: #### L 101.9900, L100.0100, L400.0001, L504.2610, L501.6710, L500.4050 ####[facility] [address] [place], [address] CO2 [Moles/Vol] 24.0 mmol/L Normal 21.0-32.0 [facility] Comment on above: Order Comment: 1 Performed By: #### L 101.9900, L100.0100, L400.0001, L504.2610, L501.6710, L500.4050 ####[facility] [address] [place], [address] Creatinine [Mass/Vol] 0.94 mg/dL Normal 0.70-1.30 [facility] Comment on above: Order Comment: 1 Result Comment: The validity of the calculated GFR GFRAA in patients over 70 years has not been determined. Clinical correlation is essential. Performed By: #### L 101.9900, L100.0100, L400.0001, L504.2610, L501.6710, L500.4050 ####[facility] [address] [place], [address] EST GFR - AA 99 mL/min Normal >60 [facility] Comment on above: Order Comment: 1 Result Comment: Afri can German GFR Calc Performed By: #### L 101.9900, L100.0100, L400.0001, L504.2610, L501.6710, L500.4050 ####[facility] [address] [place], [address] GAP 8 Normal 5-15 [facility] Comment on above: Order Comment: 1 Performed By: #### L 101.9900, L100.0100, L400.0001, L504.2610, L501.6710, L500.4050 ####[facility] [address] [place], [address] GFR/1.73 sq M.predicted among non-blacks MDRD (S/P/Bld) [Vol rate/Area] 82 mL/min/{1.73_m2} Normal >60 [facility] Comment on above: Order Comment: 1 Result Comment: Non- GFR Calc Performed By: #### L 101.9900, L100.0100, L400.0001, L504.2610, L501.6710, L500.4050 ####[facility] [address] [place], [address] Globulin (S) [Mass/Vol] 4.5 g/dL High 2.2-4.2 [facility] Comment on above: Order Comment: 1 Performed By: #### L 101.9900, L100.0100, L400.0001, L504.2610, L501.6710, L500.4050 ####[facility] [address] [place], [address] Glucose [Mass/Vol] 109 mg/dL High 74-106 [facility] Comment on above: Order Comment: 1 Result Comment: Fast ing Glucose result from 100 to 125 mg/dL suggests IMPAIRED HOMEOSTASIS per A.D.A. criteria. Performed By: #### L 101.9900, L100.0100, L400.0001, L504.2610, L501.6710, L500.4050 ####[facility] [address] [place], [address] Potassium [Moles/Vol] 4.0 mmol/L Normal 3.5-5.1 [facility] Comment on above: Order Comment: 1 Performed By: #### L 101.9900, L100.0100, L400.0001, L504.2610, L501.6710, L500.4050 ####[facility] [address] [place], [address] Sodium [Moles/Vol] 138 mmol/L Normal 136-145 [facility] Comment on above: Order Comment: 1 Performed By: #### L 101.9900, L100.0100, L400.0001, L504.2610, L501.6710, L500.4050 ####[facility] [address] [place], [address] T PROT 7.8 g/dL Normal 6.4-8.2 [facility] Comment on above: Order Comment: 1 Performed By: #### L 101.9900, L100.0100, L400.0001, L504.2610, L501.6710, L500.4050 ####[facility] [address] [place], [address] Urea nitrogen [Mass/Vol] 17 mg/dL Normal 7-18 [facility] Comment on above: Order Comment: 1 Performed By: #### L 101.9900, L100.0100, L400.0001, L504.2610, L501.6710, L500.4050 ####[facility] [address] [place], [address] Erythrocyte Sed Rateon 07-12 SED RATE 65 mm/hr High 0-20 [facility] Comment on above: Performed By: #### L 101.9900, L100.0100, L400.0001, L504.2610, L501.6710, L500.4050 ####[facility] [address] [place], [address] LDHon 07-12-2024 LDH 224 U/L Normal 87-241 [facility] Comment on above: Order Comment: 1 Performed By: #### L 101.9900, L100.0100, L400.0001, L504.2610, L501.6710, L500.4050 ####[facility] [address] [place], [address] Urinalysis, Completeon 07-12 RBC 5-10 SEEN Normal 0-5 [facility] Comment on above: Order Comment: COLLE CTOR TO SPECIFY Performed By: #### L 101.9900, L100.0100, L400.0001, L504.2610, L501.6710, L500.4050 ####[facility] [address] [place], [address] BACTERIA 2+ /hpf Normal None Seen [facility] Comment on above: Order Comment: COLLE CTOR TO SPECIFY Performed By: #### L 101.9900, L100.0100, L400.0001, L504.2610, L501.6710, L500.4050 ####[facility] [address] [place], [address] EPI,RENAL 10-25 SEEN Normal 0-5 [facility] Comment on above: Order Comment: COLLE CTOR TO SPECIFY Performed By: #### L 101.9900, L100.0100, L400.0001, L504.2610, L501.6710, L500.4050 ####[facility] [address] [place], [address] EPI,TRANSITION 0-5 SEEN Normal 0-5 [facility] Comment on above: Order Comment: COLLE CTOR TO SPECIFY Performed By: #### L 101.9900, L100.0100, L400.0001, L504.2610, L501.6710, L500.4050 ####[facility] [address] [place], [address] WBC >100 SEEN Normal 0-5 [facility] Comment on above: Order Comment: COLLE CTOR TO SPECIFY Performed By: #### L 101.9900, L100.0100, L400.0001, L504.2610, L501.6710, L500.4050 ####[facility] [address] [place], [address] EPI,SQUAMOUS 0 SEEN Normal 0-5 [facility] Comment on above: Order Comment: COLLE CTOR TO SPECIFY Performed By: #### L 101.9900, L100.0100, L400.0001, L504.2610, L501.6710, L500.4050 ####[facility] [address] [place], [address] Mucus Ql (Urine sed) 0 SEEN Normal [facility] Comment on above: Order Comment: COLLE CTOR TO SPECIFY Performed By: #### L 101.9900, L100.0100, L400.0001, L504.2610, L501.6710, L500.4050 ####[facility] [address] [place], [address] MR/Toby 05-26-2024 MR/PAUL [facility] [address] [place] [address] OFFICE VISIT Date of Service: 05/26/24 MR#: [id number] Acct: [id number] Name: ARIA HERNANDEZ Rep #: [id number] : 1945 Provider: Dr. Mary Ellen hunt MD Age/Sex: 78/M Location: [facility] Status: Signed Intake Vital Signs 01/20/24 08:30 [...] air room air Intake Visit Reasons: Rash Field Aide Required: No Accompanied by: Self Is patient [...] or palpitati (more content not included)... Normal [facility] Absolute lymphocyte countOrd ered By: Bneedicto Garland on 10-14-2023 Lymphocytes Auto (Unsp spec) [#/Vol] 1.50 10*3/uL 0.83-4.51 [facility] Basophil percentageOrdered B y: Benedicto Garland on 10-14-2023 Basophils/100 WBC (Bld) 0.7 % 0-1 [facility] Chloride [Moles/Vol] 106 mmol/L 98-107 [facility] Eosinophils/100 WBC (Bld) 2.3 % 0-5 [facility] Glucose [Mass/Vol] 109 mg/dL 74-106 [facility] Comment on above: Fasting Glucose resu lt from 100 to 125 mg/dL suggests IMPAIRED HOMEOSTASIS per A.D.A. criteria. Neutrophils (Bld) [#/Vol] 4.6 10*3/uL 2.0-7.7 [facility] Neutrophils/100 WBC (Bld) 67.3 % 47-70 [facility] Potassium [Moles/Vol] 3.8 mmol/L 3.5-5.1 [facility] Sodium [Moles/Vol] 141 mmol/L 136-145 [facility] WBC (Bld) [#/Vol] 6.8 10*3/uL 4.4-11.0 [facility] Blood erythrocytes count (nu mber/volume)Ordered By: Benedicto Garland on 10-14-2023 RBC (Bld) [#/Vol] 4.80 10*6/uL 4.6-6.2 [facility] Blood hemoglobin measurement (mass/volume)Ordered By: Benedicto Garland on 10-14-2023 Hemoglobin (Bld) [Mass/Vol] 14.7 g/dL 13.0-16.5 [facility] Blood lymphocytes/100 leukoc ytesOrdered By: Benedicto Garland on 10-14-2023 Lymphocytes/100 WBC (Bld) 22.0 % 19-41 [facility] Blood monocytes/100 leukocyt esOrdered By: Benedicto Garland on 10-14-2023 Monocytes/100 WBC (Bld) 6.8 % 0-10 [facility] Blood platelet mean volumeOr dered By: Benedicto Garland on 10-14-2023 Platelet mean volume (Bld) [Entitic vol] 9.3 fL 6.2-12.0 [facility] Determination of erythrocyte mean corpuscular volume (MCV)Ordered By: Benedicto Garland on 10-14-2023 MCV (RBC) [Entitic vol] 94.4 fL 80-94 [facility] Hematocrit Auto (Bld) [Volum e fraction]Ordered By: Benedicto Garland on 10-14-2023 Hematocrit (Bld) [Volume fraction] 45.3 % 40-54 [facility] - Chemistry and C hemistry - challengeOrdered By: Benedicto Garland on 10-14-2023 CO2 [Moles/Vol] 25.0 mmol/L 21.0-32.0 [facility] Urea nitrogen/Creatinine [Mass ratio] 16.5 mg/mg 10-20 [facility] - Hematology and Cell countsOrdered By: Benedicto Garland on 10-14-2023 Erythrocyte distribution width (RBC) [Entitic vol] 44.2 fL 35.1-43.9 [facility] Erythrocyte distribution width (RBC) [Ratio] 12.8 % 11.6-14.6 [facility] Immature granulocytes/100 WBC (Bld) 0.900 % 0.0-0.9 [facility] Comment on above: IG% - Immature Granu locytes (promyelocytes, myelocytes and metamyelocytes) > 1% indicates that a LEFT SHIFT is Present. MCH (RBC) [Entitic mass] 30.6 pg 27.0-32.0 [facility] Nucleated RBC/100 WBC (Bld) [Ratio] 0 % 0-5 [facility] MCHC Auto (RBC) [Mass/Vol]Or dered By: Benedicto Garland on 10-14-2023 MCHC (RBC) [Mass/Vol] 32.5 g/dL 32-36 [facility] No Panel InformationOrdered By: Benedicto Garland on 10-14-2023 Estimated Creatinine Clearance Calc 61.94 ml/min [facility] Estimated GFR (MDRD) Amer 90 mL/min >60 [facility] Comment on above: GFR Calc Estimated GFR (MDRD) Non-Af Amer 74 mL/min >60 [facility] Comment on above: Non- GFR Calc Platelets bldOrdered By: Ida Garland on 10-14-2023 Platelets (Bld) [#/Vol] 243 10*3/uL 150-450 [facility] Serum or plasma calcium sharon urement (mass/volume)Ordered By: Benedicto Garland on 10-14-2023 Calcium [Mass/Vol] 8.9 mg/dL 8.5-10.1 [facility] Serum or plasma creatinine m easurement (mass/volume)Ordered By: Benedicto Garland on 10-14-2023 Creatinine [Mass/Vol] 1.03 mg/dL 0.70-1.30 [facility] Comment on above: The validity of the calculated GFR & GFRAA in patients over 70 years has not been determined. Clinical correlation is essential. Serum or plasma urea nitroge n measurement (mass/volume)Ordered By: Benedicto Garland on 10-14-2023 Urea nitrogen [Mass/Vol] 17 mg/dL 7-18 [facility] Thin prep Papanicolaou smear with manual screeningOrdered By: Benedicto Garland on 10-14-2023 Thin prep Papanicolaou smear with manual screening 10 5-15 [facility] Amorphous sediment detection in urine sediment by light microscopyOrdered By: Jabari Elizabeth on 10-11-2023 Amorphous sediment LM Ql (Urine sed) 1+ URATE [facility] Basophil percentageOrdered B y: aJbari Elizabeth on 10-11-2023 Basophil percentage 0 SEEN /hpf 0-5 [facility] Bilirubin Test strip Ql (U)O rdered By: Jabari Elizabeth on 10-11-2023 Bilirubin Ql (U) Negative Negative [facility] Ketones Test strip Ql (U)Ord ered By: Jabari Elizabeth on 10-11-2023 Ketones Ql (U) 5 mg/dl Negative [facility] Mucus LM Ql (Urine sed)Order ed By: Jabari Elizabeth on 10-11-2023 Mucus Ql (Urine sed) 0 SEEN /hpf [facility] Nitrite Test strip Ql (U)Ord ered By: Jabari Elizabeth on 10-11-2023 Nitrite Ql (U) Negative Negative [facility] Protein Test strip Ql (U)Ord ered By: Jabari Elizabeth on 10-11-2023 Protein Ql (U) 500 mg/dl Negative [facility] Squamous epithelial cells de tection in urine sediment by light microscopyOrdered By: Jabari Elizabeth on 10-11-2023 Epithelial cells.squamous LM Ql (Urine sed) 0-5 SEEN /hpf 0-5 [facility] Urine blood detectionOrdered By: Jabari Elizabeth on 10-11-2023 RBC Ql (U) 150 /ul Negative [facility] RBC Ql (U) > 100 SEEN /hpf 0-5 [facility] Urine clarityOrdered By: Peter Elizabeth on 10-11-2023 Clarity (U) Cloudy Clear [facility] Urine color determinationOrd ered By: Jabari Elizabeth on 10-11-2023 Color (U) Red Yellow [facility] Urine glucose detectionOrder ed By: Jabari Elizabeth on 10-11-2023 Glucose Ql (U) Normal mg/dl Normal [facility] Urine leukocyte esterase det ection by dipstickOrdered By: Jabari Elizabeth on 10-11-2023 Leukocyte esterase Test strip Ql (U) Negative Negative [facility] Urine pHOrdered By: Jabari Elizabeth on 10-11-2023 pH (U) 6.5 [pH] 5.0 - 8.0 [facility] Urine sediment bacteria coun t by microscopy (number/high power field)Ordered By: Jabari Elizabeth on 10-11-2023 Bacteria LM.HPF (Urine sed) [#/Area] 0 /[HPF] None Seen [facility] Urine specific gravity measu rementOrdered By: Jabari Elizabeth on 10-11-2023 Specific gravity (U) [Rel density] 1.020 1.002-1.030 [facility] Urobilinogen Auto test strip Ql (U)Ordered By: Jabari Elizabeth on 10-11-2023 Urobilinogen Ql (U) Normal mg/dl Normal [facility] Basophil percentageOrdered B y: Isa Hansoning on 08-03-2023 Basophil percentage < 0.9 mg/dL 0.70-1.30 [facility] No Panel InformationOrdered By: Isa Hansoning on 08-03-2023 Bedside Estimated GFR (eGFR) > 60.0000 mL/min >60 [facility] Absolute lymphocyte countOrd ered By: Dr. Jules on 12-25-2022 Lymphocytes Auto (Unsp spec) [#/Vol] 2.61 10*3/uL 0.83-4.51 [facility] Basophil percentageOrdered B y: Dr. Jules on 12-25-2022 Basophils/100 WBC (Bld) 0.8 % 0-1 [facility] Bilirubin [Mass/Vol] 0.70 mg/dL 0.20-1.00 [facility] Comment on above: For patients on eltr ombopag therapy, use of Dimension [place] TBIL is not recommended. Chloride [Moles/Vol] 104 mmol/L 98-107 [facility] Cholesterol [Mass/Vol] 185 mg/dL <200 [facility] Comment on above: <200 mg/dL Desirable 200-240 mg/dL Borderline >240 mg/dL High Risk Eosinophils/100 WBC (Bld) 5.2 % 0-5 [facility] Glucose [Mass/Vol] 100 mg/dL 74-106 [facility] Comment on above: Fasting Glucose resu lt from 100 to 125 mg/dL suggests IMPAIRED HOMEOSTASIS per A.D.A. criteria. Neutrophils (Bld) [#/Vol] 2.0 10*3/uL 2.0-7.7 [facility] Neutrophils/100 WBC (Bld) 37.5 % 47-70 [facility] Potassium [Moles/Vol] 3.9 mmol/L 3.5-5.1 [facility] Protein [Mass/Vol] 7.5 g/dL 6.4-8.2 [facility] Sodium [Moles/Vol] 138 mmol/L 136-145 [facility] Triglyceride [Mass/Vol] 111 mg/dL <199 [facility] Comment on above: The drugs N-Acetylcy steine and Metamizole may falsely depress this assay.Serum Triglycerides Reference Interval Normal <150 mg/dL Borderline high 150 - 199 mg/dL High 200 - 499 mg/dL Very High > or = 500 mg/dL WBC (Bld) [#/Vol] 5.2 10*3/uL 4.4-11.0 [facility] Blood erythrocytes count (nu mber/volume)Ordered By: Dr. Jules on 12-25-2022 RBC (Bld) [#/Vol] 5.07 10*6/uL 4.6-6.2 [facility] Blood hemoglobin measurement (mass/volume)Ordered By: Dr. Jules on 12-25-2022 Hemoglobin (Bld) [Mass/Vol] 15.6 g/dL 13.0-16.5 [facility] Blood lymphocytes/100 leukoc ytesOrdered By: Dr. Jules on 12-25-2022 Lymphocytes/100 WBC (Bld) 50.0 % 19-41 [facility] Blood monocytes/100 leukocyt esOrdered By: Dr. Jules on 12-25-2022 Monocytes/100 WBC (Bld) 6.1 % 0-10 [facility] Blood platelet mean volumeOr dered By: Dr. Jules on 12-25-2022 Platelet mean volume (Bld) [Entitic vol] 9.4 fL 6.2-12.0 [facility] Determination of erythrocyte mean corpuscular volume (MCV)Ordered By: Dr. Jules on 12-25-2022 MCV (RBC) [Entitic vol] 94.3 fL 80-94 [facility] Hematocrit Auto (Bld) [Volum e fraction]Ordered By: Dr. Jules on 12-25-2022 Hematocrit (Bld) [Volume fraction] 47.8 % 40-54 [facility] - Chemistry and C hemistry - challengeOrdered By: Dr. Jules on 12-25-2022 ALP [Catalytic activity/Vol] 50 U/L 45-117 [facility] ALT [Catalytic activity/Vol] 33 U/L 16-61 [facility] CO2 [Moles/Vol] 29.0 mmol/L 21.0-32.0 [facility] Globulin (S) [Mass/Vol] 3.7 g/dL 2.2-4.2 [facility] Urea nitrogen/Creatinine [Mass ratio] 17.8 mg/mg 10-20 [facility] - Hematology and Cell countsOrdered By: Dr. Jules on 12-25-2022 Erythrocyte distribution width (RBC) [Entitic vol] 44.2 fL 35.1-43.9 [facility] Erythrocyte distribution width (RBC) [Ratio] 12.8 % 11.6-14.6 [facility] Immature granulocytes/100 WBC (Bld) 0.400 % 0.0-0.9 [facility] Comment on above: IG% - Immature Granu locytes (promyelocytes, myelocytes and metamyelocytes) > 1% indicates that a LEFT SHIFT is Present. MCH (RBC) [Entitic mass] 30.8 pg 27.0-32.0 [facility] Nucleated RBC/100 WBC (Bld) [Ratio] 0 % 0-5 [facility] MCHC Auto (RBC) [Mass/Vol]Or dered By: Dr. Jules on 12-25-2022 MCHC (RBC) [Mass/Vol] 32.6 g/dL 32-36 [facility] No Panel InformationOrdered By: Dr. Jules on 12-25-2022 Estimated GFR (MDRD) Amer 98 mL/min >60 [facility] Comment on above: GFR Calc Estimated GFR (MDRD) Non-Af Amer 81 mL/min >60 [facility] Comment on above: Non- GFR Calc Prostate Specific Antigen Screen 3.19 ng/mL 0.00-4.00 [facility] Comment on above: This test was perfor med using the TPSA assay method for theDayima chemistry system. Values obtained with differentassay methods cannot be used interchangably.When changing PSA assays in the course of monitoring apatient, additional sequential testing should be carriedout to confirm baseline values. Thyroid Stimulating Hormone (TSH) 2.08 uIU/mL 0.358-3.74 [facility] Vitamin D 25-Hydroxy 14.4 ng/mL [facility] Comment on above: Vitamin D 25(OH) Sta tus Range Deficiency <20 ng/mL (50nmol/L) Insufficiency 20 - 30 ng/mL (50 - 75 nmol/L) Sufficiency 30 - 100 ng/mL (75 - 250 nmol/L) Toxicity >100 ng/mL (>250 nmol/L) Platelets bldOrdered By: Dr. Jules on 12-25-2022 Platelets (Bld) [#/Vol] 207 10*3/uL 150-450 [facility] Serum or plasma albumin sharon urement (mass/volume)Ordered By: Dr. Jules on 12-25-2022 Albumin [Mass/Vol] 3.8 g/dL 3.2-5.0 [facility] Serum or plasma albumin/glob ulin mass ratioOrdered By: Dr. Jules on 12-25-2022 Albumin/Globulin [Mass ratio] 1.0 {ratio} 0.9-2.4 [facility] Serum or plasma calcium sharon urement (mass/volume)Ordered By: Dr. Jules on 12-25-2022 Calcium [Mass/Vol] 9.0 mg/dL 8.5-10.1 [facility] Serum or plasma cholesterol in HDL measurement (mass/volume)Ordered By: Dr. Jules on 12-25-2022 Cholesterol in HDL [Mass/Vol] 36 mg/dL >40 [facility] Comment on above: The drugs N-Acetylcy steine and Metamizole may falsely depress this assay. Reference Range HDL <40 mg/dL Low HDL Cholesterol HDL >or= 60 mg/dL High HDL Cholesterol Serum or plasma cholesterol in VLDL measurement (mass/volume)Ordered By: Dr. Jules on 12-25-2022 Cholesterol in VLDL [Mass/Vol] 22 mg/dL 5-40 [facility] Serum or plasma creatinine m easurement (mass/volume)Ordered By: Dr. Jules on 12-25-2022 Creatinine [Mass/Vol] 0.96 mg/dL 0.70-1.30 [facility] Comment on above: The validity of the calculated GFR & GFRAA in patients over 70 years has not been determined. Clinical correlation is essential. Serum or plasma low density lipoprotein (LDL) cholesterol measurement (mass/volume)Ordered By: Dr. Jules on 12-25-2022 Cholesterol in LDL [Mass/Vol] 127 mg/dL 0-130 [facility] Serum or plasma urea nitroge n measurement (mass/volume)Ordered By: Dr. Jules on 12-25-2022 Urea nitrogen [Mass/Vol] 17 mg/dL 7-18 [facility] Thin prep Papanicolaou smear with manual screeningOrdered By: Dr. Jules on 12-25-2022 Thin prep Papanicolaou smear with manual screening 24 U/L 15-37 [facility] Thin prep Papanicolaou smear with manual screening 5 5-15 [facility] CNCOon 12-04-2021 CNCO Letter Text Normal [facility] CNPNon 10-04-2021 CNPN Telephone (FAMWS) ARIA HERNANDEZ ([id number]) 1945 M TXT Date Time Provider Department 10/04/21 [facility] During your visit today, we recorded the [...] as of 07/18/2019: Local Pharmacy - [facility] Problem List As Of Date 10/04/2021 Noted [...] Encounter Status:Closed by ANABELLA GONG on 10/04/21 [facility] OBSOLETEon 05-28-2021 OBSOLETE Refill (FAMPWS) ARIA HERNANDEZ ([id number]) 1945 M TXT Date Time Provider Department [...] NOV-none Please review and advise. Kaylan Griffith MACHINE TECHNICIAN Allergies As of Date: 05/28/2021 Noted Allergy [...] Encounter Status:Closed by [facility] PAC[facility]CO on 05/28/21 [facility] OBSOLETEon 04-07-2021 OBSOLETE Refill (REGINO) ARIA HERNANDEZ ([id number]) 1945 M TXT Date Time Provider Department [...] Status:Closed by ELISSA WEISS on 04/08/21 Normal [facility] Vital Signs Date Time Vital Sign Value Performing Clinician Faci sheriy 03-30-2025 07:57-0400 Body height 180.[address] Mary Ellen Jules MD Work Phone: [facility] 03-30-2025 07:57-0400 Body mass index (BMI) [Ratio] 25.8 kg/m2 Dr. Mary Ellen Jules MD Work Phone: [facility] 03-30-2025 07:57-0400 Body temperature 98.2 [degF] Dr. Mary Ellen Jules MD Work Phone: [facility] 03-30-2025 07:57-0400 Body weight 84.[address] Mary Ellen Jules MD Work Phone: [facility] 03-30-2025 07:57-0400 Diastolic blood pressure 70 mm[Hg] Dr. Mary Ellen Jules MD Work Phone: [facility] 03-30-2025 07:57-0400 Heart rate 78 /min Dr. Mary Ellen Jules MD Work Phone: [facility] 03-30-2025 07:57-0400 Respiratory rate 16 /min Dr. Mary Ellen Jules MD Work Phone: [facility] 03-30-2025 07:57-0400 SaO2% (BldA) [Mass fraction] 94 % Dr. Mary Ellen Jules MD Work Phone: [facility] 03-30-2025 07:57-0400 Systolic blood pressure 128 mm[Hg] Dr. Mary Ellen Jules MD Work Phone: [facility] 10-15-2023 09:49-0500 Body temperature 98.6 [degF] Dr. Mary Ellen Jules Work Phone: [facility] 10-15-2023 09:49-0500 Diastolic blood pressure 72 mm[Hg] Dr. Mary Ellen Jules Work Phone: [facility] 10-15-2023 09:49-0500 Heart rate 83 /min Dr. Mary Ellen Jules Work Phone: [facility] 10-15-2023 09:49-0500 Respiratory rate 16 /min Dr. Mary Ellen Jules Work Phone: [facility] 10-15-2023 09:49-0500 SaO2% (BldA) [Mass fraction] 96 % Dr. Mary Ellen Jules Work Phone: [facility] 10-15-2023 09:49-0500 Systolic blood pressure 138 mm[Hg] Dr. Mary Ellen Jules Work Phone: [facility] 10-14-2023 19:52-0500 Body height 180.[address] Mary Ellen Jules Work Phone: [facility] 10-14-2023 19:52-0500 Body mass index (BMI) [Ratio] 25.4 kg/m2 Dr. Mary Ellen Jules Work Phone: [facility] 10-14-2023 19:52-0500 Body weight 82.[address] Mary Ellen Jules Work Phone: [facility] 10-14-2023 19:06-0500 Diastolic blood pressure 87 mm[Hg] Dr. Mary Ellen Jules Work Phone: [facility] 10-14-2023 19:06-0500 Heart rate 72 /min Dr. Mary Ellen Jules Work Phone: [facility] 10-14-2023 19:06-0500 Respiratory rate 16 /min Dr. Mary Ellen Jules Work Phone: [facility] 10-14-2023 19:06-0500 SaO2% (BldA) [Mass fraction] 97 % Dr. Mary Ellen Jules Work Phone: [facility] 10-14-2023 19:06-0500 Systolic blood pressure 142 mm[Hg] Dr. Mary Ellen Jules Work Phone: [facility] 10-14-2023 16:52-0500 Body height 180.[address] Mary Ellen Jules Work Phone: [facility] 10-14-2023 16:52-0500 Body mass index (BMI) [Ratio] 26.2 kg/m2 Dr. Mary Ellen Jules Work Phone: [facility] 10-14-2023 16:52-0500 Body temperature 98.6 [degF] Dr. Mary Ellen Jules Work Phone: [facility] 10-14-2023 16:52-0500 Body weight 85.[address] Mary Ellen Jules Work Phone: [facility] 10-11-2023 21:00-0500 Body height 180.[address] Mary Ellen Jules Work Phone: [facility] 10-11-2023 21:00-0500 Body mass index (BMI) [Ratio] 26.5 kg/m2 Dr. Mary Ellen Jules Work Phone: [facility] 10-11-2023 21:00-0500 Body temperature 97.5 [degF] Dr. Mary Ellen Jules Work Phone: [facility] 10-11-2023 21:00-0500 Body weight 86.[address] Mary Ellen Jules Work Phone: [facility] 10-11-2023 21:00-0500 Diastolic blood pressure 81 mm[Hg] Dr. Mary Ellen Jules Work Phone: [facility] 10-11-2023 21:00-0500 Heart rate 91 /min Dr. Mary Ellen Jules Work Phone: [facility] 10-11-2023 21:00-0500 Respiratory rate 16 /min Dr. Mary Ellen Jules Work Phone: [facility] 10-11-2023 21:00-0500 SaO2% (BldA) [Mass fraction] 94 % Dr. Mary Ellen Jules Work Phone: [facility] 10-11-2023 21:00-0500 Systolic blood pressure 142 mm[Hg] Dr. Mary Ellen Jules Work Phone: [facility] 10-07-2023 16:57-0500 Body temperature 97.7 [degF] Dr. Mary Ellen Jules Work Phone: [facility] 10-07-2023 16:57-0500 Diastolic blood pressure 76 mm[Hg] Dr. Mary Ellen Jules Work Phone: [facility] 12-13-2023 16:57-0500 Heart rate 67 /min Dr. Mary Ellen Jules Work Phone: [facility] 10-07-2023 16:57-0500 Respiratory rate 16 /min Dr. Mary Ellen Jules Work Phone: [facility] 10-07-2023 16:57-0500 SaO2% (BldA) [Mass fraction] 98 % Dr. Mary Ellen Jules Work Phone: [facility] 10-07-2023 16:57-0500 Systolic blood pressure 153 mm[Hg] Dr. Mary Ellen Jules Work Phone: [facility] 10-07-2023 13:07-0500 Body height 180.[address] Mary Ellen Jules Work Phone: [facility] 10-07-2023 13:07-0500 Body mass index (BMI) [Ratio] 25.4 kg/m2 Dr. Mary Ellen Jules Work Phone: [facility] 10-07-2023 13:07-0500 Body weight [address] Mary Ellen Jules Work Phone: [facility] 07-07-2023 14:03-0400 Body height 180.[address] Mary Ellen Jules Work Phone: [facility] 07-07-2023 14:03-0400 Body mass index (BMI) [Ratio] 25.7 kg/m2 Dr. Mary Ellen Jules Work Phone: [facility] 07-07-2023 14:03-0400 Body temperature 97.3 [degF] Dr. Mary Ellen Jules Work Phone: [facility] 07-07-2023 14:03-0400 Body weight 83.[address] Mary Ellen Jules Work Phone: [facility] 07-07-2023 14:03-0400 Diastolic blood pressure 75 mm[Hg] Dr. Mary Ellen Jules Work Phone: [facility] 07-07-2023 14:03-0400 Heart rate 69 /min Dr. Mary Ellen Jules Work Phone: [facility] 07-07-2023 14:03-0400 Respiratory rate 16 /min Dr. Mary Ellen Jules Work Phone: [facility] 07-07-2023 14:03-0400 SaO2% (BldA) [Mass fraction] 95 % Dr. Mary Ellen Jules Work Phone: [facility] 07-07-2023 14:03-0400 Systolic blood pressure 147 mm[Hg] Dr. Mary Ellen Jules Work Phone: [facility] 06-17-2023 10:55-0400 Body mass index (BMI) [Ratio] 25.7 kg/m2 Dr. Mary Ellen Jules Work Phone: [facility] 06-17-2023 10:55-0400 Body temperature 98.3 [degF] Dr. Mary Ellen Jules Work Phone: [facility] 06-17-2023 10:55-0400 Body weight 83.[address] Mary Ellen Jules Work Phone: [facility] 06-17-2023 10:55-0400 Diastolic blood pressure 76 mm[Hg] Dr. Mary Ellen Jules Work Phone: [facility] 06-17-2023 10:55-0400 Heart rate 73 /min Dr. Mary Ellen Jules Work Phone: [facility] 06-17-2023 10:55-0400 Respiratory rate 16 /min Dr. Mary Ellen Jules Work Phone: [facility] 06-17-2023 10:55-0400 SaO2% (BldA) [Mass fraction] 93 % Dr. Mary Ellen Jules Work Phone: [facility] 06-17-2023 10:55-0400 Systolic blood pressure 128 mm[Hg] Dr. Mary Ellen Jules Work Phone: [facility] Encounters Encounter Date Encounter Type Care Provider Facility Start: 03-30-2025 End: 03-30-[address] Mary Ellen Jules [facility] -[facility] Work Phone: Start: 03-30-2025 End: 03-30-2025 ambulatory Mary Ellen Jules Facility:[facility] Start: 02-28-2025 End: 02-28-[address] Mary Ellen Jules MD Work Phone: [facility] Work Phone: Start: 02-28-2025 End: 02-28-[address] Mary Ellen Jules MD -Laboratory, [facility] Start: 02-28-2025 End: 02-28-2025 ambulatory Mary Ellengalen Jules Facility:[facility] Start: 11-02-2024 ambulatory [facility] Jorge A Facility :[facility] Start: 11-01-2024 End: 11-01-2024 ambulatory [facility] Jorge A Facility:[facility] Start: 07-25-2024 End: 07-25-2024 ambulatory [facility] Jorge A Facility:[facility] Start: 07-12-2024 End: 07-12-2024 ambulatory [facility] Jorge A Facility:[facility] Start: 05-26-2024 End: 05-26-2024 ambulatory Mary Ellen Jules Facility:[facility] Start: 10-14-2023 End: 10-15-2023 Evaluation and management of inpatient Dr. Mary Ellen Jules Work Phone: [facility] 3 Work Phone: Start: 10-14-2023 End: 10-15-[address] Mary Ellen Jules Work Phone: [facility] Work Phone: Start: 10-11-2023 End: 10-12-2023 Emergency department patient visit Dr. Mary Ellen Jules Work Phone: [facility] Work Phone: Start: 10-07-2023 End: 10-07-2023 Non-patient / Non-visit Dr. Mary Ellen Jules Work Phone: [facility] Work Phone: Start: 10-07-2023 End: 10-07-2023 Admission to same day surgery center Dr. Mary Ellen Jules Work Phone: [facility] Start: 10-07-2023 End: 10-07-[address] Mary Ellen Jules Work Phone: [facility] Work Phone: Start: 08-03-2023 End: 08-03-[address] Mary Ellen Jules Work Phone: [facility] Work Phone: Start: 08-03-2023 End: 08-03-[address] Mary Ellen Jules Work Phone: [facility] Work Phone: Start: 07-07-2023 End: 07-07-[address] Mary Ellen Jules Work Phone: [facility] Work Phone: Start: 06-17-2023 End: 06-17-[address] Mary Ellen Jules Work Phone: [facility] Work Phone: Start: 12-25-2022 End: 12-25-2022 ambulatory [facility] Work Phone: Start: 12-25-2022 End: 12-25-2022 Patient encounter procedure [facility] Start: 04-18-2022 Angelia steiner PA-C Work Phone: [facility] Comment on above: Opened In Error Start: 04-07-2022 Refill Elissa Weiss MD Work Phone: [facility] Comment on above: Refill Request Procedures Date [...] Author Start: 11-27-2023 DIABETES SCREEN DIABETES SCREEN [facility] Start: 10-15-2023 Patient discharge [facility] Start: 10-15-2023 Application of intermittent pneumatic compression device [facility] Start: 10-14-2023 Following clinical pathway protocol [facility] Start: 10-14-2023 Admission procedure [facility] Start: 10-14-2023 Measuring intake and output [facility] Start: 10-14-2023 Patient education [facility] Start: 10-14-2023 Provision of activity privileges [facility] Start: 10-14-2023 Taking patient vital signs [facility] Start: 10-14-2023 Vital signs measurements [facility] Start: 10-14-2023 [facility] Start: 10-14-2023 Hospital admission, emergency, from emergency room, medical nature [facility] Start: 10-14-2023 Consultation [facility] Start: 10-12-2023 [facility] Start: 10-07-2023 Ambulation without limitation [facility] Start: 10-07-2023 Medical regimen orders management [facility] Start: 10-07-2023 Medication education [facility] Start: 10-07-2023 Patient discharge [facility] Start: 10-07-2023 Taking patient vital signs [facility] Start: 10-07-2023 End: 10-07-2023 [facility] Start: 10-07-2023 Anes transurethral resection of bladder tumor ANESTH BLADDER TUMOR SURG [facility] Start: 10-07-2023 Cystourethroscopy w/dest &/rmvl med bladder gibran CYSTOSCOPY AND TREATMENT [facility] Start: 06-17-2023 Patient referral [facility] Work Phone: Start: 12-08-2021 Adult depression screening assessment DEPRESSION SCREENING [facility] Start: 11-29-2021 COVID-19 VACCINE (4 - Booster for Pfizer series) COVID-19 VACCINE (4 - Booster for Pfizer series) [facility] Start: 10-26-2021 ADVANCE DIRECTIVE DISCUSSION ADVANCE DIRECTIVE DISCUSSION [facility] Start: 06-14-2009 Urine microalbumin profile DTAP,TDAP,TD (1 - Tdap) [facility] Start: 1963 HEPATITIS C SCREENING HEPATITIS C SCREENING [facility] Patient Education ED [facility] Work Phone: Patient referral [facility] Work Phone: Serum testosterone measurement [facility] Testosterone Free [Mass/volume] in Serum or Plasma [facility] Testosterone measurement [facility] Immunizations Immunization Date Immunization Notes Care Provider Yvonne ridley 01-31-2025 Covid (Pfizer) Dr. Mary Ellen ríos MD Work Phone: [facility] 06-22-2024 Covid Pfizer Bivalen t Booster Dr. Mary Ellen Jules MD Work Phone: [facility] 06-22-2024 influenza, injectabl e, quadrivalent, preservative free Dr. Mary Ellen Jules MD Work Phone: [facility] 08-04-2023 influenza, injectabl e, quadrivalent, preservative free Dr. Mary Ellen Jules Work Phone: [facility] 08-04-2023 Pfizer Covid-19 (Comirnaty) Dr. Mary Ellen Jules Work Phone: [facility] 08-01-2022 Covid Pfizer Bivalen t Booster Dr. Mary Ellen Jules Work Phone: [facility] 08-01-2022 influenza, injectabl e, quadrivalent, preservative free Dr. Mary Ellen Jules Work Phone: [facility] 02-06-2022 Covid (Pfizer) Dr. Mary Ellen ríos Work Phone: [facility] 08-19-2021 influenza, high dose seasonal, preservative-free Elissa Weiss MD Work Phone: [facility] 08-19-2021 influenza, injectabl e, quadrivalent, preservative free Dr. Mary Ellen Jules Work Phone: [facility] 07-29-2021 COVID-19 vaccine, ag e 12+ yr (PFIZER-BIONTECH - PURPLE TOP) Elissa Weiss MD Work Phone: [facility] 12-29-2020 COVID-19 vaccine, ag e 12+ yr (PFIZER-BIONTECH - PURPLE TOP) Elissa Weiss MD Work Phone: [facility] 12-08-2020 COVID-19 vaccine, ag e 12+ yr (PFIZER-BIONTECH - PURPLE TOP) Elissa Weiss MD Work Phone: [facility] 10-24-2020 zoster vaccine recombinant Elissa Weiss MD Work Phone: [facility] 06-28-2020 influenza, injectabl e, quadrivalent, preservative free Dr. Mary Ellen Jules Work Phone: [facility] 06-28-2020 zoster vaccine recombinant Elissa Weiss MD Work Phone: [facility] 07-18-2019 Influenza, high dose seasonal Dr. Mary Ellen Jules MD Work Phone: [facility] 07-18-2019 influenza, high dose seasonal, preservative-free Elissa Weiss MD Work Phone: [facility] 01-17-2019 influenza, injectabl e, quadrivalent, preservative free Dr. Mary Ellen Jules Work Phone: [facility] 01-17-2019 pneumococcal polysaccharide vaccine, [address] Mary Ellen Jules Work Phone: [facility] 08-27-2018 Influenza, high dose seasonal Dr. Mary Ellen Jules MD Work Phone: [facility] 08-27-2018 influenza, high dose seasonal, preservative-free Elissa Weiss MD Work Phone: [facility] 08-25-2017 Influenza, high dose seasonal Dr. Mary Ellen Jules MD Work Phone: [facility] 08-25-2017 influenza, high dose seasonal, preservative-free Elissa Weiss MD Work Phone: [facility] 01-01-2017 pneumococcal polysaccharide vaccine, 23 valent Elissa Weiss MD Work Phone: [facility] Work Phone: 08-13-2016 Influenza, high dose seasonal Dr. Mary Ellen Jules MD Work Phone: [facility] 08-13-2016 influenza, high dose seasonal, preservative-free Elissa Weiss MD Work Phone: [facility] Work Phone: 07-26-2015 influenza, high dose seasonal, preservative-free Elissa Weiss MD Work Phone: [facility] 07-26-2015 influenza, injectabl e, quadrivalent, preservative free Dr. Mary Ellen Jules Work Phone: [facility] 06-27-2015 pneumococcal conjuga te vaccine, 13 valent Elissa Weiss MD Work Phone: [facility] 07-24-2014 influenza, injectabl e, quadrivalent, preservative free Dr. Mary Ellen Jules Work Phone: [facility] 07-24-2014 influenza, seasonal, injectable Elissa Weiss MD Work Phone: [facility] 08-12-2013 influenza virus vacc ine, unspecified formulation Elissa Weiss MD Work Phone: [facility] 08-13-2012 influenza virus vacc ine, unspecified formulation Elissa Weiss MD Work Phone: [facility] Work Phone: 08-06-2010 influenza, injectabl e, quadrivalent, preservative free Dr. Mary Ellen Jules Work Phone: [facility] 07-26-2009 zoster vaccine, live Elissa Weiss MD Work Phone: [facility] Work Phone: 06-13-2009 tetanus and diphther ia toxoids, adsorbed, preservative free, for adult use (2 Lf of tetanus toxoid and 2 Lf of diphtheria toxoid) Elissa Weiss MD Work Phone: [facility] 09-12-2008 influenza virus vacc ine, unspecified formulation Elissa Weiss MD Work Phone: [facility] 09-03-2007 influenza virus vacc ine, unspecified formulation Elissa Weiss MD Work Phone: [facility] Work Phone: 09-03-2007 pneumococcal polysaccharide vaccine, 23 valent Elissa Weiss MD Work Phone: [facility] Work Phone: Payers Date Payer Category Payer Private Health Insurance [id number] 2024 Self-pay [id number] 2010 Medicare AETNA MEDICARE A ETNA MEDICARE PPO [id number] 2010-Present [phone] [address] [place] [address] PPO [id number] Private Health Insurance AETNA [id number] Unknown [id number] 62 Unknown [id number] 62 Unknown [id number] 62 Unknown [id number] 62 Unknown [id number] 62 Unknown [id number] 62 Unknown [id number] 62 Social History Date Type Detail Facility Start: 05-26-2024 Tobacco smoking stat [facility] Never smoked tobacco [facility] Start: 12-10-2020 Alcohol intake Current non-dr consular officer of alcohol (finding) [facility] Start: 03-20-2020 History SDOH Alcohol Frequency 3 [facility] Start: 03-20-2020 End: 12-08-2020 History SDOH Alcohol Std Drinks 1 [facility] Start: 03-20-2020 End: 12-08-2020 History SDOH Social Connections Phone 2 [facility] Start: 03-20-2020 History SDOH Social Connections Get Together 98 [facility] Start: 03-20-2020 History SDOH Financial 5 [facility] Start: 03-20-2020 Education 20 [facility] Start: 1945 Sex Assigned At Male [facility] Start: 05-22-2022 End: 10-14-2023 Tobacco smoking status INIS Unknown if ever smoked [facility] Medical Equipment Procedure Code Equipment Code Equipment [...] Assessment Result Facility 10-15-2023 Functional status Ambulates [facility] Work Phone: Mental Status Date Assessment Result Facility 10-15-2023 Cognitive function Voice/Name [facility] Work Phone: 10-07-2023 Cognitive function Level Of Cons ciousness Awake;Alert;Appropriate;Follow s Commands [facility] Work Phone: 10-07-2023 Cognitive function Voice/Name [facility] Work Phone: Clinical Notes 06-07-2015 to 10-15-2023 Note Date & Type Note Facility 10-15-2023 Progress note Note Date/Time October 15, 2023 7:20am [facility] Medical Records Department [address] [place] [address] Progress Note - Urology 10/15/23 0719 MR#: [id number] Acct: [id number] Name: ARIA HERNANDEZ Rep #:[id number] : 1945 78 From: Joseph Carpenter MD PCP: Dr. Mary Ellen Jules MD Status:ADM SOPHIA Location: MS3 [id number] Subjective Subjective Status post TURBT was admitted [...] % (Auto) 67.3, Lymph % (Auto) 22.0, [place]% (Auto) 6.8, Eos % (Auto) 2.3, Baso [...] Cosigner Signature (if applicable): CC: ~ Signed [facility] Work Phone: 1(841) 222-817112-20-2023 Discharge summary Author Benedicto Garland [facility] October 14, 2023 9:55pm Note Date/Time October 14, 2023 5:12pm [facility] Medical Records Department [address] [place] [address] Emergency Department Summary 10/14/23 MR#: [id number] Acct: [id number] Name: ARIA HERNANDEZ Rep #:[id number] : 1945 78 From: Benedicto Garland MD PCP: Dr. Mary Ellen Jules MD Status:ADM SOPHIA Location: [place] [address] HPI <JESSE Muñoz - Last Filed: 10/14/23 [...] <JESSE Muñoz - Last Filed: 10/14/23 19:35> [facility] Narrative Medical decision making narrative: Patient presenting [...] % (Auto) 67.3 Lymph % (Auto) 22.0 [place] % (Auto) 6.8 Eos % (Auto) 2.3 [...] % (Auto) 67.3 Lymph % (Auto) 22.0 [place] % (Auto) 6.8 Eos % (Auto) 2.3 [...] gross hematuria Disposition Disposition: Acute Care Hospital [facility] Discharge Date/Time: 10/14/23 19:08 What to do if you have Problems For any increased pain, shortness of breath, bleeding, nausea or vomiting, chest pain, or any unexpected problems, contact your Primary Care Provider. Call [facility] ([phone]) or report to the closest Emergency Room. Call 911 if necessary. 10/14/232154 <Electronically signed by Benedicto Garland MD> Cosigner Signature (if applicable): 10/14/231934 <Electronically signed by Stephanie MOLINA> CC: Dr. Mary Ellen Jules MD ~ Signed [facility] Work Phone: 1(425) 920-333812-20-2023 Discharge summary Author Joseph Carpenter [facility] October 14, 2023 6:26pm Note Date/Time October 14, 2023 6:26pm [facility] Medical Records Department [address] [place] [address] Instructions for Home/Discharge Instructions 10/14/23 1825 MR#: [id number] Acct: [id number] Name: ARIA HERNANDEZ Rep #:[id number] : 1945 78 From: Joseph Carpenter MD [...] Up With: Joseph Carpenter MD When: Call [phone] for an appointment Test Results: Test results [...] Dr. Mary Ellen Jules MD ~ Signed [facility] Work Phone: 1(855) 796-901712-20-2023 History and physical note Author Joseph Carpenter [facility] October 14, 2023 6:25pm Note Date/Time October 14, 2023 6:26pm [facility] Medical Records Department [address] [place] [address] History & Physical Exam 10/14/231823 MR#: [id number] Acct: [id number] Name: ARIA HERNANDEZ Rep #:[id number] : 1945 78 From: Joseph Carpenter MD PCP: Dr. Mary Ellen Jules MD Status:REG ER Location: ED HPI - General General Date of Admission: 10/14/23 Chief Complaint: Gross hematuria status post TURBT HPI Narrative 78-year-old male presents with gross hematuria, had a resection of bladder tumorwill admit the patient for observation [facility] Medical History Abnormal prostate by palpation [...] % (Auto) 67.3, Lymph % (Auto) 22.0, [place]% (Auto) 6.8, Eos % (Auto) 2.3, Baso [...] MD; Dr. Mary Ellen Jules MD~ Signed [facility] Work Phone: 1(917) 731-458712-18-2023 Discharge summary Author Jabari Elizabeth [facility] October 12, 2023 1:26am Note Date/Time October 11, 2023 10:58pm [facility] Medical Records Department [address] [place] [address] Emergency Department Summary 10/11/23 MR#: [id number] Acct: [id number] Name: ARIA HERNANDEZ Rep #:[id number] : 1945 78 From: Jabari Elizabeth MD [...] He is on no anticoagulants or antiplatelets. [facility] Medical History Abnormal prostate by palpation Alcohol [...] Clarity Cloudy Urine pH 6.5 Ur Specific [place] 1.020 Urine Protein 500 H Urine Glucose (UA) Normal Urine Ketones 5 H Urine Occult Blood 150 H Urine Nitrite Negative Urine Bilirubin Negative Urine Urobilinogen Normal Ur Leukocyte Esterase Negative Urine RBC > 100 SEEN Urine WBC 0 SEEN Ur Squamous Epith Cells 0-5 SEEN Amorphous Sediment 1+ URATE Urine Bacteria 0 SEEN Urine Mucus 0 SEEN Management Discussion w/another healthcare provider: Drawing Operator (Urology) Discharge Plan Triage Chief Complaint: Complaint [...] problems, contact your Primary Care Provider. Call [facility] ([phone]) or report to the closest Emergency Room. Call 911 if necessary. 10/12/23 0126 <Electronically signed by Jabari Elizabeth MD> Cosigner Signature (if applicable): CC: Dr. Mary Ellen Jules MD ~ Signed [facility] Work Phone: 1(366) 152-908912-13-2023 Discharge summary Author Joseph Carpenter [facility] October 07, 2023 3:25pm Note Date/Time October 07, 2023 3:25pm [facility] Medical Records Department [address] [place] [address] Instructions for Home/Discharge Instructions 10/07/23 1525 MR#: [id number] Acct: [id number] Name: ARIA HERNANDEZ Rep #:[id number] : 1945 78 From: Joseph Carpenter MD PCP: Dr. Mary Ellen Jules MD Status:REG [facility] Discharge Instructions Diet Discharge Diet: No restrictions Activity Discharge Activity: Return to Normal Activity Dressing / Incision Catheter: Luis to leg bag and Luis to large bag Drain: [place] Follow Up Care Please Follow Up With: [...] Dr. Mary Ellen Jules MD ~ Signed [facility] Work Phone: 1(838) 697-558112-13-2023 History and physical note Author Joseph Carpenter [facility] October 07, 2023 2:51pm Note Date/Time October 07, 2023 2:52pm [facility] Medical Records Department [address] [place] [address] History & Physical Exam 10/07/23 1451 MR#: [id number] Acct: [id number] Name: ARIA HERNANDEZ Rep #:[id number] : 1945 78 From: Joseph Carpenter MD PCP: Dr. Mary Ellen Jules MD Status:REG [facility] Location: [address] - General General Date of Service: 10/07/23 Chief Complaint: Bladder tumor HPI Narrative ARIA HERNANDEZ, is a 78 M who presents transurethral resection of a bladder tumor [facility] Medical History (Updated 09/16/23 @ 11:27 by [...] MD; Dr. Mary Ellen Jules MD~ Signed [facility] Work Phone: 1(918) 853-385512-13-2023 Procedure [facility] 04-18-2022 Miscellaneous Notes* Telephone Encounter - Lisbet Espino RN - 04/18/2022 10:44 AM EDT Opened in Error [facility] Miscellaneous Notes* Telephone Encounter - Saul Newman [...] advise. Saul Newman LPN documented [facility] History of Past illness Narrative* Problem Noted Date Resolved Date Diarrhea 06/07/2015 06/27/2015 Projectile vomiting with nausea 06/07/2015 07/18/2019 Skin lesion 06/09/2013 06/27/2015 Acute gastritis without mention of hemorrhage 07/18/2019 Other chest pain 11/08/2007 07/18/2019 Diverticulitis 07/18/2019 documented as of this encounter (statuses as of 04/08/2022) [facility] History of Past illness Narrative* Problem Noted Date Resolved Date Diarrhea 06/07/2015 06/27/2015 Projectile vomiting with nausea 06/07/2015 07/18/2019 Skin lesion 06/09/2013 06/27/2015 Acute gastritis without mention of hemorrhage 07/18/2019 Other chest pain 11/08/2007 07/18/2019 Diverticulitis 07/18/2019 documented as of this encounter (statuses as of 04/18/2022) [facility] Joseph Carpenter [facility] October 14, 2023 6:26pm Note Date/Time October 14, 2023 6:26pm [facility] Medical Records Department [address] [place] [address] Instructions for Home/Discharge Instructions 10/14/23 1825 MR#: [id number] Acct: [id number] Name: ARIA HERNANDEZ Rep #:[id number] : 1945 78 From: Joseph Carpenter MD [...] Up With: Joseph Carpenter MD When: Call [phone] for an appointment Test Results: Test results [...] Dr. Mary Ellen Jules MD ~ Signed [facility] Work Phone: evaluation noteNo assessment information available [facility] Work Phone: evaluation note* Diagnosis Onset Date Resolution Status Recurrent gross hematuria ac [place] Skin lesion of right leg acu te Skin lesion of right leg acu te [facility] Work Phone: evaluation note* Diagnosis Onset Date Resolution Status Recurrent gross hematuria ac [place] Skin lesion of right leg acu te Skin lesion of right leg acu te Recurrent gross hematuria ac [facility] Work Phone: evaluation note* Diagnosis Onset Date Resolution Status Recurrent gross hematuria ac [place] Skin lesion of right leg acu te Skin lesion of right leg acu te Indwelling Luis catheter present acute Recurrent gross hematuria ac [facility] Work Phone: evaluation note* Diagnosis Onset Date Resolution Status Admit Date Bladder disease acute March 30, 2025 7:52am GERD (gastroesophageal reflu x disease) acute March 30, 2025 7 :52am History of benign prostatic hyperplasia acute March 30, 2025 7 :52am Shakiness acute March 30, 2025 7:52am [facility] Work Phone: History and physical note Author Joseph Carpenter [facility] October 14, 2023 6:25pm Note Date/Time October 14, 2023 6:26pm [facility] Medical Records Department [address] [place] [address] History & Physical Exam 10/14/231823 MR#: [id number] Acct: [id number] Name: ARIA HERNANDEZ Rep #:[id number] : 1945 78 From: Joseph Carpenter MD [...] % (Auto) 67.3, Lymph % (Auto) 22.0, [place]% (Auto) 6.8, Eos % (Auto) 2.3, Baso [...] MD; Dr. Mary Ellen Jules MD~ Signed [facility] Work Phone: Reason for referral (narrative)No reason for referral information availableWPremier Health [facility] Work Phone: Summary Purpose Family History Relationship Condition Age at Onset Recorded Date/T aki mother Mental disorder Unknown Advance Directives Advance Directive Response Recorded Date/ Time Living Will Yes September 07 8:17pm Power of Industrial Aerial Installer Yes September 07, 2018 8:17pm Advance Directive Response Recorded Date/ Time Living Will Yes September 07 018 9:17pm Power of Industrial Aerial Installer Yes September 07, 2018 9:17pm Advance Directive Response Recorded Date/ Time Name of Medical Power of Industrial Aerial Installer September 16, 2023 11:10am Living Will Yes September 16 023 11:10am Power of Industrial Aerial Installer Yes September 16, 2023 11:10am Advance Directive Response Recorded Date/ Time Name of Medical Power of Industrial Aerial Installer September 16, 2023 11:10am Name of Medical Power of Industrial Aerial Installer October 11, 2023 10:31pm Living Will Yes October 11 023 10:31pm Power of Industrial Aerial Installer Yes October 11, 2023 10:31pm Advance Directive Response Recorded Date/ Time Name of Medical Power of Industrial Aerial Installer kendrick, October 14, 2023 5:23pm Living Will Yes October 14, 2 023 5:23pm Power of Industrial Aerial Installer Yes October 14, 2023 5:23pm Name of Medical Power of Industrial Aerial Installer September 16, 2023 11:10am Name of Medical Power of Industrial Aerial Installer October 11, 2023 10:31pm Advance Directive Response Recorded Date/ Time Name of Medical Power of Industrial Aerial Installer CALISTA GUO October 14, 2023 7:56pm Living Will Yes October 14, 2 023 7:56pm Power of Industrial Aerial Installer Yes October 14, 2023 7:56pm Name of Medical Power of Industrial Aerial Installer September 16, 2023 11:10am Name of Medical Power of Industrial Aerial Installer October 11, 2023 10:31pm Chief Complaint and [...] section and content) DATE CREATED AUTHOR 12/14/2021 [facility] DATE CREATED AUTHOR AUTHOR'S ORGANIZ ATION 03/30/2025 [facility] Source Comments (unrecognize d section and content) In the event this informatio n is protected by the Federal Confidentiality of Alcohol and Drug Abuse Patient Records regulations: The Federal rules restrict any use of the information to criminally investigate or prosecute any alcohol or drug abuse patient.[facility] the event this information is protected by the Federal Confidentiality of Alcohol and Drug Abuse Patient Records regulations: The Federal rules restrict any use of the information to criminally investigate or prosecute any alcohol or drug abuse patient.[facility] Reason for Visit (unrecogniz ed section and content) Reason Onset Date Comments Refill Request 04/07/2022 Reason Onset Date Comments Opened In Error 04/18/2022 Care Teams (unrecognized sec tion and content) Molding Machine Tender Relationship Specialty Start Date End Date Vita Pacheco PA-C [id number] [place] [address] PCP - General Family Practice 07/18/19 Molding Machine Tender Relationship Specialty Start Date End Date Vita Pacheco, JESSE-C [address] [place] [address] PCP - General Family Practice 07/18/19 Team [...] Referring Provide r Active Dr. Mary Ellen Jules MD Primary [...] BE BASED ON THE PRIMARY CLINICAL RECORDS. [employer] provides no warranty or guarantee of the accuracy or completeness of information in this document.
== END | disposition home or self-care (01) ==
LOC: LABSPEC 16:13
PROVIDERS: PCP Internal Medicine; Referring Provider Nurse Practitioner; Visit Provider Nurse Practitioner
DX: C67.2 Malignant neoplasm of lateral wall of bladder (principal)
CPT/HCPCS: 88108; 88305; 88313

== ENCOUNTER → 2025-05-11 | Outpatient (CLI) | payer MEDICARE, SELFPAY ==
[2025-05-11 08:43] LABS: Glucose 117 mg/dL (70-99)
== END | disposition home or self-care (01) ==
LOC: LAB 07:12
PROVIDERS: PCP Internal Medicine; Referring Provider Internal Medicine; Visit Provider Internal Medicine
DX: E88.819 Insulin resistance, unspecified (principal); E11.9 Type 2 diabetes mellitus without complications; R53.1 Weakness; R25.1 Tremor, unspecified
CPT/HCPCS: 36415; 82947; 83525

== ENCOUNTER → 2025-05-15 | Outpatient (CLI) | payer MEDICARE, SELFPAY ==
--- OUTSIDE RECORDS SUMMARY | 2025-05-15 06:36 | XMS RPT_ITS | CCD ---
Author Organization [facility] Care Team Providers Care Monitor Car Operator Name Role Phone Vita Pacheco PA-C Primary Care Provider [phone] Dr. Mary Ellen Jules Attending Provider Dr. Aneul Bland Attending Provider [phone] Dr. Mary Ellen Jules Referring Provider [phone] Dr. Mary Ellen Jules Attending Provider [phone] Dr. Anuel Bland Attending Provider Dr. Mary Ellen Jules Referring Provider [phone] Dr. Mary Ellen Jules Primary Care Provider Dr. iWll Olivo Attending Provider Dr. Will Olivo Referring Provider Dr. Mary Ellen Jules MD Primary Care Provider [phone] Dr. Mary Ellen Jules MD Attending Provider Isa Rogers Attending Provider Isa Rogers Referring Provider Mary Ellen Jules Attending Unavailable Mary Ellen Jules Primary Care Unavailable [place] Referring Unavailable Gennaro Rivas Attending Unavailable Mary Ellen Jules Primary Care Unavailable Mary Ellen Jules Primary Care Unavailable Mary Ellen Jules Attending Unavailable Mary Ellen Jules Attending Unavailable Mary Ellen Jules Primary Care Unavailable Mary Ellen Jules Attending Unavailable Mary Ellen Jules Primary Care Unavailable Mary Ellen Jules Attending Unavailable Mary Ellen Jules Referring Unavailable Jorge A, Mary Ellen Primary Care Unavailable Jorge AMary Ellen Primary Care Unavailable [place] Attending Unavailable [place], Isa Referring Unavailable Mary Ellen Jules Primary Care Unavailable Mary Ellen Jules Attending Unavailable Mary Ellen Jules Attending Unavailable Mary Ellen Jules Referring Unavailable Mary Ellen Jules Primary Care Unavailable [place], Isa Referring Unavailable Mary Ellen Jules Primary Care Unavailable [place], Isa Attending Unavailable Allergies Allergy Classification Reported Allergen(s) Allergy Type Date of Onset Reaction(s) Facility (2 sources) Salicylic Acid Drug Allergy 7 GI Upset [facility] (9 sources) Aspirin Drug Allergy 2 Other [facility] Comment on above: GASTRIC ISSUES (2 sources) Naproxen Drug Allergy 2 Other [facility] (1 source) acetylsalicylic acid Allergy to substance 2 Other [facility] (6 sources) Phenazopyridine Drug Allergy 3 other [facility] Comment on above: the dye will change the color of my lenses in my eyes (1 source) Aspirin Drug Allergy 5 [facility] (1 source) Phenazopyridine Drug Allergy 5 [facility] Medications Current Medications Medication Drug Class(es) Dates Sig (Normalized) Sig (Original) cholecalciferol 0.025 mg oral capsule (2 sources) Vitamin D Start: 03-30-2025 take 1 capsule by mouth once daily Cholecalciferol (Vitamin D3) 25 mcg (1,000 unit) capsule Active 25 ug PO daily March 30, 2025 12:00am finasteride 5 mg oral tablet (3 sources) 5-alpha Reductase Inhibitor Start: 11-25-2023 take 1 tablet by mouth once daily Finasteride 5 mg tablet Active 5 mg PO DAILY November 25, 2023 1:00am metFORMIN hydrochloride 500 mg oral tablet (1 source) Biguanide Start: 05-10-2025 take 1 tablet by mouth once daily Metformin 500 mg tablet Active 500 mg PO daily May 10, 2025 12:00am Completed/Discontinued Medications Medication Drug Class(es) Dates Sig (Normalized) Sig (Original) acetaminophen 500 mg oral tablet (2 sources) Start: 03-26-2020 take 2 tablets by mouth every eight hours as needed acetaminophen (TYLENOL EXTRA STRENGTH) 500 mg tablet Take 2 tablets by mouth every 8 hours as needed for Pain. 0 03/26/2020 Active Comment on above: Take 2 tablets by mo uth every 8 hours as needed for Pain. acetaminophen 325 mg / HYDROcodone bitartrate 5 mg oral tablet (9 sources) Opioid Agonist Start: 09-07-2018 End: 09-14-2018 take 1 tablet by mouth every four hours as needed for pain Hydrocodone-Acetamin ophen 1 TABLET tablet Discontinued 1 {tbl} PO EVERY 4 HOURS NEEDED as needed for Pain 30 7 0 September 07, 2018 1:00am September 13, 2018 1:00am September 14, 2018 1:09am Other acute postprocedural pain Other acute postprocedural pain Take 1 tab po q4h prn pain Start: 09-07-2018 End: 09-14-2018 take 1 tablet by mouth every four hours as needed for pain Hydrocodone-Acetaminophen Discontinued 1 TABLET PO EVERY 4 HOURS NEEDED 30 7 September 07, 2018 12:00am September 14, 2018 12:09am Take 1 tab po q4h prn pain ciprofloxacin 500 mg oral tablet (14 sources) Quinolone Antimicrobial Start: 07-12-2024 End: 03-30-2025 take 1 tablet by mouth twice daily Ciprofloxacin Hcl 500 mg tablet Discontinued 500 mg PO TWICE A DAY 14 0 July 12, 2024 12:00am March 30, 2025 7:50am Start: 10-07-2023 End: 11-25-2023 take 1 tablet by mouth twice daily Ciprofloxacin Hcl (Cipro) 500 mg tablet Discontinued 500 mg PO TWICE A DAY 10 0 October 15, 2023 1:00am November 25, 2023 10:30am diclofenac sodium 75 mg delayed release oral tablet (9 sources) Nonsteroidal Anti-inflammatory Drug Start: 09-06-2018 End: [...] tablet Discontinued 2 mg PO AT BEDTIME 90 3 December 14, 2023 12:11pm December 19, 2024 11:11am PROSTATE Comment on above: Take 1 tablet by bob once daily. famciclovir 500 mg oral tablet (3 sources) Herpes Simplex Virus Nucleoside Analog DNA Polymerase Inhibitor Start: 05-26-2024 End: 05-26-2024 take 1 tablet by mouth every eight hours Famciclovir 500 mg tablet Discontinued 500 mg PO Q8H 21 7 0 May 26, 2024 12:00am June 01, 2024 12:00am May 26, 2024 9:55am ibuprofen 600 mg oral tablet (7 sources) Nonsteroidal Anti-inflammatory Drug Start: 10-07-2023 End: 10-14-2023 take 1 tablet by mouth every six hours as needed for pain Ibuprofen 600 mg tablet Discontinued 600 mg PO EVERY 6 HOURS as needed for fever or pain 20 October 07, 2023 1:00am October 14, 2023 7:41pm omeprazole 20 mg delayed release oral capsule (20 sources) Proton Pump Inhibitor Start: 09-06-2018 End: 12-19-2024 take 1 capsule by mouth at bedtime Omeprazole 20 mg capsule,delayed release(DR/EC) Discontinued 20 mg PO AT BEDTIME 90 December 14, 2023 1:18pm December 19, 2024 11:11am ACID REFLUX Comment on above: Take 1 capsule by mo [facility] once daily. phenazopyridine hydrochloride 100 mg oral tablet (7 sources) Start: 10-07-2023 End: 10-09-2023 take 1 tablet by mouth three times daily as needed for pain Phenazopyridine (Pyridium) 100 mg tablet Discontinued 100 mg PO THREE TIMES A DAY as needed for pain 14 0 October 07, 2023 1:00am October 09, 2023 2:35pm predniSONE 10 mg oral tablet (3 sources) Start: 05-26-2024 End: 03-30-2025 Prednisone 10 [...] lateral wall of bladder] Onset: 11-29-2024 Chronic Diabetes mellitus without complication (1 source) Type 2 diabetes mellitus without complications; Translations: [Type 2 diabetes mellitus without complications] Onset: 05-10-2025 Chronic Esophageal disorders (14 sources) Gastroesophageal reflux disease; Translations: [Gastro-esophageal reflux disease without esophagitis] Onset: 10-11-2007 10-11-2007 Chronic Genitourinary symptoms and ill-defined conditions (6 sources) Blood in urine; Translations: [Hematuria, unspecified] 10-12-2023 Episodic Hyperplasia of prostate (2 sources) Benign prostatic hyperplasia; Translations: [Benign prostatic hyperplasia without lower urinary tract symptoms] Onset: 06-13-2009 03-23-2019 Chronic Malaise and fatigue (6 sources) Fatigue; Translations: [Other fatigue] Onset: 05-10-2025 02-27-2025 Episodic Nephritis; nephrosis; renal sclerosis (15 sources) Recurrent bay hematuria; Translations: [Recurrent and persistent hematuria with unspecified morphologic changes] 06-17-2023 Chronic Other diseases of bladder and urethra (4 sources) Disorder of bladder; Translations: [Bladder disorder, unspecified] 01-20-2024 Chronic Comment on above: TUMOR Other male genital disorders (10 sources) H/O: male genital disorder; Translations: [Personal history of other diseases of male genital organs] 01-08-2023 Episodic Other nervous system disorders (4 sources) Tremor; Translations: [Tremor, unspecified] 03-30-2025 Episodic Other nervous system disorders (1 source) Tremor, unspecified; Translations: [Tremor, unspecified] Onset: 05-10-2025 Episodic Other nutritional; endocrine; and metabolic disorders (1 source) Insulin resistance; Translations: [Insulin resistance] 05-10-2025 Chronic Other skin disorders (8 sources) Mass of skin of right lower limb; Translations: [Disorder of the skin and subcutaneous tissue, unspecified] 06-17-2023 Episodic Other skin disorders (10 sources) Disorder of the skin and subcutaneous tissue, unspecified; Translations: [Unspecified disorder of skin and subcutaneous tissue] 06-17-2023 Episodic Other skin disorders (3 sources) Eruption; Translations: [Rash and other nonspecific skin eruption] 05-26-2024 Episodic Other skin disorders (3 sources) Disorder of hand; Translations: [Disorder of the skin and subcutaneous tissue, unspecified] 12-16-2023 Episodic Residual codes; unclassified (4 sources) Urinary catheter in situ; Translations: [Presence of other specified devices] 10-14-2023 Episodic Residual codes; unclassified (1 source) Presence of other specified devices; Translations: [Other postprocedural status] 10-15-2023 Episodic Unclassified (1 source) Insulin resistance, unspecified; Translations: [Insulin resistance, unspecified] Onset: 05-10-2025 Past or Other Problems Problem Classification Problem Date Documented Da te Episodic/Chronic Abdominal hernia (2 sources) Diaphragmatic hernia; Translations: [Diaphragmatic hernia without obstruction or gangrene] Onset: 12-13-2007 12-13-2007 Episodic Fever of unknown origin (4 sources) Fever; Translations: [Fever, unspecified] Onset: 08-03-2024 07-08-2024 Episodic Other connective tissue disease (2 sources) Plantar fascial fibromatosis; Translations: [Plantar fascial fibromatosis] Onset: 09-07-2013 09-07-2013 Episodic Other gastrointestinal disorders (2 sources) History of gastritis; Translations: [Personal history of other diseases of the digestive system] Onset: 07-18-2019 07-18-2019 Episodic Urinary tract infections (4 sources) Urinary tract infectious disease; Translations: [Urinary tract infection, site not specified] Onset: 08-17-2024 07-24-2024 Episodic Results Test Name Value Interpretation Reference Range Facility Insulin Levelon 05-12-2025 INSULIN,FASTING 21.1 uIU/mL Normal 2.6-24.9 [facility] Comment on above: Result Comment: Perf ormed at: - [facility] [address] [id number] Electroencephalographic Technologist: Luan Cheng PhD, Phone: [phone] Performed By: #### L 501.6710, L101.9900 #### [facility] [address] [place], [place], [id number] Glucoseon 05-11-2025 Glucose [Mass/Vol] 117 mg/dL High 70-99 [facility] Comment on above: Performed By: #### L 501.6710, L101.9900 #### [facility] [address] [place], [address] MR/BMS.IMBon 05-10-2025 MR/BMS.IMB [facility] [address] [place] [address] OFFICE VISIT Date of Service: 05/10/25 MR#: [id number] Acct: [id number] Name: ARIA HERNANDEZ Rep #: [id number] : 1945 Provider: Dr. 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 Accompanied by: Self Is patient in pain?: No Allergies phenazopyridine Allergy (Severe, Verified 05/10/25 13:47) other aspirin Adverse Reaction (Verified 05/10/25 13:47) Other Medications ???Medication ???Instructions ???Recorded ???Confirmed ???Type finasteride 5 mg tablet 5 mg PO DAILY 11/25/23 05/10/25 Hi story doxazosin 2 mg tablet (Cardura) 2 mg PO QHS PROSTATE #90 tabs 11/2705/10/25 Rx omeprazole 20 mg capsule,delayed 20 mg PO QHS ACID REFLUX #90 caps 12/19/24 05/10/25 Rx release cholecalciferol (vitamin D3) 25 25 mcg PO QDAY 03/30/25 05/10/25 H istory mcg (1,000 unit) capsule metformin 500 mg tablet 500 mg PO QDAY 05/10/25 05/10/25 H istory Have you fallen in the past year?: Yes (04/2025) [facility] Medical History (Updated 05/10/25 @ 14:[address] Mary Ellen Jules MD) Insulin resistance Generalized weakness Shakiness Fatigue UTI (urinary tract [...] times per week HPI HPI Chief Complaint: Balance/Memory Issues Details: ARIA HERNANDEZ, is a 79 M who presents to the office today for an acute care follow-up visit. 79-year-old gentleman who has been having some increased difficulties as of late including a sense of generalized weakness, shakiness, as well as some sense of difficulty of focus, and perhaps intermittently at least some short-term memory concerns. He had discussed this relatively recently, starting back in the spring. [place] initially perhaps a viral illness that might of precipitated symptoms but they have been lingering. 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 However at times, he gets a sense of shakiness, generalized weakness. He feels that this may be attributable to his blood sugar. He has no formal diagnosis of diabetes or any prior blood sugar regulation issues to our knowledge. He has a very mild albeit slow rise in A1c over the last number of years but still well within nondiabetic range. He has been monitoring blood sugars recently but has had some concerns about the glucometer. He has ordered a new glucometer system but has not received that yet. In any event, blood sugars maximum seems to be somewhere 150 in the last, and those were typically postprandial although some of the a.m. fasting sugars have been 128-130 range. Has not necessarily been able to monitor blood sugar when he has the specific episodes or tiredness of fatigue. Has not been having chest pain, shortness of breath wheeze cough or congestion. No fever or chills. No nausea or vomiting. Appetite has been good. No focal areas of numbness or tingling are noted. He does bring in a graph of some of the recent blood sugars for review. In addition he does maintain a comprehensive spreadsheet of his labs over (more content not included)... Normal [facility] Cytology, Body Fluid / CSFon 05-09-2025 CYTOLOGY,BF/CSF SEE PATHOLOGY REPORT Normal [facility] Comment on above: Order Comment: URINE Result Comment: Spec israel submitted to Anatomical Pathology Department for testing. Performed By: #### L 501.6710, L101.9900 #### [facility] 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 Urine: * Negative for high grade urothelial carcinoma CYTOLOGY STUDY Slides are reviewed. CYTOLOGY GROSS A. Received is 50 ml of yellow-cloudy fluid labeled with the patient's name and and designated per the requisition as urine. Submitted for cytology preparation. 05/10/2025 CPT: 07499 Signed (signature on file) Dr. Corinne Andrade DO 05/10/25 1549 Normal [facility] Comment on above: Performed By: #### L 501.6710, L101.9900 #### [facility] [address] [place], [place], [address] MR/BMS.IMBon 03-30-2025 MR/BMS.IMB [facility] [address] [facility] [place] [address] OFFICE VISIT Date of Service: 03/30/25 MR#: [id number] Acct: [id number] Name: ARIA HERNANDEZ Rep #: [id number] : 1945 Provider: Dr. 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 In early February, [...] any ne (more content not included)... Normal [facility] Testosterone, Total / Freeon 03-15-2025 TESTOSTER,FREE 13.32 ng/dL Normal 5.00-21.00 [facility] Comment on above: Order Comment: NUNK Performed By: #### L 506.0400, L100.0100, L501.5200, L101.9900, L501.9910, L500.4100, L3100.5310, L506.1001, L501.9985, L500.4050, L503.0106, L501.17240, L501.9520 ####[facility] [id number] [place], [place], [address] TESTOSTER,TOTAL 535 ng/dL Normal 264-916 [facility] Comment on above: Order Comment: NUNK Result Comment: Adul t male reference interval is based on a population of healthy nonobese males (BMI <30) between 19 and 39 years old. rosemary Schmid.al. JCEM 2017,102;2000-2783. PMID: [id number]. Performed By: #### L 506.0400, L100.0100, L501.5200, L101.9900, L501.9910, L500.4100, L3100.5310, L506.1001, L501.9985, L500.4050, L503.0106, L501.29511, L501.9520 ####[facility] [id number] [place], [place], [id number] TESTOSTERONE,%F 2.49 Normal 1.50-4.20 [facility] Comment on above: Order Comment: NUNK Result Comment: Perf ormed at: [facility] [address] [id number] Electroencephalographic Technologist: Luan Cheng PhD, Phone: [phone] Performed at: [facility] [address] [id number] Electroencephalographic Technologist: Jasmyne Drummond MD, Phone: [phone] Performed By: #### L 506.0400, L100.0100, L501.5200, L101.9900, L501.9910, L500.4100, L3100.5310, L506.1001, L501.9985, L500.4050, L503.0106, L501.85383, L501.9520 ####[facility] [id number] [place], [place], [id number] Absolute lymphocyte countOrd ered By: Mary Ellen Jules on 02-28-2025 Lymphocytes Auto (Unsp spec) [#/Vol] 2.17 10*3/uL 0.83-4.51 [facility] Absolute neutrophil countOrd ered By: Mary Ellen Jules on 02-28-2025 Neutrophils (Bld) [#/Vol] 2.5 10*3/uL 2.0-7.7 [facility] Anion gap in Serum or Plasma Ordered By: Mary Ellen Jules on 02-28-2025 Anion gap [Moles/Vol] 11 mmol/L 5-15 [facility] Automated lymphocyte count a s percentage of total leukocytesOrdered By: Mary Ellen Jules on 02-28-2025 Lymphocytes/100 WBC Auto (Unsp spec) 40.0 % - [facility] BUN/creatinine ratioOrdered By: Mary Ellen Jules on 02-28-2025 Urea nitrogen/Creatinine [Mass ratio] 16.4 mg/mg 10- [facility] Basophil percentageOrdered B y: Mary Ellen Jules on 02-28-2025 Basophils/100 WBC (Bld) 1.1 % High 0-1 [facility] Bilirubin, totalOrdered By: Mary Ellen Jules on 02-28-2025 Bilirubin [Mass/Vol] 0.37 mg/dL 0.00-1.30 [facility] CBC W/Diff, Automatedon Absolute Lymph 2.17 X10 3/uL Normal 0.83-4.51 [facility] Comment on above: Performed By: #### L 506.0400, L100.0100, L501.5200, L101.9900, L501.9910, L500.4100, L3100.5310, L506.1001, L501.9985, L500.4050, L503.0106, L501.25426, L501.9520 #### [facility] [address] [place], [place], [phone] (994) Absolute Neut 2.5 X10 3/uL Normal 2.0-7.7 [facility] Comment on above: Performed By: #### L 506.0400, L100.0100, L501.5200, L101.9900, L501.9910, L500.4100, L3100.5310, L506.1001, L501.9985, L500.4050, L503.0106, L501.53344, L501.9520 #### [facility] [address] [place], [place], [phone] (481) Basophils/100 WBC (Bld) 1.1 % High 0-1 [facility] Comment on above: Performed By: #### L 506.0400, L100.0100, L501.5200, L101.9900, L501.9910, L500.4100, L3100.5310, L506.1001, L501.9985, L500.4050, L503.0106, L501.81186, L501.9520 #### [facility] [address] [place], [place], [phone] ([phone] Eosinophils/100 WBC (Bld) 6.1 % High 0-5 [facility] Comment on above: Performed By: #### L 506.0400, L100.0100, L501.5200, L101.9900, L501.9910, L500.4100, L3100.5310, L506.1001, L501.9985, L500.4050, L503.0106, L501.07247, L501.9520 #### [facility] [address] [place], [address] (158) Erythrocyte distribution width (RBC) [Ratio] 13.2 % Normal 11.6-14.6 [facility] Comment on above: Performed By: #### L 506.0400, L100.0100, L501.5200, L101.9900, L501.9910, L500.4100, L3100.5310, L506.1001, L501.9985, L500.4050, L503.0106, L501.51068, L501.9520 #### [facility] [address] [place], [address] Hematocrit (Bld) [Volume fraction] 46.9 % Normal 40-54 [facility] Comment on above: Performed By: #### L 506.0400, L100.0100, L501.5200, L101.9900, L501.9910, L500.4100, L3100.5310, L506.1001, L501.9985, L500.4050, L503.0106, L501.84531, L501.9520 #### [facility] [address] [place], [address] (600) Hemoglobin (Bld) [Mass/Vol] 15.5 g/dL Normal 13.0-16.5 [facility] Comment on above: Performed By: #### L 506.0400, L100.0100, L501.5200, L101.9900, L501.9910, L500.4100, L3100.5310, L506.1001, L501.9985, L500.4050, L503.0106, L501.27083, L501.9520 #### [facility] [address] [place], [place], [phone] ([phone] IG% 0.200 Normal 0.0-0.9 [facility] Comment on above: Result Comment: IG% - Immature Granulocytes (promyelocytes, myelocytes and metamyelocytes) > 1% indicates that a LEFT SHIFT is Present. Performed By: #### L 506.0400, L100.0100, L501.5200, L101.9900, L501.9910, L500.4100, L3100.5310, L506.1001, L501.9985, L500.4050, L503.0106, L501.50718, L501.9520 #### [facility] [address] [place], [address] Lymphocytes/100 WBC (Bld) 40.0 % Normal 19-41 [facility] Comment on above: Performed By: #### L 506.0400, L100.0100, L501.5200, L101.9900, L501.9910, L500.4100, L3100.5310, L506.1001, L501.9985, L500.4050, L503.0106, L501.32061, L501.9520 #### [facility] [address] [place], [address] MCH (RBC) [Entitic mass] 31.6 pg Normal 27.0-32.0 [facility] Comment on above: Performed By: #### L 506.0400, L100.0100, L501.5200, L101.9900, L501.9910, L500.4100, L3100.5310, L506.1001, L501.9985, L500.4050, L503.0106, L501.47054, L501.9520 #### [facility] [address] [place], [address] MCHC (RBC) [Mass/Vol] 33.0 g/dL Normal 32-36 [facility] Comment on above: Performed By: #### L 506.0400, L100.0100, L501.5200, L101.9900, L501.9910, L500.4100, L3100.5310, L506.1001, L501.9985, L500.4050, L503.0106, L501.82562, L501.9520 #### [facility] [address] [facility] [place], [address] MCV (RBC) [Entitic vol] 95.7 fL High 80-94 [facility] Comment on above: Performed By: #### L 506.0400, L100.0100, L501.5200, L101.9900, L501.9910, L500.4100, L3100.5310, L506.1001, L501.9985, L500.4050, L503.0106, L501.60985, L501.9520 #### [facility] [address] [facility] [place], [address] Monocytes/100 WBC (Bld) 6.8 % Normal 0-10 [facility] Comment on above: Performed By: #### L 506.0400, L100.0100, L501.5200, L101.9900, L501.9910, L500.4100, L3100.5310, L506.1001, L501.9985, L500.4050, L503.0106, L501.27490, L501.9520 #### [facility] [address] [facility] [place], [address] Neutrophils/100 WBC (Bld) 45.8 % Low 47-70 [facility] Comment on above: Performed By: #### L 506.0400, L100.0100, L501.5200, L101.9900, L501.9910, L500.4100, L3100.5310, L506.1001, L501.9985, L500.4050, L503.0106, L501.06006, L501.9520 #### [facility] [address] [place], [place], [phone] (941) Nucleated RBC (Bld) [#/Vol] 0 10*3/uL Normal 0-5 [facility] Comment on above: Performed By: #### L 506.0400, L100.0100, L501.5200, L101.9900, L501.9910, L500.4100, L3100.5310, L506.1001, L501.9985, L500.4050, L503.0106, L501.68532, L501.9520 #### [facility] [address] [facility] [place], [address] (405) Platelet mean volume (Bld) [Entitic vol] 10.1 fL Normal 6.2-12.0 [facility] Comment on above: Performed By: #### L 506.0400, L100.0100, L501.5200, L101.9900, L501.9910, L500.4100, L3100.5310, L506.1001, L501.9985, L500.4050, L503.0106, L501.19628, L501.9520 #### [facility] [address] [facility] [place], [place], [id number] (046) Platelets (Bld) [#/Vol] 199 10*3/uL Normal 150-450 [facility] Comment on above: Performed By: #### L 506.0400, L100.0100, L501.5200, L101.9900, L501.9910, L500.4100, L3100.5310, L506.1001, L501.9985, L500.4050, L503.0106, L501.72855, L501.9520 #### [facility] [address] [place], [address] RBC (Bld) [#/Vol] 4.90 10*6/uL Normal 4.6-6.2 [facility] Comment on above: Performed By: #### L 506.0400, L100.0100, L501.5200, L101.9900, L501.9910, L500.4100, L3100.5310, L506.1001, L501.9985, L500.4050, L503.0106, L501.64630, L501.9520 #### [facility] [address] [place], [address] RDW SD 46.7 fl High 35.1-43.9 [facility] Comment on above: Performed By: #### L 506.0400, L100.0100, L501.5200, L101.9900, L501.9910, L500.4100, L3100.5310, L506.1001, L501.9985, L500.4050, L503.0106, L501.04078, L501.9520 #### [facility] [address] [place], [address] WBC (Bld) [#/Vol] 5.4 10*3/uL Normal 4.4-11.0 [facility] Comment on above: Performed By: #### L 506.0400, L100.0100, L501.5200, L101.9900, L501.9910, L500.4100, L3100.5310, L506.1001, L501.9985, L500.4050, L503.0106, L501.74581, L501.9520 #### [facility] [address] [place], [address] Calculated very low density lipoprotein (VLDL) cholesterol measurementOrdered By: Mary Ellen Jules on 02-28-2025 Calculated very low density lipoprotein (VLDL) cholesterol measurement 18 mg/dL 5-40 [facility] Carbon dioxide, total [Moles /volume] in Central venous bloodOrdered By: Mary Ellen Jules on 02-28-2025 CO2 [Moles/Vol] 24.3 mmol/L 21.0-32.0 [facility] Chloride assayOrdered By: Katina Jules on 02-28-2025 Chloride [Moles/Vol] 104 mmol/L 98-108 [facility] Comprehensive Metabolic Prof ilon 02-28-2025 Albumin [Mass/Vol] 4.4 g/dL Normal 3.4-4.8 [facility] Comment on above: Order Comment: UNK Performed By: #### L 506.0400, L100.0100, L501.5200, L101.9900, L501.9910, L500.4100, L3100.5310, L506.1001, L501.9985, L500.4050, L503.0106, L501.67203, L501.9520 #### [facility] [address] [place], [address] Albumin/Globulin [Mass ratio] 1.4 {ratio} Normal 0.9-2.4 [facility] Comment on above: Order Comment: UNK Performed By: #### L 506.0400, L100.0100, L501.5200, L101.9900, L501.9910, L500.4100, L3100.5310, L506.1001, L501.9985, L500.4050, L503.0106, L501.56624, L501.9520 #### [facility] [address] [place], [address] ALK PHOS 49 U/L Normal 40-129 [facility] Comment on above: Order Comment: UNK Performed By: #### L 506.0400, L100.0100, L501.5200, L101.9900, L501.9910, L500.4100, L3100.5310, L506.1001, L501.9985, L500.4050, L503.0106, L501.79752, L501.9520 #### [facility] [address] [place], [address] ALT [Catalytic activity/Vol] 27 U/L Normal <=46 [facility] Comment on above: Order Comment: UNK Performed By: #### L 506.0400, L100.0100, L501.5200, L101.9900, L501.9910, L500.4100, L3100.5310, L506.1001, L501.9985, L500.4050, L503.0106, L501.91185, L501.9520 #### [facility] [address] [place], [address] AST [Catalytic activity/Vol] 24 U/L Normal <=37 [facility] Comment on above: Order Comment: UNK Performed By: #### L 506.0400, L100.0100, L501.5200, L101.9900, L501.9910, L500.4100, L3100.5310, L506.1001, L501.9985, L500.4050, L503.0106, L501.45321, L501.9520 #### [facility] [address] [place], [address] Bilirubin [Mass/Vol] 0.37 mg/dL Normal 0.00-1.30 [facility] Comment on above: Order Comment: UNK Performed By: #### L 506.0400, L100.0100, L501.5200, L101.9900, L501.9910, L500.4100, L3100.5310, L506.1001, L501.9985, L500.4050, L503.0106, L501.22372, L501.9520 #### [facility] [address] [place], [address] BUN/CRE 16.4 RATIO Normal 10-20 [facility] Comment on above: Order Comment: UNK Performed By: #### L 506.0400, L100.0100, L501.5200, L101.9900, L501.9910, L500.4100, L3100.5310, L506.1001, L501.9985, L500.4050, L503.0106, L501.41194, L501.9520 #### [facility] [address] [place], [address] Calcium [Mass/Vol] 9.4 mg/dL Normal 7.6-11.0 [facility] Comment on above: Order Comment: UNK Performed By: #### L 506.0400, L100.0100, L501.5200, L101.9900, L501.9910, L500.4100, L3100.5310, L506.1001, L501.9985, L500.4050, L503.0106, L501.11595, L501.9520 #### [facility] [address] [place], [place], [id number] (064) Chloride [Moles/Vol] 104 mmol/L Normal 98-108 [facility] Comment on above: Order Comment: UNK Performed By: #### L 506.0400, L100.0100, L501.5200, L101.9900, L501.9910, L500.4100, L3100.5310, L506.1001, L501.9985, L500.4050, L503.0106, L501.95360, L501.9520 #### [facility] [address] [place], [address] CO2 [Moles/Vol] 24.3 mmol/L Normal 21.0-32.0 [facility] Comment on above: Order Comment: UNK Performed By: #### L 506.0400, L100.0100, L501.5200, L101.9900, L501.9910, L500.4100, L3100.5310, L506.1001, L501.9985, L500.4050, L503.0106, L501.42177, L501.9520 #### [facility] [address] [place], [place], [id number] Creatinine [Mass/Vol] 0.91 mg/dL Normal 0.70-1.20 [facility] Comment on above: Order Comment: UNK Performed By: #### L 506.0400, L100.0100, L501.5200, L101.9900, L501.9910, L500.4100, L3100.5310, L506.1001, L501.9985, L500.4050, L503.0106, L501.44510, L501.9520 #### [facility] [address] [place], [address] GAP 11 Normal 5-15 [facility] Comment on above: Order Comment: UNK Performed By: #### L 506.0400, L100.0100, L501.5200, L101.9900, L501.9910, L500.4100, L3100.5310, L506.1001, L501.9985, L500.4050, L503.0106, L501.62963, L501.9520 #### [facility] [address] [place], [address] GFR/1.73 sq M.predicted among non-blacks MDRD (S/P/Bld) [Vol rate/Area] 85 mL/min/{1.73_m2} Normal >60 [facility] Comment on above: Order Comment: UNK Result Comment: mL/m in/1.73m2 CKD-EPI Creatinine Equation (2020) Performed By: #### L 506.0400, L100.0100, L501.5200, L101.9900, L501.9910, L500.4100, L3100.5310, L506.1001, L501.9985, L500.4050, L503.0106, L501.20042, L501.9520 #### [facility] [address] [place], [address] Globulin (S) [Mass/Vol] 3.1 g/dL Normal 2.2-4.2 [facility] Comment on above: Order Comment: UNK Performed By: #### L 506.0400, L100.0100, L501.5200, L101.9900, L501.9910, L500.4100, L3100.5310, L506.1001, L501.9985, L500.4050, L503.0106, L501.96698, L501.9520 #### [facility] [address] [place], [address] Glucose [Mass/Vol] 118 mg/dL High 70-99 [facility] Comment on above: Order Comment: UNK Performed By: #### L 506.0400, L100.0100, L501.5200, L101.9900, L501.9910, L500.4100, L3100.5310, L506.1001, L501.9985, L500.4050, L503.0106, L501.55867, L501.9520 #### [facility] [address] [place], [address] Potassium [Moles/Vol] 4.5 mmol/L Normal 3.3-5.1 [facility] Comment on above: Order Comment: UNK Performed By: #### L 506.0400, L100.0100, L501.5200, L101.9900, L501.9910, L500.4100, L3100.5310, L506.1001, L501.9985, L500.4050, L503.0106, L501.60410, L501.9520 #### [facility] [address] [place], [address] Sodium [Moles/Vol] 139 mmol/L Normal 133-145 [facility] Comment on above: Order Comment: UNK Performed By: #### L 506.0400, L100.0100, L501.5200, L101.9900, L501.9910, L500.4100, L3100.5310, L506.1001, L501.9985, L500.4050, L503.0106, L501.50218, L501.9520 #### [facility] [address] [place], [address] T PROT 7.5 g/dL Normal 5.9-8.4 [facility] Comment on above: Order Comment: UNK Performed By: #### L 506.0400, L100.0100, L501.5200, L101.9900, L501.9910, L500.4100, L3100.5310, L506.1001, L501.9985, L500.4050, L503.0106, L501.90980, L501.9520 #### [facility] [address] [place], [address] Urea nitrogen [Mass/Vol] 15 mg/dL Normal 4-19 [facility] Comment on above: Order Comment: UNK Performed By: #### L 506.0400, L100.0100, L501.5200, L101.9900, L501.9910, L500.4100, L3100.5310, L506.1001, L501.9985, L500.4050, L503.0106, L501.75500, L501.9520 #### [facility] [address] [place], [address] Eosinophil percentageOrdered By: Mary Ellen Jules on 02-28-2025 Eosinophils/100 WBC (Bld) 6.1 % High 0-5 [facility] Erythrocyte Sed Rateon 02-28 SED RATE 4 mm/hr Normal 0-20 [facility] Comment on above: Performed By: #### L 506.0400, L100.0100, L501.5200, L101.9900, L501.9910, L500.4100, L3100.5310, L506.1001, L501.9985, L500.4050, L503.0106, L501.62661, L501.9520 #### [facility] [address] [place], [place], [address] Erythrocyte distribution wid th ratioOrdered By: Mary Ellen Jules on 02-28-2025 Erythrocyte distribution width (RBC) [Ratio] 13.2 % 11.6-14.6 [facility] Erythrocyte distribution wid th standard deviationOrdered By: Mary Ellen Jules on 02-28-2025 Erythrocyte distribution width (RBC) [Ratio] 46.7 fl High 35.1-43.9 [facility] Erythrocyte sedimentation ra teOrdered By: Mary Ellen Jules on 02-28-2025 ESR (Bld) [Velocity] 4 mm/h 0-20 [facility] Free T3on 02-28-2025 Free T3 [Mass/Vol] 3.0 pg/mL Normal 2.18-3.98 [facility] Comment on above: Order Comment: NUNK Performed By: #### L 506.0400, L100.0100, L501.5200, L101.9900, L501.9910, L500.4100, L3100.5310, L506.1001, L501.9985, L500.4050, L503.0106, L501.67941, L501.9520 ####[facility] [address] [place], [address] Free J4Rpangyo By: Mary Ellen ríos on 02-28-2025 Free T3 [Mass/Vol] 3.0 pg/mL 2.18-3.98 [facility] Free testosterone percentage Ordered By: Mary Ellen Jules on 02-28-2025 Testosterone Free/Testosterone.total [Mass fraction] 2.49 % 1.50-4.20 [facility] Comment on above: Performed at: [facility] [id number] [place], [place] [id number] Director: Luan Cheng PhD, Phone: [phone] at: [facility] [address] [id number] Director: Jasmyne Drummond MD, Phone: [phone] Glomerular filtration rate ( GFR) estimation/1.73 sq m using serum, plasma, or whole bOrdered By: Mary Ellen Jules on 02-28-2025 GFR/1.73 sq M.predicted among non-blacks MDRD (S/P/Bld) [Vol rate/Area] 85 mL/min/{1.73_m2} >60 [facility] Comment on above: mL/min/1.73m2 CKD-EP I Creatinine Equation (2020) Hematocrit Auto (Bld) [Volum e fraction]Ordered By: Mary Ellen Jules on 02-28-2025 Hematocrit (Bld) [Volume fraction] 46.9 % 40-54 [facility] Hemoglobin A1con 02-28-2025 HbA1c (Bld) [Mass fraction] 5.8 % High <=5.6 [facility] Comment on above: Result Comment: Norm al < 5.7 % Prediabetic 5.7 - 6.4 % Diabetic >or= 6.5 % Please note range changes. Performed By: #### L 506.0400, L100.0100, L501.5200, L101.9900, L501.9910, L500.4100, L3100.5310, L506.1001, L501.9985, L500.4050, L503.0106, L501.80080, L501.9520 #### [facility] [address] [facility] [place], [address] Hemoglobin A1c percentageOrd ered By: Mary Ellen Jules on 02-28-2025 HbA1c (Bld) [Mass fraction] 5.8 % High <5.7 [facility] Comment on above: Normal < 5.7 % Predi abetic 5.7 - 6.4 % Diabetic >or= 6.5 % Please note range changes. Hemoglobin measurementOrdere d By: Mary Ellen Jules on 02-28-2025 Hemoglobin (Bld) [Mass/Vol] 15.5 g/dL 13.0-16.5 [facility] Immature granulocytes/100 WB C Auto (Bld)Ordered By: Mary Ellen Jules on 02-28-2025 Immature granulocytes/100 WBC (Bld) 0.200 % 0.0-0.9 [facility] Comment on above: IG% - Immature Granu locytes (promyelocytes, myelocytes and metamyelocytes) > 1% indicates that a LEFT SHIFT is Present. LDL calc ser/plasOrdered By: Mary Ellen Jules on 02-28-2025 Cholesterol in LDL [Mass/Vol] 149 mg/dL [facility] Comment on above: Rpjwoisjwe=588-918 m g/dL & Higher Flqu=842 mg/dL or greater Laboratory - Chemistry and C hemistry - challengeOrdered By: Mary Ellen Jules on 02-28-2025 AST [Catalytic activity/Vol] 24 U/L <38 [facility] Lipid Profileon 02-28-2025 CHOL:HDL 5.07 Normal [facility] Comment on above: Performed By: #### L 506.0400, L100.0100, L501.5200, L101.9900, L501.9910, L500.4100, L3100.5310, L506.1001, L501.9985, L500.4050, L503.0106, L501.70118, L501.9520 #### [facility] [address] [place], [place], [id number] Cholesterol [Mass/Vol] 208 mg/dL High <=200 [facility] Comment on above: Result Comment: Chol esterol level, Desirable <200 mg/dL Borderline high cholesterol 200-239 mg/dL High cholesterol >=240 mg/dL Recommendations of the NCEP Adult Treatment Panel for the following risk-cutoff thresholds for the [place] population. Performed By: #### L 506.0400, L100.0100, L501.5200, L101.9900, L501.9910, L500.4100, L3100.5310, L506.1001, L501.9985, L500.4050, L503.0106, L501.66613, L501.9520 #### [facility] [address] [place], [address] Cholesterol in HDL [Mass/Vol] 41 mg/dL Normal [facility] Comment on above: Result Comment: Livia onal Cholesterol Education Program (NCEP) guidelines: <40 mg/dL: Low HDL-cholesterol (major risk factor for CHD) >= 60 mg/dL: High HDL-cholesterol (negative risk factor for CHD) HDL-cholesterol is affected by a number of factors, e.g. smoking, exercise, hormones, sex and age. Performed By: #### L 506.0400, L100.0100, L501.5200, L101.9900, L501.9910, L500.4100, L3100.5310, L506.1001, L501.9985, L500.4050, L503.0106, L501.83623, L501.9520 #### [facility] [address] [place], [address] (135 Cholesterol in LDL [Mass/Vol] 149 mg/dL Normal [facility] Comment on above: Result Comment: Bord hnnfpz=539-354 mg/dL Higher Axzd=295 mg/dL or greater Performed By: #### L 506.0400, L100.0100, L501.5200, L101.9900, L501.9910, L500.4100, L3100.5310, L506.1001, L501.9985, L500.4050, L503.0106, L501.04963, L501.9520 #### [facility] [address] [facility] [place], [address] Cholesterol in VLDL [Mass/Vol] 18 mg/dL Normal 5-40 [facility] Comment on above: Performed By: #### L 506.0400, L100.0100, L501.5200, L101.9900, L501.9910, L500.4100, L3100.5310, L506.1001, L501.9985, L500.4050, L503.0106, L501.65716, L501.9520 #### [facility] [address] [place], [place], [id number] Triglyceride [Mass/Vol] 90 mg/dL Normal [facility] Comment on above: Result Comment: The drugs N-Acetylcysteine and Metamizole may falsely depress this assay. Normal range: <150 mg/dL Borderline High: 150-199 mg/dL High: 200-499 mg/dL Very High: >500 mg/dL Performed By: #### L 506.0400, L100.0100, L501.5200, L101.9900, L501.9910, L500.4100, L3100.5310, L506.1001, L501.9985, L500.4050, L503.0106, L501.96398, L501.9520 #### [facility] [address] [facility] [place], [place], [id number] MCV (mean corpuscular volume ) determinationOrdered By: Mary Ellen Jules on 02-28-2025 MCV (RBC) [Entitic vol] 95.7 fL High 80-94 [facility] Magnesiumon 02-28-2025 Magnesium [Mass/Vol] 2.0 mg/dL Normal 1.5-2.2 [facility] Comment on above: Performed By: #### L 506.0400, L100.0100, L501.5200, L101.9900, L501.9910, L500.4100, L3100.5310, L506.1001, L501.9985, L500.4050, L503.0106, L501.81136, L501.9520 ####[facility] [address] [place], [place], [id number] Magnesium measurement (mass/ volume)Ordered By: Mary Ellen Jules on 02-28-2025 Magnesium (Unsp spec) [Mass/Vol] 2.0 mg/dL 1.5-2.2 [facility] Mean corpuscular hemoglobin (MCH) determinationOrdered By: Mary Ellen Jules on 02-28-2025 MCH (RBC) [Entitic mass] 31.6 pg 27.0-32.0 [facility] Mean corpuscular hemoglobin concentration (MCHC) determinationOrdered By: Mary Ellen Jules on 02-28-2025 MCHC (RBC) [Mass/Vol] 33.0 g/dL 32-36 [facility] Mean platelet volume determi nationOrdered By: Mary Ellen Jules on 02-28-2025 Platelet mean volume (Bld) [Entitic vol] 10.1 fL 6.2-12.0 [facility] Monocyte percentageOrdered B y: Mary Ellen Jules on 02-28-2025 Monocytes/100 WBC (Bld) 6.8 % 0-10 [facility] Neutrophil percentageOrdered By: Mary Ellne Jules on 02-28-2025 Neutrophils/100 WBC (Bld) 45.8 % Low 47-70 [facility] Nucleated red blood cell per centageOrdered By: Mary Ellengalen Jules on 02-28-2025 Nucleated RBC/100 WBC (Bld) [Ratio] 0 % 0-5 [facility] PSA,Total - Annual Screenon 02-28-2025 PSA,TOT SCREEN 0.98 ng/mL Normal 0.02-4.00 [facility] Comment on above: Result Comment: This test [...] confirm baseline values. Performed By: #### L 506.0400, L100.0100, L501.5200, L101.9900, L501.9910, L500.4100, L3100.5310, L506.1001, L501.9985, L500.4050, L503.0106, L501.52489, L501.9520 ####[facility] [address] [place], [address] Platelet countOrdered By: Katina Jules on 02-28-2025 Platelets (Bld) [#/Vol] 199 10*3/uL 150-450 [facility] Potassium measurement (mass/ volume)Ordered By: Mary Ellen Jules on 02-28-2025 Potassium (Unsp spec) [Mass/Vol] 4.5 mmol/L 3.3-5.1 [facility] RBC Auto (Bld) [#/Vol]Ordere d By: Mary Ellen Jules on 02-28-2025 RBC (Bld) [#/Vol] 4.90 10*6/uL 4.6-6.2 [facility] Screening total cholesterol/ high density lipoprotein (HDL) cholesterol ratioOrdered By: Mary Ellen Jules on 02-28-2025 Cholesterol.total/Choles terol in HDL [Mass ratio] 5.07 {ratio} [facility] Serum creatinine measurement (mass/volume)Ordered By: Mary Ellen Jules on 02-28-2025 Creatinine [Mass/Vol] 0.91 mg/dL 0.70-1.20 [facility] Serum globulin measurementOr dered By: Mary Ellen Jules on 02-28-2025 Globulin (S) [Mass/Vol] 3.1 g/dL 2.2-4.2 [facility] Serum glucose measurement (m ass/volume)Ordered By: Mary Ellen Jules on 02-28-2025 Glucose [Mass/Vol] 118 mg/dL High 70-99 [facility] Serum or plasma alanine mehta otransferase (ALT) measurementOrdered By: Mary Ellen Jules on 02-28-2025 ALT [Catalytic activity/Vol] 27 U/L <47 [facility] Serum or plasma albumin sharon urement (mass/volume)Ordered By: Mary Ellen Jules on 02-28-2025 Albumin [Mass/Vol] 4.4 g/dL 3.4-4.8 [facility] Serum or plasma albumin/glob ulin mass ratioOrdered By: Mary Ellen Jules on 02-28-2025 Albumin/Globulin [Mass ratio] 1.4 {ratio} 0.9-2.4 [facility] Serum or plasma alkaline litzy sphatase measurementOrdered By: Mary Ellen Jules on 02-28-2025 ALP [Catalytic activity/Vol] 49 U/L 40-129 [facility] Serum or plasma calcium sharon urement (mass/volume)Ordered By: Mary Ellen Jules on 02-28-2025 Calcium [Mass/Vol] 9.4 mg/dL 7.6-11.0 [facility] Serum or plasma cholesterol in HDL measurement (mass/volume)Ordered By: Mary Ellen Jules on 02-28-2025 Cholesterol in HDL [Mass/Vol] 41 mg/dL >40 [facility] Comment on above: National Cholesterol Education Program (NCEP) guidelines:<40 mg/dL: Low HDL-cholesterol (major risk factor for CHD)>= 60 mg/dL: High HDL-cholesterol (negative risk factor for CHD)HDL-cholesterol is affected by a number of factors, e.g. smoking, exercise, hormones, sex and age. Serum or plasma cholesterol measurement (mass/volume)Ordered By: Mary Ellen Jules on 02-28-2025 Cholesterol [Mass/Vol] 208 mg/dL High <201 [facility] Comment on above: Cholesterol level, D esirable <200 mg/dLBorderline high cholesterol 200-239 mg/dLHigh cholesterol >=240 mg/dLRecommendations of the NCEP Adult Treatment Panel for the following risk-cutoff thresholds for the [place] population. Serum or plasma free testost erone measurement (mass/volume)Ordered By: Mary Ellen Jules on 02-28-2025 Testosterone Free [Mass/Vol] 13.32 ng/dL 5.00-21.00 [facility] Serum or plasma urea nitroge n measurement (mass/volume)Ordered By: Mary Ellen Jules on 02-28-2025 Urea nitrogen [Mass/Vol] 15 mg/dL 4-19 [facility] Sodium levelOrdered By: Tami Jules on 02-28-2025 Sodium [Moles/Vol] 139 mmol/L 133-145 [facility] T4 Free Directon 02-28-2025 T4 FREE DIRECT 1.00 ng/dL Normal 0.76-1.46 [facility] Comment on above: Order Comment: NUNK Performed By: #### L 506.0400, L100.0100, L501.5200, L101.9900, L501.9910, L500.4100, L3100.5310, L506.1001, L501.9985, L500.4050, L503.0106, L501.43481, L501.9520 ####[facility] [address] [place], [place], [id number] T4 freeOrdered By: Mary Ellen ríos on 02-28-2025 Free T4 [Mass/Vol] 1.00 ng/dL 0.76-1.46 [facility] TSH DL <= 0.005 mIU/L QnOrde red By: Mary Ellen Jules on 02-28-2025 TSH Qn 4.560 uIU/mL High 0.300-4.200 [facility] Testosterone, totalOrdered B y: Mary Ellen Jules on 02-28-2025 Testosterone [Mass/Vol] 535 ng/dL 264-916 [facility] Comment on above: Adult male reference interval is based on a population ofhealthy nonobese males (BMI <30) between 19 and 39 yearsold. Sharmaine, et.al. JCEM 2017,102;4542-2444. PMID:[id number]. Thyroid Stim Hormone (TSH)on 02-28-2025 TSH 4.560 uIU/mL High 0.300-4.200 [facility] Comment on above: Performed By: #### L 506.0400, L100.0100, L501.5200, L101.9900, L501.9910, L500.4100, L3100.5310, L506.1001, L501.9985, L500.4050, L503.0106, L501.55871, L501.9520 ####[facility] [address] [place], [place], [id number] Total proteinOrdered By: Leslie Jules on 02-28-2025 Protein [Mass/Vol] 7.5 g/dL 5.9-8.4 [facility] Triglycerides measurementOrd ered By: Mary Ellen Jules on 02-28-2025 Triglyceride [Mass/Vol] 90 mg/dL <199 [facility] Comment on above: The drugs N-Acetylcy steine and Metamizole may falsely depress this assay. Normal range: <150 mg/dLBorderline High: 150-199 mg/dLHigh: 200-499 mg/dLVery High: >500 mg/dL Vitamin B12on 02-28-2025 Cobalamin (Vitamin B12) [Mass/Vol] 425 pg/mL Normal 180-914 [facility] Comment on above: Performed By: #### L 506.0400, L100.0100, L501.5200, L101.9900, L501.9910, L500.4100, L3100.5310, L506.1001, L501.9985, L500.4050, L503.0106, L501.18539, L501.9520 ####[facility] [id number] [facility] [place], [place], [id number] Vitamin B12 ser/plasOrdered By: Mary Ellen Jules on 02-28-2025 Cobalamin (Vitamin B12) [Mass/Vol] 425 pg/mL 180-914 [facility] Vitamin D,25 Hydroxyon 02-28 Vitamin D 25-OH 13.8 ng/mL Low 30-100 [facility] Comment on above: Result Comment: Gayle min D Status Deficiency: <20 ng/mL (50nmol/L) Insufficiency: 20-30 ng/mL (50-75 nmol/L) Sufficiency: 30-100 ng/mL (75-250 nmol/L) Toxicity: >100 ng/mL (>250 nmol/L) Performed By: #### L 506.0400, L100.0100, L501.5200, L101.9900, L501.9910, L500.4100, L3100.5310, L506.1001, L501.9985, L500.4050, L503.0106, L501.94691, L501.9520 ####[facility] [id number] [facility] [place], [place], [id number] White blood cell (WBC) count Ordered By: Mary Ellen Jules on 02-28-2025 WBC (Bld) [#/Vol] 5.4 10*3/uL 4.4-11.0 [facility] Cytology, Body Fluid / CSFon 11-01-2024 CYTOLOGY,BF/CSF SEE PATHOLOGY REPORT Normal [facility] Comment on above: Order Comment: URINE Result Comment: Spec imen submitted to Anatomical Pathology Department for testing. Performed By: #### L 350.1000 #### [facility] [address] [place], [place], [address] Pap Stain (control)on 2024 Pap Stain (control) Patient Age/Sex Location Account Attending Physician ARIA HERNANDEZ 79/M LABSPEC [id number] Isa Rogers Specimen: [id number] Received: 11/01/24 Status: ANGUS Crystal Num: [id number] Spec Type: CYSPIN FL Subm Dr: Isa Rogers HEADER OPERATION: Not noted [...] for cytology preparation. Mr 11/02/2024 TC:2 CPT: 37577 Signed (signature on file) Dr. Gennaro Rivas MD 11/02/24 1546 Normal [facility] Comment on above: Performed By: #### L 501.6710, L101.9900 #### [facility] [address] [place], [place], [address] Urine Cultureon 07-26-2024 [facility] Culture exhibits no growth. Normal [facility] Comment on above: Performed By: #### L 501.6710, L101.9900 #### [facility] [address] [place], [place], [address] CRPon 07-25-2024 C-REACTIVE PROT < 2.90 Normal 0.0-3.0 [facility] Comment on above: Result Comment: C-Re active Protein (CRP) provides useful information for the diagnosis, therapy and monitoring of inflammatory processes and associated diseases. For the evaluation of Relative Risk for Cardiovascular Disease, a High Sensitivity CRP (HSCRP) should be ordered. Performed By: #### L 501.6710, L101.9900 #### [facility] [address] [place], [address] Erythrocyte Sed Rateon 07-25 SED RATE 20 mm/hr Normal 0-20 [facility] Comment on above: Performed By: #### L 501.6710, L101.9900 #### [facility] [address] [place], [address] Urinalysis, Completeon 07-25 EPI,SQUAMOUS 0-5 SEEN Normal 0-5 [facility] Comment on above: Order Comment: CHLOE CTOR TO SPECIFY Performed By: #### L 501.6710, L101.9900 #### [facility] [address] [place], [address] RBC 0-5 SEEN Normal 0-5 [facility] Comment on above: Order Comment: CHLOE CTOR TO SPECIFY Performed By: #### L 501.6710, L101.9900 #### [facility] [address] [place], [address] WBC 5-10 SEEN Normal 0-5 [facility] Comment on above: Order Comment: COLLE CTOR TO SPECIFY Performed By: #### L 501.6710, L101.9900 #### [facility] [address] [place], [address] BACTERIA 0 SEEN Normal None Seen [facility] Comment on above: Order Comment: COLLE CTOR TO SPECIFY Performed By: #### L 501.6710, L101.9900 #### [facility] [address] [place], [address] Mucus Ql (Urine sed) [address] [facility] Comment on above: Order Comment: COLLE CTOR TO SPECIFY Performed By: #### L 501.6710, L101.9900 #### [facility] [address] [place], [address] CBC W/Diff, Automatedon 06-26 Absolute Lymph 1.67 X10 3/uL Normal 0.83-4.51 [facility] Comment on above: Performed By: #### L 100.0100, L101.9900, L400.0001, L504.2610, L501.6710, L500.4050 ####[facility] [address] [place], [address] Absolute Neut 4.8 X10 3/uL Normal 2.0-7.7 [facility] Comment on above: Performed By: #### L 100.0100, L101.9900, L400.0001, L504.2610, L501.6710, L500.4050 ####[facility] [address] [place], [address] Basophils/100 WBC (Bld) 0.8 % Normal 0-1 [facility] Comment on above: Performed By: #### L 100.0100, L101.9900, L400.0001, L504.2610, L501.6710, L500.4050 ####[facility] [address] [place], [address] Eosinophils/100 WBC (Bld) 2.6 % Normal 0-5 [facility] Comment on above: Performed By: #### L 100.0100, L101.9900, L400.0001, L504.2610, L501.6710, L500.4050 ####[facility] [address] [place], [address] Erythrocyte distribution width (RBC) [Ratio] 13.1 % Normal 11.6-14.6 [facility] Comment on above: Performed By: #### L 100.0100, L101.9900, L400.0001, L504.2610, L501.6710, L500.4050 ####[facility] [address] [place], [address] Hematocrit (Bld) [Volume fraction] 42.8 % Normal 40-54 [facility] Comment on above: Performed By: #### L 100.0100, L101.9900, L400.0001, L504.2610, L501.6710, L500.4050 ####[facility] [address] [place], [address] Hemoglobin (Bld) [Mass/Vol] 13.7 g/dL Normal 13.0-16.5 [facility] Comment on above: Performed By: #### L 100.0100, L101.9900, L400.0001, L504.2610, L501.6710, L500.4050 ####[facility] [address] [place], [address] IG% 1.200 High 0.0-0.9 [facility] Comment on above: Result Comment: IG% - Immature Granulocytes (promyelocytes, myelocytes and metamyelocytes) > 1% indicates that a LEFT SHIFT is Present. Performed By: #### L 100.0100, L101.9900, L400.0001, L504.2610, L501.6710, L500.4050 ####[facility] [address] [place], [address] Lymphocytes/100 WBC (Bld) 22.1 % Normal 19-41 [facility] Comment on above: Performed By: #### L 100.0100, L101.9900, L400.0001, L504.2610, L501.6710, L500.4050 ####[facility] [address] [place], [address] MCH (RBC) [Entitic mass] 30.4 pg Normal 27.0-32.0 [facility] Comment on above: Performed By: #### L 100.0100, L101.9900, L400.0001, L504.2610, L501.6710, L500.4050 ####[facility] [address] [place], [address] MCHC (RBC) [Mass/Vol] 32.0 g/dL Normal 32-36 [facility] Comment on above: Performed By: #### L 100.0100, L101.9900, L400.0001, L504.2610, L501.6710, L500.4050 ####[facility] [address] [place], [address] MCV (RBC) [Entitic vol] 94.9 fL High 80-94 [facility] Comment on above: Performed By: #### L 100.0100, L101.9900, L400.0001, L504.2610, L501.6710, L500.4050 ####[facility] [address] [place], [address] Monocytes/100 WBC (Bld) 9.4 % Normal 0-10 [facility] Comment on above: Performed By: #### L 100.0100, L101.9900, L400.0001, L504.2610, L501.6710, L500.4050 ####[facility] [address] [place], [address] Neutrophils/100 WBC (Bld) 63.9 % Normal 47-70 [facility] Comment on above: Performed By: #### L 100.0100, L101.9900, L400.0001, L504.2610, L501.6710, L500.4050 ####[facility] [address] [place], [address] Nucleated RBC (Bld) [#/Vol] 0 10*3/uL Normal 0-5 [facility] Comment on above: Performed By: #### L 100.0100, L101.9900, L400.0001, L504.2610, L501.6710, L500.4050 ####[facility] [address] [place], [address] Platelet mean volume (Bld) [Entitic vol] 9.5 fL Normal 6.2-12.0 [facility] Comment on above: Performed By: #### L 100.0100, L101.9900, L400.0001, L504.2610, L501.6710, L500.4050 ####[facility] [address] [place], [address] Platelets (Bld) [#/Vol] 328 10*3/uL Normal 150-450 [facility] Comment on above: Performed By: #### L 100.0100, L101.9900, L400.0001, L504.2610, L501.6710, L500.4050 ####[facility] [address] [place], [address] RBC (Bld) [#/Vol] 4.51 10*6/uL Low 4.6-6.2 [facility] Comment on above: Performed By: #### L 100.0100, L101.9900, L400.0001, L504.2610, L501.6710, L500.4050 ####[facility] [address] [place], [address] RDW SD 45.5 fl High 35.1-43.9 [facility] Comment on above: Performed By: #### L 100.0100, L101.9900, L400.0001, L504.2610, L501.6710, L500.4050 ####[facility] [address] [place], [address] WBC (Bld) [#/Vol] 7.6 10*3/uL Normal 4.4-11.0 [facility] Comment on above: Performed By: #### L 100.0100, L101.9900, L400.0001, L504.2610, L501.6710, L500.4050 ####[facility] [address] [place], [address] CRPon 07-12-2024 C-REACTIVE PROT 30.80 mg/L High 0.0-3.0 [facility] Comment on above: Order Comment: 1 Result Comment: C-Re active Protein (CRP) provides useful information for the diagnosis, therapy and monitoring of inflammatory processes and associated diseases. For the evaluation of Relative Risk for Cardiovascular Disease, a High Sensitivity CRP (HSCRP) should be ordered. Performed By: #### L 501.6710, L101.9900 #### [facility] [address] [place], [address] Comprehensive Metabolic Prof ilon 07-12-2024 Albumin [Mass/Vol] 3.3 g/dL Normal 3.2-5.0 [facility] Comment on above: Order Comment: 1 Performed By: #### L 501.6710, L101.9900 #### [facility] [address] [place], [address] Albumin/Globulin [Mass ratio] 0.7 {ratio} Low 0.9-2.4 [facility] Comment on above: Order Comment: 1 Performed By: #### L 501.6710, L101.9900 #### [facility] [address] [place], [address] ALK P 70 U/L Normal 45-117 [facility] Comment on above: Order Comment: 1 Performed By: #### L 501.6710, L101.9900 #### [facility] [address] [place], [address] ALT [Catalytic activity/Vol] 52 U/L Normal 16-61 [facility] Comment on above: Order Comment: 1 Performed By: #### L 501.6710, L101.9900 #### [facility] [address] [place], [address] AST [Catalytic activity/Vol] 26 U/L Normal 15-37 [facility] Comment on above: Order Comment: 1 Performed By: #### L 501.6710, L101.9900 #### [facility] [address] [place], [address] Bilirubin [Mass/Vol] 0.60 mg/dL Normal 0.20-1.00 [facility] Comment on above: Order Comment: 1 Result Comment: For patients on eltrombopag therapy, use of Dimension [place] TBIL is not recommended. Performed By: #### L 501.10, L101.9900 #### [facility] [address] [place], [address] BUN/CRE 18.0 RATIO Normal 10-20 [facility] Comment on above: Order Comment: 1 Performed By: #### L 501.6710, L101.9900 #### [facility] [address] [place], [address] CA,Total 9.5 mg/dL Normal 8.5-10.1 [facility] Comment on above: Order Comment: 1 Performed By: #### L 501.6710, L101.9900 #### [facility] [address] [place], [address] Chloride [Moles/Vol] 106 mmol/L Normal 98-107 [facility] Comment on above: Order Comment: 1 Performed By: #### L 501.6710, L101.9900 #### [facility] [address] [place], [address] CO2 [Moles/Vol] 24.0 mmol/L Normal 21.0-32.0 [facility] Comment on above: Order Comment: 1 Performed By: #### L 501.6710, L101.9900 #### [facility] [address] [place], [address] Creatinine [Mass/Vol] 0.94 mg/dL Normal 0.70-1.30 [facility] Comment on above: Order Comment: 1 Result Comment: The validity of the calculated GFR GFRAA in patients over 70 years has not been determined. Clinical correlation is essential. Performed By: #### L 501.6710, L101.9900 #### [facility] [address] [place], [address] EST GFR - AA 99 mL/min Normal >60 [facility] Comment on above: Order Comment: 1 Result Comment: Afri can Malian GFR Calc Performed By: #### L 501.6710, L101.9900 #### [facility] [address] [place], [address] GAP 8 Normal 5-15 [facility] Comment on above: Order Comment: 1 Performed By: #### L 501.6710, L101.9900 #### [facility] [address] [place], [address] GFR/1.73 sq M.predicted among non-blacks MDRD (S/P/Bld) [Vol rate/Area] 82 mL/min/{1.73_m2} Normal >60 [facility] Comment on above: Order Comment: 1 Result Comment: Non- GFR Calc Performed By: #### L 501.6710, L101.9900 #### [facility] [address] [place], [address] Globulin (S) [Mass/Vol] 4.5 g/dL High 2.2-4.2 [facility] Comment on above: Order Comment: 1 Performed By: #### L 501.6710, L101.9900 #### [facility] [address] [place], [address] Glucose [Mass/Vol] 109 mg/dL High 74-106 [facility] Comment on above: Order Comment: 1 Result Comment: Fast ing Glucose result from 100 to 125 mg/dL suggests IMPAIRED HOMEOSTASIS per A.D.A. criteria. Performed By: #### L 501.6710, L101.9900 #### [facility] [address] [place], [address] Potassium [Moles/Vol] 4.0 mmol/L Normal 3.5-5.1 [facility] Comment on above: Order Comment: 1 Performed By: #### L 501.6710, L101.9900 #### [facility] [address] [place], [address] Sodium [Moles/Vol] 138 mmol/L Normal 136-145 [facility] Comment on above: Order Comment: 1 Performed By: #### L 501.6710, L101.9900 #### [facility] [address] [place], [address] T PROT 7.8 g/dL Normal 6.4-8.2 [facility] Comment on above: Order Comment: 1 Performed By: #### L 501.6710, L101.9900 #### [facility] [address] [place], [address] Urea nitrogen [Mass/Vol] 17 mg/dL Normal 7-18 [facility] Comment on above: Order Comment: 1 Performed By: #### L 501.6710, L101.9900 #### [facility] [address] [place], [address] Erythrocyte Sed Rateon 07-12 SED RATE 65 mm/hr High 0-20 [facility] Comment on above: Performed By: #### L 100.0100, L101.9900, L400.0001, L504.2610, L501.6710, L500.4050 ####[facility] [address] [place], [address] LDHon 07-12-2024 LDH 224 U/L Normal 87-241 [facility] Comment on above: Order Comment: 1 Performed By: #### L 501.6710, L101.9900 #### [facility] [address] [place], [address] Urinalysis, Completeon 07-12 RBC 5-10 SEEN Normal 0-5 [facility] Comment on above: Order Comment: COLLE CTOR TO SPECIFY Performed By: #### L 501.6710, L101.9900 #### [facility] [address] [place], [address] BACTERIA 2+ /hpf Normal None Seen [facility] Comment on above: Order Comment: COLLE CTOR TO SPECIFY Performed By: #### L 501.10, L101.9900 #### [facility] [address] [place], [address] EPI,RENAL 10-25 SEEN Normal 0-5 [facility] Comment on above: Order Comment: COLLE CTOR TO SPECIFY Performed By: #### L 501.6710, L101.9900 #### [facility] [address] [place], [address] EPI,TRANSITION 0-5 SEEN Normal 0-5 [facility] Comment on above: Order Comment: COLLE CTOR TO SPECIFY Performed By: #### L 501.6710, L101.9900 #### [facility] [address] [place], [address] WBC >100 SEEN Normal 0-5 [facility] Comment on above: Order Comment: COLLE CTOR TO SPECIFY Performed By: #### L 501.6710, L101.9900 #### [facility] [address] [place], [address] EPI,SQUAMOUS 0 SEEN Normal 0-5 [facility] Comment on above: Order Comment: COLLE CTOR TO SPECIFY Performed By: #### L 501.6710, L101.9900 #### [facility] [address] [place], [address] Mucus Ql (Urine sed) 0 SEEN Normal [facility] Comment on above: Order Comment: CHLOE CTOR TO SPECIFY Performed By: #### L 501.6710, L101.9900 #### [facility] [address] [place], [address] MR/BMS.IMBon 05-26-2024 MR/BMS.IMB [facility] [address] [place], [place] [address] OFFICE VISIT Date of Service: 05/26/24 MR#: [id number] Acct: [id number] Name: ARIA HERNANDEZ Rep #: [id number] : 1945 Provider: Dr. 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 Normal [facility] Absolute lymphocyte countOrd ered By: Benedicto Garland on 10-14-2023 Lymphocytes Auto (Unsp spec) [#/Vol] 1.50 10*3/uL 0.83-4.51 [facility] Basophil percentageOrdered B y: Benedicto Garland on 10-14-2023 Basophils/100 WBC (Bld) 0.7 % 0-1 [facility] Chloride [Moles/Vol] 106 mmol/L 98-107 [facility] Eosinophils/100 WBC (Bld) 2.3 % 0-5 [facility] Glucose [Mass/Vol] 109 mg/dL 74-106 [facility] Comment on above: Fasting Glucose resu lt from 100 to 125 mg/dL suggests IMPAIRED HOMEOSTASIS per A.D.A. criteria. Neutrophils (Bld) [#/Vol] 4.6 10*3/uL 2.0-7.7 [facility] Neutrophils/100 WBC (Bld) 67.3 % 47-70 [facility] Potassium [Moles/Vol] 3.8 mmol/L 3.5-5.1 [facility] Sodium [Moles/Vol] 141 mmol/L 136-145 [facility] WBC (Bld) [#/Vol] 6.8 10*3/uL 4.4-11.0 [facility] Blood erythrocytes count (nu mber/volume)Ordered By: Benedicto Garland on 10-14-2023 RBC (Bld) [#/Vol] 4.80 10*6/uL 4.6-6.2 [facility] Blood hemoglobin measurement (mass/volume)Ordered By: Benedicto Garland on 10-14-2023 Hemoglobin (Bld) [Mass/Vol] 14.7 g/dL 13.0-16.5 [facility] Blood lymphocytes/100 leukoc ytesOrdered By: Benedicto Garland on 10-14-2023 Lymphocytes/100 WBC (Bld) 22.0 % 19-41 [facility] Blood monocytes/100 leukocyt esOrdered By: Benedicto Garland on 10-14-2023 Monocytes/100 WBC (Bld) 6.8 % 0-10 [facility] Blood platelet mean volumeOr dered By: Benedicto Garland on 10-14-2023 Platelet mean volume (Bld) [Entitic vol] 9.3 fL 6.2-12.0 [facility] Determination of erythrocyte mean corpuscular volume (MCV)Ordered By: Benedicto Garland on 10-14-2023 MCV (RBC) [Entitic vol] 94.4 fL 80-94 [facility] Hematocrit Auto (Bld) [Volum e fraction]Ordered By: Benedicto Garland on 10-14-2023 Hematocrit (Bld) [Volume fraction] 45.3 % 40-54 [facility] - Chemistry and C hemistry - challengeOrdered By: Benedicto Garland on 10-14-2023 CO2 [Moles/Vol] 25.0 mmol/L 21.0-32.0 [facility] Urea nitrogen/Creatinine [Mass ratio] 16.5 mg/mg 08-14 [facility] - Hematology and Cell countsOrdered By: Benedicto Garland on 10-14-2023 Erythrocyte distribution width (RBC) [Entitic vol] 44.2 fL 35.1-43.9 [facility] Erythrocyte distribution width (RBC) [Ratio] 12.8 % 11.6-14.6 [facility] Immature granulocytes/100 WBC (Bld) 0.900 % 0.0-0.9 [facility] Comment on above: IG% - Immature Granu locytes (promyelocytes, myelocytes and metamyelocytes) > 1% indicates that a LEFT SHIFT is Present. MCH (RBC) [Entitic mass] 30.6 pg 27.0-32.0 [facility] Nucleated RBC/100 WBC (Bld) [Ratio] 0 % 0-5 [facility] MCHC Auto (RBC) [Mass/Vol]Or dered By: Benedicto Garland on 10-14-2023 MCHC (RBC) [Mass/Vol] 32.5 g/dL 32-36 [facility] No Panel InformationOrdered By: Benedicto Garland on 10-14-2023 Estimated Creatinine Clearance Calc 61.94 ml/min [facility] Estimated GFR (MDRD) Amer 90 mL/min >60 [facility] Comment on above: GFR Calc Estimated GFR (MDRD) Non-Af Amer 74 mL/min >60 [facility] Comment on above: Non- GFR Calc Platelets bldOrdered By: Ida Garland on 10-14-2023 Platelets (Bld) [#/Vol] 243 10*3/uL 150-450 [facility] Serum or plasma calcium sharon urement (mass/volume)Ordered By: Benedicto Garland on 10-14-2023 Calcium [Mass/Vol] 8.9 mg/dL 8.5-10.1 [facility] Serum or plasma creatinine m easurement (mass/volume)Ordered By: Benedicto Garland on 10-14-2023 Creatinine [Mass/Vol] 1.03 mg/dL 0.70-1.30 [facility] Comment on above: The validity of the calculated GFR & GFRAA in patients over 70 years has not been determined. Clinical correlation is essential. Serum or plasma urea nitroge n measurement (mass/volume)Ordered By: Benedicto Garland on 10-14-2023 Urea nitrogen [Mass/Vol] 17 mg/dL 7-18 [facility] Thin prep Papanicolaou smear with manual screeningOrdered By: Benedicto Garland on 10-14-2023 Thin prep Papanicolaou smear with manual screening 10 5-15 [facility] Amorphous sediment detection in urine sediment by light microscopyOrdered By: Jabari [place] on 10-11-2023 Amorphous sediment LM Ql (Urine sed) 1+ URATE [facility] Basophil percentageOrdered B y: Jabari Elizabeth on 10-11-2023 Basophil percentage 0 SEEN /hpf 0-5 [facility] Bilirubin Test strip Ql (U)O rdered By: Jabari Elizabeth on 10-11-2023 Bilirubin Ql (U) Negative Negative [facility] Ketones Test strip Ql (U)Ord ered By: Jabari [place] on 10-11-2023 Ketones Ql (U) 5 mg/dl Negative [facility] Mucus LM Ql (Urine sed)Order ed By: Jabari Elizabeth on 10-11-2023 Mucus Ql (Urine sed) 0 SEEN /hpf [facility] Nitrite Test strip Ql (U)Ord ered By: Jabari Elizabeth on 10-11-2023 Nitrite Ql (U) Negative Negative [facility] Protein Test strip Ql (U)Ord ered By: Jabari Elizabeth on 10-11-2023 Protein Ql (U) 500 mg/dl Negative [facility] Squamous epithelial cells de tection in urine sediment by light microscopyOrdered By: Jabari Elizabeth on 10-11-2023 Epithelial cells.squamous LM Ql (Urine sed) 0-5 SEEN /hpf 0-5 [facility] Urine blood detectionOrdered By: Jabari Elizabeth on 10-11-2023 RBC Ql (U) 150 /ul Negative [facility] RBC Ql (U) > 100 SEEN /hpf 0-5 [facility] Urine clarityOrdered By: Peter [place] on 10-11-2023 Clarity (U) Cloudy Clear [facility] Urine color determinationOrd ered By: Jabari Elizabeth on 10-11-2023 Color (U) Red Yellow [facility] Urine glucose detectionOrder ed By: Jabari Elizabeth on 10-11-2023 Glucose Ql (U) Normal mg/dl Normal [facility] Urine leukocyte esterase det ection by dipstickOrdered By: Jabari Elizabeth on 10-11-2023 Leukocyte esterase Test strip Ql (U) Negative Negative [facility] Urine pHOrdered By: Jabari Elizabeth on 10-11-2023 pH (U) 6.5 [pH] 5.0 - 8.0 [facility] Urine sediment bacteria coun t by microscopy (number/high power field)Ordered By: Jabari Elizabeth on 10-11-2023 Bacteria LM.HPF (Urine sed) [#/Area] 0 /[HPF] None Seen [facility] Urine specific gravity measu rementOrdered By: Jabari Elizabeth on 10-11-2023 Specific gravity (U) [Rel density] 1.020 1.002-1.030 [facility] Urobilinogen Auto test strip Ql (U)Ordered By: Jabari Elizabeth on 10-11-2023 Urobilinogen Ql (U) Normal mg/dl Normal [facility] Basophil percentageOrdered B y: Isa Rogers on 08-03-2023 Basophil percentage < 0.9 mg/dL 0.70-1.30 [facility] No Panel InformationOrdered By: Isa Rogers on 08-03-2023 Bedside Estimated GFR (eGFR) > 60.0000 mL/min >60 [facility] Absolute lymphocyte countOrd ered By: Dr. Jules on 12-25-2022 Lymphocytes Auto (Unsp spec) [#/Vol] 2.61 10*3/uL 0.83-4.51 [facility] Basophil percentageOrdered B y: Dr. Jules on 12-25-2022 Basophils/100 WBC (Bld) 0.8 % 0-1 [facility] Bilirubin [Mass/Vol] 0.70 mg/dL 0.20-1.00 [facility] Comment on above: For patients on eltr ombopag therapy, use of Dimension [place] TBIL is not recommended. Chloride [Moles/Vol] 104 mmol/L 98-107 [facility] Cholesterol [Mass/Vol] 185 mg/dL <200 [facility] Comment on above: <200 mg/dL Desirable 200-240 mg/dL Borderline >240 mg/dL High Risk Eosinophils/100 WBC (Bld) 5.2 % 0-5 [facility] Glucose [Mass/Vol] 100 mg/dL 74-106 [facility] Comment on above: Fasting Glucose resu lt from 100 to 125 mg/dL suggests IMPAIRED HOMEOSTASIS per A.D.A. criteria. Neutrophils (Bld) [#/Vol] 2.0 10*3/uL 2.0-7.7 [facility] Neutrophils/100 WBC (Bld) 37.5 % 47-70 [facility] Potassium [Moles/Vol] 3.9 mmol/L 3.5-5.1 [facility] Protein [Mass/Vol] 7.5 g/dL 6.4-8.2 [facility] Sodium [Moles/Vol] 138 mmol/L 136-145 [facility] Triglyceride [Mass/Vol] 111 mg/dL <199 [facility] Comment on above: The drugs N-Acetylcy steine and Metamizole may falsely depress this assay.Serum Triglycerides Reference Interval Normal <150 mg/dL Borderline high 150 - 199 mg/dL High 200 - 499 mg/dL Very High > or = 500 mg/dL WBC (Bld) [#/Vol] 5.2 10*3/uL 4.4-11.0 [facility] Blood erythrocytes count (nu mber/volume)Ordered By: Dr. Jules on 12-25-2022 RBC (Bld) [#/Vol] 5.07 10*6/uL 4.6-6.2 [facility] Blood hemoglobin measurement (mass/volume)Ordered By: Dr. Jules on 12-25-2022 Hemoglobin (Bld) [Mass/Vol] 15.6 g/dL 13.0-16.5 [facility] Blood lymphocytes/100 leukoc ytesOrdered By: Dr. Jules on 12-25-2022 Lymphocytes/100 WBC (Bld) 50.0 % 19-41 [facility] Blood monocytes/100 leukocyt esOrdered By: Dr. Jules on 12-25-2022 Monocytes/100 WBC (Bld) 6.1 % 0-10 [facility] Blood platelet mean volumeOr dered By: Dr. Jules on 12-25-2022 Platelet mean volume (Bld) [Entitic vol] 9.4 fL 6.2-12.0 [facility] Determination of erythrocyte mean corpuscular volume (MCV)Ordered By: Dr. Jules on 12-25-2022 MCV (RBC) [Entitic vol] 94.3 fL 80-94 [facility] Hematocrit Auto (Bld) [Volum e fraction]Ordered By: Dr. Jules on 12-25-2022 Hematocrit (Bld) [Volume fraction] 47.8 % 40-54 [facility] - Chemistry and C hemistry - challengeOrdered By: Dr. Jules on 12-25-2022 ALP [Catalytic activity/Vol] 50 U/L 45-117 [facility] ALT [Catalytic activity/Vol] 33 U/L 16-61 [facility] CO2 [Moles/Vol] 29.0 mmol/L 21.0-32.0 [facility] Globulin (S) [Mass/Vol] 3.7 g/dL 2.2-4.2 [facility] Urea nitrogen/Creatinine [Mass ratio] 17.8 mg/mg 10-20 [facility] - Hematology and Cell countsOrdered By: Dr. Jules on 12-25-2022 Erythrocyte distribution width (RBC) [Entitic vol] 44.2 fL 35.1-43.9 [facility] Erythrocyte distribution width (RBC) [Ratio] 12.8 % 11.6-14.6 [facility] Immature granulocytes/100 WBC (Bld) 0.400 % 0.0-0.9 [facility] Comment on above: IG% - Immature Granu locytes (promyelocytes, myelocytes and metamyelocytes) > 1% indicates that a LEFT SHIFT is Present. MCH (RBC) [Entitic mass] 30.8 pg 27.0-32.0 [facility] Nucleated RBC/100 WBC (Bld) [Ratio] 0 % 0-5 [facility] MCHC Auto (RBC) [Mass/Vol]Or dered By: Dr. Jules on 12-25-2022 MCHC (RBC) [Mass/Vol] 32.6 g/dL 32-36 [facility] No Panel InformationOrdered By: Dr. Jules on 12-25-2022 Estimated GFR (MDRD) Amer 98 mL/min >60 [facility] Comment on above: GFR Calc Estimated GFR (MDRD) Non-Af Amer 81 mL/min >60 [facility] Comment on above: Non- GFR Calc Prostate Specific Antigen Screen 3.19 ng/mL 0.00-4.00 [facility] Comment on above: This test was perfor med using the TPSA assay method for theAtavist chemistry system. Values obtained with differentassay methods cannot be used interchangably.When changing PSA assays in the course of monitoring apatient, additional sequential testing should be carriedout to confirm baseline values. Thyroid Stimulating Hormone (TSH) 2.08 uIU/mL 0.358-3.74 [facility] Vitamin D 25-Hydroxy 14.4 ng/mL [facility] Comment on above: Vitamin D 25(OH) Sta tus Range Deficiency <20 ng/mL (50nmol/L) Insufficiency 20 - 30 ng/mL (50 - 75 nmol/L) Sufficiency 30 - 100 ng/mL (75 - 250 nmol/L) Toxicity >100 ng/mL (>250 nmol/L) Platelets bldOrdered By: Dr. Jules on 12-25-2022 Platelets (Bld) [#/Vol] 207 10*3/uL 150-450 [facility] Serum or plasma albumin sharon urement (mass/volume)Ordered By: Dr. Jules on 12-25-2022 Albumin [Mass/Vol] 3.8 g/dL 3.2-5.0 [facility] Serum or plasma albumin/glob ulin mass ratioOrdered By: Dr. Jules on 12-25-2022 Albumin/Globulin [Mass ratio] 1.0 {ratio} 0.9-2.4 [facility] Serum or plasma calcium sharon urement (mass/volume)Ordered By: Dr. Jules on 12-25-2022 Calcium [Mass/Vol] 9.0 mg/dL 8.5-10.1 [facility] Serum or plasma cholesterol in HDL measurement (mass/volume)Ordered By: Dr. Jules on 12-25-2022 Cholesterol in HDL [Mass/Vol] 36 mg/dL >40 [facility] Comment on above: The drugs N-Acetylcy steine and Metamizole may falsely depress this assay. Reference Range HDL <40 mg/dL Low HDL Cholesterol HDL >or= 60 mg/dL High HDL Cholesterol Serum or plasma cholesterol in VLDL measurement (mass/volume)Ordered By: Dr. Jules on 12-25-2022 Cholesterol in VLDL [Mass/Vol] 22 mg/dL 5-40 [facility] Serum or plasma creatinine m easurement (mass/volume)Ordered By: Dr. Jules on 12-25-2022 Creatinine [Mass/Vol] 0.96 mg/dL 0.70-1.30 [facility] Comment on above: The validity of the calculated GFR & GFRAA in patients over 70 years has not been determined. Clinical correlation is essential. Serum or plasma low density lipoprotein (LDL) cholesterol measurement (mass/volume)Ordered By: Dr. Jules on 12-25-2022 Cholesterol in LDL [Mass/Vol] 127 mg/dL 0-130 [facility] Serum or plasma urea nitroge n measurement (mass/volume)Ordered By: Dr. Jules on 12-25-2022 Urea nitrogen [Mass/Vol] 17 mg/dL 7-18 [facility] Thin prep Papanicolaou smear with manual screeningOrdered By: Dr. Jules on 12-25-2022 Thin prep Papanicolaou smear with manual screening 24 U/L 15-37 [facility] Thin prep Papanicolaou smear with manual screening 5 5-15 [facility] CNCOon 12-04-2021 CNCO Letter Text Normal [facility]20[facility] ARIA HERNANDEZ ([id number]) 1945 M TXT Date Time Provider Department 10/04/21 [facility] PACHECO [facility] During your visit today, we recorded the following information about you: Anabella Barfield 10/04/2021 6:21 PM Signed Contacted patient they will do a rapid test so no need to schedule Anabella Barfield Allergies As of Date: 10/04/2021 Noted Allergy [...] Encounter Status:Closed by ANABELLA GONG on 10/04/21 Normal [facility] OBSOLETEon 05-28-2021 OBSOLETE Refill (FAMPWS) ARIA HERNANDEZ ([id number]) 1945 M TXT Date Time Provider Department 05/28/21 [facility] During your visit today, we recorded the following information about you: Kaylan Nacho 05/28/2021 11:55 AM Signed Patient phones requesting refills as follows: Pending Prescriptions Disp Refills OMEPRAZOLE 20 MG CAPSULE,DELAYED RELEASE 90 capsule 3 Sig: Take 1 capsule by mouth once daily. SAMMI: No ABIGAIL-12/10/20 with PCP Labs-11/27/20 NOV-none Please review and advise. 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 Encounter Status:Closed by ANDRE WEISS on 04/08/21 Normal [facility] Vital Signs Date Time Vital Sign Value Performing Clinician Faci lity 05-10-2025 13:57-0400 Body height 180.[address] Mary Ellen Jules MD Work Phone: [facility] 05-10-2025 13:57-0400 Body mass index (BMI) [Ratio] 25.7 kg/m2 Dr. Mary Ellen Jules MD Work Phone: [facility] 05-10-2025 13:57-0400 Body temperature 98.6 [degF] Dr. Mary Ellen Jules MD Work Phone: [facility] 05-10-2025 13:57-0400 Body weight 83.[address] Mary Ellen Jules MD Work Phone: [facility] 05-10-2025 13:57-0400 Diastolic blood pressure 70 mm[Hg] Dr. Mary Ellen Jules MD Work Phone: [facility] 05-10-2025 13:57-0400 Heart rate 80 /min Dr. Mary Ellen Jules MD Work Phone: [facility] 05-10-2025 13:57-0400 Respiratory rate 16 /min Dr. Mary Ellen Jules MD Work Phone: [facility] 05-10-2025 13:57-0400 SaO2% (BldA) [Mass fraction] 93 % Dr. Mary Ellen Jules MD Work Phone: [facility] 05-10-2025 13:57-0400 Systolic blood pressure 126 mm[Hg] Dr. Mary Ellen Jules MD Work Phone: [facility] 03-30-2025 07:57-0400 Body height 180.[address] Mary Ellen Jules MD Work Phone: [facility] 03-30-2025 07:57-0400 Body mass index (BMI) [Ratio] 25.8 kg/m2 Dr. Mary Ellen Jules MD Work Phone: [facility] 03-30-2025 07:57-0400 Body temperature 98.2 [degF] Dr. Mary Ellen Jules MD Work Phone: [facility] 03-30-2025 07:57-0400 Body weight 84.[address] Mary Ellen Jules MD Work Phone: [facility] 03-30-2025 07:57-0400 Diastolic blood pressure 70 mm[Hg] Dr. Mary Ellen Jules MD Work Phone: [facility] 03-30-2025 07:57-0400 Heart rate 78 /min Dr. Mary Ellen Jules MD Work Phone: [facility] 03-30-2025 07:57-0400 Respiratory rate 16 /min Dr. Mary Ellen Jules MD Work Phone: [facility] 03-30-2025 07:57-0400 SaO2% (BldA) [Mass fraction] 94 % Dr. Mary Ellen Jules MD Work Phone: [facility] 03-30-2025 07:57-0400 Systolic blood pressure 128 mm[Hg] Dr. Mary Ellen Jules MD Work Phone: [facility] 10-15-2023 09:49-0500 Body temperature 98.6 [degF] Dr. Mary Ellen Jules Work Phone: [facility] 10-15-2023 09:49-0500 Diastolic blood pressure 72 mm[Hg] Dr. Mary Ellen Jules Work Phone: [facility] 10-15-2023 09:49-0500 Heart rate 83 /min Dr. Mary Ellen Jules Work Phone: [facility] 10-15-2023 09:49-0500 Respiratory rate 16 /min Dr. Mary Ellen Jules Work Phone: [facility] 10-15-2023 09:49-0500 SaO2% (BldA) [Mass fraction] 96 % Dr. Mary Ellen Jules Work Phone: [facility] 10-15-2023 09:49-0500 Systolic blood pressure 138 mm[Hg] Dr. Mary Ellen Jules Work Phone: [facility] 10-14-2023 19:52-0500 Body height 180.[address] Mary Ellen Jules Work Phone: [facility] 10-14-2023 19:52-0500 Body mass index (BMI) [Ratio] 25.4 kg/m2 Dr. Mary Ellen Jules Work Phone: [facility] 10-14-2023 19:52-0500 Body weight 82.[address] Mary Ellen Jules Work Phone: [facility] 10-14-2023 19:06-0500 Diastolic blood pressure 87 mm[Hg] Dr. Mary Ellen Jules Work Phone: [facility] 10-14-2023 19:06-0500 Heart rate 72 /min Dr. Mary Ellen Jules Work Phone: [facility] 10-14-2023 19:06-0500 Respiratory rate 16 /min Dr. Mary Ellen Jules Work Phone: [facility] 10-14-2023 19:06-0500 SaO2% (BldA) [Mass fraction] 97 % Dr. Mary Ellen Jules Work Phone: [facility] 10-14-2023 19:06-0500 Systolic blood pressure 142 mm[Hg] Dr. Mary Ellen Jules Work Phone: [facility] 10-14-2023 16:52-0500 Body height 180.[address] Mary Ellen Jules Work Phone: [facility] 10-14-2023 16:52-0500 Body mass index (BMI) [Ratio] 26.2 kg/m2 Dr. Mary Ellen Jules Work Phone: [facility] 10-14-2023 16:52-0500 Body temperature 98.6 [degF] Dr. Mary Ellen Jules Work Phone: [facility] 10-14-2023 16:52-0500 Body weight 85.[address] Mary Ellen Jules Work Phone: [facility] 10-11-2023 21:00-0500 Body height 180.[address] Mary Ellen Jules Work Phone: [facility] 10-11-2023 21:00-0500 Body mass index (BMI) [Ratio] 26.5 kg/m2 Dr. Mary Ellen Jules Work Phone: [facility] 10-11-2023 21:00-0500 Body temperature 97.5 [degF] Dr. Mary Ellen Jules Work Phone: [facility] 10-11-2023 21:00-0500 Body weight 86.[address] Mary Ellen Jules Work Phone: [facility] 10-11-2023 21:00-0500 Diastolic blood pressure 81 mm[Hg] Dr. Mary Ellen Jules Work Phone: [facility] 10-11-2023 21:00-0500 Heart rate 91 /min Dr. Mary Ellen Jules Work Phone: [facility] 10-11-2023 21:00-0500 Respiratory rate 16 /min Dr. Mary Ellen Jules Work Phone: [facility] 10-11-2023 21:00-0500 SaO2% (BldA) [Mass fraction] 94 % Dr. Mary Ellen Jules Work Phone: [facility] 10-11-2023 21:00-0500 Systolic blood pressure 142 mm[Hg] Dr. Mary Ellen Jules Work Phone: [facility] 10-07-2023 16:57-0500 Body temperature 97.7 [degF] Dr. Mary Ellen Jules Work Phone: [facility] 10-07-2023 16:57-0500 Diastolic blood pressure 76 mm[Hg] Dr. Mary Ellen Jules Work Phone: [facility] 10-07-2023 16:57-0500 Heart rate 67 /min Dr. Mary Ellen Jules Work Phone: [facility] 10-07-2023 16:57-0500 Respiratory rate 16 /min Dr. Mary Ellen Jules Work Phone: [facility] 10-07-2023 16:57-0500 SaO2% (BldA) [Mass fraction] 98 % Dr. Mary Ellen Jules Work Phone: [facility] 10-07-2023 16:57-0500 Systolic blood pressure 153 mm[Hg] Dr. Mary Ellen Jules Work Phone: [facility] 10-07-2023 13:07-0500 Body height 180.[address] Mary Ellen Jules Work Phone: [facility] 10-07-2023 13:07-0500 Body mass index (BMI) [Ratio] 25.4 kg/m2 Dr. Mary Ellen Jules Work Phone: [facility] 10-07-2023 13:07-0500 Body weight [address] Mary Ellen Jules Work Phone: [facility] 07-07-2023 14:03-0400 Body height 180.[address] Mary Ellen Jules Work Phone: [facility] 07-07-2023 14:03-0400 Body mass index (BMI) [Ratio] 25.7 kg/m2 Dr. Mary Ellen Jules Work Phone: [facility] 07-07-2023 14:03-0400 Body temperature 97.3 [degF] Dr. Mary Ellen Jules Work Phone: [facility] 07-07-2023 14:03-0400 Body weight 83.[address] Mary Ellen Jules Work Phone: [facility] 07-07-2023 14:03-0400 Diastolic blood pressure 75 mm[Hg] Dr. Mary Ellen Jules Work Phone: [facility] 07-07-2023 14:03-0400 Heart rate 69 /min Dr. Mary Ellen Jules Work Phone: [facility] 07-07-2023 14:03-0400 Respiratory rate 16 /min Dr. Mary Ellen Jules Work Phone: [facility] 07-07-2023 14:03-0400 SaO2% (BldA) [Mass fraction] 95 % Dr. Mary Ellen Jules Work Phone: [facility] 07-07-2023 14:03-0400 Systolic blood pressure 147 mm[Hg] Dr. Mary Ellen Jules Work Phone: [facility] 06-17-2023 10:55-0400 Body mass index (BMI) [Ratio] 25.7 kg/m2 Dr. Mary Ellen Jules Work Phone: [facility] 06-17-2023 10:55-0400 Body temperature 98.3 [degF] Dr. Mary Ellen Jules Work Phone: [facility] 06-17-2023 10:55-0400 Body weight 83.[address] Mary Ellen Jules Work Phone: [facility] 06-17-2023 10:55-0400 Diastolic blood pressure 76 mm[Hg] Dr. Mary Ellen Jules Work Phone: [facility] 06-17-2023 10:55-0400 Heart rate 73 /min Dr. Mary Ellen Jules Work Phone: [facility] 06-17-2023 10:55-0400 Respiratory rate 16 /min Dr. Mary Ellen Jules Work Phone: [facility] 06-17-2023 10:55-0400 SaO2% (BldA) [Mass fraction] 93 % Dr. Mary Ellen Jules Work Phone: [facility] 06-17-2023 10:55-0400 Systolic blood pressure 128 mm[Hg] Dr. Mary Ellen Jules Work Phone: [facility] Encounters Encounter Date Encounter Type Care Provider Facility Start: 05-11-2025 ambulatory [facility] Facility :[facility] Start: 05-10-2025 End: 05-10-[address] Mary Ellen Jules MD -[facility] Work Phone: Start: 05-10-2025 End: 05-10-[address] Mary Ellen Jules MD Work Phone: -[facility] Start: 05-09-2025 ambulatory Mary Ellen Jules Facility :[facility] Start: 05-09-2025 Patient encounter procedure Isa Rogers -Laboratory Specimen Work Phone: Start: 03-30-2025 End: 03-30-[address] Mary Ellen Jules MD -[facility] Work Phone: Start: 03-30-2025 End: 03-30-[address] Mary Ellen Jules MD Work Phone: [facility] Work Phone: Start: 02-28-2025 End: 02-28-[address] Mary Ellen Jules MD Work Phone: [facility] Work Phone: Start: 02-28-2025 End: 02-28-[address] Mary Ellen Jules MD -Laboratory, [facility] Start: 02-28-2025 End: 02-28-2025 ambulatory Mary Ellen Jules Facility:[facility] Start: 11-02-2024 ambulatory [place] Facili ty:[facility] Start: 11-01-2024 End: 11-01-2024 ambulatory [place] Facility:[facility] Start: 07-25-2024 End: 07-25-2024 [address] [facility] A Facility:[facility] Start: 07-12-2024 End: 07-12-2024 ambulatory Mary Ellengalen Jules Facility:[facility] Start: 05-26-2024 End: 05-26-2024 ambulatory Mary Ellen Jules Facility:[facility] Start: 10-14-2023 End: 10-15-2023 Evaluation and management of inpatient Dr. Mary Ellen Jules Work Phone: [facility] Work Phone: Start: 10-14-2023 End: 10-15-[address] Mary Ellen Jules Work Phone: [facility] Work Phone: Start: 10-11-2023 End: 10-12-2023 Emergency department patient visit Dr. Mary Ellen Jules Work Phone: [facility] Work Phone: Start: 10-07-2023 End: 10-07-2023 Non-patient / Non-visit Dr. Mary Ellen Jules Work Phone: [facility] Work Phone: Start: 10-07-2023 End: 10-07-2023 Admission to same day surgery center Dr. Mary Ellen Jules Work Phone: [facility] Start: 10-07-2023 End: 10-07-[address] Mary Ellen Jules Work Phone: [facility] Work Phone: Start: 08-03-2023 End: 08-03-[address] Mary Ellen Jules Work Phone: [facility] Work Phone: Start: 08-03-2023 End: 08-03-[address] Mary Ellen Jules Work Phone: [facility] Work Phone: Start: 07-07-2023 End: 07-07-[address] Mary Ellen Jules Work Phone: [facility] Work Phone: Start: 06-17-2023 End: 06-17-[address] Mary Ellen Jules Work Phone: [facility] Work Phone: Start: 12-25-2022 End: 12-25-2022 ambulatory [facility] Work Phone: Start: 12-25-2022 End: 12-25-2022 Patient encounter procedure [facility] Start: 04-18-2022 Angelia steiner PA-C Work Phone: [facility] Comment on above: Opened In Error Start: 04-07-2022 Angelia Weiss MD Work Phone: [facility] Comment on above: Refill Request Procedures [...] nmol/L) Start: 10-07-2023 Cysto,Transurethra R esec BladderTum Mit (Not Applicable) Dr. Mary Ellen Jules Work Phone: Start: 08-03-2023 Computed tomography of abdomen and pelvis with contrast Dr. Mary Ellen Jules Work Phone: Start: 12-08-2020 Adult depression scr eening assessment Andre Weiss MD Work Phone: Plan of Treatment Date Care Activity Detail Author Start: 11-27-2023 DIABETES SCREEN DIABETES SCREEN [facility] Start: 10-15-2023 Patient discharge [facility] Start: 10-15-2023 Application of intermittent pneumatic compression device [facility] Start: 10-14-2023 Following clinical pathway protocol [facility] Start: 10-14-2023 Admission procedure [facility] Start: 10-14-2023 Measuring intake and output [facility] Start: 10-14-2023 Patient education [facility] Start: 10-14-2023 Provision of activity privileges [facility] Start: 10-14-2023 Taking patient vital signs [facility] Start: 10-14-2023 Vital signs measurements [facility] Start: 10-14-2023 [facility] Start: 10-14-2023 Hospital admission, emergency, from emergency room, medical nature [facility] Start: 10-14-2023 Consultation [facility] Start: 10-12-2023 [facility] Start: 10-07-2023 Ambulation without limitation [facility] Start: 10-07-2023 Medical regimen orders management [facility] Start: 10-07-2023 Medication education [facility] Start: 10-07-2023 Patient discharge [facility] Start: 10-07-2023 Taking patient vital signs [facility] Start: 10-07-2023 End: 10-07-2023 [facility] Start: 10-07-2023 Anes transurethral resection of bladder tumor ANESTH BLADDER TUMOR SURG [facility] Start: 10-07-2023 Cystourethroscopy w/dest &/rmvl med bladder gibran CYSTOSCOPY AND TREATMENT [facility] Start: 06-17-2023 Patient referral [facility] Work Phone: Start: 12-08-2021 Adult depression screening assessment DEPRESSION SCREENING [facility] Start: 11-29-2021 COVID-19 VACCINE (4 - Booster for Pfizer series) COVID-19 VACCINE (4 - Booster for Pfizer series) [facility] Start: 10-26-2021 ADVANCE DIRECTIVE DISCUSSION ADVANCE DIRECTIVE DISCUSSION [facility] Start: 06-14-2009 Urine microalbumin profile DTAP,TDAP,TD (1 - Tdap) [facility] Start: 1963 HEPATITIS C SCREENING HEPATITIS C SCREENING [facility] Cytology report of B yasmin fluid Cyto stain [facility] Glucose [Mass/volume ] in Serum or Plasma [facility] Insulin [Mass/volume ] in Serum or Plasma [facility] Patient Education ED Hematuria [facility] Work Phone: Patient referral [facility] Work Phone: Serum testosterone measurement [facility] Testosterone Free [Mass/volume] in Serum or Plasma [facility] Testosterone measurement [facility] Immunizations Immunization Date Immunization Notes Care Provider Yvonne ridley 01-31-2025 Covid (Pfizer) Dr. Mary Ellen ríos MD Work Phone: [facility] 06-22-2024 Covid Pfizer Bivalen t Booster Dr. Mary Ellen Jules MD Work Phone: [facility] 06-22-2024 influenza, injectabl e, quadrivalent, preservative free Dr. Mary Ellen Jules MD Work Phone: [facility] 08-04-2023 influenza, injectabl e, quadrivalent, preservative free Dr. Mary Ellen Jules Work Phone: [facility] 08-04-2023 Pfizer Covid-19 (Comirnaty) Dr. Mary Ellen Jules Work Phone: [facility] 08-01-2022 Covid Pfizer Bivalen t Booster Dr. Mary Ellen Jules Work Phone: [facility] 08-01-2022 influenza, injectabl e, quadrivalent, preservative free Dr. Mary Ellen Jules Work Phone: [facility] 02-06-2022 Covid (Pfizer) Dr. Mary Ellen ríos Work Phone: [facility] 08-19-2021 influenza, high dose seasonal, preservative-free Andre Weiss MD Work Phone: [facility] 08-19-2021 influenza, injectabl e, quadrivalent, preservative free Dr. Mary Ellen Jules Work Phone: [facility] 07-29-2021 COVID-19 vaccine, ag e 12+ yr (PFIZER-BIONTECH - PURPLE TOP) Andre Weiss MD Work Phone: [facility] 12-29-2020 COVID-19 vaccine, ag e 12+ yr (PFIZER-BIONTECH - PURPLE TOP) Andre Weiss MD Work Phone: [facility] 12-08-2020 COVID-19 vaccine, ag e 12+ yr (PFIZER-BIONTECH - PURPLE TOP) Andre Weiss MD Work Phone: [facility] 10-24-2020 zoster vaccine recombinant Andre Weiss MD Work Phone: [facility] 06-28-2020 influenza, injectabl e, quadrivalent, preservative free Dr. Mary Ellen Jules Work Phone: [facility] 06-28-2020 zoster vaccine recombinant Andre Weiss MD Work Phone: [facility] 07-18-2019 Influenza, high dose seasonal Dr. Mary Ellen Jules MD Work Phone: [facility] 07-18-2019 influenza, high dose seasonal, preservative-free Andre Weiss MD Work Phone: [facility] 01-17-2019 influenza, injectabl e, quadrivalent, preservative free Dr. Mary Ellen Jules Work Phone: [facility] 01-17-2019 pneumococcal polysaccharide vaccine, [address] Mary Ellen Jules Work Phone: [facility] 08-27-2018 Influenza, high dose seasonal Dr. Mary Ellen Jules MD Work Phone: [facility] 08-27-2018 influenza, high dose seasonal, preservative-free Andre Weiss MD Work Phone: [facility] 08-25-2017 Influenza, high dose seasonal Dr. Mary Ellen Jules MD Work Phone: [facility] 08-25-2017 influenza, high dose seasonal, preservative-free Andre Weiss MD Work Phone: [facility] 01-01-2017 pneumococcal polysaccharide vaccine, 23 valent Andre Weiss MD Work Phone: [facility] Work Phone: 08-13-2016 Influenza, high dose seasonal Dr. Mary Ellen Jules MD Work Phone: [facility] 08-13-2016 influenza, high dose seasonal, preservative-free Andre Weiss MD Work Phone: [facility] Work Phone: 07-26-2015 influenza, high dose seasonal, preservative-free Andre Weiss MD Work Phone: [facility] 07-26-2015 influenza, injectabl e, quadrivalent, preservative free Dr. Mary Ellen Jules Work Phone: [facility] 06-27-2015 pneumococcal conjuga te vaccine, 13 valent Andre Weiss MD Work Phone: [facility] 07-24-2014 influenza, injectabl e, quadrivalent, preservative free Dr. Mary Ellen Jules Work Phone: [facility] 07-24-2014 influenza, seasonal, injectable Andre Weiss MD Work Phone: [facility] 08-12-2013 influenza virus vacc ine, unspecified formulation Andre Weiss MD Work Phone: [facility] 08-13-2012 influenza virus vacc ine, unspecified formulation Andre Weiss MD Work Phone: [facility] Work Phone: 08-06-2010 influenza, injectabl e, quadrivalent, preservative free Dr. Mary Ellen Jules Work Phone: [facility] 07-26-2009 zoster vaccine, live Andre Weiss MD Work Phone: [facility] Work Phone: 06-13-2009 tetanus and diphther ia toxoids, adsorbed, preservative free, for adult use (2 Lf of tetanus toxoid and 2 Lf of diphtheria toxoid) Andre Weiss MD Work Phone: [facility] 09-12-2008 influenza virus vacc ine, unspecified formulation Andre Weiss MD Work Phone: [facility] 09-03-2007 influenza virus vacc ine, unspecified formulation Andre Weiss MD Work Phone: [facility] Work Phone: 09-03-2007 pneumococcal polysaccharide vaccine, 23 valent Andre Weiss MD Work Phone: [facility] Work Phone: Payers Date Payer Category Payer Private Health Insurance [id number] 2024 Self-pay [id number] 2010 Medicare [employer] MEDICARE A ETNA MEDICARE PPO [id number] 2010-Present [phone] [address] [place] [address] PPO [id number] Private Health Insurance [employer] [id number] Unknown [id number] 62 Unknown [id number] 62 Unknown [id number] 62 Unknown [id number] 62 Unknown [id number] 62 Unknown [id number] 62 Unknown [id number] 62 Unknown [id number] 62 Unknown [id number] 62 Unknown [id number] 62 Social History Date Type Detail Facility Start: 05-26-2024 End: 05-09-2025 Tobacco smoking status PRIS Never smoked tobacco [facility] Start: 12-10-2020 Alcohol intake Current non-dr senior php developer of alcohol (finding) [facility] Start: 03-20-2020 History SDOH Alcohol Frequency 3 [facility] Start: 03-20-2020 End: 12-08-2020 History SDOH Alcohol Std Drinks 1 [facility] Start: 03-20-2020 End: 12-08-2020 History SDOH Social Connections Phone 2 [facility] Start: 03-20-2020 History SDOH Social Connections Get Together 98 [facility] Start: 03-20-2020 History SDOH Financial 5 [facility] Start: 03-20-2020 Education 20 [facility] Start: 1945 Sex Assigned At Male C [facility] Start: 05-22-2022 End: 10-14-2023 Tobacco smoking status NHIS Unknown if ever smoked [facility] Medical Equipment Procedure Code Equipment Code Equipment [...] Assessment Result Facility 10-15-2023 Functional status Ambulates [facility] Work Phone: Mental Status Date Assessment Result Facility 10-15-2023 Cognitive function Voice/Name [facility] Work Phone: 10-07-2023 Cognitive function Level Of Cons ciousness Awake;Alert;Appropriate;Follow s Commands [facility] Work Phone: 10-07-2023 Cognitive function Voice/Name [facility] Work Phone: Clinical Notes 06-07-2015 to 03-30-2025 Note Date & Type Note Facility 03-30-2025 Evaluation note Diagnosis Onset Date Resolution Generalized weakness acute March 30, 2025 7:52am GERD (gastroesophageal reflux disease) acute March 30, 2025 7 :52am History of benign prostatic hyperplasia acute March 30, 2025 7:52am Shakiness acute March 30, 2025 7:52am [facility] Work Phone: 1(183) 839-436412-21-2023 Progress note Author Joseph Carpenter [facility] October 15, 2023 7:20am Note Date/Time October 15, 2023 7:20am [facility] Medical Records Department [address] [place] [address] Progress Note - Urology 10/15/23 0719 MR#: [id number] Acct: [id number] Name: ARIA HERNANDEZ Rep #:[id number] : 1945 78 From: Joseph Carpenter MD PCP: Dr. Mary Ellen Jules MD Status:ADM SOPHIA Location: MS3 [id number] Subjective Subjective Status post TURBT was admitted [...] % (Auto) 67.3, Lymph % (Auto) 22.0, Hartley% (Auto) 6.8, Eos % (Auto) 2.3, Baso [...] Cosigner Signature (if applicable): CC: ~ Signed [facility] Work Phone: 1(727) 885-631912-20-2023 Discharge summary Author Benedicto Garland [facility] October 14, 2023 9:55pm Note Date/Time October 14, 2023 5:12pm [facility] Medical Records Department [address] [place] [address] Emergency Department Summary 10/14/23 MR#: [id number] Acct: [id number] Name: ARIA HERNANDEZ Rep #:[id number] : 1945 78 From: Benedicto Garland MD PCP: Dr. Mary Ellen Jules MD Status:ADM SOPHIA Location: [place] [address] HPI <JESSE Muñoz - Last Filed: 10/14/23 [...] <JESSE Muñoz - Last Filed: 10/14/23 19:35> [facility] Medical History Abnormal prostate by palpation [...] <JESSE Muñoz - Last Filed: 10/14/23 19:35> MDM MDM Narrative Medical decision making narrative: [...] % (Auto) 67.3 Lymph % (Auto) 22.0 Hartley % (Auto) 6.8 Eos % (Auto) 2.3 [...] % (Auto) 67.3 Lymph % (Auto) 22.0 Hartley % (Auto) 6.8 Eos % (Auto) 2.3 [...] Discharge Plan Dx/Rx/DC Orders Clinical Impression: Indwelling Lius catheter present, Recurrent gross hematuria Disposition Disposition: Acute Care [facility] Discharge Date/Time: 10/14/23 19:08 What to do if you have Problems For any increased pain, shortness of breath, bleeding, nausea or vomiting, chest pain, or any unexpected problems, contact your Primary Care Provider. Call [facility] ([phone]) or report to the closest Emergency Room. Call 911 if necessary. 10/14/232154 <Electronically signed by Benedicto Garland MD> Cosigner Signature (if applicable): 10/14/231934 <Electronically signed by Stephanie MOLINA> CC: Dr. Mary Ellen Jules MD ~ Signed [facility] Work Phone: 1(729) 777-450812-20-2023 Discharge summary Author Joseph Carpenter [facility] October 14, 2023 6:26pm Note Date/Time October 14, 2023 6:26pm [facility] Medical Records Department [address] [facility] [place] [address] Instructions for Home/Discharge Instructions 10/14/231824 MR#: [id number] Acct: [id number] Name: ARIA HERNANDEZ Rep #:[id number] : 1945 78 From: Joseph Carpenter MD [...] Up With: Joseph Carpenter MD When: Call [phone] for an appointment Test Results: Test results [...] Dr. Mary Ellen Jules MD ~ Signed [facility] Work Phone: [phone] History and physical note Author Joseph Carpenter [facility] October 14, 2023 6:25pm Note Date/Time October 14, 2023 6:26pm [facility] Medical Records Department [address] [place] [address] History & Physical Exam 10/14/231823 MR#: [id number] Acct: [id number] Name: ARIA HERNANDEZ Rep #:[id number] : 1945 78 From: Joseph Carpenter MD [...] % (Auto) 67.3, Lymph % (Auto) 22.0, Hartley% (Auto) 6.8, Eos % (Auto) 2.3, Baso [...] MD; Dr. Mary Ellen Jules MD~ Signed [facility] Work Phone: 1(423) 410-494012-18-2023 Discharge summary Author Jabari Elizabeth [facility] October 12, 2023 1:26am Note Date/Time October 11, 2023 10:58pm [facility] Medical Records Department [address] [place] [address] Emergency Department Summary 10/11/23 MR#: [id number] Acct: [id number] Name: ARIA HERNANDEZ Rep #:[id number] : 1945 78 From: Jabari Elizabeth MD [...] He is on no anticoagulants or antiplatelets. PFSH PFS Medical History Abnormal prostate by palpation Alcohol [...] Clarity Cloudy Urine pH 6.5 Ur Specific Apison 1.020 Urine Protein 500 H Urine Glucose [...] SEEN Management Discussion w/another healthcare provider: Manager Pricing (Urology) Discharge Plan Triage Chief Complaint: Complaint [...] your Primary Care Provider. Call [facility] ([phone]) or report to the closest Emergency Room. Call 911 if necessary. 10/12/23 0126 <Electronically signed by Jabari Elizabeth MD> Cosigner Signature (if applicable): CC: Dr. Mary Ellen Jules MD ~ Signed [facility] Work Phone: 1(830) 144-470212-13-2023 Discharge summary Author Joseph Carpenter [facility] October 07, 2023 3:25pm Note Date/Time October 07, 2023 3:25pm [facility] Medical Records Department [address] [place] [address] Instructions for Home/Discharge Instructions 10/07/23 1525 MR#: [id number] Acct: [id number] Name: ARIA HERNANDEZ Rep #:[id number] : 1945 78 From: Joseph Carpenter MD PCP: Dr. Mary Ellen Jules MD Status:REG [facility] Discharge Instructions Diet Discharge Diet: No restrictions Activity Discharge Activity: Return to Normal Activity Dressing / Incision Catheter: Luis to leg bag and Luis to large bag Drain: Apison Follow Up Care Please Follow Up With: [...] Dr. Mary Ellen Jules MD ~ Signed [facility] Work Phone: [phone] 396-221912-13-2023 History and physical note Author Joseph Carpenter [facility] October 07, 2023 2:51pm Note Date/Time October 07, 2023 2:52pm [facility] Medical Records Department [address] [place] [address] History & Physical Exam 10/07/23 1451 MR#: [id number] Acct: [id number] Name: ARIA HERNANDEZ Rep #:[id number] : 1945 78 From: Joseph Carpenter MD PCP: Dr. Mary Ellen Jules MD Status:REG [facility] Location: [place] [address] HPI - General General Date of Service: 10/07/23 Chief Complaint: Bladder tumor HPI Narrative ARIA HERNANDEZ, is a 78 M who presents transurethral resection of a bladder tumor PFS Medical History (Updated 09/16/23 @ 11:27 by [...] MD; Dr. Mary Ellen Jules MD~ Signed [facility] Work Phone: [phone]) 443-204212-13-2023 Procedure [facility] 04-18-2022 Miscellaneous Notes* Telephone Encounter - Lisbet Espino RN - 04/18/2022 10:44 AM EDT Opened in Error documented [facility] Miscellaneous Notes* Telephone Encounter - Saul Newman [...] advise. Saul Newman LPN documented in this encounterSum[facility]08-13-2015 History of Past illness Narrative* Problem Noted Date Resolved Date Diarrhea 06/07/2015 06/27/2015 Projectile vomiting with nausea 06/07/2015 07/18/2019 Skin lesion 06/09/2013 06/27/2015 Acute gastritis without mention of hemorrhage 07/18/2019 Other chest pain 11/08/2007 07/18/2019 Diverticulitis 07/18/2019 documented as of this encounter (statuses as of 04/08/2022) [facility] History of Past illness Narrative* Problem Noted Date Resolved Date Diarrhea 06/07/2015 06/27/2015 Projectile vomiting with nausea 06/07/2015 07/18/2019 Skin lesion 06/09/2013 06/27/2015 Acute gastritis without mention of hemorrhage 07/18/2019 Other chest pain 11/08/2007 07/18/2019 Diverticulitis 07/18/2019 documented as of this encounter (statuses as of 04/18/2022) [facility] October 14, 2023 6:26pm Note Date/Time October 14, 2023 6:26pm [facility] Medical Records Department [address] [place] [address] Instructions for Home/Discharge Instructions 10/14/231824 MR#: [id number] Acct: [id number] Name: ARIA HERNANDEZ Rep #:[id number] : 1945 78 From: Joseph Carpenter MD [...] Up With: Joseph Carpenter MD When: Call [phone] for an appointment Test Results: Test results [...] Dr. Mary Ellen Jules MD ~ Signed [facility] Work Phone: Evaluation noteNo assessment information available [facility] Work Phone: Evaluation note* Diagnosis Onset Date Resolution Status Recurrent gross hematuria ac [place] Skin lesion of right leg acu te Skin lesion of right leg acu te [facility] Work Phone: evaluation note* Diagnosis Onset Date Resolution Status Recurrent gross hematuria ac [place] Skin lesion of right leg acu te Skin lesion of right leg acu te Recurrent gross hematuria ac [facility] Work Phone: Evaluation note* Diagnosis Onset Date Resolution Status Recurrent gross hematuria ac [place] Skin lesion of right leg acu te Skin lesion of right leg acu te Indwelling Luis catheter present acute Recurrent gross hematuria ac [facility] Work Phone: Evaluation note* Diagnosis Onset Date Resolution Status Admit Date Bladder disease acute March 30, 2025 7:52am GERD (gastroesophageal reflu x disease) acute March 30, 2025 7 :52am History of benign prostatic hyperplasia acute March 30, 2025 7 :52am Shakiness acute March 30, 2025 7:52am [facility] Work Phone: History and physical note Author Joseph Carpenter [facility] October 14, 2023 6:25pm Note Date/Time October 14, 2023 6:26pm [facility] Medical Records Department [address] [place] [address] History & Physical Exam 10/14/23 1824 MR#: [id number] Acct: [id number] Name: ARIA HERNANDEZ Rep #:[id number] : 1945 78 From: Joseph Carpenter MD PCP: Dr. Mary Ellen Jules MD Status:REG ER Location: ED HPI - General General Date of Admission: 10/14/23 Chief Complaint: Gross hematuria status post TURBT HPI Narrative 78-year-old male presents with gross hematuria, had a resection of bladder tumorwill admit the patient for observation [facility] Medical History Abnormal prostate by palpation [...] % (Auto) 67.3, Lymph % (Auto) 22.0, Hartley% (Auto) 6.8, Eos % (Auto) 2.3, Baso [...] MD; Dr. Mary Ellen Jules MD~ Signed [facility] Work Phone: Reason for referral (narrative)No reason for referral information availableWWooster [facility] Work Phone: Summary Purpose Family History No Family History Records Found Relationship Condition Age at Onset Recorded Date/T aki mother Mental disorder Unknown Advance Directives No Advanced Directives Records Found Advance Directive Response Recorded Date/ Time Living Will Yes September 07 8:17pm Power of Rn Behavioral Health Yes September 07, 2018 8:17pm Advance Directive Response Recorded Date/ Time Living Will Yes September 07 9:17pm Power of Rn Behavioral Health Yes September 07, 2018 9:17pm Advance Directive Response Recorded Date/ Time Name of Medical Power of Rn Behavioral Health September 16, 2023 11:10am Living Will Yes September 16 11:10am Power of Rn Behavioral Health Yes September 16, 2023 11:10am Advance Directive Response Recorded Date/ Time Name of Medical Power of Rn Behavioral Health September 16, 2023 11:10am Name of Medical Power of Rn Behavioral Health October 11, 2023 10:31pm Living Will Yes October 11 10:31pm Power of Rn Behavioral Health Yes October 11, 2023 10:31pm Advance Directive Response Recorded Date/ Time Name of Medical Power of Rn Behavioral Health kendrick, October 14, 2023 5:23pm Living Will Yes October 14 023 5:23pm Power of Rn Behavioral Health Yes October 14, 2023 5:23pm Name of Medical Power of Rn Behavioral Health September 16, 2023 11:10am Name of Medical Power of Rn Behavioral Health October 11, 2023 10:31pm Advance Directive Response Recorded Date/ Time Name of Medical Power of Rn Behavioral Health CALISTA GUO October 14, 2023 7:56pm Living Will Yes October 14 023 7:56pm Power of Rn Behavioral Health Yes October 14, 2023 7:56pm Name of Medical Power of Rn Behavioral Health September 16, 2023 11:10am Name of Medical Power of Rn Behavioral Health October 11, 2023 10:31pm Chief Complaint and [...] 7:52a m GERD (gastroesophageal reflux disease) J [facility] 2024 7:52am History of benign prostatic hyperplasia March 30, 2025 7:52am Shakiness March 30, 2025 7:52a m Chief Complaint Admit Date Shakiness March 30, 2025 7:52a m C67.2 May 09, 2025 4:12 pm Balance/Memory Issues May 10, 2025 1: 44pm Reason for Visit Admit Date Generalized weakness March 30, 2025 7:52 am GERD (gastroesophageal reflux disease) J une 2024 7:52am History of benign prostatic hyperplasia March 30, 2025 7:52am Shakiness March 30, 2025 7:52a m Additional Source Comments (unrecognized sect ion and content) No Status Records FoundNo Status Records Found INFORMATION SOURCE (unrecogn ized section and content) DATE CREATED AUTHOR 12/14/2021 [facility] DATE CREATED AUTHOR AUTHOR'S ORGANDINH ATION 05/13/2025 [facility] Source Comments (unrecognize d section and content) In the event this informatio n is protected by the Federal Confidentiality of Alcohol and Drug Abuse Patient Records regulations: The Federal rules restrict any use of the information to criminally investigate or prosecute any alcohol or drug abuse patient.[facility] the event this information is protected by the Federal Confidentiality of Alcohol and Drug Abuse Patient Records regulations: The Federal rules restrict any use of the information to criminally investigate or prosecute any alcohol or drug abuse patient.[facility] Reason for Visit (unrecogniz ed section and content) Reason Onset Date Comments Refill Request 04/07/2022 Reason Onset Date Comments Opened In Error 04/18/2022 Care Teams (unrecognized sec tion and content) Monitor 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 Mary Ellen Jules MD Primary Care Provider Active Team Status: Inactive Member Role/Relationship Status Dates Dr. Mary Ellen Jules MD Primary Care Provider Active Start: February 28, 2025 End: February 28, 2025 Dr. Mary Ellen Jules MD Attending Provider Active Start: February 28, 2025 End: February 28, 2025 Team Status: Inactive Member Role/Relationship Status Dates Dr. Mary Ellen Jules MD Primary Care Provider Active Start: March 30, 2025 End: March 30, 2025 Dr. Mary Ellen Jules MD Attending Provider Active Start: March 30, 2025 End: March 30, 2025 Team Status: Active Member Role/Relationship Status Dates Dr. Mary Ellen Jules MD Primary Care Provider Active Start: May 09, 2025 [place] Attending Provider Active Start : May 09, 2025 [place] Referring Provider Active Start : May 09, 2025 Team Status: Inactive Member Role/Relationship Status Dates Dr. Mary Ellen Jules MD Primary Care Provider Active Start: May 10, 2025 End: May 10, 2025 Dr. Mary Ellen Jules MD Attending Provider Active Start: May 10, 2025 End: May 10, 2025 Goals (unrecognized section and content) Goals [...] BE BASED ON THE PRIMARY CLINICAL RECORDS. [facility] [email or web address] [facility]. provides no warranty or guarantee of the accuracy or completeness of information in this document.
[2025-05-15 07:08] LABS: Glucose GTT- Fasting 113 mg/dL (70-99)
[2025-05-15 08:56] LABS: Glucose GTT-30 minutes 158 mg/dL (110-170)
[2025-05-15 09:48] LABS: Glucose GTT- 1 Hour 160 mg/dL (120-170)
[2025-05-15 10:53] LABS: Glucose GTT- 2 Hour 128 mg/dL (70-120)
[2025-05-16 15:08] LABS: INSULIN 120 MIN 104.0 uIU/mL (0.0-145.4); INSULIN 30 MIN 67.3 uIU/mL (0.0-121.9); INSULIN 60 MIN 85.6 uIU/mL (0.0-163.5); INSULIN FASTING 16.1 uIU/mL (2.6-24.9)
== END | disposition home or self-care (01) ==
LOC: LAB 06:33
PROVIDERS: PCP Internal Medicine; Referring Provider Internal Medicine; Visit Provider Internal Medicine
DX: E88.819 Insulin resistance, unspecified (principal); R53.1 Weakness; R25.1 Tremor, unspecified
CPT/HCPCS: 36415; 82951; 82952; 83525

== ENCOUNTER → 2025-06-29 | Outpatient (CLI) | payer MEDICARE, SELFPAY ==
--- NOTE | 2025-06-29 15:26 | MRI_ITS ---
PROCEDURE: BRAIN WITHOUT CONTRAST 06/29/2025 REASON FOR EXAM: MEMORY LOSS, POOR FOCUS TECHNIQUE: Procedure Code: MRIBR Modality: MR Procedure: BRAIN WITHOUT CONTRAST Multiplanar and multisequence images were obtained. FINDINGS: Normal craniovertebral junction. No pathologic diffusion restriction. No pathologic flow voids. No intracranial mass. No obstructive hydrocephalus. Sinuses demonstrate minimal ethmoid mucosal thickening. Minimal scattered subcortical leukomalacia, nonspecific. No acute or chronic hemorrhage. Coronal T2 weighted images demonstrate no hippocampal asymmetry MRI/Brain without Contrast IMPRESSION: Minimal punctate scattered leukomalacia, nonspecific. No acute findings. Mild atrophy. Reading Location: [id number]
== END | disposition home or self-care (01) ==
LOC: MRI 15:25
PROVIDERS: PCP Internal Medicine; Referring Provider Internal Medicine; Visit Provider Internal Medicine
DX: R41.3 Other amnesia (principal); R41.0 Disorientation, unspecified
CPT/HCPCS: 70551

== ENCOUNTER → 2025-08-14 | Outpatient (CLI) | payer MEDICARE, SELFPAY ==
[2025-08-14 10:42] LABS: Mucous, Urine 0 SEEN /hpf (<or=2+); Squamous Epithelial Cells - UA 0 SEEN /hpf (0-5)
[2025-08-14 10:57] LABS: Glucose, Dipstick Normal (Normal); Ketone-Dipstick Negative (Negative); Leukocyte Esterase-Dipstick Negative /ul (Negative); Nitrite-Dipstick Negative (Negative); Occult Blood-Urine 25 /ul (Negative); Protein-Dipstick 15 mg/dl (Negative); Specific Gravity, Urine 1.010 (1.002-1.030); Urine Bilirubin Dipstick Negative (Negative)
[2025-08-14 11:13] LABS: Color, Urine Yellow (Yellow)
[2025-08-14 11:14] LABS: Red Blood Cells-Urine 0-5 SEEN /hpf (0-5)
--- OUTSIDE RECORDS SUMMARY | 2025-08-14 11:27 | XMS RPT_ITS | CCD ---
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 Mary Ellen Jules Attending Provider [phone] Anuel Bland Attending Provider Dr. Mary Ellen Jules Referring Provider [phone] Mary Ellen Jules Attending Provider [phone] Anuel Bland Attending Provider Dr. Mary Ellen Jules Referring Provider [phone] Mary Ellen Jules Primary Care Provider Dr. Will Olivo Attending Provider Dr. Will Olivo Referring Provider Dr. Mary Ellen Jules MD Primary Care Provider [phone] Dr. Mary Ellen Jules MD Attending Provider [place] Attending Provider [phone] Isa Rogers Referring Provider [phone] Mary Ellen Jules MD Referring Provider Mary Ellen Jules Attending Unavailable Mary Ellen Jules Referring Unavailable Mary Ellen Jules Primary Care Unavailable Mary Ellen Jules Primary Care Unavailable [place] Attending Unavailable [place] Referring Unavailable Mary Ellen Jules Primary Care Unavailable Mary Ellen Jules Attending Unavailable Mary Ellen Jules Primary Care Unavailable [place], Isa Attending Unavailable [place], Isa Referring Unavailable Mary Ellen Jules Attending Unavailable Mary Ellen Jules Referring Unavailable Jorge AMary Ellen Primary Care Unavailable Mary Ellen Jules Referring Unavailable Mary Ellen Jules Attending Unavailable Jorge A, Mary Ellen Primary Care Unavailable Jorge AMary Ellen Referring Unavailable Jorge AMary Ellen Primary Care Unavailable Mary Ellen Jules Attending Unavailable Mary Ellen Jules Attending Unavailable Jorge A, Mary Ellen Primary Care Unavailable Jorge A, Mary Ellen Primary Care Unavailable Mary Ellen Jules Attending Unavailable Mary Ellen Jules Attending Unavailable Jorge A, Mary Ellen Primary Care Unavailable Gennaro Rivas Attending Unavailable Jorge A, Mary Ellen Primary Care Unavailable [place] Referring Unavailable Jorge A STEVENSON, Dr. Hyde Primary Care Physician [phone] Jorge A STEVENSON, Dr. Hyde Attending Physician Isa Rogers Attending Physician [phone] Allergies Allergy Classification Reported Allergen(s) Allergy Type Date of Onset Reaction(s) Facility (2 sources) Salicylic Acid Drug Allergy 7 GI Upset [facility] (14 sources) Aspirin Drug Allergy 2 Other [facility] Comment on above: GASTRIC ISSUES (2 sources) Naproxen Drug Allergy 2 Other [facility] (1 source) acetylsalicylic acid Allergy to substance 2 [facility] (11 sources) Phenazopyridine Drug Allergy 3 other [facility] Comment on above: the dye will change the color of my lenses in my eyes (1 source) Aspirin Drug Allergy 5 [facility] Repository (1 source) Phenazopyridine Drug Allergy 5 [facility] Medications Current Medications Medication Drug Class(es) Dates Sig (Normalized) Sig (Original) cholecalciferol 0.025 mg oral capsule (7 sources) Vitamin D Start: 03-30-2025 take 1 capsule by mouth once daily finasteride 5 mg oral tablet (8 sources) 5-alpha Reductase Inhibitor Start: 11-25-2023 take 1 tablet by mouth once daily Completed/Discontinued Medications Medication Drug Class(es) Dates Sig (Normalized) Sig (Original) acetaminophen 500 mg oral tablet (2 sources) Start: 03-26-2020 take 2 tablets by mouth every eight hours as needed acetaminophen (TYLENOL EXTRA STRENGTH) 500 mg tablet Take 2 tablets by mouth every 8 hours as needed for Pain. 0 03/26/2020 Active Comment on above: Take 2 tablets by mo ut every 8 hours as needed for Pain. acetaminophen 325 mg / HYDROcodone bitartrate 5 mg oral tablet (14 sources) Opioid Agonist Start: 09-07-2018 End: 09-14-2018 [...] prn pain ciprofloxacin 500 mg oral tablet (20 sources) Quinolone Antimicrobial Start: 07-12-2024 End: 03-30-2025 take 1 tablet by mouth twice daily Ciprofloxacin Hcl 500 mg tablet Discontinued 500 mg PO TWICE A DAY 14 July 12, 2024 12:00am March 30, 2025 7:50am Start: 10-07-2023 End: 11-25-2023 take 1 tablet by mouth twice daily Ciprofloxacin Hcl (Cipro) 500 mg tablet Discontinued 500 mg PO TWICE A DAY 10 0 October 15, 2023 1:00am November 25, 2023 10:30am diclofenac sodium 75 mg delayed release oral tablet (14 sources) Nonsteroidal Anti-inflammatory Drug Start: 09-06-2018 End: [...] Comment on above: [facility] famciclovir 500 mg oral tablet (8 sources) Herpes Simplex Virus Nucleoside Analog DNA Polymerase Inhibitor Start: 05-26-2024 End: 05-26-2024 take 1 tablet by mouth every eight hours Famciclovir 500 mg tablet Discontinued 500 mg PO Q8H 21 7 May 26, 2024 12:00am June 01, 2024 12:00am May 26, 2024 9:55am ibuprofen 600 mg oral tablet (12 sources) Nonsteroidal Anti-inflammatory Drug Start: 10-07-2023 End: 10-14-2023 take 1 tablet by mouth every six hours as needed for pain Ibuprofen 600 mg tablet Discontinued 600 mg PO EVERY 6 HOURS as needed for fever or pain October 07, 2023 1:00am October 14, 2023 7:41pm metFORMIN hydrochloride 500 mg oral tablet (6 sources) Biguanide Start: 05-10-2025 End: 06-08-2025 take 1 tablet by mouth once daily Metformin 500 mg tablet Discontinued 500 mg PO daily May 10, 2025 12:00am June 08, 2025 11:26am omeprazole 20 mg delayed release oral capsule (20 sources) Proton Pump Inhibitor Start: 09-06-2018 End: 12-19-2024 take 1 capsule by mouth at bedtime Omeprazole 20 mg capsule,delayed release(DR/EC) Discontinued 20 mg PO AT BEDTIME 90 3 December 14, 2023 1:18pm December 19, 2024 11:11am ACID REFLUX Comment on above: Take 1 capsule by mo [facility] once daily. phenazopyridine hydrochloride 100 mg oral tablet (12 sources) Start: 10-07-2023 End: 10-09-2023 take 1 tablet by mouth three times daily as needed for pain Phenazopyridine (Pyridium) 100 mg tablet Discontinued 100 mg PO THREE TIMES A DAY as needed for pain October 07, 2023 1:00am October 09, 2023 2:35pm predniSONE 10 mg oral tablet (8 sources) Start: 05-26-2024 End: 03-30-2025 Prednisone 10 [...] neoplasm of lateral wall of bladder] Onset: 05-15-2025 Chronic Diabetes mellitus without complication (1 source) Type 2 diabetes mellitus without complications; Translations: [Type 2 diabetes mellitus without complications] Onset: 05-10-2025 Chronic Esophageal disorders (20 sources) Gastroesophageal reflux disease; Translations: [Gastro-esophageal reflux disease without esophagitis] Onset: 10-11-2007 10-11-2007 Chronic Fever of unknown origin (8 sources) Fever; Translations: [Fever, unspecified] 07-08-2024 Episodic Genitourinary symptoms and ill-defined conditions (11 sources) Blood in urine; Translations: [Hematuria, unspecified] 10-12-2023 Episodic Hyperplasia of prostate (2 sources) Benign prostatic hyperplasia; Translations: [Benign prostatic hyperplasia without lower urinary tract symptoms] Onset: 06-13-2009 03-23-2019 Chronic Malaise and fatigue (20 sources) Fatigue; Translations: [Other fatigue] Onset: 05-10-2025 02-27-2025 Episodic Nephritis; nephrosis; renal sclerosis (20 sources) Recurrent bay hematuria; Translations: [Recurrent and persistent hematuria with unspecified morphologic changes] 06-17-2023 Chronic Other diseases of bladder and urethra (9 sources) Disorder of bladder; Translations: [Bladder disorder, unspecified] 01-20-2024 Chronic Comment on above: TUMOR Other male genital disorders (20 sources) H/O: male genital disorder; Translations: [Personal history of other diseases of male genital organs] 01-08-2023 Episodic Other nervous system disorders (20 sources) Tremor; Translations: [Tremor, unspecified] 03-30-2025 Episodic Other nervous system disorders (1 source) Tremor, unspecified; Translations: [Tremor, unspecified] Onset: 05-10-2025 Episodic Other nutritional; endocrine; and metabolic disorders (7 sources) Insulin resistance; Translations: [Insulin resistance] 05-10-2025 Chronic Other skin disorders (13 sources) Mass of skin of right lower limb; Translations: [Disorder of the skin and subcutaneous tissue, unspecified] 06-17-2023 Episodic Other skin disorders (10 sources) Disorder of the skin and subcutaneous tissue, unspecified; Translations: [Unspecified disorder of skin and subcutaneous tissue] 06-17-2023 Episodic Other skin disorders (8 sources) Eruption; Translations: [Rash and other nonspecific skin eruption] 05-26-2024 Episodic Other skin disorders (8 sources) Disorder of hand; Translations: [Disorder of the skin and subcutaneous tissue, unspecified] 12-16-2023 Episodic Residual codes; unclassified (9 sources) Urinary catheter in situ; Translations: [Presence of other specified devices] 10-14-2023 Episodic Residual codes; unclassified (1 source) Presence of other specified devices; Translations: [Other postprocedural status] 10-15-2023 Episodic Residual codes; unclassified (1 source) Other amnesia; Translations: [Other amnesia] Onset: 07-14-2025 Episodic Residual codes; unclassified (2 sources) Amnesia; Translations: [Other amnesia] 06-08-2025 Episodic Residual codes; unclassified (2 sources) Confusional state; Translations: [Disorientation, unspecified] 06-08-2025 Episodic Unclassified (1 source) Insulin resistance, unspecified; Translations: [Insulin resistance, unspecified] Onset: 05-18-2025 Past or Other Problems Problem Classification Problem [...] Onset: 07-18-2019 07-18-2019 Episodic Urinary tract infections (9 sources) Urinary tract infectious disease; Translations: [Urinary tract infection, site not specified] Onset: 08-17-2024 07-24-2024 Episodic Results Test Name Value Interpretation Reference Range Facility Brain without Contraston Brain without Contrast [facility] Imaging Services [address] [place] [address] [id number] Brain without Contrast MR#: [id number] Acct: [id number] Name: ARIA HERNANDEZ Rep #: [id number] : 1945 M 80 From: Jayson De La Torre MD PCP: Dr. Mary Ellen Jules MD Status: REG CLI Study: Brain without Contrast Date of Exam: 06/29/25 Exam# [id number] Ordering Dr: Mary Ellen Jules MD PROCEDURE: BRAIN WITHOUT CONTRAST 06/29/2025 REASON FOR EXAM: MEMORY LOSS, POOR FOCUS TECHNIQUE: Procedure Code: MRIBR Modality: MR Procedure: BRAIN WITHOUT CONTRAST Multiplanar and multisequence images were obtained. FINDINGS: Normal craniovertebral junction. No pathologic diffusion restriction. No pathologic flow voids. No intracranial mass. No obstructive hydrocephalus. Sinuses demonstrate minimal ethmoid mucosal thickening. Minimal scattered subcortical leukomalacia, nonspecific. No acute or chronic hemorrhage. Coronal T2 weighted images demonstrate no hippocampal asymmetry MRI/Brain without Contrast IMPRESSION: Minimal punctate scattered leukomalacia, nonspecific. No acute findings. Mild atrophy. Reading Location: [place] [address] CC: Dr. Mary Ellen Jules MD Derrick Boat Captain: Signed Normal [facility] Magnetic resonance imaging r eportOrdered By: Jayson De La Torre on 06-29-2025 Study report [facility] Imaging Services [address] [place] [address] [id number] Brain without Contrast MR#: [id number] Acct: [id number] Name: ARIA HERNANDEZ Rep #: [id number] : 1945 M 80 From: Raman De La Torre MD PCP: Dr. Mary Ellen Jules MD Status: REG CLI Study:Brain without Contrast Date of Exam: 06/29/25 Exam# [id number] Ordering Dr: Mary Ellen Jules MD PROCEDURE: BRAIN WITHOUT CONTRAST 06/29/2025 REASON FOR EXAM: MEMORY LOSS, POOR FOCUS TECHNIQUE: Procedure Code: MRIBR Modality: MR Procedure: BRAIN WITHOUT CONTRAST Multiplanar and multisequence images were obtained. FINDINGS: Normal craniovertebral junction. No pathologic diffusion restriction. No pathologic flow voids. No intracranial mass. No obstructive hydrocephalus. Sinuses demonstrate minimal ethmoid mucosal thickening. Minimal scattered subcortical leukomalacia, nonspecific. No acute or chronic hemorrhage. Coronal T2 weighted images demonstrate no hippocampal asymmetry MRI/Brain without Contrast IMPRESSION: Minimal punctate scattered leukomalacia, nonspecific. No acute findings. Mild atrophy. Reading Location: [id number] CC: Dr. Mary Ellen Jules MD ~ Derrick Boat Captain: Signed [facility] MR/BMS.IMBon 06-08-2025 MR/BMS.IMB [facility] [address] [facility] [place] [address] OFFICE VISIT Date of Service: 06/08/25 MR#: [id number] Acct: [id number] Name: ARIA HERNANDEZ Rep #: [id number] : 1945 Provider: Dr. Mary Ellen hunt MD Age/Sex: 80/M Location: [facility] Status: Signed Intake Vital Signs 05/10/25 13:57 06/08/25 11:34 Height 5 ft 11 in 5 ft 11 in Weight: 184 lb 188 lb 4 oz BMI 25.7 26.2 BP 126/70 H 128/73 H Blood Pressure Location Lt brachial Rt brachial Position Sitting Sitting Respiration 16 16 Pulse 80 76 Pulse Source Monitor Monitor Temp 98.6 F 98.4 F Temp Source Temporal Temporal Pulse Oximetry (%) 93 94 Oxygen Delivery Method room air room air Intake Visit Reasons: Discuss Medication Chief Complaint: Medication discussion Cloth Colors Examiner Required: No Accompanied by: Self Is patient in pain?: No Allergies phenazopyridine Allergy (Severe, Verified 06/08/25 11:23) other aspirin Adverse Reaction (Verified 06/08/25 11:23) Other Medications ???Medication ???Instructions ???Recorded ???Confirmed ???Type finasteride 5 mg tablet 5 mg PO DAILY 11/25/23 06/08/25 Hi story doxazosin 2 mg tablet (Cardura) 2 mg PO QHS PROSTATE #90 tabs 11/2706/08/25 Rx omeprazole 20 mg capsule,delayed 20 mg PO QHS ACID REFLUX #90 caps 12/19/24 06/08/25 Rx release cholecalciferol (vitamin D3) 25 25 mcg PO QDAY 03/30/25 06/08/25 H istory mcg (1,000 unit) capsule Have you fallen in the past year?: Yes (05/27/25) [facility] Medical History Insulin resistance Generalized weakness Shakiness Fatigue UTI [...] times per week HPI HPI Chief Complaint: Medication discussion Details: ARIA HERNANDEZ, is a 80 M who presents to the office today for ongoing follow-up, regarding concerns about memory, some mental confusion, short-term memory loss, difficulty in focusing, some shakiness. He does feel that with some carb loading, that his symptoms have been somewhat better but clearly as we have discussed that in more detail, it would appear that he does have some drop in blood sugar that would accompany the symptoms. They seem to tend to come and go and therefore he is correlated it with blood sugar changes. We have done considerable testing including 75 g glucose challenge with insulin monitoring which generally speaking appeared okay. His fasting blood sugar as well as insulin suggest insulin resistance albeit mild. He does not have any new focal neurologic symptoms other than he continues to have shakiness, tremor, bilateral upper extremities in particular. He finds it difficult to focus at times, and to complete tasks that he had relatively easily been able to do even up to the last year. 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 This took considerable time to get through all of the maintenance normally which would have taken about a week as taken a total of about 2 months. He finds the days when he is trying to do activities that could be more strenuous, he might get a little benefit by some carb loading but then also has concerns about weight gain. In any event in terms of doing these activities where he is trying to concentrate he has even more difficulties, focusing and he finds that he actually has to be much more deliberate in terms of focus to try and accomplish tasks that were relatively simple before. He does bring in a variety of home blood sugar testing that he has done. He does have evening time mild hyperglycemia but not severe. His average in the evenings have been about 129. Midday 106 and a.m. about 116. He also has mo (more content not included)... Normal [facility] L3300.3505on 05-16-2025 INSULIN 120 MIN 104.0 uIU/mL Normal 0.0-145.4 [facility] Comment on above: Performed By: #### L 3300.3505, L500.4600 #### [facility] [address] [place], [address] INSULIN 180 MIN TNP Normal . [facility] Comment on above: Result Comment: Test not performed Performed By: #### L 3300.3505, L500.4600 #### [facility] [address] [place], [address] INSULIN 240 MIN TNP Normal . [facility] Comment on above: Result Comment: Test not performed Performed By: #### L 3300.3505, L500.4600 #### [facility] [address] [place], [address] INSULIN 30 MIN 67.3 uIU/mL Normal 0.0-121.9 [facility] Comment on above: Performed By: #### L 3300.3505, L500.4600 #### [facility] [address] [place], [address] INSULIN 300 MIN TNP Normal . [facility] Comment on above: Result Comment: Test not performed Performed By: #### L 3300.3505, L500.4600 #### [facility] [address] [place], [address] INSULIN 360 MIN TNP Normal . [facility] Comment on above: Result Comment: Test not performed Performed at: [address] [id number] Assistant Project Engineer: Luan Cheng PhD, Phone: [phone] Performed By: #### L 3300.3505, L500.4600 #### [facility] [address] [place], [address] INSULIN 60 MIN 85.6 uIU/mL Normal 0.0-163.5 [facility] Comment on above: Performed By: #### L 3300.3505, L500.4600 #### [facility] [address] [place], [address] INSULIN 90 MIN TNP Normal . [facility] Comment on above: Result Comment: Test not performed Performed By: #### L 3300.3505, L500.4600 #### [facility] [address] [place], [address] INSULIN FASTING 16.1 uIU/mL Normal 2.6-24.9 [facility] Comment on above: Performed By: #### L 3300.3505, L500.4600 #### [facility] [address] [place], [address] 2 HR Glucose Tolerance Testo n 05-15-2025 2HR GTT High [facility] Comment on above: Order Comment: Y Result Comment: FAST ING 113 H Col: 05/15/25 0637 GLU 1/2 HR 158 Col: 05/15/25 0747 GLU 1 HR 160 Col: 05/15/25 0817 GLU 2 HR 128 H Col: 05/15/25 0919 Performed By: #### L 3300.3505, L500.4600 #### [facility] [address] [place], [address] Insulin total 2nd specOrdere d By: Mary Ellen Jules on 05-15-2025 Insulin spec 2 Qn 67.3 uIU/mL 0.0-121.9 [facility] Insulin total 3rd specimenOr dered By: Mary Ellen Jules on 05-15-2025 Insulin spec 3 Qn 85.6 uIU/mL 0.0-163.5 [facility] Serum or plasma glucose sharon urement 2 hours after glucose dose (mass/volume)Ordered By: Mary Ellen Jules on 05-15-2025 Glucose 2 Hr post dose glucose [Mass/Vol] See comment [facility] Comment on above: FASTING 113 H Col: 0 05/15/25 0637 GLU 1/2 HR 158 Col: 05/15/25 0747 GLU 1 HR 160 Col: 05/15/25 0817 GLU 2 HR PENDING Col: 05/15/25 0919 FASTING 113 H Col: 0 05/15/25 0637 GLU 1/2 HR 158 Col: 05/15/25 0747 GLU 1 HR 160 Col: 05/15/25 0817 GLU 2 HR 128 H Col: 05/15/25 0919 Serum or plasma insulin sharon urement (units/volume)Ordered By: Mary Ellen Jules on 05-15-2025 Insulin Qn 16.1 u[IU]/mL 2.6-24.9 [facility] Serum or plasma insulin sharon urement at 3 hours post challenge (units/volume)Ordered By: Mary Ellen Jules on 05-15-2025 Insulin 3 Hr post Unsp challenge Qn [facility] Comment on above: Test not performedTe st not performed Serum or plasma insulin sharon urement at 5 hours post challenge (units/volume)Ordered By: Mary Ellen Jules on 05-15-2025 Insulin 5 Hr post Unsp challenge Qn [facility] Comment on above: Test not performedTe st not performed Serum or plasma insulin sharon urement on fourth specimen after challenge (units/volume)Ordered By: Mary Ellen Jules on 05-15-2025 Insulin 4th specimen post Unsp challenge Qn 104.0 uIU/mL 0.0-145.4 [facility] Insulin Levelon 05-12-2025 INSULIN,FASTING 21.1 uIU/mL Normal 2.6-24.9 [facility] Comment on above: Result Comment: Perf ormed at: [place] [facility] [address] [place], [place] [id number] Assistant Project Engineer: Luan Cheng PhD, Phone: [phone] Performed By: #### L 101.9900, L501.6710 #### [facility] [address] [facility] [place], [place], [address] Glucoseon 05-11-2025 Glucose [Mass/Vol] 117 mg/dL [address] Comment on above: Performed By: #### L 101.9900, L501.6710 #### [facility] [address] [place], [place], [id number] Serum glucose measurement (m ass/volume)Ordered By: Mary Ellen Jules on 05-11-2025 Glucose [Mass/Vol] 117 mg/dL [address] Serum or plasma insulin sharon urement (mass/volume)Ordered By: Mary Ellen Jules on 05-11-2025 Insulin [Mass/Vol] 21.1 uIU/mL 2.6-24.9 [facility] Comment on above: Performed at: [place] [facility] [address] [id number] Director: Luan Cheng PhD, Phone: [phone] Katelynn 05-10-2025 /PAUL [facility] [address] [place] [address]. [address] [place], [place] [address] OFFICE VISIT Date of Service: 05/10/25 MR#: [id number] Acct: [id number] Name: ARIA HERNANDEZ Rep #: [id number] : 1945 Provider: Dr. Mary Ellen hunt MD Age/Sex: 79/M Location: [facility] Status: Signed Intake Vital Signs 03/30/25 07:57 [...] Reasons: Balance/Memory Issues Chief Complaint: Balance/Memory Issues Cloth Colors Examiner Required: No Accompanied by: Self Is patient [...] fallen in the past year?: Yes (04/2025) [facility] Medical History (Updated 05/10/25 @ 14:50 by [...] relatively recently, starting back in the spring. [place] initially perhaps a viral illness that might [...] labs over (more content not included)... Normal [facility] Non-gynecologic cytology rep ortOrdered By: Corinne Andrade on 05-10-2025 Study report [facility] Cytology report of Body flui d Cyto stainOrdered By: Isa Rogers on 05-09-2025 Cytology report Cyto stain Doc (Body fld) SEE PATHOLOGY REPORT [facility] Comment on above: Specimen submitted t o Anatomical Pathology Department for testing. Cytology, Body Fluid / CSFon 05-09-2025 CYTOLOGY,BF/CSF SEE PATHOLOGY REPORT Normal [facility] Comment on above: Order Comment: URINE Result Comment: Spec imen submitted to Anatomical Pathology Department for testing. Performed By: #### L 101.9900, L501.6710 #### [facility] [place], [address] Special Stain Group IIon Special Stain Group II --- Patient Age/Sex Location Account Attending Physician ARIA HERNANDEZ 79/M LABSPEC [id number] Isa Rogers Specimen: [id number] Received: 05/09/25 Status: ANGUS Crystal Num: [id number] Spec Type: Fluid Subm Dr: Isa Rogers [...] urine. Submitted for cytology preparation. 05/10/2025 CPT: 97014 Signed (signature on file) Dr. Corinne Andrade DO 05/10/25 1549 Normal [facility] Comment on above: Performed By: #### P SSII #### [facility] [address] [place], [place], [address] MR/BMS.IMBon 03-30-2025 MR/BMS.IMB [facility] [address] [facility] [address] [place] [address] OFFICE VISIT Date of Service: 03/30/25 MR#: [id number] Acct: [id number] Name: ARIA HERNANDEZ Rep #: [id number] : 1945 Provider: Dr. 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 In early February, [...] any ne (more content not included)... Normal [facility] Testosterone, Total / Freeon 03-15-2025 TESTOSTER,FREE 13.32 ng/dL Normal 5.00-21.00 [facility] Comment on above: Order Comment: NUNK Performed By: #### L 501.9910, L500.4100, L3100.5310, L506.1001, L501.9985, L500.4050, L503.0106, L506.0400, L100.0100, L501.76782, L501.9520, L501.5200, L101.9900 ####[facility] [address] [place], [place], [id number] TESTOSTER,TOTAL 535 ng/dL Normal 264-916 [facility] Comment on above: Order Comment: NUNK Result Comment: Adul t male reference interval is based on a population of healthy nonobese males (BMI <30) between 19 and 39 years old. rosemary Schmid.al. JCEM 2017,102;5036-7895. PMID: [id number]. Performed By: #### L 501.9910, L500.4100, L3100.5310, L506.1001, L501.9985, L500.4050, L503.0106, L506.0400, L100.0100, L501.02981, L501.9520, L501.5200, L101.9900 ####[facility] [address] [place], [address] TESTOSTERONE,%F 2.49 Normal 1.50-4.20 [facility] Comment on above: Order Comment: NUNK Result Comment: Perf ormed at: - [facility] [address] [id number] Assistant Project Engineer: Luan Cheng PhD, Phone: [phone] Performed at: - [facility] [address] [id number] Assistant Project Engineer: Jasmyne Drummond MD, Phone: [phone] Performed By: #### L 501.9910, L500.4100, L3100.5310, L506.1001, L501.9985, L500.4050, L503.0106, L506.0400, L100.0100, L501.61149, L501.9520, L501.5200, L101.9900 ####[facility] [address] [place], [address] Absolute lymphocyte countOrd ered By: Mary Ellen Jules on 02-28-2025 Lymphocytes Auto (Unsp spec) [#/Vol] 2.17 10*3/uL 0.83-4.51 [facility] Absolute neutrophil countOrd ered By: Mary Ellen Jules on 02-28-2025 Neutrophils (Bld) [#/Vol] 2.5 10*3/uL 2.0-7.7 [facility] Anion gap in Serum or Plasma Ordered By: Mary Ellen Jules on 02-28-2025 Anion gap [Moles/Vol] 11 mmol/L 5- [facility] Automated lymphocyte count a s percentage of total leukocytesOrdered By: Mary Ellen Jules on 02-28-2025 Lymphocytes/100 WBC Auto (Unsp spec) 40.0 % [facility] BUN/creatinine ratioOrdered By: Mary Ellen Jules on 02-28-2025 Urea nitrogen/Creatinine [Mass ratio] 16.4 mg/mg 10- [facility] Basophil percentageOrdered B y: Mary Ellen Jules on 02-28-2025 Basophils/100 WBC (Bld) 1.1 % High 0-1 [facility] Bilirubin, totalOrdered By: Mary Ellen Jules on 02-28-2025 Bilirubin [Mass/Vol] 0.37 mg/dL 0.00-1.30 [facility] CBC W/Diff, Automatedon Absolute Lymph 2.17 X10 3/uL Normal 0.83-4.51 [facility] Comment on above: Performed By: #### L 101.9900, L501.6710 #### [facility] [address] [place], [address] Absolute Neut 2.5 X10 3/uL Normal 2.0-7.7 [facility] Comment on above: Performed By: #### L 101.9900, L501.6710 #### [facility] [address] [place], [address] Basophils/100 WBC (Bld) 1.1 % High 0-1 [facility] Comment on above: Performed By: #### L 101.9900, L501.6710 #### [facility] [address] [place], [address] Eosinophils/100 WBC (Bld) 6.1 % High 0-5 [facility] Comment on above: Performed By: #### L 101.9900, L501.6710 #### [facility] [address] [place], [address] Erythrocyte distribution width (RBC) [Ratio] 13.2 % Normal 11.6-14.6 [facility] Comment on above: Performed By: #### L 101.9900, L501.6710 #### [facility] [address] [place], [address] Hematocrit (Bld) [Volume fraction] 46.9 % Normal 40-54 [facility] Comment on above: Performed By: #### L 101.9900, L501.6710 #### [facility] [address] [place], [address] Hemoglobin (Bld) [Mass/Vol] 15.5 g/dL Normal 13.0-16.5 [facility] Comment on above: Performed By: #### L 101.9900, L501.6710 #### [facility] [address] [place], [address] IG% 0.200 Normal 0.0-0.9 [facility] Comment on above: Result Comment: IG% - Immature Granulocytes (promyelocytes, myelocytes and metamyelocytes) > 1% indicates that a LEFT SHIFT is Present. Performed By: #### L 101.9900, L501.6710 #### [facility] [address] [place], [address] Lymphocytes/100 WBC (Bld) 40.0 % Normal 19-41 [facility] Comment on above: Performed By: #### L 101.9900, L501.6710 #### [facility] [address] [place], [address] MCH (RBC) [Entitic mass] 31.6 pg Normal 27.0-32.0 [facility] Comment on above: Performed By: #### L 101.9900, L501.6710 #### [facility] [address] [place], [address] MCHC (RBC) [Mass/Vol] 33.0 g/dL Normal 32-36 [facility] Comment on above: Performed By: #### L 101.9900, L501.6710 #### [facility] [address] [place], [address] MCV (RBC) [Entitic vol] 95.7 fL High 80-94 [facility] Comment on above: Performed By: #### L 101.9900, L501.6710 #### [facility] [address] [place], [address] Monocytes/100 WBC (Bld) 6.8 % Normal 0-10 [facility] Comment on above: Performed By: #### L 101.9900, L501.6710 #### [facility] [address] [place], [address] Neutrophils/100 WBC (Bld) 45.8 % Low 47-70 [facility] Comment on above: Performed By: #### L 101.9900, L501.6710 #### [facility] [address] [place], [address] Nucleated RBC (Bld) [#/Vol] 0 10*3/uL Normal 0-5 [facility] Comment on above: Performed By: #### L 101.9900, L501.6710 #### [facility] [address] [place], [address] Platelet mean volume (Bld) [Entitic vol] 10.1 fL Normal 6.2-12.0 [facility] Comment on above: Performed By: #### L 101.9900, L501.6710 #### [facility] [address] [place], [address] Platelets (Bld) [#/Vol] 199 10*3/uL Normal 150-450 [facility] Comment on above: Performed By: #### L 101.9900, L501.6710 #### [facility] [address] [place], [address] RBC (Bld) [#/Vol] 4.90 10*6/uL Normal 4.6-6.2 [facility] Comment on above: Performed By: #### L 101.9900, L501.6710 #### [facility] [address] [place], [address] RDW SD 46.7 fl High 35.1-43.9 [facility] Comment on above: Performed By: #### L 101.9900, L501.6710 #### [facility] [address] [place], [address] WBC (Bld) [#/Vol] 5.4 10*3/uL Normal 4.4-11.0 [facility] Comment on above: Performed By: #### L 101.9900, L501.6710 #### [facility] [address] [place], [address] Calculated very low density lipoprotein (VLDL) cholesterol measurementOrdered By: Mary Ellen Jules on 02-28-2025 Calculated very low density lipoprotein (VLDL) cholesterol measurement 18 mg/dL 5-40 [facility] Carbon dioxide, total [Moles /volume] in Central venous bloodOrdered By: Mary Ellen Jules on 02-28-2025 CO2 [Moles/Vol] 24.3 mmol/L 21.0-32.0 [facility] Chloride assayOrdered By: Katina Jules on 02-28-2025 Chloride [Moles/Vol] 104 mmol/L 98-108 [facility] Comprehensive Metabolic Prof ilon 02-28-2025 Albumin [Mass/Vol] 4.4 g/dL Normal 3.4-4.8 [facility] Comment on above: Order Comment: UNK Performed By: #### L 101.9900, L5.10 #### [facility] [address] [place], [address] Albumin/Globulin [Mass ratio] 1.4 {ratio} Normal 0.9-2.4 [facility] Comment on above: Order Comment: UNK Performed By: #### L 101.9900, L501.6710 #### [facility] [address] [place], [address] ALK PHOS 49 U/L Normal 40-129 [facility] Comment on above: Order Comment: UNK Performed By: #### L 101.9900, L501.6710 #### [facility] [address] [place], [address] ALT [Catalytic activity/Vol] 27 U/L Normal <=46 [facility] Comment on above: Order Comment: UNK Performed By: #### L 101.9900, L501.6710 #### [facility] [address] [place], [address] AST [Catalytic activity/Vol] 24 U/L Normal <=37 [facility] Comment on above: Order Comment: UNK Performed By: #### L 101.9900, L501.6710 #### [facility] [address] [place], [address] Bilirubin [Mass/Vol] 0.37 mg/dL Normal 0.00-1.30 [facility] Comment on above: Order Comment: UNK Performed By: #### L 101.9900, L501.6710 #### [facility] [address] [place], [address] BUN/CRE 16.4 RATIO Normal 10-20 [facility] Comment on above: Order Comment: UNK Performed By: #### L 101.9900, L5.10 #### [facility] [address] [place], [address] Calcium [Mass/Vol] 9.4 mg/dL Normal 7.6-11.0 [facility] Comment on above: Order Comment: UNK Performed By: #### L 101.9900, L5.10 #### [facility] [address] [place], [address] Chloride [Moles/Vol] 104 mmol/L Normal 98-108 [facility] Comment on above: Order Comment: UNK Performed By: #### L 101.9900, L501.6710 #### [facility] [address] [place], [address] CO2 [Moles/Vol] 24.3 mmol/L Normal 21.0-32.0 [facility] Comment on above: Order Comment: UNK Performed By: #### L 101.9900, L501.6710 #### [facility] [address] [place], [address] Creatinine [Mass/Vol] 0.91 mg/dL Normal 0.70-1.20 [facility] Comment on above: Order Comment: UNK Performed By: #### L 101.9900, L501.6710 #### [facility] [address] [place], [address] GAP 11 Normal 5-15 [facility] Comment on above: Order Comment: UNK Performed By: #### L 101.9900, L501.6710 #### [facility] [address] [place], [address] GFR/1.73 sq M.predicted among non-blacks MDRD (S/P/Bld) [Vol rate/Area] 85 mL/min/{1.73_m2} Normal >60 [facility] Comment on above: Order Comment: UNK Result Comment: mL/m in/1.73m2 CKD-EPI Creatinine Equation (2020) Performed By: #### L 101.9900, L501.6710 #### [facility] [address] [place], [address] Globulin (S) [Mass/Vol] 3.1 g/dL Normal 2.2-4.2 [facility] Comment on above: Order Comment: UNK Performed By: #### L 101.9900, L501.6710 #### [facility] [address] [place], [address] Glucose [Mass/Vol] 118 mg/dL High 70-99 [facility] Comment on above: Order Comment: UNK Performed By: #### L 101.9900, L501.6710 #### [facility] [address] [place], [address] Potassium [Moles/Vol] 4.5 mmol/L Normal 3.3-5.1 [facility] Comment on above: Order Comment: UNK Performed By: #### L 101.9900, L501.6710 #### [facility] [address] [place], [address] Sodium [Moles/Vol] 139 mmol/L Normal 133-145 [facility] Comment on above: Order Comment: UNK Performed By: #### L 101.9900, L501.6710 #### [facility] [address] [place], [address] T PROT 7.5 g/dL Normal 5.9-8.4 [facility] Comment on above: Order Comment: UNK Performed By: #### L 101.9900, L501.6710 #### [facility] [address] [place], [address] Urea nitrogen [Mass/Vol] 15 mg/dL Normal 4-19 [facility] Comment on above: Order Comment: UNK Performed By: #### L 101.9900, L501.6710 #### [facility] [address] [place], [address] Eosinophil percentageOrdered By: Mary Ellen Jules on 02-28-2025 Eosinophils/100 WBC (Bld) 6.1 % High 0-5 [facility] Erythrocyte Sed Rateon 02-28 SED RATE 4 mm/hr Normal 0-20 [facility] Comment on above: Performed By: #### L 101.9900, L501.6710 #### [facility] [address] [place], [address] Erythrocyte distribution wid th ratioOrdered By: Mary Ellen Jules on 02-28-2025 Erythrocyte distribution width (RBC) [Ratio] 13.2 % 11.6-14.6 [facility] Erythrocyte distribution wid th standard deviationOrdered By: Mary Ellen Jules on 02-28-2025 Erythrocyte distribution width (RBC) [Ratio] 46.7 fl High 35.1-43.9 [facility] Erythrocyte sedimentation ra teOrdered By: Mary Ellen Jules on 02-28-2025 ESR (Bld) [Velocity] 4 mm/h 0-20 [facility] Free T3on 02-28-2025 Free T3 [Mass/Vol] 3.0 pg/mL Normal 2.18-3.98 [facility] Comment on above: Order Comment: NUNK Performed By: #### L 501.9910, L500.4100, L3100.5310, L506.1001, L501.9985, L500.4050, L503.0106, L506.0400, L100.0100, L501.66848, L501.9520, L501.5200, L101.9900 ####[facility] [address] [place], [place], [id number] Free V5Hhngihk By: Mary Ellen ríos on 02-28-2025 Free T3 [Mass/Vol] 3.0 pg/mL 2.18-3.98 [facility] Free testosterone percentage Ordered By: Mary Ellen Jules on 02-28-2025 Testosterone Free/Testosterone.total [Mass fraction] 2.49 % 1.50-4.20 [facility] Comment on above: Performed at: [facility] [employer] [id number] Director: Luan Cheng PhD, Phone: [phone] at: - [address] [id number] Director: Jasmyne Drummond MD, Phone: [phone] Glomerular filtration rate ( GFR) estimation/1.73 sq m using serum, plasma, or whole bOrdered By: Mary Ellen Jules on 02-28-2025 GFR/1.73 sq M.predicted among non-blacks MDRD (S/P/Bld) [Vol rate/Area] 85 mL/min/{1.73_m2} >60 [facility] Comment on above: mL/min/1.73m2 CKD-EP I Creatinine Equation (2020) Hematocrit Auto (Bld) [Volum e fraction]Ordered By: Mary Ellen Jules on 02-28-2025 Hematocrit (Bld) [Volume fraction] 46.9 % 40-54 [facility] Hemoglobin A1con 02-28-2025 HbA1c (Bld) [Mass fraction] 5.8 % High <=5.6 [facility] Comment on above: Result Comment: Norm al < 5.7 % Prediabetic 5.7 - 6.4 % Diabetic >or= 6.5 % Please note range changes. Performed By: #### L 101.9900, L501.6710 #### [facility] [place], [address] Hemoglobin A1c percentageOrd ered By: Mary Ellen Jules on 02-28-2025 HbA1c (Bld) [Mass fraction] 5.8 % High <5.7 [facility] Comment on above: Normal < 5.7 % Predi abetic 5.7 - 6.4 % Diabetic >or= 6.5 % Please note range changes. Hemoglobin measurementOrdere d By: Mary Ellen Jules on 02-28-2025 Hemoglobin (Bld) [Mass/Vol] 15.5 g/dL 13.0-16.5 [facility] Immature granulocytes/100 WB C Auto (Bld)Ordered By: Mary Ellen Jules on 02-28-2025 Immature granulocytes/100 WBC (Bld) 0.200 % 0.0-0.9 [facility] Comment on above: IG% - Immature Granu locytes (promyelocytes, myelocytes and metamyelocytes) > 1% indicates that a LEFT SHIFT is Present. LDL calc ser/plasOrdered By: Mary Ellen Jules on 02-28-2025 Cholesterol in LDL [Mass/Vol] 149 mg/dL [facility] Comment on above: Xjifubvjqx=135-011 m g/dL & Higher Htmv=697 mg/dL or greater Laboratory - Chemistry and C hemistry - challengeOrdered By: Mary Ellen Jules on 02-28-2025 AST [Catalytic activity/Vol] 24 U/L <38 [facility] Lipid Profileon 02-28-2025 CHOL:HDL 5.07 Normal [facility] Comment on above: Performed By: #### L 501.9910, L500.4100, L3100.5310, L506.1001, L501.9985, L500.4050, L503.0106, L506.0400, L100.0100, L501.36424, L501.9520, L501.5200, L101.9900 ####[facility] [address] [place], [place], [phone] Cholesterol [Mass/Vol] 208 mg/dL High <=200 [facility] Comment on above: Result Comment: Chol esterol level, Desirable <200 mg/dL Borderline high cholesterol 200-239 mg/dL High cholesterol >=240 mg/dL Recommendations of the NCEP Adult Treatment Panel for the following risk-cutoff thresholds for the [place] population. Performed By: #### L 501.9910, L500.4100, L3100.5310, L506.1001, L501.9985, L500.4050, L503.0106, L506.0400, L100.0100, L501.97657, L501.9520, L501.5200, L101.9900 ####[facility] [address] [place], [place], [phone] Cholesterol in HDL [Mass/Vol] 41 mg/dL Normal [facility] Comment on above: Result Comment: Livia onal Cholesterol Education Program (NCEP) guidelines: <40 mg/dL: Low HDL-cholesterol (major risk factor for CHD) >= 60 mg/dL: High HDL-cholesterol (negative risk factor for CHD) HDL-cholesterol is affected by a number of factors, e.g. smoking, exercise, hormones, sex and age. Performed By: #### L 501.9910, L500.4100, L3100.5310, L506.1001, L501.9985, L500.4050, L503.0106, L506.0400, L100.0100, L501.94872, L501.9520, L501.5200, L101.9900 ####[facility] [address] [place], [place], [id number] Cholesterol in LDL [Mass/Vol] 149 mg/dL Normal [facility] Comment on above: Result Comment: Bord tkipvz=502-006 mg/dL Higher Qwer=922 mg/dL or greater Performed By: #### L 501.9910, L500.4100, L3100.5310, L506.1001, L501.9985, L500.4050, L503.0106, L506.0400, L100.0100, L501.58073, L501.9520, L501.5200, L101.9900 ####[facility] [address] [facility] [address] [place], [place], [address] Cholesterol in VLDL [Mass/Vol] 18 mg/dL Normal 5-40 [facility] Comment on above: Performed By: #### L 501.9910, L500.4100, L3100.5310, L506.1001, L501.9985, L500.4050, L503.0106, L506.0400, L100.0100, L501.66088, L501.9520, L501.5200, L101.9900 ####[facility] [address] [place], [place], [address] Triglyceride [Mass/Vol] 90 mg/dL Normal [facility] Comment on above: Result Comment: The drugs N-Acetylcysteine and Metamizole may falsely depress this assay. Normal range: <150 mg/dL Borderline High: 150-199 mg/dL High: 200-499 mg/dL Very High: >500 mg/dL Performed By: #### L 501.9910, L500.4100, L3100.5310, L506.1001, L501.9985, L500.4050, L503.0106, L506.0400, L100.0100, L501.98450, L501.9520, L501.5200, L101.9900 ####[facility] [address] [place], [place], [address] MCV (mean corpuscular volume ) determinationOrdered By: Mary Ellen Jules on 02-28-2025 MCV (RBC) [Entitic vol] 95.7 fL High 80-94 [facility] Magnesiumon 02-28-2025 Magnesium [Mass/Vol] 2.0 mg/dL Normal 1.5-2.2 [facility] Comment on above: Performed By: #### L 501.9910, L500.4100, L3100.5310, L506.1001, L501.9985, L500.4050, L503.0106, L506.0400, L100.0100, L501.24553, L501.9520, L501.5200, L101.9900 ####[facility] [address] [place], [place], [id number] Magnesium measurement (mass/ volume)Ordered By: Mray Ellen Jules on 02-28-2025 Magnesium (Unsp spec) [Mass/Vol] 2.0 mg/dL 1.5-2.2 [facility] Mean corpuscular hemoglobin (MCH) determinationOrdered By: Mary Ellen Jules on 02-28-2025 MCH (RBC) [Entitic mass] 31.6 pg 27.0-32.0 [facility] Mean corpuscular hemoglobin concentration (MCHC) determinationOrdered By: Mary Ellen Jules on 02-28-2025 MCHC (RBC) [Mass/Vol] 33.0 g/dL 32-36 [facility] Mean platelet volume determi nationOrdered By: Mary Ellen Jules on 02-28-2025 Platelet mean volume (Bld) [Entitic vol] 10.1 fL 6.2-12.0 [facility] Monocyte percentageOrdered B y: Mary Ellen Jules on 02-28-2025 Monocytes/100 WBC (Bld) 6.8 % 0-10 [facility] Neutrophil percentageOrdered By: Mary Ellen Jules on 02-28-2025 Neutrophils/100 WBC (Bld) 45.8 % Low 47-70 [facility] Nucleated red blood cell per centageOrdered By: Mary Ellen Jules on 02-28-2025 Nucleated RBC/100 WBC (Bld) [Ratio] 0 % 0-5 [facility] PSA,Total - Annual Screenon 02-28-2025 PSA,TOT SCREEN 0.98 ng/mL Normal 0.02-4.00 [facility] Comment on above: Result Comment: This [...] confirm baseline values. Performed By: #### L 501.9910, L500.4100, L3100.5310, L506.1001, L501.9985, L500.4050, L503.0106, L506.0400, L100.0100, L501.49390, L501.9520, L501.5200, L101.9900 ####[facility] [address] [place], [address] Platelet countOrdered By: Katina Jules on 02-28-2025 Platelets (Bld) [#/Vol] 199 10*3/uL 150-450 [facility] Potassium measurement (mass/ volume)Ordered By: Mary Ellen Jules on 02-28-2025 Potassium (Unsp spec) [Mass/Vol] 4.5 mmol/L 3.3-5.1 [facility] RBC Auto (Bld) [#/Vol]Ordere d By: Mary Ellen Jules on 02-28-2025 RBC (Bld) [#/Vol] 4.90 10*6/uL 4.6-6.2 [facility] Screening total cholesterol/ high density lipoprotein (HDL) cholesterol ratioOrdered By: Mary Ellen Jules on 02-28-2025 Cholesterol.total/Choles terol in HDL [Mass ratio] 5.07 {ratio} [facility] Serum creatinine measurement (mass/volume)Ordered By: Mary Ellen Jules on 02-28-2025 Creatinine [Mass/Vol] 0.91 mg/dL 0.70-1.20 [facility] Serum globulin measurementOr dered By: Mary Ellen Jules on 02-28-2025 Globulin (S) [Mass/Vol] 3.1 g/dL 2.2-4.2 [facility] Serum glucose measurement (m ass/volume)Ordered By: Mary lElen Jules on 02-28-2025 Glucose [Mass/Vol] 118 mg/dL High 70-99 [facility] Serum or plasma alanine mehta otransferase (ALT) measurementOrdered By: Mary Ellen Jules on 02-28-2025 ALT [Catalytic activity/Vol] 27 U/L <47 [facility] Serum or plasma albumin sharon urement (mass/volume)Ordered By: Mary Ellen Jules on 02-28-2025 Albumin [Mass/Vol] 4.4 g/dL 3.4-4.8 [facility] Serum or plasma albumin/glob ulin mass ratioOrdered By: Mary Ellen Jules on 02-28-2025 Albumin/Globulin [Mass ratio] 1.4 {ratio} 0.9-2.4 [facility] Serum or plasma alkaline litzy sphatase measurementOrdered By: Mary Ellen Jules on 02-28-2025 ALP [Catalytic activity/Vol] 49 U/L 40-129 [facility] Serum or plasma calcium sharon urement (mass/volume)Ordered By: Mary Ellen Jules on 02-28-2025 Calcium [Mass/Vol] 9.4 mg/dL 7.6-11.0 [facility] Serum or plasma cholesterol in HDL measurement (mass/volume)Ordered By: Mary Ellen Jules on 02-28-2025 Cholesterol in HDL [Mass/Vol] 41 mg/dL >40 [facility] Comment on above: National Cholesterol Education Program (NCEP) guidelines:<40 mg/dL: Low HDL-cholesterol (major risk factor for CHD)>= 60 mg/dL: High HDL-cholesterol (negative risk factor for CHD)HDL-cholesterol is affected by a number of factors, e.g. smoking, exercise, hormones, sex and age. Serum or plasma cholesterol measurement (mass/volume)Ordered By: Mary Ellen Jules on 02-28-2025 Cholesterol [Mass/Vol] 208 mg/dL High <201 [facility] Comment on above: Cholesterol level, D esirable <200 mg/dLBorderline high cholesterol 200-239 mg/dLHigh cholesterol >=240 mg/dLRecommendations of the NCEP Adult Treatment Panel for the following risk-cutoff thresholds for the [place] population. Serum or plasma free testost erone measurement (mass/volume)Ordered By: Mary Ellen Jules on 02-28-2025 Testosterone Free [Mass/Vol] 13.32 ng/dL 5.00-21.00 [facility] Serum or plasma urea nitroge n measurement (mass/volume)Ordered By: Mary Ellen Jules on 02-28-2025 Urea nitrogen [Mass/Vol] 15 mg/dL 4-19 [facility] Sodium levelOrdered By: Tami Jules on 02-28-2025 Sodium [Moles/Vol] 139 mmol/L 133-145 [facility] T4 Free Directon 02-28-2025 T4 FREE DIRECT 1.00 ng/dL Normal 0.76-1.46 [facility] Comment on above: Order Comment: NUNK Performed By: #### L 501.9910, L500.4100, L3100.5310, L506.1001, L501.9985, L500.4050, L503.0106, L506.0400, L100.0100, L501.48308, L501.9520, L501.5200, L101.9900 ####[facility] [id number] [place], [place], [address] T4 freeOrdered By: Mary Ellen ríos on 02-28-2025 Free T4 [Mass/Vol] 1.00 ng/dL 0.76-1.46 [facility] TSH DL <= 0.005 mIU/L QnOrde red By: Mary Ellen Jules on 02-28-2025 TSH Qn 4.560 uIU/mL High 0.300-4.200 [facility] Testosterone, totalOrdered B y: Mary Ellen Jules on 02-28-2025 Testosterone [Mass/Vol] 535 ng/dL 264-916 [facility] Comment on above: Adult male reference interval is based on a population ofhealthy nonobese males (BMI <30) between 19 and 39 yearsold. rosemary Schmid.al. JCEM 2017,102;9294-4406. PMID:[id number]. Thyroid Stim Hormone (TSH)on 02-28-2025 TSH 4.560 uIU/mL High 0.300-4.200 [facility] Comment on above: Performed By: #### L 501.9910, L500.4100, L3100.5310, L506.1001, L501.9985, L500.4050, L503.0106, L506.0400, L100.0100, L501.40093, L501.9520, L501.5200, L101.9900 ####[facility] [id number] [place], [address] Total proteinOrdered By: Leslie Jules on 02-28-2025 Protein [Mass/Vol] 7.5 g/dL 5.9-8.4 [facility] Triglycerides measurementOrd ered By: Mary Ellen Jules on 02-28-2025 Triglyceride [Mass/Vol] 90 mg/dL <199 [facility] Comment on above: The drugs N-Acetylcy steine and Metamizole may falsely depress this assay. Normal range: <150 mg/dLBorderline High: 150-199 mg/dLHigh: 200-499 mg/dLVery High: >500 mg/dL Vitamin B12on 02-28-2025 Cobalamin (Vitamin B12) [Mass/Vol] 425 pg/mL Normal 180-914 [facility] Comment on above: Performed By: #### L 501.9910, L500.4100, L3100.5310, L506.1001, L501.9985, L500.4050, L503.0106, L506.0400, L100.0100, L501.82658, L501.9520, L501.5200, L101.9900 ####[facility] [id number] [place], [address] Vitamin B12 ser/plasOrdered By: Mary Ellen Jules on 02-28-2025 Cobalamin (Vitamin B12) [Mass/Vol] 425 pg/mL 180-914 [facility] Vitamin D,25 Hydroxyon 02-28 Vitamin D 25-OH 13.8 ng/mL Low 30-100 [facility] Comment on above: Result Comment: Gayle min D Status Deficiency: <20 ng/mL (50nmol/L) Insufficiency: 20-30 ng/mL (50-75 nmol/L) Sufficiency: 30-100 ng/mL (75-250 nmol/L) Toxicity: >100 ng/mL (>250 nmol/L) Performed By: #### L 501.9910, L500.4100, L3100.5310, L506.1001, L501.9985, L500.4050, L503.0106, L506.0400, L100.0100, L501.50658, L501.9520, L501.5200, L101.9900 ####[facility] [id number] [place], [place], [id number] White blood cell (WBC) count Ordered By: Mary Ellen Jules on 02-28-2025 WBC (Bld) [#/Vol] 5.4 10*3/uL 4.4-11.0 [facility] Cytology, Body Fluid / CSFon 11-01-2024 CYTOLOGY,BF/CSF SEE PATHOLOGY REPORT Normal [facility] Comment on above: Order Comment: URINE Result Comment: Spec imen submitted to Anatomical Pathology Department for testing. Performed By: #### L 101.9900, L501.6710 #### [facility] [address] [place], [place], [id number] Pap Stain (control)on 2024 Pap Stain (control) Patient Age/Sex Location Account Attending Physician ARIA HERNANDEZ 79/M LABSPEC [id number] Isa Rgoers Specimen: [id number] Received: 11/01/24 Status: ANGUS Crystal Num: [id number] Spec Type: CYSPIN FL Subm Dr: Isa [...] for cytology preparation. Mr 11/02/2024 TC:2 CPT: 03473 Signed (signature on file) Dr. Gennaro Rivas MD 11/02/24 1546 Normal [facility] Comment on above: Performed By: #### P PAPS #### [facility] [address] [place], [address] Urine Cultureon 07-26-2024 URC Culture exhibits no growth. Normal [facility] Comment on above: Performed By: #### L 101.9900, L501.6710 #### [facility] [address] [place], [place], [address] CRPon 07-25-2024 C-REACTIVE PROT < 2.90 Normal 0.0-3.0 [facility] Comment on above: Result Comment: C-Re active Protein (CRP) provides useful information for the diagnosis, therapy and monitoring of inflammatory processes and associated diseases. For the evaluation of Relative Risk for Cardiovascular Disease, a High Sensitivity CRP (HSCRP) should be ordered. Performed By: #### L 101.9900, L501.6710 #### [facility] [address] [place], [address] Erythrocyte Sed Rateon 07-25 SED RATE 20 mm/hr Normal 0-20 [facility] Comment on above: Performed By: #### L 101.9900, L501.6710 #### [facility] [address] [place], [address] Urinalysis, Completeon 07-25 EPI,SQUAMOUS 0-5 SEEN Normal 0-5 [facility] Comment on above: Order Comment: COLLE CTOR TO SPECIFY Performed By: #### L 101.9900, L501.6710 #### [facility] [address] [place], [address] RBC 0-5 SEEN Normal 0-5 [facility] Comment on above: Order Comment: CHLOE CTOR TO SPECIFY Performed By: #### L 101.9900, L501.6710 #### [facility] [address] [place], [address] WBC 5-10 SEEN Normal 0-5 [facility] Comment on above: Order Comment: CHLOE CTOR TO SPECIFY Performed By: #### L 101.9900, L501.6710 #### [facility] [address] [place], [address] BACTERIA 0 SEEN Normal None Seen [facility] Comment on above: Order Comment: CHLOE CTOR TO SPECIFY Performed By: #### L 101.9900, L501.6710 #### [facility] [address] [place], [address] Mucus Ql (Urine sed) 0 SEEN Normal [facility] Comment on above: Order Comment: CHLOE CTOR TO SPECIFY Performed By: #### L 101.9900, L501.6710 #### [facility] [address] [place], [address] Absolute lymphocyte countOrd ered By: Benedicto Garland on 10-14-2023 Lymphocytes Auto (Unsp spec) [#/Vol] 1.50 10*3/uL 0.83-4.51 [facility] Basophil percentageOrdered B y: Benedicto Garland on 10-14-2023 Basophils/100 WBC (Bld) 0.7 % 0-1 [facility] Chloride [Moles/Vol] 106 mmol/L 98-107 [facility] Eosinophils/100 WBC (Bld) 2.3 % 0-5 [facility] Glucose [Mass/Vol] 109 mg/dL 74-106 [facility] Comment on above: Fasting Glucose resu lt from 100 to 125 mg/dL suggests IMPAIRED HOMEOSTASIS per A.D.A. criteria. Neutrophils (Bld) [#/Vol] 4.6 10*3/uL 2.0-7.7 [facility] Neutrophils/100 WBC (Bld) 67.3 % 47-70 [facility] Potassium [Moles/Vol] 3.8 mmol/L 3.5-5.1 [facility] Sodium [Moles/Vol] 141 mmol/L 136-145 [facility] WBC (Bld) [#/Vol] 6.8 10*3/uL 4.4-11.0 [facility] Blood erythrocytes count (nu mber/volume)Ordered By: Benedicto Garland on 10-14-2023 RBC (Bld) [#/Vol] 4.80 10*6/uL 4.6-6.2 [facility] Blood hemoglobin measurement (mass/volume)Ordered By: Benedicto Garland on 10-14-2023 Hemoglobin (Bld) [Mass/Vol] 14.7 g/dL 13.0-16.5 [facility] Blood lymphocytes/100 leukoc ytesOrdered By: Benedicto Garland on 10-14-2023 Lymphocytes/100 WBC (Bld) 22.0 % 19-41 [facility] Blood monocytes/100 leukocyt esOrdered By: Benedicto Garland on 10-14-2023 Monocytes/100 WBC (Bld) 6.8 % 0-10 [facility] Blood platelet mean volumeOr dered By: Benedicto Garland on 10-14-2023 Platelet mean volume (Bld) [Entitic vol] 9.3 fL 6.2-12.0 [facility] Determination of erythrocyte mean corpuscular volume (MCV)Ordered By: Benedicto Garland on 10-14-2023 MCV (RBC) [Entitic vol] 94.4 fL 80-94 [facility] Hematocrit Auto (Bld) [Volum e fraction]Ordered By: Benedicto Garland on 10-14-2023 Hematocrit (Bld) [Volume fraction] 45.3 % 40-54 [facility] - Chemistry and C hemistry - challengeOrdered By: Benedicto Garland on 10-14-2023 CO2 [Moles/Vol] 25.0 mmol/L 21.0-32.0 [facility] Urea nitrogen/Creatinine [Mass ratio] 16.5 mg/mg - [facility] - Hematology and Cell countsOrdered By: Benedicto Garland on 10-14-2023 Erythrocyte distribution width (RBC) [Entitic vol] 44.2 fL 35.1-43.9 [facility] Erythrocyte distribution width (RBC) [Ratio] 12.8 % 11.6-14.6 [facility] Immature granulocytes/100 WBC (Bld) 0.900 % 0.0-0.9 [facility] Comment on above: IG% - Immature Granu locytes (promyelocytes, myelocytes and metamyelocytes) > 1% indicates that a LEFT SHIFT is Present. MCH (RBC) [Entitic mass] 30.6 pg 27.0-32.0 [facility] Nucleated RBC/100 WBC (Bld) [Ratio] 0 % 0-5 [facility] MCHC Auto (RBC) [Mass/Vol]Or dered By: Benedicto Garland on 10-14-2023 MCHC (RBC) [Mass/Vol] 32.5 g/dL 32-36 [facility] No Panel InformationOrdered By: Benedicto Garland on 10-14-2023 Estimated Creatinine Clearance Calc 61.94 ml/min [facility] Estimated GFR (MDRD) Amer 90 mL/min >60 [facility] Comment on above: GFR Calc Estimated GFR (MDRD) Non-Af Amer 74 mL/min >60 [facility] Comment on above: Non- GFR Calc Platelets bldOrdered By: Ida Garland on 10-14-2023 Platelets (Bld) [#/Vol] 243 10*3/uL 150-450 [facility] Serum or plasma calcium sharon urement (mass/volume)Ordered By: Benedicto Garland on 10-14-2023 Calcium [Mass/Vol] 8.9 mg/dL 8.5-10.1 [facility] Serum or plasma creatinine m easurement (mass/volume)Ordered By: Benedicto Garland on 10-14-2023 Creatinine [Mass/Vol] 1.03 mg/dL 0.70-1.30 [facility] Comment on above: The validity of the calculated GFR & GFRAA in patients over 70 years has not been determined. Clinical correlation is essential. Serum or plasma urea nitroge n measurement (mass/volume)Ordered By: Benedicto Garland on 10-14-2023 Urea nitrogen [Mass/Vol] 17 mg/dL 7-18 [facility] Thin prep Papanicolaou smear with manual screeningOrdered By: Benedicto Garland on 10-14-2023 Thin prep Papanicolaou smear with manual screening 10 5-15 [facility] Amorphous sediment detection in urine sediment by light microscopyOrdered By: Jabari Elizabeth on 10-11-2023 Amorphous sediment LM Ql (Urine sed) 1+ URATE [facility] Basophil percentageOrdered B y: Jabari Elizabeth on 10-11-2023 Basophil percentage 0 SEEN /hpf 0-5 [facility] Bilirubin Test strip Ql (U)O rdered By: Jabari Elizabeth on 10-11-2023 Bilirubin Ql (U) Negative Negative [facility] Ketones Test strip Ql (U)Ord ered By: Jabari Elizabeth on 10-11-2023 Ketones Ql (U) 5 mg/dl Negative [facility] Mucus LM Ql (Urine sed)Order ed By: Jabari Elizabeth on 10-11-2023 Mucus Ql (Urine sed) 0 SEEN /hpf [facility] Nitrite Test strip Ql (U)Ord ered By: Jabari Elizabeth on 10-11-2023 Nitrite Ql (U) Negative Negative [facility] Protein Test strip Ql (U)Ord ered By: Jabari Elizabeth on 10-11-2023 Protein Ql (U) 500 mg/dl Negative [facility] Squamous epithelial cells de tection in urine sediment by light microscopyOrdered By: Jabari Elizabeth on 10-11-2023 Epithelial cells.squamous LM Ql (Urine sed) 0-5 SEEN /hpf 0-5 [facility] Urine blood detectionOrdered By: Jabari Elizabeth on 10-11-2023 RBC Ql (U) 150 /ul Negative [facility] RBC Ql (U) > 100 SEEN /hpf 0-5 [facility] Urine clarityOrdered By: Peter Elizabeth on 10-11-2023 Clarity (U) Cloudy Clear [facility] Urine color determinationOrd ered By: Jabari Elizabeth on 10-11-2023 Color (U) Red Yellow [facility] Urine glucose detectionOrder ed By: Jabari Elizabeth on 10-11-2023 Glucose Ql (U) Normal mg/dl Normal [facility] Urine leukocyte esterase det ection by dipstickOrdered By: Jabari Elizabeth on 10-11-2023 Leukocyte esterase Test strip Ql (U) Negative Negative [facility] Urine pHOrdered By: Jabari Elizabeth on 10-11-2023 pH (U) 6.5 [pH] 5.0 - 8.0 [facility] Urine sediment bacteria coun t by microscopy (number/high power field)Ordered By: Jabari Elizabeth on 10-11-2023 Bacteria LM.HPF (Urine sed) [#/Area] 0 /[HPF] None Seen [facility] Urine specific gravity measu rementOrdered By: Jabari Elizabeth on 10-11-2023 Specific gravity (U) [Rel density] 1.020 1.002-1.030 [facility] Urobilinogen Auto test strip Ql (U)Ordered By: Jabari Elizabeth on 10-11-2023 Urobilinogen Ql (U) Normal mg/dl Normal [facility] Basophil percentageOrdered B y: Isa Rogers on 08-03-2023 Basophil percentage < 0.9 mg/dL 0.70-1.30 [facility] No Panel InformationOrdered By: Isa Rogers on 08-03-2023 Bedside Estimated GFR (eGFR) > 60.0000 mL/min >60 [facility] Absolute lymphocyte countOrd ered By: Dr. Jules on 12-25-2022 Lymphocytes Auto (Unsp spec) [#/Vol] 2.61 10*3/uL 0.83-4.51 [facility] Basophil percentageOrdered B y: Dr. Jules on 12-25-2022 Basophils/100 WBC (Bld) 0.8 % 0-1 [facility] Bilirubin [Mass/Vol] 0.70 mg/dL 0.20-1.00 [facility] Comment on above: For patients on eltr ombopag therapy, use of Dimension [place] TBIL is not recommended. Chloride [Moles/Vol] 104 mmol/L 98-107 [facility] Cholesterol [Mass/Vol] 185 mg/dL <200 [facility] Comment on above: <200 mg/dL Desirable 200-240 mg/dL Borderline >240 mg/dL High Risk Eosinophils/100 WBC (Bld) 5.2 % 0-5 [facility] Glucose [Mass/Vol] 100 mg/dL 74-106 [facility] Comment on above: Fasting Glucose resu lt from 100 to 125 mg/dL suggests IMPAIRED HOMEOSTASIS per A.D.A. criteria. Neutrophils (Bld) [#/Vol] 2.0 10*3/uL 2.0-7.7 [facility] Neutrophils/100 WBC (Bld) 37.5 % 47-70 [facility] Potassium [Moles/Vol] 3.9 mmol/L 3.5-5.1 [facility] Protein [Mass/Vol] 7.5 g/dL 6.4-8.2 [facility] Sodium [Moles/Vol] 138 mmol/L 136-145 [facility] Triglyceride [Mass/Vol] 111 mg/dL <199 [facility] Comment on above: The drugs N-Acetylcy steine and Metamizole may falsely depress this assay.Serum Triglycerides Reference Interval Normal <150 mg/dL Borderline high 150 - 199 mg/dL High 200 - 499 mg/dL Very High > or = 500 mg/dL WBC (Bld) [#/Vol] 5.2 10*3/uL 4.4-11.0 [facility] Blood erythrocytes count (nu mber/volume)Ordered By: Dr. Jules on 12-25-2022 RBC (Bld) [#/Vol] 5.07 10*6/uL 4.6-6.2 [facility] Blood hemoglobin measurement (mass/volume)Ordered By: Dr. Jules on 12-25-2022 Hemoglobin (Bld) [Mass/Vol] 15.6 g/dL 13.0-16.5 [facility] Blood lymphocytes/100 leukoc ytesOrdered By: Dr. Jules on 12-25-2022 Lymphocytes/100 WBC (Bld) 50.0 % 19-41 [facility] Blood monocytes/100 leukocyt esOrdered By: Dr. Jules on 12-25-2022 Monocytes/100 WBC (Bld) 6.1 % 0-10 [facility] Blood platelet mean volumeOr dered By: Dr. Jules on 12-25-2022 Platelet mean volume (Bld) [Entitic vol] 9.4 fL 6.2-12.0 [facility] Determination of erythrocyte mean corpuscular volume (MCV)Ordered By: Dr. Jules on 12-25-2022 MCV (RBC) [Entitic vol] 94.3 fL 80-94 [facility] Hematocrit Auto (Bld) [Volum e fraction]Ordered By: Dr. Jules on 12-25-2022 Hematocrit (Bld) [Volume fraction] 47.8 % 40-54 [facility] - Chemistry and C hemistry - challengeOrdered By: Dr. Jules on 12-25-2022 ALP [Catalytic activity/Vol] 50 U/L 45-117 [facility] ALT [Catalytic activity/Vol] 33 U/L 16-61 [facility] CO2 [Moles/Vol] 29.0 mmol/L 21.0-32.0 [facility] Globulin (S) [Mass/Vol] 3.7 g/dL 2.2-4.2 [facility] Urea nitrogen/Creatinine [Mass ratio] 17.8 mg/mg 10-20 [facility] - Hematology and Cell countsOrdered By: Dr. Jules on 12-25-2022 Erythrocyte distribution width (RBC) [Entitic vol] 44.2 fL 35.1-43.9 [facility] Erythrocyte distribution width (RBC) [Ratio] 12.8 % 11.6-14.6 [facility] Immature granulocytes/100 WBC (Bld) 0.400 % 0.0-0.9 [facility] Comment on above: IG% - Immature Granu locytes (promyelocytes, myelocytes and metamyelocytes) > 1% indicates that a LEFT SHIFT is Present. MCH (RBC) [Entitic mass] 30.8 pg 27.0-32.0 [facility] Nucleated RBC/100 WBC (Bld) [Ratio] 0 % 0-5 [facility] MCHC Auto (RBC) [Mass/Vol]Or dered By: Dr. Jules on 12-25-2022 MCHC (RBC) [Mass/Vol] 32.6 g/dL 32-36 [facility] No Panel InformationOrdered By: Dr. Jules on 12-25-2022 Estimated GFR (MDRD) Amer 98 mL/min >60 [facility] Comment on above: GFR Calc Estimated GFR (MDRD) Non-Af Amer 81 mL/min >60 [facility] Comment on above: Non- GFR Calc Prostate Specific Antigen Screen 3.19 ng/mL 0.00-4.00 [facility] Comment on above: This test was perfor med using the TPSA assay method for the[employer] chemistry system. Values obtained with differentassay methods cannot be used interchangably.When changing PSA assays in the course of monitoring apatient, additional sequential testing should be carriedout to confirm baseline values. Thyroid Stimulating Hormone (TSH) 2.08 uIU/mL 0.358-3.74 [facility] Vitamin D 25-Hydroxy 14.4 ng/mL [facility] Comment on above: Vitamin D 25(OH) Sta tus Range Deficiency <20 ng/mL (50nmol/L) Insufficiency 20 - 30 ng/mL (50 - 75 nmol/L) Sufficiency 30 - 100 ng/mL (75 - 250 nmol/L) Toxicity >100 ng/mL (>250 nmol/L) Platelets bldOrdered By: Dr. Jules on 12-25-2022 Platelets (Bld) [#/Vol] 207 10*3/uL 150-450 [facility] Serum or plasma albumin sharon urement (mass/volume)Ordered By: Dr. Jules on 12-25-2022 Albumin [Mass/Vol] 3.8 g/dL 3.2-5.0 [facility] Serum or plasma albumin/glob ulin mass ratioOrdered By: Dr. Jules on 12-25-2022 Albumin/Globulin [Mass ratio] 1.0 {ratio} 0.9-2.4 [facility] Serum or plasma calcium sharon urement (mass/volume)Ordered By: Dr. Jules on 12-25-2022 Calcium [Mass/Vol] 9.0 mg/dL 8.5-10.1 [facility] Serum or plasma cholesterol in HDL measurement (mass/volume)Ordered By: Dr. Jules on 12-25-2022 Cholesterol in HDL [Mass/Vol] 36 mg/dL >40 [facility] Comment on above: The drugs N-Acetylcy steine and Metamizole may falsely depress this assay. Reference Range HDL <40 mg/dL Low HDL Cholesterol HDL >or= 60 mg/dL High HDL Cholesterol Serum or plasma cholesterol in VLDL measurement (mass/volume)Ordered By: Dr. Jules on 12-25-2022 Cholesterol in VLDL [Mass/Vol] 22 mg/dL 5-40 [facility] Serum or plasma creatinine m easurement (mass/volume)Ordered By: Dr. Jules on 12-25-2022 Creatinine [Mass/Vol] 0.96 mg/dL 0.70-1.30 [facility] Comment on above: The validity of the calculated GFR & GFRAA in patients over 70 years has not been determined. Clinical correlation is essential. Serum or plasma low density lipoprotein (LDL) cholesterol measurement (mass/volume)Ordered By: Dr. Jules on 12-25-2022 Cholesterol in LDL [Mass/Vol] 127 mg/dL 0-130 [facility] Serum or plasma urea nitroge n measurement (mass/volume)Ordered By: Dr. Jules on 12-25-2022 Urea nitrogen [Mass/Vol] 17 mg/dL 7-18 [facility] Thin prep Papanicolaou smear with manual screeningOrdered By: Dr. Jules on 12-25-2022 Thin prep Papanicolaou smear with manual screening 24 U/L 15-37 [facility] Thin prep Papanicolaou smear with manual screening 5 5-15 [facility] CNCOon 12-04-2021 [facility] Letter Text Normal [facility] Gilberto 10-04-2021 [facility] ARIA HERNANDEZ ([id number]) 1945 [facility] Date Time Provider Department 10/04/21 [facility] During your visit today, we [...] as of 07/18/2019: Local Pharmacy - [facility] [place] Problem List As Of Date 10/04/2021 Noted [...] Status:Closed by ANABELLA GONG on 10/04/21 Normal [facility] OBSOLETEon 05-28-2021 OBSOLETE Refill ([facility]) ARIA HERNANDEZ ([id number]) 1945 M TXT Date Time Provider Department [...] NOV-none Please review and advise. 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 Mary Ellen Jules MD Work Phone: [facility] 06-08-2025 11:34-0400 Body mass index (BMI) [Ratio] 26.2 kg/m2 Dr. Mary Ellen Jules MD Work Phone: [facility] 06-08-2025 11:34-0400 Body temperature 98.4 [degF] Dr. Mary Ellen Jules MD Work Phone: [facility] 06-08-2025 11:34-0400 Body weight 85.[address] Mary Ellen Jules MD Work Phone: [facility] 06-08-2025 11:34-0400 Diastolic blood pressure 73 mm[Hg] Dr. Mary Ellen Jules MD Work Phone: [facility] 06-08-2025 11:34-0400 Heart rate 76 /min Dr. Mary Ellen Jules MD Work Phone: [facility] 06-08-2025 11:34-0400 Respiratory rate 16 /min Dr. Mary Ellen Jules MD Work Phone: [facility] 06-08-2025 11:34-0400 SaO2% (BldA) [Mass fraction] 94 % Dr. Mary Ellen Jules MD Work Phone: [facility] 06-08-2025 11:34-0400 Systolic blood pressure 128 mm[Hg] Dr. Mary Ellen Jules MD Work Phone: [facility] 05-10-2025 13:57-0400 Body height 180.[address] Mary Ellen Jules MD Work Phone: [facility] 05-10-2025 13:57-0400 Body mass index (BMI) [Ratio] 25.7 kg/m2 Dr. Mary Ellen Jules MD Work Phone: [facility] 05-10-2025 13:57-0400 Body temperature 98.6 [degF] Dr. Mary Ellen Jules MD Work Phone: [facility] 05-10-2025 13:57-0400 Body weight 83.[address] Mary Ellen Jules MD Work Phone: [facility] 05-10-2025 13:57-0400 Diastolic blood pressure 70 mm[Hg] Dr. Mary Ellen Jules MD Work Phone: [facility] 05-10-2025 13:57-0400 Heart rate 80 /min Dr. Mary Ellen Jules MD Work Phone: [facility] 05-10-2025 13:57-0400 Respiratory rate 16 /min Dr. Mary Ellen Jules MD Work Phone: [facility] 05-10-2025 13:57-0400 SaO2% (BldA) [Mass fraction] 93 % Dr. Mary Ellen Jules MD Work Phone: [facility] 05-10-2025 13:57-0400 Systolic blood pressure 126 mm[Hg] Dr. Mary Ellen Jules MD Work Phone: [facility] 03-30-2025 07:57-0400 Body height 180.[address] Mary Ellen Jules MD Work Phone: [facility] 03-30-2025 07:57-0400 Body mass index (BMI) [Ratio] 25.8 kg/m2 Dr. Mary Ellen Jules MD Work Phone: [facility] 03-30-2025 07:57-0400 Body temperature 98.2 [degF] Dr. Mary Ellen Jules MD Work Phone: [facility] 03-30-2025 07:57-0400 Body weight 84.[address] Mary Ellen Jules MD Work Phone: [facility] 03-30-2025 07:57-0400 Diastolic blood pressure 70 mm[Hg] Dr. Mary Ellen Jules MD Work Phone: [facility] 03-30-2025 07:57-0400 Heart rate 78 /min Dr. Mary Ellen Jules MD Work Phone: [facility] 03-30-2025 07:57-0400 Respiratory rate 16 /min Dr. Mary Ellen Jules MD Work Phone: [facility] 03-30-2025 07:57-0400 SaO2% (BldA) [Mass fraction] 94 % Dr. Mary Ellen Jules MD Work Phone: [facility] 03-30-2025 07:57-0400 Systolic blood pressure 128 mm[Hg] Dr. Mary Ellen Jules MD Work Phone: [facility] 10-15-2023 09:49-0500 Body temperature 98.6 [degF] Dr. Mary Ellen Jules Work Phone: [facility] 10-15-2023 09:49-0500 Diastolic blood pressure 72 mm[Hg] Dr. Mary Ellen Jules Work Phone: [facility] 10-15-2023 09:49-0500 Heart rate 83 /min Dr. Mary Ellen Jules Work Phone: [facility] 10-15-2023 09:49-0500 Respiratory rate 16 /min Dr. Mary Ellen Jules Work Phone: [facility] 10-15-2023 09:49-0500 SaO2% (BldA) [Mass fraction] 96 % Dr. Mary Ellen Jules Work Phone: [facility] 10-15-2023 09:49-0500 Systolic blood pressure 138 mm[Hg] Dr. Mary Ellen Jules Work Phone: [facility] 10-14-2023 19:52-0500 Body height 180.[address] Mary Ellen Jules Work Phone: [facility] 10-14-2023 19:52-0500 Body mass index (BMI) [Ratio] 25.4 kg/m2 Dr. Mary Ellen Jules Work Phone: [facility] 10-14-2023 19:52-0500 Body weight 82.[address] Mary Ellen Jules Work Phone: [facility] 10-14-2023 19:06-0500 Diastolic blood pressure 87 mm[Hg] Dr. Mary Ellen Jules Work Phone: [facility] 10-14-2023 19:06-0500 Heart rate 72 /min Dr. Mary Ellen Jules Work Phone: [facility] 10-14-2023 19:06-0500 Respiratory rate 16 /min Dr. Mary Ellen Jules Work Phone: [facility] 10-14-2023 19:06-0500 SaO2% (BldA) [Mass fraction] 97 % Dr. Mary Ellen Jules Work Phone: [facility] 10-14-2023 19:06-0500 Systolic blood pressure 142 mm[Hg] Dr. Mary Ellen Jules Work Phone: [facility] 10-14-2023 16:52-0500 Body height 180.[address] Mary Ellen Jules Work Phone: [facility] 10-14-2023 16:52-0500 Body mass index (BMI) [Ratio] 26.2 kg/m2 Dr. Mary Ellen Jules Work Phone: [facility] 10-14-2023 16:52-0500 Body temperature 98.6 [degF] Dr. Mary Ellen Jules Work Phone: [facility] 10-14-2023 16:52-0500 Body weight 85.[address] Mary Ellen Jules Work Phone: [facility] 10-11-2023 21:00-0500 Body height 180.[address] Mary Ellen Jules Work Phone: [facility] 10-11-2023 21:00-0500 Body mass index (BMI) [Ratio] 26.5 kg/m2 Dr. Mary Ellen Jules Work Phone: [facility] 10-11-2023 21:00-0500 Body temperature 97.5 [degF] Dr. Mary Ellen Jules Work Phone: [facility] 10-11-2023 21:00-0500 Body weight 86.[address] Mary Ellen Jules Work Phone: [facility] 10-11-2023 21:00-0500 Diastolic blood pressure 81 mm[Hg] Dr. Mary Ellen Jules Work Phone: [facility] 10-11-2023 21:00-0500 Heart rate 91 /min Dr. Mary Ellen Jules Work Phone: [facility] 10-11-2023 21:00-0500 Respiratory rate 16 /min Dr. Mary Ellen Jules Work Phone: [facility] 10-11-2023 21:00-0500 SaO2% (BldA) [Mass fraction] 94 % Dr. Mary Ellen Jules Work Phone: [facility] 10-11-2023 21:00-0500 Systolic blood pressure 142 mm[Hg] Dr. Mary Ellen Jules Work Phone: [facility] 10-07-2023 16:57-0500 Body temperature 97.7 [degF] Dr. Mary Ellen Jules Work Phone: [facility] 10-07-2023 16:57-0500 Diastolic blood pressure 76 mm[Hg] Dr. Mayr Ellen Jules Work Phone: [facility] 10-07-2023 16:57-0500 Heart rate 67 /min Dr. Mary Ellen Jules Work Phone: [facility] 10-07-2023 16:57-0500 Respiratory rate 16 /min Dr. Mary Ellen Jules Work Phone: [facility] 10-07-2023 16:57-0500 SaO2% (BldA) [Mass fraction] 98 % Dr. Mary Ellen Jules Work Phone: [facility] 10-07-2023 16:57-0500 Systolic blood pressure 153 mm[Hg] Dr. Mary Ellen Jules Work Phone: [facility] 10-07-2023 13:07-0500 Body height 180.[address] Mary Ellen Jules Work Phone: [facility] 10-07-2023 13:07-0500 Body mass index (BMI) [Ratio] 25.4 kg/m2 Dr. Mary Ellen Jules Work Phone: [facility] 10-07-2023 13:07-0500 Body weight [address] Mary Ellen Jules Work Phone: [facility] 07-07-2023 14:03-0400 Body height 180.[address] Mary Ellen Jules Work Phone: [facility] 07-07-2023 14:03-0400 Body mass index (BMI) [Ratio] 25.7 kg/m2 Dr. Mary Ellen Jules Work Phone: [facility] 07-07-2023 14:03-0400 Body temperature 97.3 [degF] Dr. Mary Ellen Jules Work Phone: [facility] 07-07-2023 14:03-0400 Body weight 83.[address] Mary Ellen Jules Work Phone: [facility] 07-07-2023 14:03-0400 Diastolic blood pressure 75 mm[Hg] Dr. Mary Ellen Jules Work Phone: [facility] 07-07-2023 14:03-0400 Heart rate 69 /min Dr. Mary Ellen Jules Work Phone: [facility] 07-07-2023 14:03-0400 Respiratory rate 16 /min Dr. Mary Ellen Jules Work Phone: [facility] 07-07-2023 14:03-0400 SaO2% (BldA) [Mass fraction] 95 % Dr. Mary Ellen Jules Work Phone: [facility] 07-07-2023 14:03-0400 Systolic blood pressure 147 mm[Hg] Dr. Mary Ellen Jules Work Phone: [facility] 06-17-2023 10:55-0400 Body mass index (BMI) [Ratio] 25.7 kg/m2 Dr. Mary Ellen Jules Work Phone: [facility] 06-17-2023 10:55-0400 Body temperature 98.3 [degF] Dr. Mary Ellen Jules Work Phone: [facility] 06-17-2023 10:55-0400 Body weight 83.[address] Mary Ellen Jules Work Phone: [facility] 06-17-2023 10:55-0400 Diastolic blood pressure 76 mm[Hg] Dr. Mary Ellen Jules Work Phone: [facility] 06-17-2023 10:55-0400 Heart rate 73 /min Dr. Mary Ellen Jules Work Phone: [facility] 06-17-2023 10:55-0400 Respiratory rate 16 /min Dr. Mary Ellen Jules Work Phone: [facility] 06-17-2023 10:55-0400 SaO2% (BldA) [Mass fraction] 93 % Dr. Mary Ellen Jules Work Phone: [facility] 06-17-2023 10:55-0400 Systolic blood pressure 128 mm[Hg] Dr. Mary Ellen Jules Work Phone: [facility] Encounters Encounter Date Encounter Type Care Provider Facility Start: 06-29-2025 End: 06-29-[address] Mary Ellen Jules MD Work Phone: -[facility] Start: 06-29-2025 End: 06-29-[address] Mary Ellen Jules MD -[facility] Work Phone: Start: 06-29-2025 End: 06-29-2025 ambulatory [facility] Facility:[facility] Start: 06-08-2025 End: 06-08-[address] Mary Ellen Jules MD -[facility] Work Phone: Start: 06-08-2025 End: 06-08-[address] Mary Ellen Jules MD Work Phone: -[facility] Start: 05-15-2025 End: 05-15-[address] Mary Ellen Jules MD Work Phone: -Laboratory Start: 05-15-2025 End: 05-15-[address] Mary Ellen Jules MD -Laboratory Work Phone: Start: 05-15-2025 End: 05-15-2025 ambulatory [facility] Facility:[facility] Start: 05-11-2025 End: 05-11-[address] Mary Ellen Jules MD Work Phone: -Laboratory Start: 05-11-2025 End: 05-11-[address] Mary Ellen Jules MD -Laboratory Work Phone: Start: 05-10-2025 End: 05-10-[address] Mary Ellen Jules MD -[facility] Work Phone: Start: 05-10-2025 End: 05-11-[address] Mary Ellen Jules MD Work Phone: -[facility] Start: 05-09-2025 End: 05-09-[address] MaryE llen Jules MD Work Phone: -Laboratory Specimen Start: 05-09-2025 End: 05-09-2025 Patient encounter procedure Isa Rogers -Laboratory Specimen Work Phone: Start: 05-09-2025 End: 05-09-2025 ambulatory Mary Ellen Jules Facility:[facility] Start: 03-30-2025 End: 03-30-[address] Mary Ellen Jules MD -[facility] Work Phone: Start: 03-30-2025 End: 03-30-[address] Mary Ellen Jules MD Work Phone: [facility] Work Phone: Start: 02-28-2025 End: 02-28-[address] Mary Ellen Jules MD Work Phone: [facility] Work Phone: Start: 02-28-2025 End: 02-28-[address] Mary Ellen Jules MD -Laboratory, [facility] Start: 02-28-2025 End: 02-28-2025 ambulatory Mary Ellen Jules Facility:[facility] Start: 11-02-[address] [facility] Facility :[facility] Start: 11-01-2024 End: 11-01-2024 ambulatory Mary Ellengalen Jules Facility:[facility] Start: 07-25-2024 End: 07-25-2024 ambulatory Mary Ellen Jules Facility:[facility] Start: 10-14-2023 End: 10-15-2023 Evaluation and management of inpatient Dr. Mary Ellen Jules Work Phone: [facility]-Medical Surgical 3 Work Phone: Start: 10-14-2023 End: 10-15-[address] Mary Ellen Jules Work Phone: [facility] Work Phone: Start: 10-11-2023 End: 10-12-2023 Emergency department patient visit Dr. Mary Ellen Jules Work Phone: [facility]-Emergency Department Work Phone: Start: 10-07-2023 End: 10-07-2023 Non-patient / Non-visit Dr. Mary Ellen Jules Work Phone: [facility] Work Phone: Start: 10-07-2023 End: 10-07-2023 Admission to same day surgery center Dr. Mary Ellen Jules Work Phone: [facility] Start: 10-07-2023 End: 10-07-[address] Mary Ellen Jules Work Phone: [facility] Work Phone: Start: 08-03-2023 End: 08-03-[address] Mary Ellen Jules Work Phone: [facility] Work Phone: Start: 08-03-2023 End: 08-03-[address] Mary Ellen Jules Work Phone: [facility] Work Phone: Start: 07-07-2023 End: 07-07-[address] Mary Ellen Jules Work Phone: [facility] Work Phone: Start: 06-17-2023 End: 06-17-[address] Mary Ellen Jules Work Phone: [facility] Work Phone: Start: 12-25-2022 End: 12-25-2022 ambulatory [facility] Work Phone: Start: 12-25-2022 End: 12-25-2022 Patient encounter procedure [facility]-Laboratory Start: 04-18-2022 Refill Vita Watkins on PA-C Work Phone: [facility] Comment on above: Opened In Error Start: 04-07-2022 Refill Elissa Weiss MD Work Phone: [facility] Comment on above: Refill Request Procedures Date Procedure Procedure Detail Performing Clinician Start: 06-29-2025 MRI of brain without contrast Dr. Mary Ellen Jules MD Work Phone: Start: 05-15-[address] Mary Ellen Jules MD Work Phone: Comment on above: Test not performedTe st not performed Test not performedTe st not performedPerformed at: [place] [id number] Director: Luan Cheng PhD, Phone: [phone] Start: 05-15-[address] Mary Ellen Jules MD Work Phone: Comment on above: Test not performedTe st not performed Start: 02-28-2025 Prostate specific an tigen measurement [...] Treatment Date Care Activity Detail Author Start: 05-15-2025 [facility] Start: 05-10-2025 [facility] Start: 11-27-2023 DIABETES SCREEN DIABETES SCREEN [facility] Start: 10-15-2023 Patient discharge [facility] Start: 10-15-2023 Application of intermittent pneumatic compression device [facility] Start: 10-14-2023 Following clinical pathway protocol [facility] Start: 10-14-2023 Admission procedure [facility] Start: 10-14-2023 Measuring intake and output [facility] Start: 10-14-2023 Patient education [facility] Start: 10-14-2023 Provision of activity privileges [facility] Start: 10-14-2023 Taking patient vital signs [facility] Start: 10-14-2023 Vital signs measurements [facility] Start: 10-14-2023 [facility] Start: 10-14-2023 Hospital admission, emergency, from emergency room, medical nature [facility] Start: 10-14-2023 Consultation [facility] Start: 10-12-2023 [facility] Start: 10-07-2023 Ambulation without limitation [facility] Start: 10-07-2023 Medical regimen orders management [facility] Start: 10-07-2023 Medication education [facility] Start: 10-07-2023 Patient discharge [facility] Start: 10-07-2023 Taking patient vital signs [facility] Start: 10-07-2023 End: 10-07-2023 [facility] Start: 10-07-2023 Anes transurethral resection of bladder tumor ANESTH BLADDER TUMOR SURG [facility] Start: 10-07-2023 Cystourethroscopy w/dest &/rmvl med bladder gibran CYSTOSCOPY AND TREATMENT [facility] Start: 06-17-2023 Patient referral [facility] Work Phone: Start: 12-08-2021 Adult depression screening assessment DEPRESSION SCREENING [facility] Start: 11-29-2021 COVID-19 VACCINE (4 - Booster for Pfizer series) COVID-19 VACCINE (4 - Booster for Pfizer series) [facility] Start: 10-26-2021 ADVANCE DIRECTIVE DISCUSSION ADVANCE DIRECTIVE DISCUSSION [facility] Start: 06-14-2009 Urine microalbumin profile DTAP,TDAP,TD (1 - Tdap) [facility] Start: 1963 HEPATITIS C SCREENING HEPATITIS C SCREENING [facility] Cytology report of B yasmin fluid Cyto stain [facility] Glucose [Mass/volume ] in Serum or Plasma [facility] Glucose [Mass/volume ] in Serum or Plasma --2 hours post dose glucose [facility] Insulin [Mass/volume ] in Serum or Plasma [facility] Insulin [Units/volum e] in Serum or Plasma --fasting [facility] Insulin measurement [facility] Insulin, total measurement [facility] Patient Education ED Hematur[facility] Work Phone: Patient referral [facility] Work Phone: Serum testosterone measurement [facility] Testosterone Free [Mass/volume] in Serum or Plasma [facility] Testosterone measurement [facility] Immunizations Immunization Date Immunization Notes Care Provider Fa cility 06-29-2025 Covid Pfizer Bivalen t Booster Dr. Mary Ellen Jules MD Work Phone: [facility] 06-29-2025 influenza, high dose seasonal, preservative-free Dr. Mary Ellen Jules MD Work Phone: [facility] 01-31-2025 Covid (Pfizer) Dr. Mary Ellen ríos MD Work Phone: [facility] 01-31-2025 Pfizer Covid-19 (Comirnaty) Dr. Mary Ellen Jules MD Work Phone: [facility] 06-22-2024 Covid Pfizer Bivalen t Booster Dr. Mary Ellen Jules MD Work Phone: [facility] 06-22-2024 influenza, high dose seasonal, preservative-free Dr. Mary Ellen Jules MD Work Phone: [facility] 06-22-2024 influenza, injectabl e, quadrivalent, preservative free Dr. Mary Ellen Jules MD Work Phone: [facility] 06-22-2024 Pfizer Covid-19 (Comirnaty) Dr. Mary Ellen Jules MD Work Phone: [facility] 08-04-2023 influenza, injectabl e, quadrivalent, preservative free Dr. Mary Ellen Jules Work Phone: [facility] 08-04-2023 Pfizer Covid-19 (Comirnaty) Dr. Mary Ellen Jules Work Phone: [facility] 08-01-2022 Covid Pfizer Bivalen t Booster Dr. Mary Ellen Jules Work Phone: [facility] 08-01-2022 influenza, injectabl e, quadrivalent, preservative free Dr. Mary Ellen Jules Work Phone: [facility] 02-06-2022 Covid (Pfizer) Dr. Mary Ellen ríos Work Phone: [facility] 08-19-2021 influenza, high dose seasonal, preservative-free Elissa Weiss MD Work Phone: [facility] 08-19-2021 influenza, injectabl e, quadrivalent, preservative free Dr. Mary Ellen Jules Work Phone: [facility] 07-29-2021 COVID-19 vaccine, ag e 12+ yr (PFIZER-BIONTECH - PURPLE TOP) Elissa Weiss MD Work Phone: [facility] 12-29-2020 COVID-19 vaccine, ag e 12+ yr (PFIZER-BIONTECH - PURPLE TOP) Elissa Weiss MD Work Phone: [facility] 12-08-2020 COVID-19 vaccine, ag e 12+ yr (PFIZER-BIONTECH - PURPLE [facility]) Elissa Weiss MD Work Phone: [facility] 10-24-2020 zoster vaccine recombinant Elissa Weiss MD Work Phone: [facility] 06-28-2020 influenza, injectabl e, quadrivalent, preservative free Dr. Mary Ellen Jules Work Phone: [facility] 06-28-2020 zoster vaccine recombinant Elissa Weiss MD Work Phone: [facility] 07-18-2019 Influenza, high dose seasonal Dr. Mray Ellen Jules MD Work Phone: [facility] 07-18-2019 influenza, high dose seasonal, preservative-free Elissa Weiss MD Work Phone: [facility] 01-17-2019 influenza, injectabl e, quadrivalent, preservative free Dr. Mary Ellen Jules Work Phone: [facility] 01-17-2019 pneumococcal polysaccharide vaccine, [address] Mary Ellen Jules Work Phone: [facility] 08-27-2018 Influenza, high dose seasonal Dr. Mary Ellen Jules MD Work Phone: [facility] 08-27-2018 influenza, high dose seasonal, preservative-free Elissa Weiss MD Work Phone: [facility] 08-25-2017 Influenza, high dose seasonal Dr. Mary Ellen Jules MD Work Phone: [facility] 08-25-2017 influenza, high dose seasonal, preservative-free Elissa Weiss MD Work Phone: [facility] 01-01-2017 pneumococcal polysaccharide vaccine, 23 valent Elissa Weiss MD Work Phone: [facility] Work Phone: 08-13-2016 Influenza, high dose seasonal Dr. Mary Ellen Jules MD Work Phone: [facility] 08-13-2016 influenza, high dose seasonal, preservative-free Elissa Weiss MD Work Phone: [facility] Work Phone: 07-26-2015 influenza, high dose seasonal, preservative-free Elissa Weiss MD Work Phone: [facility] 07-26-2015 influenza, injectabl e, quadrivalent, preservative free Dr. Mary Ellen Jules Work Phone: [facility] 06-27-2015 pneumococcal conjuga te vaccine, 13 valent Elissa Weiss MD Work Phone: [facility] 07-24-2014 influenza, injectabl e, quadrivalent, preservative free Dr. Mary Ellen Jules Work Phone: [facility] 07-24-2014 influenza, seasonal, injectable Elissa Weiss MD Work Phone: [facility] 08-12-2013 influenza virus vacc ine, unspecified formulation Elissa Weiss MD Work Phone: [facility] 08-13-2012 influenza virus vacc ine, unspecified formulation Elissa Weiss MD Work Phone: [facility] Work Phone: 08-06-2010 influenza, injectabl e, quadrivalent, preservative free Dr. Mary Ellen Jules Work Phone: [facility] 07-26-2009 zoster vaccine, live Elissa Weiss MD Work Phone: [facility] Work Phone: 06-13-2009 tetanus and diphther ia toxoids, adsorbed, preservative free, for adult use (2 Lf of tetanus toxoid and 2 Lf of diphtheria toxoid) Elissa Weiss MD Work Phone: [facility] 09-12-2008 influenza virus vacc ine, unspecified formulation Elissa Weiss MD Work Phone: [facility] 09-03-2007 influenza virus vacc ine, unspecified formulation Elissa Weiss MD Work Phone: [facility] Work Phone: 09-03-2007 pneumococcal polysaccharide vaccine, 23 valent Elissa Weiss MD Work Phone: [facility] Work Phone: Payers Date Payer Category Payer Private Health Insurance [facility] [id number] 2024 Self-pay [id number] 2010 Medicare AET[employer] MEDICARE A ETNA MEDICARE PPO [id number] 2010-Present [phone] [address] [place] [address] PPO [id number] Private Health Insurance [employer] [id number] Unknown [id number] 62 Unknown [id number] 62 Unknown [id number] 62 Unknown [id number] 62 Unknown [id number] 62 Unknown [id number] 62 Unknown [id number] 62 Unknown [id number] 62 Unknown [id number] 62 Unknown [id number] 62 Unknown [id number] 62 Social History Date Type Detail Facility Start: 05-26-2024 End: 05-09-2025 Tobacco smoking status NHIS Never smoked tobacco [facility] Start: 12-10-2020 Alcohol intake Current non-dr clod puller of alcohol (finding) [facility] Start: 03-20-2020 History SDOH Alcohol Frequency 3 [facility] Start: 03-20-2020 End: 12-08-2020 History SDOH Alcohol Std Drinks 1 [facility] Start: 03-20-2020 End: 12-08-2020 History SDOH Social Connections Phone 2 [facility] Start: 03-20-2020 History SDOH Social Connections Get Together 98 [facility] Start: 03-20-2020 History SDOH Financial 5 [facility] Start: 03-20-2020 Education 20 [facility] Start: 1945 Sex Assigned At Male C [facility] Start: 05-22-2022 End: 10-14-2023 Tobacco smoking status NHIS Unknown if ever smoked [facility] Sex Male [facility] Medical Equipment Procedure Code Equipment Code Equipment [...] Assessment Result Facility 10-15-2023 Functional status Ambulates [facility] Work Phone: Mental Status Date Assessment Result Facility 10-15-2023 Cognitive function Voice/Name [facility] Work Phone: 10-07-2023 Cognitive function Level Of Cons ciousness Awake;Alert;Appropriate;Follow s Commands [facility] Work Phone: 10-07-2023 Cognitive function Voice/Name [facility] Work Phone: Clinical Notes 06-07-2015 to 03-30-2025 Note Date & Type Note Facility 03-30-2025 Evaluation note Diagnosis Onset Date Resolution Generalized weakness acute March 30, 2025 7:52am GERD (gastroesophageal reflux disease) acute March 30, 2025 7 :52am History of benign prostatic hyperplasia acute March 30, 2025 7:52am Shakiness acute March 30, 2025 7:52am [facility] Work Phone: 1(157) 440-429406-05-2025 Evaluation note* Diagnosis Onset Date Resolution Status Admit Date Generalized weakness acute March 30, 2025 7:52am GERD (gastroesophageal reflu x disease) acute March 30, 2025 7 :52am History of benign prostatic hyperplasia acute March 30, 2025 7 :52am Shakiness acute March 30, 2025 7:52am Fatigue acute May 10 1:44pm Generalized weakness acute May 10, 2025 1:44pm Shakiness acute May 10 1:44pm [facility] Work Phone: 1(307) 740-316606-05-2025 Evaluation note* Diagnosis Onset Date Resolution Status Admit Date Generalized weakness acute March 30, 2025 7:52am GERD (gastroesophageal reflu x disease) acute March 30, 2025 7 :52am History of benign prostatic hyperplasia acute March 30, 2025 7 :52am Shakiness acute March 30, 2025 7:52am Fatigue acute May 10 1:44pm Generalized weakness acute May 10, 2025 1:44pm Shakiness acute May 10 1:44pm Fatigue acute June 08, 2 025 11:20am Insulin resistance acute June 08, 2025 11:20am Memory loss acute June 08, 2025 11:20am Mental confusion acute May 262024 11:20am Shakiness acute June 08, 2 025 11:20am [facility] Work Phone: 1(958) 872-117912-21-2023 Progress note Author Joseph Carpenter [facility] October 15, 2023 7:20am Note Date/Time October 15, 2023 7:20am [facility] Medical Records Department [address] [place] [address] Progress Note - Urology 10/15/23718 MR#: [id number] Acct: [id number] Name: ARIA HERNANDEZ Rep #:[id number] : 1945 78 From: Joseph Carpenter MD PCP: Dr. Mary Ellen Jules MD Status:ADM SOPHIA Location: UT3 YO204-3 Subjective Subjective Status post TURBT was admitted [...] % (Auto) 67.3, Lymph % (Auto) 22.0, [place]% (Auto) 6.8, Eos % (Auto) 2.3, Baso [...] Cosigner Signature (if applicable): CC: ~ Signed [facility] Work Phone: 1(362) 364-877212-20-2023 Discharge summary Author Benedicto Garland [facility] October 14, 2023 9:55pm Note Date/Time October 14, 2023 5:12pm [facility] Medical Records Department [address] [place] [address] Emergency Department Summary 10/14/23 MR#: [id number] Acct: [id number] Name: ARIA HERNANDEZ Rep #:[id number] : 1945 78 From: Benedicto Garland MD PCP: Dr. Mary Ellen Jules MD Status:ADM SOPHIA Location: [place] [address] HPI <JESSE Muñoz - Last Filed: 10/14/23 [...] discomfort. He denies any fever or chills. PFS <JESSE Muñoz - Last Filed: 10/14/23 19:35> [facility] Medical History Abnormal prostate by palpation Alcohol [...] Ox 98 Oxygen Delivery Method Room Air [facility] <JESSE Muñoz - Last Filed: 10/14/23 19:35> [facility] Narrative Medical decision making narrative: Patient [...] % (Auto) 67.3 Lymph % (Auto) 22.0 [place] % (Auto) 6.8 Eos % (Auto) 2.3 [...] Garland MD - Last Filed: 10/14/23 21:55> [facility] MDM Narrative Medical decision making narrative: Patient [...] Labs: Laboratory Results - last 24 hr 12/20/23 17:35 WBC 6.8 RBC 4.80 Hgb 14.7 Hct 45.3 MCV 94.4 H MCH 30.6 MCHC 32.5 RDW Std Deviation 44.2 H RDW Coeff of Jose 12.8 Plt Count 243 MPV 9.3 Immature Gran % (Auto) 0.900 Neut % (Auto) 67.3 Lymph % (Auto) 22.0 [place] % (Auto) 6.8 Eos % (Auto) 2.3 [...] gross hematuria Disposition Disposition: Acute Care Hospital [facility] Discharge Date/Time: 10/14/23 19:08 What to do if you have Problems For any increased pain, shortness of breath, bleeding, nausea or vomiting, chest pain, or any unexpected problems, contact your Primary Care Provider. Call [facility] ([phone]) or report to the closest Emergency Room. Call 911 if necessary. 10/14/232154 <Electronically signed by eBnedicto Garland MD> Cosigner Signature (if applicable): 10/14/231934 <Electronically signed by Stephanie MOLINA> CC: Dr. Mary Ellen Jules MD ~ Signed [facility] Work Phone: 1(437) 995-986212-20-2023 Discharge summary Author Joseph Carpenter [facility] October 14, 2023 6:26pm Note Date/Time October 14, 2023 6:26pm [facility] Medical Records Department [address] [place] [address] Instructions for Home/Discharge Instructions 10/14/23 1825 MR#: [id number] Acct: [id number] Name: ARIA HERNANDEZ Rep #:[id number] : 1945 78 From: Joseph Carpenter MD [...] Up With: Joseph Carpenter MD When: Call [phone] for an appointment Test Results: Test results [...] Dr. Mary Ellen Jules MD ~ Signed [facility] Work Phone: 1(454) 376-706512-20-2023 History and physical note Author Joseph Carpenter [facility] October 14, 2023 6:25pm Note Date/Time October 14, 2023 6:26pm [facility] Medical Records Department [address] [place] [address] History & Physical Exam 10/14/231823 MR#: [id number] Acct: [id number] Name: ARIA HERNANDEZ Rep #:[id number] : 1945 78 From: Joseph Carpenter MD [...] % (Auto) 67.3, Lymph % (Auto) 22.0, [place]% (Auto) 6.8, Eos % (Auto) 2.3, Baso [...] MD; Dr. Mary Ellen Jules MD~ Signed [facility] Work Phone: 1([phone]) 596-205212-18-2023 Discharge summary Author Jabari Elizabeth [facility] October 12, 2023 1:26am Note Date/Time October 11, 2023 10:58pm [facility] Medical Records Department [address] [place] [address] Emergency Department Summary 10/11/23 MR#: [id number] Acct: [id number] Name: ARIA HERNANDEZ Rep #:[id number] : 1945 78 From: Jabari Elizabeth MD [...] is on no anticoagulants or antiplatelets. [facility] Medical History Abnormal prostate by palpation Alcohol [...] Clarity Cloudy Urine pH 6.5 Ur Specific Elizabeth 1.020 Urine Protein 500 H Urine Glucose (UA) Normal Urine Ketones 5 H Urine Occult Blood 150 H Urine Nitrite Negative Urine Bilirubin Negative Urine Urobilinogen Normal Ur Leukocyte Esterase Negative Urine RBC > 100 SEEN Urine WBC 0 SEEN Ur Squamous Epith Cells 0-5 SEEN Amorphous Sediment 1+ URATE Urine Bacteria 0 SEEN Urine Mucus 0 SEEN Management Discussion w/another healthcare provider: [facility] (Urology) Discharge Plan Triage Chief Complaint: Complaint ED Provider: Glenn,Jabari Dx/Rx/DC Orders Clinical Impression: Hematuria Instructions: ED [...] your Primary Care Provider. Call [facility] ([phone]) or report to the closest Emergency Room. Call 911 if necessary. 10/12/23 0126 <Electronically signed by Jabari Elizabeth MD> Cosigner Signature (if applicable): CC: Dr. Mary Ellen Jules MD ~ Signed [facility] Work Phone: 1(184) 266-368412-13-2023 Discharge summary Author Joseph Carpenter [facility] October 07, 2023 3:25pm Note Date/Time October 07, 2023 3:25pm [facility] Medical Records Department [address] [place] [address] Instructions for Home/Discharge Instructions 10/07/23 1525 MR#: [id number] Acct: [id number] Name: ARIA HERNANDEZ Rep #:[id number] : 1945 78 From: Joseph Carpenter MD PCP: Dr. Mary Ellen Jules MD Status:[facility] [place]charge Instructions Diet Discharge Diet: No restrictions Activity Discharge Activity: Return to Normal Activity Dressing / Incision Catheter: Luis to leg bag and Luis to large bag Drain: Elizabeth Follow Up Care Please Follow Up With: [...] Dr. Mary Ellen Jules MD ~ Signed [facility] Work Phone: 1(632) 977-977012-13-2023 History and physical note Author Joseph Carpenter [facility] October 07, 2023 2:51pm Note Date/Time October 07, 2023 2:52pm [facility] Medical Records Department [address] [place] [address] History & Physical Exam 10/07/23 1451 MR#: [id number] Acct: [id number] Name: ARIA HERNANDEZ Rep #:[id number] : 1945 78 From: Joseph Carpenter MD PCP: Dr. Mary Ellen Jules MD Status:[facility] Location: [place] [address] HPI - General General Date of Service: 10/07/23 Chief Complaint: Bladder tumor HPI Narrative ARIA HERNANDEZ, is a 78 M who presents transurethral resection of a bladder tumor [facility] Medical History (Updated 09/16/23 @ 11:27 by [...] MD; Dr. Mary Ellen Jules MD~ Signed [facility] Work Phone: 1(691) 190-760712-13-2023 Procedure [facility] 04-18-2022 Miscellaneous Notes* Telephone Encounter - Lisbet Espino RN - 04/18/2022 10:44 AM EDT Opened in Error documented [facility] Miscellaneous Notes* Telephone Encounter - Saul Newman [...] advise. Saul Newman LPN documented in this encounterPark[facility] History of Past illness Narrative* Problem Noted Date Resolved Date Diarrhea 06/07/2015 06/27/2015 Projectile vomiting with nausea 06/07/2015 07/18/2019 Skin lesion 06/09/2013 06/27/2015 Acute gastritis without mention of hemorrhage 07/18/2019 Other chest pain 11/08/2007 07/18/2019 Diverticulitis 07/18/2019 documented as of this encounter (statuses as of 04/08/2022) [facility] History of Past illness Narrative* Problem Noted Date Resolved Date Diarrhea 06/07/2015 06/27/2015 Projectile vomiting with nausea 06/07/2015 07/18/2019 Skin lesion 06/09/2013 06/27/2015 Acute gastritis without mention of hemorrhage 07/18/2019 Other chest pain 11/08/2007 07/18/2019 Diverticulitis 07/18/2019 documented as of this encounter (statuses as of 04/18/2022) [facility] Joseph Carpenter [facility] October 14, 2023 6:26pm Note Date/Time October 14, 2023 6:26pm [facility] Medical Records Department [address] [place] [address] Instructions for Home/Discharge Instructions 10/14/23 1825 MR#: [id number] Acct: [id number] Name: ARIA HERNANDEZ Rep #:[id number] : 1945 78 From: Joseph Carpenter MD [...] Up With: Joseph Carpenter MD When: Call [phone] for an appointment Test Results: Test results [...] Dr. Mary Ellen Jules MD ~ Signed [facility] Work Phone: Evaluation noteNo assessment information available [facility] Work Phone: Evaluation note* Diagnosis Onset Date Resolution Status Recurrent gross hematuria ac [place] Skin lesion of right leg acu te Skin lesion of right leg acu te [facility] Work Phone: Evaluation note* Diagnosis Onset Date Resolution Status Recurrent gross hematuria ac [place] Skin lesion of right leg acu te Skin lesion of right leg acu te Recurrent gross hematuria ac [place] [facility] Work Phone: Evaluation note* Diagnosis Onset Date Resolution Status Recurrent gross hematuria ac [place] Skin lesion of right leg acu te Skin lesion of right leg acu te Indwelling Luis catheter present acute Recurrent gross hematuria ac [place]ock [facility] Work Phone: Evaluation note* Diagnosis Onset Date Resolution Status Admit Date Bladder disease acute March 30, 2025 7:52am GERD (gastroesophageal reflu x disease) acute March 30, 2025 7 :52am History of benign prostatic hyperplasia acute March 30, 2025 7 :52am Shakiness acute March 30, 2025 7:52am [facility] Work Phone: History and physical note Author Joseph Carpenter [facility] October 14, 2023 6:25pm Note Date/Time October 14, 2023 6:26pm [facility] Medical Records Department [address] [place] [address] History & Physical Exam 10/14/234 MR#: [id number] Acct: [id number] Name: ARIA HERNANEDZ Rep #:[id number] : 1945 78 From: Joseph Carpenter MD [...] % (Auto) 67.3, Lymph % (Auto) 22.0, [place]% (Auto) 6.8, Eos % (Auto) 2.3, Baso [...] MD; Dr. Mary Ellen Jules MD~ Signed [facility] Work Phone: Reason for referral (narrative)No reason for referral information [facility]WSouthern [facility] Work Phone: Summary Purpose Family History Relationship Condition Age at Onset Recorded Date/T aki mother Mental disorder Unknown Advance Directives Advance Directive Response Recorded Date/ Time Living Will Yes September 07, 8:17pm Power of Potato Chip Frier Yes September 07, 2018 8:17pm Advance Directive Response Recorded Date/ Time Living Will Yes September 07 9:17pm Power of [employer] Frier Yes September 07, 2018 9:17pm Advance Directive Response Recorded Date/ Time Name of Medical Power of Potato [employer] Frier September 16, 2023 11:10am Living Will Yes September 16 023 11:10am Power of [employer] Frier Yes September 16, 2023 11:10am Advance Directive Response Recorded Date/ Time Name of Medical Power of Potato [employer] Frier September 16, 2023 11:10am Name of Medical Power of Potato [employer] Frier October 11, 2023 10:31pm Living Will Yes October 11 10:31pm Power of Potato Chip Frier Yes October 11, 2023 10:31pm Advance Directive Response Recorded Date/ Time Name of Medical Power of Potato Chip Frier kendrick, October 14, 2023 5:23pm Living Will Yes October 14 023 5:23pm Power of Potato Chip Frier Yes October 14, 2023 5:23pm Name of Medical Power of Potato Chip Frier September 16, 2023 11:10am Name of Medical Power of Potato Chip Frier October 11, 2023 10:31pm Advance Directive Response Recorded Date/ Time Name of Medical Power of Potato Chip Frier CALISTA GUO October 14, 2023 7:56pm Living Will Yes October 14 023 7:56pm Power of Potato Chip Frier Yes October 14, 2023 7:56pm Name of Medical Power of Potato Chip Frier September 16, 2023 11:10am Name of Medical Power of Potato Chip Frier October 11, 2023 10:31pm Chief Complaint and [...] 7:52a m GERD (gastroesophageal reflux disease) J [facility] 2024 7:52am History of benign prostatic hyperplasia March 30, 2025 7:52am Shakiness March 30, 2025 7:52a m Chief Complaint Admit Date Shakiness March 30, 2025 7:52a m C67.2 May 09, 2025 4:12 pm Balance/Memory Issues May 10, 2025 1: 44pm Reason for Visit Admit Date Generalized weakness March 30, 2025 7:52 am GERD (gastroesophageal reflux disease) J [facility] 2024 7:52am History of benign prostatic hyperplasia March 30, 2025 7:52am Shakiness March 30, 2025 7:52a m Chief Complaint Admit Date Shakiness March 30, 2025 7:52a m C67.2 May 09, 2025 4:12 pm Balance/Memory Issues May 10, 2025 1: 44pm INSULINE 2HR 75GMS May 15, 2025 6:32 am Reason for Visit Admit Date Generalized weakness March 30, 2025 7:52 am GERD (gastroesophageal reflux disease) J [facility] 2024 7:52am History of benign prostatic hyperplasia March 30, 2025 7:52am Shakiness March 30, 2025 7:52a m Fatigue May 10, 2025 1:44 pm Generalized weakness May 10, 2025 1:4 4pm Shakiness May 10, 2025 1:44 pm Chief Complaint Admit Date Shakiness March 30, 2025 7:52a m C67.2 May 09, 2025 4:12 pm Balance/Memory Issues May 10, 2025 1: 44pm INSULINE 2HR 75GMS May 15, 2025 6:32 am Discuss Medication June 08, 2025 11 :20am Chief Complaint Admit Date Shakiness March 30, 2025 7:52a m C67.2 May 09, 2025 4:12 pm Balance/Memory Issues May 10, 2025 1: 44pm INSULINE 2HR 75GMS May 15, 2025 6:32 am Discuss Medication June 08, 2025 11 :20am MEMORY LOSS June 29, 2025 3:24pm Reason for Visit Admit Date Generalized weakness March 30, 2025 7:52 am GERD (gastroesophageal reflux disease) J [facility] 2024 7:52am History of benign prostatic hyperplasia March 30, 2025 7:52am Shakiness March 30, 2025 7:52a m Fatigue May 10, 2025 1:44 pm Generalized weakness May 10, 2025 1:4 4pm Shakiness May 10, 2025 1:44 pm Fatigue June 08, 2025 11 :20am Insulin resistance June 08, 2025 11 :20am Memory loss June 08, 2025 11 :20am Mental confusion June 08, 2025 11 :20am Shakiness June 08, 2025 11 :20am Additional Source Comments (unrecognized sect ion and content) No Status Records FoundNo Status Records Found INFORMATION SOURCE (unrecogn ized section and content) DATE CREATED AUTHOR 12/14/2021 [facility] DATE CREATED AUTHOR BRIANA POWERS 07/16/2025 [facility] Source Comments (unrecognize d section and content) In the event this informatio n is protected by the Federal Confidentiality of Alcohol and Drug Abuse Patient Records regulations: The Federal rules restrict any use of the information to criminally investigate or prosecute any alcohol or drug abuse patient.[facility] Hospital[facility] the event this information is protected by the Federal Confidentiality of Alcohol and Drug Abuse Patient Records regulations: The Federal rules restrict any use of the information to criminally investigate or prosecute any alcohol or drug abuse patient.[facility] Reason for Visit (unrecogniz ed section and content) Reason Onset Date Comments Refill Request 04/07/2022 Reason Onset Date Comments Opened In Error 04/18/2022 Care Teams (unrecognized sec tion and content) [employer] Relationship Specialty Start Date End Date Vita Pacheco PA-C [address] [place] [address] PCP - General Family Practice 07/18/19 [employer] Relationship Specialty Start Date End Date Vita Pacheco PA-C [address] [place], [place] [id number] PCP - General Family Practice 07/18/19 Team [...] Provider Active Start: May 09, 2025 Isa [place] Attending Provider Active Start : May 09, 2025 Isa [place] Referring Provider Active Start : May 09, 2025 Team Status: Inactive Member Role/Relationship Status Dates Dr. Mary Ellen Jules MD Primary Care Provider Active Start: May 10, 2025 End: May 10, 2025 Dr. Mary Ellen Jules MD Attending Provider Active Start: May 10, 2025 End: May 10, 2025 Team Status: Active Member Role/Relationship Status Dates Dr. Mary Ellen Jules MD Primary Care Provider Active Team Status: Inactive Member Role/Relationship Status Dates Dr. Mary Ellen Jules MD Primary Care Provider Active Start: May 09, 2025 End: May 09, 2025 Isa [place] Attending Provider Active Start : May 09, 2025 End: May 09, 2025 Isa [place] Referring Provider Active Start : May 09, 2025 End: May 09, 2025 Team Status: Active Member Role/Relationship Status Dates Dr. Mary Ellen Jules MD Primary Care Provider Active Start: May 11, 2025 Dr. Mary Ellen Jules MD Attending Provider Active Start: May 11, 2025 Dr. Mary Ellen Jules MD Referring Provider Active Start: May 11, 2025 Team Status: Active Member Role/Relationship Status Dates Dr. Mary Ellen Jules MD Primary Care Provider Active Start: May 15, 2025 Dr. Mary Ellen Jules MD Attending Provider Active Start: May 15, 2025 Dr. Mary Ellen Jules MD Referring Provider Active Start: May 15, 2025 Team Status: Inactive Member Role/Relationship Status Dates Dr. Mary Ellen Jules MD Primary Care Provider Active Start: May 11, 2025 End: May 11, 2025 Dr. Mary Ellen Jules MD Attending Provider Active Start: May 11, 2025 End: May 11, 2025 Dr. Mary Ellen Jules MD Referring Provider Active Start: May 11, 2025 End: May 11, 2025 Team Status: Inactive Member Role/Relationship Status Dates Dr. Mary Ellen Jules MD Primary Care Provider Active Start: May 15, 2025 End: May 15, 2025 Dr. Mary Ellen Jules MD Attending Provider Active Start: May 15, 2025 End: May 15, 2025 Dr. Mary Ellen Jules MD Referring Provider Active Start: May 15, 2025 End: May 15, 2025 Team Status: Inactive Member Role/Relationship Status Dates Dr. Mary Ellen Jules MD Primary Care Provider Active Start: June 08, 2025 End: June 08, 2025 Dr. Mary Ellen Jules MD Attending Provider Active Start: June 08, 2025 End: June 08, 2025 Team Status: Active Member Role/Relationship Status Dates Dr. Mary Ellen Jules MD Primary care physician Active Team Status: Inactive Member Role/Relationship Status Dates Dr. Mary Ellen Jules MD Primary care physician Active Start: March 30, 2025 End: March 30, 2025 Dr. Mary Ellen Jules MD Attending physician Active Start: March 30, 2025 End: March 30, 2025 Team Status: Inactive Member Role/Relationship Status Dates Dr. Mary Ellen Jules MD Primary care physician Active Start: May 09, 2025 End: May 09, 2025 Isa Rogers Attending physician Active Star t: May 09, 2025 End: May 09, 2025 Isa Rogers Referring Provider Active Start : May 09, 2025 End: May 09, 2025 Team Status: Inactive Member Role/Relationship Status Dates Dr. Mary Ellen Jules MD Primary care physician Active Start: May 10, 2025 End: May 10, 2025 Dr. Mary Ellen Jules MD Attending physician Active Start: May 10, 2025 End: May 10, 2025 Team Status: Inactive Member Role/Relationship Status Dates Dr. Mary Ellen Jules MD Primary care physician Active Start: May 11, 2025 End: May 11, 2025 Dr. Mary Ellen Jlues MD Attending physician Active Start: May 11, 2025 End: May 11, 2025 Dr. Mary Ellen Jules MD Referring Provider Active Start: May 11, 2025 End: May 11, 2025 Team Status: Inactive Member Role/Relationship Status Dates Dr. Mary Ellen Jules MD Primary care physician Active Start: May 15, 2025 End: May 15, 2025 Dr. Mary Ellen Jules MD Attending physician Active Start: May 15, 2025 End: May 15, 2025 Dr. Mary Ellen Jules MD Referring Provider Active Start: May 15, 2025 End: May 15, 2025 Team Status: Inactive Member Role/Relationship Status Dates Dr. Mary Ellen Jules MD Primary care physician Active Start: June 08, 2025 End: June 08, 2025 Dr. Mary Ellen Jules MD Attending physician Active Start: June 08, 2025 End: June 08, 2025 Team Status: Inactive Member Role/Relationship Status Dates Dr. Mary Ellen Jules MD Primary care physician Active Start: June 29, 2025 End: June 29, 2025 Dr. Mary Ellen Jules MD Attending physician Active Start: June 29, 2025 End: June 29, 2025 Dr. Mary Ellen Jules MD Referring Provider Active Start: June 29, 2025 End: June 29, 2025 Goals (unrecognized section and content) Goals [...] BE BASED ON THE PRIMARY CLINICAL RECORDS. [facility] provides no warranty or guarantee of the accuracy or completeness of information in this document.
--- OUTSIDE RECORDS SUMMARY | 2025-08-14 11:27 | XMS RPT_ITS | CCD ---
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 Mary Ellen Jules Attending Provider [phone] Anuel Bland Attending Provider Dr. Mary Ellen Jules Referring Provider [phone] Mary Ellen Jules Attending Provider [phone] Anuel Bland Attending Provider Dr. Mary Ellen Jules Referring Provider [phone] Mary Ellen Jules Primary Care Provider Dr. Will Olivo Attending Provider Dr. Will Olivo Referring Provider Dr. Mary Ellen Jules MD Primary Care Provider [phone] Dr. Mary Ellen Jules MD Attending Provider MarquetteIsa Attending Provider Isa Rogers Referring Provider Dr. Mary Ellen Jules MD Referring Provider Mary Ellen Jules Attending Unavailable Mary Ellen Jules Referring Unavailable Mary Ellen Jules Primary Care Unavailable Mary Ellen Jules Primary Care Unavailable MarquetteIsa Attending Unavailable MarquetteIsa Referring Unavailable Mary Ellen Jules Primary Care Unavailable Mary Ellen Jules Attending Unavailable Mary Ellen Jules Primary Care Unavailable Marquette, Isa Attending Unavailable Marquette, Isa Referring Unavailable Mary Ellen Jules Attending [...] Jorge A, Mary Ellen Primary Care Unavailable MarquetteIsa Referring Unavailable Jorge A STEVENSON, Dr. Hyde Primary Care Physician Jorge A STEVENSON, Dr. Hyde Attending Physician Isa Rogers Attending Physician [phone] Allergies Allergy Classification Reported Allergen(s) Allergy Type Date of Onset Reaction(s) Facility (2 sources) Salicylic Acid Drug Allergy 7 GI Upset [facility] (14 sources) Aspirin Drug Allergy 2 Other [facility] Comment on above: GASTRIC ISSUES (2 sources) Naproxen Drug Allergy 2 Other [facility] (1 source) acetylsalicylic acid Allergy to substance 2 [facility] (11 sources) Phenazopyridine Drug Allergy 3 other [facility] Comment on above: the dye will change the color of my lenses in my eyes (1 source) Aspirin Drug Allergy 5 [facility] Repository (1 source) Phenazopyridine Drug Allergy 5 [facility] Repository Medications Current Medications Medication Drug [...] Comment on above: [facility] fam[facility]iclovir 500 mg oral tablet [...] on above: Take 1 capsule by mo [facility] once daily. phenazopyridine hydrochloride 100 mg oral [...] Facility Brain without Contraston Brain without Contrast [facility] Imaging Services [address] [place] [address] [id number] Brain without Contrast MR#: [id number] Acct: [id number] Name: ARIA HERNANDEZ Rep #: [id number] : 1945 M 80 From: Jayson De La Torre MD PCP: Dr. Mary Ellen Jules MD Status: REG CLI Study: Brain without Contrast Date of Exam: 06/29/25 Exam# [id number] Ordering Dr: Mary Ellen Jules MD PROCEDURE: [...] No acute findings. Mild atrophy. Reading Location: [place] [address] CC: Dr. Mary Ellen Jules MD Installation Tech: Signed Normal [facility] Magnetic resonance imaging r eportOrdered By: Jayson De La Torre on 06-29-2025 Study report [facility] Imaging Services [address] [place] [address] [id number] Brain without Contrast MR#: [id number] Acct: [id number] Name: ARIA HERNANDEZ Rep #: [id number] : 1945 M 80 From: Raman De La Torre MD PCP: Dr. Mary Ellen Jules MD Status: REG CLI Study:Brain without Contrast Date of Exam: 06/29/25 Exam# [id number] Ordering Dr: Mary Ellen Jules MD PROCEDURE: [...] No acute findings. Mild atrophy. Reading Location: [id number] CC: Dr. Mary Ellen Jules MD ~ Installation Tech: Signed [facility] MR/BMS.IMBon 06-08-2025 MR/BMS.IMB [facility] [address] [facility] [place] [address] OFFICE VISIT Date of Service: 06/08/25 MR#: [id number] Acct: [id number] Name: ARIA HERNANDEZ Rep #: [id number] : 1945 Provider: Dr. 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 Normal [facility] L3300.3505on 05-16-2025 INSULIN 120 MIN 104.0 uIU/mL Normal 0.0-145.4 [facility] Comment on above: Performed By: #### L 3300.3505, L500.4600 #### [facility] Laboratory [address] [place], [address] INSULIN 180 MIN TNP Normal . [facility] Comment on above: Result Comment: Test not performed Performed By: #### L 3300.3505, L500.4600 #### [facility] [address] [place], [address] INSULIN 240 MIN TNP Normal . [facility] Comment on above: Result Comment: Test not performed Performed By: #### L 3300.3505, L500.4600 #### [facility] [address] [place], [address] INSULIN 30 MIN 67.3 uIU/mL Normal 0.0-121.9 [facility] Comment on above: Performed By: #### L 3300.3505, L500.4600 #### [facility] [address] [place], [address] INSULIN 300 MIN TNP Normal . [facility] Comment on above: Result Comment: Test not performed Performed By: #### L 3300.3505, L500.4600 #### [facility] [address] [place], [address] INSULIN 360 MIN TNP Normal . [facility] Comment on above: Result Comment: Test not performed Performed at: [address] [id number] It Administrative Assistant: Luan Cheng PhD, Phone: [phone] Performed By: #### L 3300.3505, L500.4600 #### [facility] [address] [place], [address] INSULIN 60 MIN 85.6 uIU/mL Normal 0.0-163.5 [facility] Comment on above: Performed By: #### L 3300.3505, L500.4600 #### [facility] [address] [place], [address] INSULIN 90 MIN TNP Normal . [facility] Comment on above: Result Comment: Test not performed Performed By: #### L 3300.3505, L500.4600 #### [facility] [address] [place], [address] INSULIN FASTING 16.1 uIU/mL Normal 2.6-24.9 [facility] Comment on above: Performed By: #### L 3300.3505, L500.4600 #### [facility] [address] [place], [address] 2 HR Glucose Tolerance Testo n 05-15-2025 2HR GTT High [facility] Comment on above: Order Comment: Y Result Comment: FAST ING 113 H Col: 05/15/25 0637 GLU 1/2 HR 158 Col: 05/15/25 0747 GLU 1 HR 160 Col: 05/15/25 0817 GLU 2 HR 128 H Col: 05/15/25 0919 Performed By: #### L 3300.3505, L500.4600 #### [facility] [address] [place], [address] Insulin total 2nd specOrdere d By: Mary Ellen Jules on 05-15-2025 Insulin spec 2 Qn 67.3 uIU/mL 0.0-121.9 [facility] Insulin total 3rd specimenOr dered By: Mary Ellen Jules on 05-15-2025 Insulin spec 3 Qn 85.6 uIU/mL 0.0-163.5 [facility] Serum or plasma glucose sharon urement 2 hours after glucose dose (mass/volume)Ordered By: Mary Ellen Jules on 05-15-2025 Glucose 2 Hr post dose glucose [Mass/Vol] See comment [facility] Comment on above: FASTING 113 H [...] on 05-15-2025 Insulin Qn 16.1 u[IU]/mL 2.6-24.9 [facility] Serum or plasma insulin sharon urement at 3 hours post challenge (units/volume)Ordered By: Mary Ellen Jules on 05-15-2025 Insulin 3 Hr post Unsp challenge Qn [facility] Comment on above: Test not performedTe st not performed Serum or plasma insulin sharon urement at 5 hours post challenge (units/volume)Ordered By: Mary Ellen Jules on 05-15-2025 Insulin 5 Hr post Unsp challenge Qn [facility] Comment on above: Test not performedTe st not performed Serum or plasma insulin sharon urement on fourth specimen after challenge (units/volume)Ordered By: Mary Ellen Jules on 05-15-2025 Insulin 4th specimen post Unsp challenge Qn 104.0 uIU/mL 0.0-145.4 [facility] Insulin Levelon 05-12-2025 INSULIN,FASTING 21.1 uIU/mL Normal 2.6-24.9 [facility] Comment on above: Result Comment: Perf ormed at: [place] [facility] [place] [address] [place], [place] [id number] It Administrative Assistant: Luan Cheng PhD, Phone: [phone] Performed By: #### L 101.9900, L501.6710 #### [facility] [address] [facility] [place], [place], [address] Glucoseon 05-11-2025 Glucose [Mass/Vol] 117 mg/dL [address] Comment on above: Performed By: #### L 101.9900, L501.6710 #### [facility] [address] [place], [place], [id number] Serum glucose measurement (m ass/volume)Ordered By: Mary Ellen Jules on 05-11-2025 Glucose [Mass/Vol] 117 mg/dL [address] Serum or plasma insulin sharon urement (mass/volume)Ordered By: Mary Ellen Jules on 05-11-2025 Insulin [Mass/Vol] 21.1 uIU/mL 2.6-24.9 [facility] Comment on above: Performed at: [place] [facility] [address] [id number] Director: Luan Cheng PhD, Phone: [phone] Katelynn 05-10-2025 /PAUL [facility] [address] [place] [address]. [address] [place], [place] [address] OFFICE VISIT Date of Service: 05/10/25 MR#: [id number] Acct: [id number] Name: ARIA HERNANDEZ Rep #: [id number] : 1945 Provider: Dr. Mary Ellen hunt MD Age/Sex: 79/M Location: [facility] Status: Signed Intake Vital Signs 03/30/25 07:57 [...] Reasons: Balance/Memory Issues Chief Complaint: Balance/Memory Issues [employer] Administrator Required: No Accompanied by: Self Is patient [...] fallen in the past year?: Yes (04/2025) [facility] Medical History (Updated 05/10/25 @ 14:50 by [...] relatively recently, starting back in the spring. [place] initially perhaps a viral illness that might [...] labs over (more content not included)... Normal [facility] Non-gynecologic cytology rep ortOrdered By: Corinne Andrade on 05-10-2025 Study report [facility] Cytology report of Body flui d Cyto stainOrdered By: Isa Rogers on 05-09-2025 Cytology report Cyto stain Doc (Body fld) SEE PATHOLOGY REPORT [facility] Comment on above: Specimen submitted t o Anatomical Pathology Department for testing. Cytology, Body Fluid / CSFon 05-09-2025 CYTOLOGY,BF/CSF SEE PATHOLOGY REPORT Normal [facility] Comment on above: Order Comment: URINE Result Comment: Spec imen submitted to Anatomical Pathology Department for testing. Performed By: #### L 101.9900, L501.6710 #### [facility] Laboratory [facility] [place] [address], [address] Special Stain Group IIon Special Stain Group II --- Patient Age/Sex Location Account Attending Physician ARIA HERNANDEZ 79/M LABSPEC [id number] Isa Rogers Specimen: [id number] Received: 05/09/25 Status: ANGUS Crystal Num: [id number] Spec Type: Fluid Subm Dr: Isa Rogers [...] urine. Submitted for cytology preparation. 05/10/2025 CPT: 37066 Signed (signature on file) Dr. Corinne Andrade DO 05/10/25 1549 Normal [facility] Comment on above: Performed By: #### P SSII #### [facility] Laboratory [facility] [address] [place], [place], [address] MR/BMS.IMBon 03-30-2025 MR/BMS.IMB [facility] [address] [facility] [place] [address] OFFICE VISIT Date of Service: 03/30/25 MR#: [id number] Acct: [id number] Name: ARIA HERNANDEZ Rep #: [id number] : 1945 Provider: Dr. 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 In early [...] any ne (more content not included)... Normal [facility] Testosterone, Total / Freeon 03-15-2025 TESTOSTER,FREE 13.32 ng/dL Normal 5.00-21.00 [facility] Comment on above: Order Comment: NUNK Performed By: #### L 501.9910, L500.4100, L3100.5310, L506.1001, L501.9985, L500.4050, L503.0106, L506.0400, L100.0100, L501.45675, L501.9520, L501.5200, L101.9900 ####[facility] [address] [place], [place], [id number] TESTOSTER,TOTAL 535 ng/dL Normal 264-916 [facility] Comment on above: Order Comment: NUNK Result Comment: Adul t male reference interval is based on a population of healthy nonobese males (BMI <30) between 19 and 39 years old. rosemary Schmid.al. JCEM 2017,102;5797-6937. PMID: [id number]. Performed By: #### L 501.9910, L500.4100, L3100.5310, L506.1001, L501.9985, L500.4050, L503.0106, L506.0400, L100.0100, L501.48718, L501.9520, L501.5200, L101.9900 ####[facility] [address] [place], [address] TESTOSTERONE,%F 2.49 Normal 1.50-4.20 [facility] Comment on above: Order Comment: NUNK Result Comment: Perf ormed at: - [facility] [address] [id number] It Administrative Assistant: Luan Cheng PhD, Phone: [phone] Performed at: - [facility] [address] [id number] It Administrative Assistant: Jasmyne Drummond MD, Phone: [phone] Performed By: #### L 501.9910, L500.4100, L3100.5310, L506.1001, L501.9985, L500.4050, L503.0106, L506.0400, L100.0100, L501.44883, L501.9520, L501.5200, L101.9900 ####[facility] [address] [place], [address] Absolute lymphocyte countOrd ered By: Mary Ellen Jules on 02-28-2025 Lymphocytes Auto (Unsp spec) [#/Vol] 2.17 10*3/uL 0.83-4.51 [facility] Absolute neutrophil countOrd ered By: Mary Ellen Jules on 02-28-2025 Neutrophils (Bld) [#/Vol] 2.5 10*3/uL 2.0-7.7 [facility] Anion gap in Serum or Plasma Ordered By: Mary Ellen Jules on 02-28-2025 Anion gap [Moles/Vol] 11 mmol/L 5- [facility] Automated lymphocyte count a s percentage of total leukocytesOrdered By: Mary Ellen Jules on 02-28-2025 Lymphocytes/100 WBC Auto (Unsp spec) 40.0 % [facility] BUN/creatinine ratioOrdered By: Mary Ellen Jules on 02-28-2025 Urea nitrogen/Creatinine [Mass ratio] 16.4 mg/mg 10- [facility] Basophil percentageOrdered B y: Mary Ellen Jules on 02-28-2025 Basophils/100 WBC (Bld) 1.1 % High 0-1 [facility] Bilirubin, totalOrdered By: Mary Ellen Jules on 02-28-2025 Bilirubin [Mass/Vol] 0.37 mg/dL 0.00-1.30 [facility] CBC W/Diff, Automatedon Absolute Lymph 2.17 X10 3/uL Normal 0.83-4.51 [facility] Comment on above: Performed By: #### L 101.9900, L501.6710 #### [facility] Laboratory [address] [place], [address] Absolute Neut 2.5 X10 3/uL Normal 2.0-7.7 [facility] Comment on above: Performed By: #### L 101.9900, L501.6710 #### [facility] [address] [place], [address] Basophils/100 WBC (Bld) 1.1 % High 0-1 [facility] Comment on above: Performed By: #### L 101.9900, L501.6710 #### [facility] [address] [place], [address] Eosinophils/100 WBC (Bld) 6.1 % High 0-5 [facility] Comment on above: Performed By: #### L 101.9900, L501.6710 #### [facility] [address] [place], [address] Erythrocyte distribution width (RBC) [Ratio] 13.2 % Normal 11.6-14.6 [facility] Comment on above: Performed By: #### L 101.9900, L501.6710 #### [facility] [address] [place], [address] Hematocrit (Bld) [Volume fraction] 46.9 % Normal 40-54 [facility] Comment on above: Performed By: #### L 101.9900, L501.6710 #### [facility] [address] [place], [address] Hemoglobin (Bld) [Mass/Vol] 15.5 g/dL Normal 13.0-16.5 [facility] Comment on above: Performed By: #### L 101.9900, L501.6710 #### [facility] [address] [place], [address] IG% 0.200 Normal 0.0-0.9 [facility] Comment on above: Result Comment: IG% - Immature Granulocytes (promyelocytes, myelocytes and metamyelocytes) > 1% indicates that a LEFT SHIFT is Present. Performed By: #### L 101.9900, L501.6710 #### [facility] [address] [place], [address] Lymphocytes/100 WBC (Bld) 40.0 % Normal 19-41 [facility] Comment on above: Performed By: #### L 101.9900, L501.6710 #### [facility] [address] [place], [address] MCH (RBC) [Entitic mass] 31.6 pg Normal 27.0-32.0 [facility] Comment on above: Performed By: #### L 101.9900, L501.6710 #### [facility] [address] [place], [address] MCHC (RBC) [Mass/Vol] 33.0 g/dL Normal 32-36 [facility] Comment on above: Performed By: #### L 101.9900, L501.6710 #### [facility] [address] [place], [address] MCV (RBC) [Entitic vol] 95.7 fL High 80-94 [facility] Comment on above: Performed By: #### L 101.9900, L501.6710 #### [facility] [address] [place], [address] Monocytes/100 WBC (Bld) 6.8 % Normal 0-10 [facility] Comment on above: Performed By: #### L 101.9900, L501.6710 #### [facility] [address] [place], [address] Neutrophils/100 WBC (Bld) 45.8 % Low 47-70 [facility] Comment on above: Performed By: #### L 101.9900, L501.6710 #### [facility] [address] [place], [address] Nucleated RBC (Bld) [#/Vol] 0 10*3/uL Normal 0-5 [facility] Comment on above: Performed By: #### L 101.9900, L501.6710 #### [facility] [address] [place], [address] Platelet mean volume (Bld) [Entitic vol] 10.1 fL Normal 6.2-12.0 [facility] Comment on above: Performed By: #### L 101.9900, L501.6710 #### [facility] [address] [place], [address] Platelets (Bld) [#/Vol] 199 10*3/uL Normal 150-450 [facility] Comment on above: Performed By: #### L 101.9900, L501.6710 #### [facility] [address] [place], [address] RBC (Bld) [#/Vol] 4.90 10*6/uL Normal 4.6-6.2 [facility] Comment on above: Performed By: #### L 101.9900, L501.6710 #### [facility] [address] [place], [address] RDW SD 46.7 fl High 35.1-43.9 [facility] Comment on above: Performed By: #### L 101.9900, L501.6710 #### [facility] [address] [place], [address] WBC (Bld) [#/Vol] 5.4 10*3/uL Normal 4.4-11.0 [facility] Comment on above: Performed By: #### L 101.9900, L501.6710 #### [facility] [address] [place], [address] Calculated very low density lipoprotein (VLDL) cholesterol measurementOrdered By: Mary Ellen Jules on 02-28-2025 Calculated very low density lipoprotein (VLDL) cholesterol measurement 18 mg/dL 5-40 [facility] Carbon dioxide, total [Moles /volume] in Central venous bloodOrdered By: Mary Ellen Jules on 02-28-2025 CO2 [Moles/Vol] 24.3 mmol/L 21.0-32.0 [facility] Chloride assayOrdered By: Katina Jules on 02-28-2025 Chloride [Moles/Vol] 104 mmol/L 98-108 [facility] Comprehensive Metabolic Prof ilon 02-28-2025 Albumin [Mass/Vol] 4.4 g/dL Normal 3.4-4.8 [facility] Comment on above: Order Comment: UNK Performed By: #### L 101.9900, L5.10 #### [facility] [address] [place], [address] Albumin/Globulin [Mass ratio] 1.4 {ratio} Normal 0.9-2.4 [facility] Comment on above: Order Comment: UNK Performed By: #### L 101.9900, L501.6710 #### [facility] [address] [place], [address] ALK PHOS 49 U/L Normal 40-129 [facility] Comment on above: Order Comment: UNK Performed By: #### L 101.9900, L501.6710 #### [facility] [address] [place], [address] ALT [Catalytic activity/Vol] 27 U/L Normal <=46 [facility] Comment on above: Order Comment: UNK Performed By: #### L 101.9900, L501.6710 #### [facility] [address] [place], [address] AST [Catalytic activity/Vol] 24 U/L Normal <=37 [facility] Comment on above: Order Comment: UNK Performed By: #### L 101.9900, L501.6710 #### [facility] [address] [place], [address] Bilirubin [Mass/Vol] 0.37 mg/dL Normal 0.00-1.30 [facility] Comment on above: Order Comment: UNK Performed By: #### L 101.9900, L501.6710 #### [facility] [address] [place], [address] BUN/CRE 16.4 RATIO Normal 10-20 [facility] Comment on above: Order Comment: UNK Performed By: #### L 101.9900, L5.10 #### [facility] [address] [place], [address] Calcium [Mass/Vol] 9.4 mg/dL Normal 7.6-11.0 [facility] Comment on above: Order Comment: UNK Performed By: #### L 101.9900, L5.10 #### [facility] [address] [place], [address] Chloride [Moles/Vol] 104 mmol/L Normal 98-108 [facility] Comment on above: Order Comment: UNK Performed By: #### L 101.9900, L501.6710 #### [facility] [address] [place], [address] CO2 [Moles/Vol] 24.3 mmol/L Normal 21.0-32.0 [facility] Comment on above: Order Comment: UNK Performed By: #### L 101.9900, L501.6710 #### [facility] [address] [place], [address] Creatinine [Mass/Vol] 0.91 mg/dL Normal 0.70-1.20 [facility] Comment on above: Order Comment: UNK Performed By: #### L 101.9900, L501.6710 #### [facility] [address] [place], [address] GAP 11 Normal 5-15 [facility] Comment on above: Order Comment: UNK Performed By: #### L 101.9900, L501.6710 #### [facility] [address] [place], [address] GFR/1.73 sq M.predicted among non-blacks MDRD (S/P/Bld) [Vol rate/Area] 85 mL/min/{1.73_m2} Normal >60 [facility] Comment on above: Order Comment: UNK Result Comment: mL/m in/1.73m2 CKD-EPI Creatinine Equation (2020) Performed By: #### L 101.9900, L501.6710 #### [facility] [address] [place], [address] Globulin (S) [Mass/Vol] 3.1 g/dL Normal 2.2-4.2 [facility] Comment on above: Order Comment: UNK Performed By: #### L 101.9900, L501.6710 #### [facility] [address] [place], [address] Glucose [Mass/Vol] 118 mg/dL High 70-99 [facility] Comment on above: Order Comment: UNK Performed By: #### L 101.9900, L501.6710 #### [facility] [address] [place], [address] Potassium [Moles/Vol] 4.5 mmol/L Normal 3.3-5.1 [facility] Comment on above: Order Comment: UNK Performed By: #### L 101.9900, L501.6710 #### [facility] [address] [place], [address] Sodium [Moles/Vol] 139 mmol/L Normal 133-145 [facility] Comment on above: Order Comment: UNK Performed By: #### L 101.9900, L501.6710 #### [facility] [address] [place], [address] T PROT 7.5 g/dL Normal 5.9-8.4 [facility] Comment on above: Order Comment: UNK Performed By: #### L 101.9900, L501.6710 #### [facility] [address] [place], [address] Urea nitrogen [Mass/Vol] 15 mg/dL Normal 4-19 [facility] Comment on above: Order Comment: UNK Performed By: #### L 101.9900, L501.6710 #### [facility] [address] [place], [address] Eosinophil percentageOrdered By: Mary Ellen Jules on 02-28-2025 Eosinophils/100 WBC (Bld) 6.1 % High 0-5 [facility] Erythrocyte Sed Rateon 02-28 SED RATE 4 mm/hr Normal 0-20 [facility] Comment on above: Performed By: #### L 101.9900, L501.6710 #### [facility] [address] [place], [address] Erythrocyte distribution wid th ratioOrdered By: Mary Ellen Jules on 02-28-2025 Erythrocyte distribution width (RBC) [Ratio] 13.2 % 11.6-14.6 [facility] Erythrocyte distribution wid th standard deviationOrdered By: Mary Ellen Jules on 02-28-2025 Erythrocyte distribution width (RBC) [Ratio] 46.7 fl High 35.1-43.9 [facility] Erythrocyte sedimentation ra teOrdered By: Mary Ellen Jules on 02-28-2025 ESR (Bld) [Velocity] 4 mm/h 0-20 [facility] Free T3on 02-28-2025 Free T3 [Mass/Vol] 3.0 pg/mL Normal 2.18-3.98 [facility] Comment on above: Order Comment: NUNK Performed By: #### L 501.9910, L500.4100, L3100.5310, L506.1001, L501.9985, L500.4050, L503.0106, L506.0400, L100.0100, L501.92857, L501.9520, L501.5200, L101.9900 ####[facility] [address] [place], [place], [phone] Free S8Vtadmmo By: Mary Ellen ríos on 02-28-2025 Free T3 [Mass/Vol] 3.0 pg/mL 2.18-3.98 [facility] Free testosterone percentage Ordered By: Mary Ellen Jules on 02-28-2025 Testosterone Free/Testosterone.total [Mass fraction] 2.49 % 1.50-4.20 [facility] Comment on above: Performed at: [facility] [employer] [id number] Director: Luan Cheng PhD, Phone: [phone] at: - Lab[address] [id number] Director: Jasmyne Drummond MD, Phone: [phone] Glomerular filtration rate ( GFR) estimation/1.73 sq m using serum, plasma, or whole bOrdered By: Mary Ellen Jules on 02-28-2025 GFR/1.73 sq M.predicted among non-blacks MDRD (S/P/Bld) [Vol rate/Area] 85 mL/min/{1.73_m2} >60 [facility] Comment on above: mL/min/1.73m2 CKD-EP I Creatinine Equation (2020) Hematocrit Auto (Bld) [Volum e fraction]Ordered By: Mary Ellen Jules on 02-28-2025 Hematocrit (Bld) [Volume fraction] 46.9 % 40-54 [facility] Hemoglobin A1con 02-28-2025 HbA1c (Bld) [Mass fraction] 5.8 % High <=5.6 [facility] Comment on above: Result Comment: Norm al < 5.7 % Prediabetic 5.7 - 6.4 % Diabetic >or= 6.5 % Please note range changes. Performed By: #### L 101.9900, L501.6710 #### [facility] [place], [address] Hemoglobin A1c percentageOrd ered By: Mary Ellen Jules on 02-28-2025 HbA1c (Bld) [Mass fraction] 5.8 % High <5.7 [facility] Comment on above: Normal < 5.7 % Predi abetic 5.7 - 6.4 % Diabetic >or= 6.5 % Please note range changes. Hemoglobin measurementOrdere d By: Mary Ellen Jules on 02-28-2025 Hemoglobin (Bld) [Mass/Vol] 15.5 g/dL 13.0-16.5 [facility] Immature granulocytes/100 WB C Auto (Bld)Ordered By: Mary Ellen Jules on 02-28-2025 Immature granulocytes/100 WBC (Bld) 0.200 % 0.0-0.9 [facility] Comment on above: IG% - Immature Granu locytes (promyelocytes, myelocytes and metamyelocytes) > 1% indicates that a LEFT SHIFT is Present. LDL calc ser/plasOrdered By: Mary Ellen Jules on 02-28-2025 Cholesterol in LDL [Mass/Vol] 149 mg/dL [facility] Comment on above: Xqywhivlrn=392-972 m g/dL & Higher Hzov=146 mg/dL or greater Laboratory - Chemistry and C hemistry - challengeOrdered By: Mary Ellen Jules on 02-28-2025 AST [Catalytic activity/Vol] 24 U/L <38 [facility] Lipid Profileon 02-28-2025 CHOL:HDL 5.07 Normal [facility] Comment on above: Performed By: #### L 501.9910, L500.4100, L3100.5310, L506.1001, L501.9985, L500.4050, L503.0106, L506.0400, L100.0100, L501.22203, L501.9520, L501.5200, L101.9900 ####[facility] [address] [place], [place], [phone] Cholesterol [Mass/Vol] 208 mg/dL High <=200 [facility] Comment on above: Result Comment: Chol esterol level, Desirable <200 mg/dL Borderline high cholesterol 200-239 mg/dL High cholesterol >=240 mg/dL Recommendations of the NCEP Adult Treatment Panel for the following risk-cutoff thresholds for the [place] population. Performed By: #### L 501.9910, L500.4100, L3100.5310, L506.1001, L501.9985, L500.4050, L503.0106, L506.0400, L100.0100, L501.01428, L501.9520, L501.5200, L101.9900 ####[facility] [address] [place], [place], [phone] Cholesterol in HDL [Mass/Vol] 41 mg/dL Normal [facility] Comment on above: Result Comment: Livia onal Cholesterol Education Program (NCEP) guidelines: <40 mg/dL: Low HDL-cholesterol (major risk factor for CHD) >= 60 mg/dL: High HDL-cholesterol (negative risk factor for CHD) HDL-cholesterol is affected by a number of factors, e.g. smoking, exercise, hormones, sex and age. Performed By: #### L 501.9910, L500.4100, L3100.5310, L506.1001, L501.9985, L500.4050, L503.0106, L506.0400, L100.0100, L501.05849, L501.9520, L501.5200, L101.9900 ####[facility] [address] [place], [place], [phone] Cholesterol in LDL [Mass/Vol] 149 mg/dL Normal [facility] Comment on above: Result Comment: Bord stvjas=693-223 mg/dL Higher Wrzr=023 mg/dL or greater Performed By: #### L 501.9910, L500.4100, L3100.5310, L506.1001, L501.9985, L500.4050, L503.0106, L506.0400, L100.0100, L501.07385, L501.9520, L501.5200, L101.9900 ####[facility] [address] [facility] [address] [place], [place], [phone] Cholesterol in VLDL [Mass/Vol] 18 mg/dL Normal 5-40 [facility] Comment on above: Performed By: #### L 501.9910, L500.4100, L3100.5310, L506.1001, L501.9985, L500.4050, L503.0106, L506.0400, L100.0100, L501.71354, L501.9520, L501.5200, L101.9900 ####[facility] [address] [place], [place], [phone] Triglyceride [Mass/Vol] 90 mg/dL Normal [facility] Comment on above: Result Comment: The drugs N-Acetylcysteine and Metamizole may falsely depress this assay. Normal range: <150 mg/dL Borderline High: 150-199 mg/dL High: 200-499 mg/dL Very High: >500 mg/dL Performed By: #### L 501.9910, L500.4100, L3100.5310, L506.1001, L501.9985, L500.4050, L503.0106, L506.0400, L100.0100, L501.27570, L501.9520, L501.5200, L101.9900 ####[facility] [address] [place], [place], [phone] MCV (mean corpuscular volume ) determinationOrdered By: Mary Ellen Jules on 02-28-2025 MCV (RBC) [Entitic vol] 95.7 fL High 80-94 [facility] Magnesiumon 02-28-2025 Magnesium [Mass/Vol] 2.0 mg/dL Normal 1.5-2.2 [facility] Comment on above: Performed By: #### L 501.9910, L500.4100, L3100.5310, L506.1001, L501.9985, L500.4050, L503.0106, L506.0400, L100.0100, L501.87402, L501.9520, L501.5200, L101.9900 ####[facility] [address] [place], [place], [phone] Magnesium measurement (mass/ volume)Ordered By: Mary Ellen Jules on 02-28-2025 Magnesium (Unsp spec) [Mass/Vol] 2.0 mg/dL 1.5-2.2 [facility] Mean corpuscular hemoglobin (MCH) determinationOrdered By: Mary Ellen Jules on 02-28-2025 MCH (RBC) [Entitic mass] 31.6 pg 27.0-32.0 [facility] Mean corpuscular hemoglobin concentration (MCHC) determinationOrdered By: Mary Ellen Jules on 02-28-2025 MCHC (RBC) [Mass/Vol] 33.0 g/dL 32-36 [facility] Mean platelet volume determi nationOrdered By: Mary Ellen Jules on 02-28-2025 Platelet mean volume (Bld) [Entitic vol] 10.1 fL 6.2-12.0 [facility] Monocyte percentageOrdered B y: Mary Ellen Jules on 02-28-2025 Monocytes/100 WBC (Bld) 6.8 % 0-10 [facility] Neutrophil percentageOrdered By: Mary Ellen Jules on 02-28-2025 Neutrophils/100 WBC (Bld) 45.8 % Low 47-70 [facility] Nucleated red blood cell per centageOrdered By: Mary Ellen Jules on 02-28-2025 Nucleated RBC/100 WBC (Bld) [Ratio] 0 % 0-5 [facility] PSA,Total - Annual Screenon 02-28-2025 PSA,TOT SCREEN 0.98 ng/mL Normal 0.02-4.00 [facility] Comment on above: Result Comment: This [...] L3100.5310, L506.1001, L501.9985, L500.4050, L503.0106, L506.0400, L100.0100, L501.13264, L501.9520, L501.5200, L101.9900 ####[facility] [address] [place], [address] Platelet countOrdered By: Katina Jules on 02-28-2025 Platelets (Bld) [#/Vol] 199 10*3/uL 150-450 [facility] Potassium measurement (mass/ volume)Ordered By: Mary Ellen Jules on 02-28-2025 Potassium (Unsp spec) [Mass/Vol] 4.5 mmol/L 3.3-5.1 [facility] RBC Auto (Bld) [#/Vol]Ordere d By: Mary Ellen Jules on 02-28-2025 RBC (Bld) [#/Vol] 4.90 10*6/uL 4.6-6.2 [facility] Screening total cholesterol/ high density lipoprotein (HDL) cholesterol ratioOrdered By: Mary Ellen Jules on 02-28-2025 Cholesterol.total/Choles terol in HDL [Mass ratio] 5.07 {ratio} [facility] Serum creatinine measurement (mass/volume)Ordered By: Mary Ellen Jules on 02-28-2025 Creatinine [Mass/Vol] 0.91 mg/dL 0.70-1.20 [facility] Serum globulin measurementOr dered By: Mary Ellen Jules on 02-28-2025 Globulin (S) [Mass/Vol] 3.1 g/dL 2.2-4.2 [facility] Serum glucose measurement (m ass/volume)Ordered By: Mary Ellen Jules on 02-28-2025 Glucose [Mass/Vol] 118 mg/dL High 70-99 [facility] Serum or plasma alanine mehta otransferase (ALT) measurementOrdered By: Mary Ellen Jules on 02-28-2025 ALT [Catalytic activity/Vol] 27 U/L <47 [facility] Serum or plasma albumin sharon urement (mass/volume)Ordered By: Mary Ellen Jules on 02-28-2025 Albumin [Mass/Vol] 4.4 g/dL 3.4-4.8 [facility] Serum or plasma albumin/glob ulin mass ratioOrdered By: Mary Ellen Jules on 02-28-2025 Albumin/Globulin [Mass ratio] 1.4 {ratio} 0.9-2.4 [facility] Serum or plasma alkaline litzy sphatase measurementOrdered By: Mary Ellen Jules on 02-28-2025 ALP [Catalytic activity/Vol] 49 U/L 40-129 [facility] Serum or plasma calcium sharon urement (mass/volume)Ordered By: Mary Ellen Jules on 02-28-2025 Calcium [Mass/Vol] 9.4 mg/dL 7.6-11.0 [facility] Serum or plasma cholesterol in HDL measurement (mass/volume)Ordered By: Mary Ellen Jules on 02-28-2025 Cholesterol in HDL [Mass/Vol] 41 mg/dL >40 [facility] Comment on above: National Cholesterol Education Program (NCEP) guidelines:<40 mg/dL: Low HDL-cholesterol (major risk factor for CHD)>= 60 mg/dL: High HDL-cholesterol (negative risk factor for CHD)HDL-cholesterol is affected by a number of factors, e.g. smoking, exercise, hormones, sex and age. Serum or plasma cholesterol measurement (mass/volume)Ordered By: Mary Ellen Jules on 02-28-2025 Cholesterol [Mass/Vol] 208 mg/dL High <201 [facility] Comment on above: Cholesterol level, D esirable <200 mg/dLBorderline high cholesterol 200-239 mg/dLHigh cholesterol >=240 mg/dLRecommendations of the NCEP Adult Treatment Panel for the following risk-cutoff thresholds for the [place] population. Serum or plasma free testost erone measurement (mass/volume)Ordered By: Mary Ellen Jules on 02-28-2025 Testosterone Free [Mass/Vol] 13.32 ng/dL 5.00-21.00 [facility] Serum or plasma urea nitroge n measurement (mass/volume)Ordered By: Mary Ellen Jules on 02-28-2025 Urea nitrogen [Mass/Vol] 15 mg/dL 4-19 [facility] Sodium levelOrdered By: Tami Jules on 02-28-2025 Sodium [Moles/Vol] 139 mmol/L 133-145 [facility] T4 Free Directon 02-28-2025 T4 FREE DIRECT 1.00 ng/dL Normal 0.76-1.46 [facility] Comment on above: Order Comment: NUNK Performed By: #### L 501.9910, L500.4100, L3100.5310, L506.1001, L501.9985, L500.4050, L503.0106, L506.0400, L100.0100, L501.61896, L501.9520, L501.5200, L101.9900 ####[facility] [address] [place], [place], [address] T4 freeOrdered By: Mary Ellen ríos on 02-28-2025 Free T4 [Mass/Vol] 1.00 ng/dL 0.76-1.46 [facility] TSH DL <= 0.005 mIU/L QnOrde red By: Mary Ellen Jules on 02-28-2025 TSH Qn 4.560 uIU/mL High 0.300-4.200 [facility] Testosterone, totalOrdered B y: Mary Ellen Jules on 02-28-2025 Testosterone [Mass/Vol] 535 ng/dL 264-916 [facility] Comment on above: Adult male reference interval is based on a population ofhealthy nonobese males (BMI <30) between 19 and 39 yearsold. rosemary Schmid.al. JCEM 2017,102;1766-7299. PMID:[id number]. Thyroid Stim Hormone (TSH)on 02-28-2025 TSH 4.560 uIU/mL High 0.300-4.200 [facility] Comment on above: Performed By: #### L 501.9910, L500.4100, L3100.5310, L506.1001, L501.9985, L500.4050, L503.0106, L506.0400, L100.0100, L501.26095, L501.9520, L501.5200, L101.9900 ####[facility] [address] [place], [address] Total proteinOrdered By: Leslie Jules on 02-28-2025 Protein [Mass/Vol] 7.5 g/dL 5.9-8.4 [facility] Triglycerides measurementOrd ered By: Mary Ellen Jules on 02-28-2025 Triglyceride [Mass/Vol] 90 mg/dL <199 [facility] Comment on above: The drugs N-Acetylcy steine and Metamizole may falsely depress this assay. Normal range: <150 mg/dLBorderline High: 150-199 mg/dLHigh: 200-499 mg/dLVery High: >500 mg/dL Vitamin B12on 02-28-2025 Cobalamin (Vitamin B12) [Mass/Vol] 425 pg/mL Normal 180-914 [facility] Comment on above: Performed By: #### L 501.9910, L500.4100, L3100.5310, L506.1001, L501.9985, L500.4050, L503.0106, L506.0400, L100.0100, L501.20417, L501.9520, L501.5200, L101.9900 ####[facility] [address] [place], [address] Vitamin B12 ser/plasOrdered By: Mary Ellen Jules on 02-28-2025 Cobalamin (Vitamin B12) [Mass/Vol] 425 pg/mL 180-914 [facility] Vitamin D,25 Hydroxyon 02-28 Vitamin D 25-OH 13.8 ng/mL Low 30-100 [facility] Comment on above: Result Comment: Gayle min D Status Deficiency: <20 ng/mL (50nmol/L) Insufficiency: 20-30 ng/mL (50-75 nmol/L) Sufficiency: 30-100 ng/mL (75-250 nmol/L) Toxicity: >100 ng/mL (>250 nmol/L) Performed By: #### L 501.9910, L500.4100, L3100.5310, L506.1001, L501.9985, L500.4050, L503.0106, L506.0400, L100.0100, L501.93682, L501.9520, L501.5200, L101.9900 ####[facility] [address] [place], [place], [phone] White blood cell (WBC) count Ordered By: Mary Ellen Jules on 02-28-2025 WBC (Bld) [#/Vol] 5.4 10*3/uL 4.4-11.0 [facility] Cytology, Body Fluid / CSFon 11-01-2024 CYTOLOGY,BF/CSF SEE PATHOLOGY REPORT Normal [facility] Comment on above: Order Comment: URINE Result Comment: Spec imen submitted to Anatomical Pathology Department for testing. Performed By: #### L 101.9900, L501.6710 #### [facility] [address] [place], [place], [phone] Pap Stain (control)on 2024 Pap Stain (control) Patient Age/Sex Location Account Attending Physician ARIA HERNANDEZ 79/M LABSPEC [id number] Isa Rogers Specimen: [id number] Received: 11/01/24 Status: ANGUS Crystal Num: [id number] Spec Type: CYSPIN FL Subm Dr: Isa [...] for cytology preparation. Mr 11/02/2024 TC:2 CPT: 50618 Signed (signature on file) Dr. Gennaro Rivas MD 11/02/24 1546 Normal [facility] Comment on above: Performed By: #### P PAPS #### [facility] [address] [place], [address] Urine Cultureon 07-26-2024 URC Culture exhibits no growth. Normal [facility] Comment on above: Performed By: #### L 101.9900, L501.6710 #### [facility] [address] [place], [place], [address] CRPon 07-25-2024 C-REACTIVE PROT < 2.90 Normal 0.0-3.0 [facility] Comment on above: Result Comment: C-Re active Protein (CRP) provides useful information for the diagnosis, therapy and monitoring of inflammatory processes and associated diseases. For the evaluation of Relative Risk for Cardiovascular Disease, a High Sensitivity CRP (HSCRP) should be ordered. Performed By: #### L 101.9900, L501.6710 #### [facility] [address] [place], [address] Erythrocyte Sed Rateon 07-25 SED RATE 20 mm/hr Normal 0-20 [facility] Comment on above: Performed By: #### L 101.9900, L501.6710 #### [facility] [address] [place], [address] Urinalysis, Completeon 07-25 EPI,SQUAMOUS 0-5 SEEN Normal 0-5 [facility] Comment on above: Order Comment: COLLE CTOR TO SPECIFY Performed By: #### L 101.9900, L501.6710 #### [facility] [address] [place], [address] RBC 0-5 SEEN Normal 0-5 [facility] Comment on above: Order Comment: CHLOE CTOR TO SPECIFY Performed By: #### L 101.9900, L501.6710 #### [facility] [address] [place], [address] WBC 5-10 SEEN Normal 0-5 [facility] Comment on above: Order Comment: CHLOE CTOR TO SPECIFY Performed By: #### L 101.9900, L501.6710 #### [facility] [address] [place], [address] BACTERIA 0 SEEN Normal None Seen [facility] Comment on above: Order Comment: CHLOE CTOR TO SPECIFY Performed By: #### L 101.9900, L501.6710 #### [facility] [address] [place], [address] Mucus Ql (Urine sed) 0 SEEN Normal [facility] Comment on above: Order Comment: CHLOE CTOR TO SPECIFY Performed By: #### L 101.9900, L501.6710 #### [facility] [address] [place], [address] Absolute lymphocyte countOrd ered By: Benedicto Garland on 10-14-2023 Lymphocytes Auto (Unsp spec) [#/Vol] 1.50 10*3/uL 0.83-4.51 [facility] Basophil percentageOrdered B y: Benedicto Garland on 10-14-2023 Basophils/100 WBC (Bld) 0.7 % 0-1 [facility] Chloride [Moles/Vol] 106 mmol/L 98-107 [facility] Eosinophils/100 WBC (Bld) 2.3 % 0-5 [facility] Glucose [Mass/Vol] 109 mg/dL 74-106 [facility] Comment on above: Fasting Glucose resu lt from 100 to 125 mg/dL suggests IMPAIRED HOMEOSTASIS per A.D.A. criteria. Neutrophils (Bld) [#/Vol] 4.6 10*3/uL 2.0-7.7 [facility] Neutrophils/100 WBC (Bld) 67.3 % 47-70 [facility] Potassium [Moles/Vol] 3.8 mmol/L 3.5-5.1 [facility] Sodium [Moles/Vol] 141 mmol/L 136-145 [facility] WBC (Bld) [#/Vol] 6.8 10*3/uL 4.4-11.0 [facility] Blood erythrocytes count (nu mber/volume)Ordered By: Benedicto Garland on 10-14-2023 RBC (Bld) [#/Vol] 4.80 10*6/uL 4.6-6.2 [facility] Blood hemoglobin measurement (mass/volume)Ordered By: Benedicto Garland on 10-14-2023 Hemoglobin (Bld) [Mass/Vol] 14.7 g/dL 13.0-16.5 [facility] Blood lymphocytes/100 leukoc ytesOrdered By: Benedicto Garland on 10-14-2023 Lymphocytes/100 WBC (Bld) 22.0 % 19-41 [facility] Blood monocytes/100 leukocyt esOrdered By: Benedicto Garland on 10-14-2023 Monocytes/100 WBC (Bld) 6.8 % 0-10 [facility] Blood platelet mean volumeOr dered By: Benedicto Garland on 10-14-2023 Platelet mean volume (Bld) [Entitic vol] 9.3 fL 6.2-12.0 [facility] Determination of erythrocyte mean corpuscular volume (MCV)Ordered By: Benedicto Garland on 10-14-2023 MCV (RBC) [Entitic vol] 94.4 fL 80-94 [facility] Hematocrit Auto (Bld) [Volum e fraction]Ordered By: Benedicto Garland on 10-14-2023 Hematocrit (Bld) [Volume fraction] 45.3 % 40-54 [facility] - Chemistry and C hemistry - challengeOrdered By: Benedicto Garland on 10-14-2023 CO2 [Moles/Vol] 25.0 mmol/L 21.0-32.0 [facility] Urea nitrogen/Creatinine [Mass ratio] 16.5 mg/mg - [facility] - Hematology and Cell countsOrdered By: Benedicto Garland on 10-14-2023 Erythrocyte distribution width (RBC) [Entitic vol] 44.2 fL 35.1-43.9 [facility] [facility] Erythrocyte distribution width (RBC) [Ratio] 12.8 % 11.6-14.6 [facility] Immature granulocytes/100 WBC (Bld) 0.900 % 0.0-0.9 [facility] Comment on above: IG% - Immature Granu locytes (promyelocytes, myelocytes and metamyelocytes) > 1% indicates that a LEFT SHIFT is Present. MCH (RBC) [Entitic mass] 30.6 pg 27.0-32.0 [facility] Nucleated RBC/100 WBC (Bld) [Ratio] 0 % 0-5 [facility] MCHC Auto (RBC) [Mass/Vol]Or dered By: Benedicto Garland on 10-14-2023 MCHC (RBC) [Mass/Vol] 32.5 g/dL 32-36 [facility] No Panel InformationOrdered By: Benedicto Garland on 10-14-2023 Estimated Creatinine Clearance Calc 61.94 ml/min [facility] Estimated GFR (MDRD) Amer 90 mL/min >60 [facility] Comment on above: GFR Calc Estimated GFR (MDRD) Non-Af Amer 74 mL/min >60 [facility] Comment on above: Non- GFR Calc Platelets bldOrdered By: Ida Garland on 10-14-2023 Platelets (Bld) [#/Vol] 243 10*3/uL 150-450 [facility] Serum or plasma calcium sharon urement (mass/volume)Ordered By: Benedicto Garland on 10-14-2023 Calcium [Mass/Vol] 8.9 mg/dL 8.5-10.1 [facility] Serum or plasma creatinine m easurement (mass/volume)Ordered By: Benedicto Garland on 10-14-2023 Creatinine [Mass/Vol] 1.03 mg/dL 0.70-1.30 [facility] Comment on above: The validity of the calculated GFR & GFRAA in patients over 70 years has not been determined. Clinical correlation is essential. Serum or plasma urea nitroge n measurement (mass/volume)Ordered By: Benedicto Garland on 10-14-2023 Urea nitrogen [Mass/Vol] 17 mg/dL 7-18 [facility] Thin prep Papanicolaou smear with manual screeningOrdered By: Benedicto Garland on 10-14-2023 Thin prep Papanicolaou smear with manual screening 10 5-15 [facility] Amorphous sediment detection in urine sediment by light microscopyOrdered By: Jabari Elizabeth on 10-11-2023 Amorphous sediment LM Ql (Urine sed) 1+ URATE [facility] Basophil percentageOrdered B y: Jabari Elizabeth on 10-11-2023 Basophil percentage 0 SEEN /hpf 0-5 [facility] Bilirubin Test strip Ql (U)O rdered By: Jabari Elizabeth on 10-11-2023 Bilirubin Ql (U) Negative Negative [facility] Ketones Test strip Ql (U)Ord ered By: Jabari Elizabeth on 10-11-2023 Ketones Ql (U) 5 mg/dl Negative [facility] Mucus LM Ql (Urine sed)Order ed By: Jabari Elizabeth on 10-11-2023 Mucus Ql (Urine sed) 0 SEEN /hpf [facility] Nitrite Test strip Ql (U)Ord ered By: Jabari Elizabeth on 10-11-2023 Nitrite Ql (U) Negative Negative [facility] Protein Test strip Ql (U)Ord ered By: Jabari Elizabeth on 10-11-2023 Protein Ql (U) 500 mg/dl Negative [facility] Squamous epithelial cells de tection in urine sediment by light microscopyOrdered By: Jabari Elizabeth on 10-11-2023 Epithelial cells.squamous LM Ql (Urine sed) 0-5 SEEN /hpf 0-5 [facility] Urine blood detectionOrdered By: Jabari Elizabeth on 10-11-2023 RBC Ql (U) 150 /ul Negative [facility] RBC Ql (U) > 100 SEEN /hpf 0-5 [facility] Urine clarityOrdered By: Peter Elizabeth on 10-11-2023 Clarity (U) Cloudy Clear [facility] Urine color determinationOrd ered By: Jabari Elizabeth on 10-11-2023 Color (U) Red Yellow [facility] Urine glucose detectionOrder ed By: Jabari Elizabeth on 10-11-2023 Glucose Ql (U) Normal mg/dl Normal [facility] Urine leukocyte esterase det ection by dipstickOrdered By: Jabari Elizabeth on 10-11-2023 Leukocyte esterase Test strip Ql (U) Negative Negative [facility] Urine pHOrdered By: Jabari Elizabeth on 10-11-2023 pH (U) 6.5 [pH] 5.0 - 8.0 [facility] Urine sediment bacteria coun t by microscopy (number/high power field)Ordered By: Jabari Elizabeth on 10-11-2023 Bacteria LM.HPF (Urine sed) [#/Area] 0 /[HPF] None Seen [facility] Urine specific gravity measu rementOrdered By: Jabari Elizabeth on 10-11-2023 Specific gravity (U) [Rel density] 1.020 1.002-1.030 [facility] Urobilinogen Auto test strip Ql (U)Ordered By: Jabari Elizabeth on 10-11-2023 Urobilinogen Ql (U) Normal mg/dl Normal [facility] Basophil percentageOrdered B y: Isa Rogers on 08-03-2023 Basophil percentage < 0.9 mg/dL 0.70-1.30 [facility] No Panel InformationOrdered By: Isa Rogers on 08-03-2023 Bedside Estimated GFR (eGFR) > 60.0000 mL/min >60 [facility] Absolute lymphocyte countOrd ered By: Dr. Jules on 12-25-2022 Lymphocytes Auto (Unsp spec) [#/Vol] 2.61 10*3/uL 0.83-4.51 [facility] Basophil percentageOrdered B y: Dr. Jules on 12-25-2022 Basophils/100 WBC (Bld) 0.8 % 0-1 [facility] Bilirubin [Mass/Vol] 0.70 mg/dL 0.20-1.00 [facility] Comment on above: For patients on eltr ombopag therapy, use of Dimension [place] TBIL is not recommended. Chloride [Moles/Vol] 104 mmol/L 98-107 [facility] Cholesterol [Mass/Vol] 185 mg/dL <200 [facility] Comment on above: <200 mg/dL Desirable 200-240 mg/dL Borderline >240 mg/dL High Risk Eosinophils/100 WBC (Bld) 5.2 % 0-5 [facility] Glucose [Mass/Vol] 100 mg/dL 74-106 [facility] Comment on above: Fasting Glucose resu lt from 100 to 125 mg/dL suggests IMPAIRED HOMEOSTASIS per A.D.A. criteria. Neutrophils (Bld) [#/Vol] 2.0 10*3/uL 2.0-7.7 [facility] Neutrophils/100 WBC (Bld) 37.5 % 47-70 [facility] Potassium [Moles/Vol] 3.9 mmol/L 3.5-5.1 [facility] Protein [Mass/Vol] 7.5 g/dL 6.4-8.2 [facility] Sodium [Moles/Vol] 138 mmol/L 136-145 [facility] Triglyceride [Mass/Vol] 111 mg/dL <199 [facility] Comment on above: The drugs N-Acetylcy steine and Metamizole may falsely depress this assay.Serum Triglycerides Reference Interval Normal <150 mg/dL Borderline high 150 - 199 mg/dL High 200 - 499 mg/dL Very High > or = 500 mg/dL WBC (Bld) [#/Vol] 5.2 10*3/uL 4.4-11.0 [facility] Blood erythrocytes count (nu mber/volume)Ordered By: Dr. Jules on 12-25-2022 RBC (Bld) [#/Vol] 5.07 10*6/uL 4.6-6.2 [facility] Blood hemoglobin measurement (mass/volume)Ordered By: Dr. Jules on 12-25-2022 Hemoglobin (Bld) [Mass/Vol] 15.6 g/dL 13.0-16.5 [facility] Blood lymphocytes/100 leukoc ytesOrdered By: Dr. Jules on 12-25-2022 Lymphocytes/100 WBC (Bld) 50.0 % 19-41 [facility] Blood monocytes/100 leukocyt esOrdered By: Dr. Jules on 12-25-2022 Monocytes/100 WBC (Bld) 6.1 % 0-10 [facility] Blood platelet mean volumeOr dered By: Dr. Jules on 12-25-2022 Platelet mean volume (Bld) [Entitic vol] 9.4 fL 6.2-12.0 [facility] Determination of erythrocyte mean corpuscular volume (MCV)Ordered By: Dr. Jules on 12-25-2022 MCV (RBC) [Entitic vol] 94.3 fL 80-94 [facility] Hematocrit Auto (Bld) [Volum e fraction]Ordered By: Dr. Jules on 12-25-2022 Hematocrit (Bld) [Volume fraction] 47.8 % 40-54 [facility] Laboratory - Chemistry and C hemistry - challengeOrdered By: Dr. Jules on 12-25-2022 ALP [Catalytic activity/Vol] 50 U/L 45-117 [facility] ALT [Catalytic activity/Vol] 33 U/L 16-61 [facility] CO2 [Moles/Vol] 29.0 mmol/L 21.0-32.0 [facility] Globulin (S) [Mass/Vol] 3.7 g/dL 2.2-4.2 [facility] Urea nitrogen/Creatinine [Mass ratio] 17.8 mg/mg 10-20 [facility] Laboratory - Hematology and Cell countsOrdered By: Dr. Jules on 12-25-2022 Erythrocyte distribution width (RBC) [Entitic vol] 44.2 fL 35.1-43.9 [facility] Erythrocyte distribution width (RBC) [Ratio] 12.8 % 11.6-14.6 [facility] Immature granulocytes/100 WBC (Bld) 0.400 % 0.0-0.9 [facility] Comment on above: IG% - Immature Granu locytes (promyelocytes, myelocytes and metamyelocytes) > 1% indicates that a LEFT SHIFT is Present. MCH (RBC) [Entitic mass] 30.8 pg 27.0-32.0 [facility] Nucleated RBC/100 WBC (Bld) [Ratio] 0 % 0-5 [facility] MCHC Auto (RBC) [Mass/Vol]Or dered By: Dr. Jules on 12-25-2022 MCHC (RBC) [Mass/Vol] 32.6 g/dL 32-36 [facility] No Panel InformationOrdered By: Dr. Jules on 12-25-2022 Estimated GFR (MDRD) Amer 98 mL/min >60 [facility] Comment on above: GFR Calc Estimated GFR (MDRD) Non-Af Amer 81 mL/min >60 [facility] Comment on above: Non- GFR Calc Prostate Specific Antigen Screen 3.19 ng/mL 0.00-4.00 [facility] Comment on above: This test was perfor med using the TPSA assay method for theSpotzot chemistry system. Values obtained with differentassay methods cannot be used interchangably.When changing PSA assays in the course of monitoring apatient, additional sequential testing should be carriedout to confirm baseline values. Thyroid Stimulating Hormone (TSH) 2.08 uIU/mL 0.358-3.74 [facility] Vitamin D 25-Hydroxy 14.4 ng/mL [facility] Comment on above: Vitamin D 25(OH) Sta tus Range Deficiency <20 ng/mL (50nmol/L) Insufficiency 20 - 30 ng/mL (50 - 75 nmol/L) Sufficiency 30 - 100 ng/mL (75 - 250 nmol/L) Toxicity >100 ng/mL (>250 nmol/L) Platelets bldOrdered By: Dr. Jules on 12-25-2022 Platelets (Bld) [#/Vol] 207 10*3/uL 150-450 [facility] Serum or plasma albumin sharon urement (mass/volume)Ordered By: Dr. Jules on 12-25-2022 Albumin [Mass/Vol] 3.8 g/dL 3.2-5.0 [facility] Serum or plasma albumin/glob ulin mass ratioOrdered By: Dr. Jules on 12-25-2022 Albumin/Globulin [Mass ratio] 1.0 {ratio} 0.9-2.4 [facility] Serum or plasma calcium sharon urement (mass/volume)Ordered By: Dr. Jules on 12-25-2022 Calcium [Mass/Vol] 9.0 mg/dL 8.5-10.1 [facility] Serum or plasma cholesterol in HDL measurement (mass/volume)Ordered By: Dr. Jules on 12-25-2022 Cholesterol in HDL [Mass/Vol] 36 mg/dL >40 [facility] Comment on above: The drugs N-Acetylcy steine and Metamizole may falsely depress this assay. Reference Range HDL <40 mg/dL Low HDL Cholesterol HDL >or= 60 mg/dL High HDL Cholesterol Serum or plasma cholesterol in VLDL measurement (mass/volume)Ordered By: Dr. Jules on 12-25-2022 Cholesterol in VLDL [Mass/Vol] 22 mg/dL 5-40 [facility] Serum or plasma creatinine m easurement (mass/volume)Ordered By: Dr. Jules on 12-25-2022 Creatinine [Mass/Vol] 0.96 mg/dL 0.70-1.30 [facility] Comment on above: The validity of the calculated GFR & GFRAA in patients over 70 years has not been determined. Clinical correlation is essential. Serum or plasma low density lipoprotein (LDL) cholesterol measurement (mass/volume)Ordered By: Dr. Jules on 12-25-2022 Cholesterol in LDL [Mass/Vol] 127 mg/dL 0-130 [facility] Serum or plasma urea nitroge n measurement (mass/volume)Ordered By: Dr. Jules on 12-25-2022 Urea nitrogen [Mass/Vol] 17 mg/dL 7-18 [facility] Thin prep Papanicolaou smear with manual screeningOrdered By: Dr. Jules on 12-25-2022 Thin prep Papanicolaou smear with manual screening 24 U/L 15-37 [facility] Thin prep Papanicolaou smear with manual screening 5 5-15 [facility] CNCOon 12-04-2021 CNCO Letter Text Normal [facility] Gilber[facility]-04[facility]20[facility]) ARIA HERNANDEZ ([id number]) 1945 [facility] TXT Date Time Provider Department 10/04/21 [facility] During your visit today, we [...] as of 07/18/2019: Local Pharmacy - [facility] [place] Problem List As Of Date 10/04/2021 Noted [...] Status:Closed by ANABELLA GONG on 10/04/21 Normal [facility] OBSOLETEon 05-28-2021 OBSOLETE Refill ([facility]) ARIA HERNANDEZ ([id number]) 1945 M TXT Date Time Provider Department [...] NOV-none Please review and advise. Kaylan Griffith [employer] Allergies As of Date: 05/28/2021 Noted Allergy [...] Encounter Status:Closed by [facility]CO on 05/28/21 [facility] OBSOLETEon 04-07-2021 OBSOLETE Refill (IVONWS) ARIA HERNANDEZ ([id number]) 1945 M TXT Date Time Provider Department [...] Status:Closed by ELISSA WEISS on 04/08/21 Normal [facility] Vital Signs Date Time Vital Sign Value Performing Clinician Faci lity 06-08-2025 11:34-0400 Body height 180.[address] Mary Ellen Jules MD Work Phone: [facility] 06-08-2025 11:34-0400 Body mass index (BMI) [Ratio] 26.2 kg/m2 Dr. Mary Ellen Jules MD Work Phone: [facility] 06-08-2025 11:34-0400 Body temperature 98.4 [degF] Dr. Mary Ellen Jules MD Work Phone: [facility] 06-08-2025 11:34-0400 Body weight 85.[address] Mary Ellen Jules MD Work Phone: [facility] 06-08-2025 11:34-0400 Diastolic blood pressure 73 mm[Hg] Dr. Mary Ellen Jules MD Work Phone: [facility] 06-08-2025 11:34-0400 Heart rate 76 /min Dr. Mary Ellen Jules MD Work Phone: [facility] 06-08-2025 11:34-0400 Respiratory rate 16 /min Dr. Mary Ellen Jules MD Work Phone: [facility] 06-08-2025 11:34-0400 SaO2% (BldA) [Mass fraction] 94 % Dr. Mary Ellen Jules MD Work Phone: [facility] 06-08-2025 11:34-0400 Systolic blood pressure 128 mm[Hg] Dr. Mary Ellen Jules MD Work Phone: [facility] 05-10-2025 13:57-0400 Body height 180.[address] Mary Ellen Jules MD Work Phone: [facility] 05-10-2025 13:57-0400 Body mass index (BMI) [Ratio] 25.7 kg/m2 Dr. Mary Ellen Jules MD Work Phone: [facility] 05-10-2025 13:57-0400 Body temperature 98.6 [degF] Dr. Mary Ellen Jules MD Work Phone: [facility] 05-10-2025 13:57-0400 Body weight 83.[address] Mary Ellen Jules MD Work Phone: [facility] 05-10-2025 13:57-0400 Diastolic blood pressure 70 mm[Hg] Dr. Mary Ellen Jules MD Work Phone: [facility] 05-10-2025 13:57-0400 Heart rate 80 /min Dr. Mary Ellen Jules MD Work Phone: [facility] 05-10-2025 13:57-0400 Respiratory rate 16 /min Dr. Mary Ellen Jules MD Work Phone: [facility] 05-10-2025 13:57-0400 SaO2% (BldA) [Mass fraction] 93 % Dr. Mary Ellen Jules MD Work Phone: [facility] 05-10-2025 13:57-0400 Systolic blood pressure 126 mm[Hg] Dr. Mary Ellen Jules MD Work Phone: [facility] 03-30-2025 07:57-0400 Body height 180.[address] Mary Ellen Jules MD Work Phone: [facility] 03-30-2025 07:57-0400 Body mass index (BMI) [Ratio] 25.8 kg/m2 Dr. Mary Ellen Jules MD Work Phone: [facility] 03-30-2025 07:57-0400 Body temperature 98.2 [degF] Dr. Mary Ellen Jules MD Work Phone: [facility] 03-30-2025 07:57-0400 Body weight 84.[address] Mary Ellen Jules MD Work Phone: [facility] 03-30-2025 07:57-0400 Diastolic blood pressure 70 mm[Hg] Dr. Mary Ellen Jules MD Work Phone: [facility] 03-30-2025 07:57-0400 Heart rate 78 /min Dr. Mary Ellen Jules MD Work Phone: [facility] 03-30-2025 07:57-0400 Respiratory rate 16 /min Dr. Mary Ellen Jules MD Work Phone: [facility] 03-30-2025 07:57-0400 SaO2% (BldA) [Mass fraction] 94 % Dr. Mary Ellen Jules MD Work Phone: [facility] 03-30-2025 07:57-0400 Systolic blood pressure 128 mm[Hg] Dr. Mary Ellen Jules MD Work Phone: [facility] 10-15-2023 09:49-0500 Body temperature 98.6 [degF] Dr. Mary Ellen Jules Work Phone: [facility] 10-15-2023 09:49-0500 Diastolic blood pressure 72 mm[Hg] Dr. Mary Ellen Jules Work Phone: [facility] 10-15-2023 09:49-0500 Heart rate 83 /min Dr. Mary Ellen Jules Work Phone: [facility] 10-15-2023 09:49-0500 Respiratory rate 16 /min Dr. Mary Ellen Jules Work Phone: [facility] 10-15-2023 09:49-0500 SaO2% (BldA) [Mass fraction] 96 % Dr. Mary Ellen Jules Work Phone: [facility] 10-15-2023 09:49-0500 Systolic blood pressure 138 mm[Hg] Dr. Mary Ellen Jules Work Phone: [facility] 10-14-2023 19:52-0500 Body height 180.[address] Mary Ellen Jules Work Phone: [facility] 10-14-2023 19:52-0500 Body mass index (BMI) [Ratio] 25.4 kg/m2 Dr. Mary Ellen Jules Work Phone: [facility] 10-14-2023 19:52-0500 Body weight 82.[address] Mary Ellen Jules Work Phone: [facility] 10-14-2023 19:06-0500 Diastolic blood pressure 87 mm[Hg] Dr. Mary Ellen Jules Work Phone: [facility] 10-14-2023 19:06-0500 Heart rate 72 /min Dr. Mary Ellen Jules Work Phone: [facility] 10-14-2023 19:06-0500 Respiratory rate 16 /min Dr. Mary Ellen Jules Work Phone: [facility] 10-14-2023 19:06-0500 SaO2% (BldA) [Mass fraction] 97 % Dr. Mary Ellen Jules Work Phone: [facility] 10-14-2023 19:06-0500 Systolic blood pressure 142 mm[Hg] Dr. Mary Ellen Jules Work Phone: [facility] 10-14-2023 16:52-0500 Body height 180.[address] Mary Ellen Jules Work Phone: [facility] 10-14-2023 16:52-0500 Body mass index (BMI) [Ratio] 26.2 kg/m2 Dr. Mary Ellen Jules Work Phone: [facility] 10-14-2023 16:52-0500 Body temperature 98.6 [degF] Dr. Mary Ellen Jules Work Phone: [facility] 10-14-2023 16:52-0500 Body weight 85.[address] Mary Ellen Jules Work Phone: [facility] 10-11-2023 21:00-0500 Body height 180.[address] Mary Ellen Jules Work Phone: [facility] 10-11-2023 21:00-0500 Body mass index (BMI) [Ratio] 26.5 kg/m2 Dr. Mary Ellen Jules Work Phone: [facility] 10-11-2023 21:00-0500 Body temperature 97.5 [degF] Dr. Mary Ellen Jules Work Phone: [facility] 10-11-2023 21:00-0500 Body weight 86.[address] Mary Ellen Jules Work Phone: [facility] 10-11-2023 21:00-0500 Diastolic blood pressure 81 mm[Hg] Dr. Mary Ellen Jules Work Phone: [facility] 10-11-2023 21:00-0500 Heart rate 91 /min Dr. Mary Ellen Jules Work Phone: [facility] 10-11-2023 21:00-0500 Respiratory rate 16 /min Dr. Mary Ellen Jules Work Phone: [facility] 10-11-2023 21:00-0500 SaO2% (BldA) [Mass fraction] 94 % Dr. Mary Ellen Jules Work Phone: [facility] 10-11-2023 21:00-0500 Systolic blood pressure 142 mm[Hg] Dr. Mary Ellen Jules Work Phone: [facility] 10-07-2023 16:57-0500 Body temperature 97.7 [degF] Dr. Mary Ellen Jules Work Phone: [facility] 10-07-2023 16:57-0500 Diastolic blood pressure 76 mm[Hg] Dr. Mary Ellen Jules Work Phone: [facility] 10-07-2023 16:57-0500 Heart rate 67 /min Dr. Mary Ellen Jules Work Phone: [facility] 10-07-2023 16:57-0500 Respiratory rate 16 /min Dr. Mary Ellen Jules Work Phone: [facility] 10-07-2023 16:57-0500 SaO2% (BldA) [Mass fraction] 98 % Dr. Mary Ellen Jules Work Phone: [facility] 10-07-2023 16:57-0500 Systolic blood pressure 153 mm[Hg] Dr. Mary Ellen Jules Work Phone: [facility] 10-07-2023 13:07-0500 Body height 180.[address] Mary Ellen Jules Work Phone: [facility] 10-07-2023 13:07-0500 Body mass index (BMI) [Ratio] 25.4 kg/m2 Dr. Mary Ellen Jules Work Phone: [facility] 10-07-2023 13:07-0500 Body weight [address] Mary Ellen Jules Work Phone: [facility] 07-07-2023 14:03-0400 Body height 180.[address] Mary Ellen Jules Work Phone: [facility] 07-07-2023 14:03-0400 Body mass index (BMI) [Ratio] 25.7 kg/m2 Dr. Mary Ellen Jules Work Phone: [facility] 07-07-2023 14:03-0400 Body temperature 97.3 [degF] Dr. Mary Ellen Jules Work Phone: [facility] 07-07-2023 14:03-0400 Body weight 83.[address] Mary Ellen Jules Work Phone: [facility] 07-07-2023 14:03-0400 Diastolic blood pressure 75 mm[Hg] Dr. Mary Ellen Jules Work Phone: [facility] 07-07-2023 14:03-0400 Heart rate 69 /min Dr. Mary Ellen Jules Work Phone: [facility] 07-07-2023 14:03-0400 Respiratory rate 16 /min Dr. Mary Ellen Jules Work Phone: [facility] 07-07-2023 14:03-0400 SaO2% (BldA) [Mass fraction] 95 % Dr. Mary Ellen Jules Work Phone: [facility] 07-07-2023 14:03-0400 Systolic blood pressure 147 mm[Hg] Dr. Mary Ellen Jules Work Phone: [facility] 06-17-2023 10:55-0400 Body mass index (BMI) [Ratio] 25.7 kg/m2 Dr. Mary Ellen Jules Work Phone: [facility] 06-17-2023 10:55-0400 Body temperature 98.3 [degF] Dr. Mary Ellen Jules Work Phone: [facility] 06-17-2023 10:55-0400 Body weight 83.[address] Mary Ellen Jules Work Phone: [facility] 06-17-2023 10:55-0400 Diastolic blood pressure 76 mm[Hg] Dr. Mary Ellen Jules Work Phone: [facility] 06-17-2023 10:55-0400 Heart rate 73 /min Dr. Mary Ellen Jules Work Phone: [facility] 06-17-2023 10:55-0400 Respiratory rate 16 /min Dr. Mary Ellen Jules Work Phone: [facility] 06-17-2023 10:55-0400 SaO2% (BldA) [Mass fraction] 93 % Dr. Mary Ellen Jules Work Phone: [facility] 06-17-2023 10:55-0400 Systolic blood pressure 128 mm[Hg] Dr. Mary Ellen Jules Work Phone: [facility] Encounters Encounter Date Encounter Type Care Provider Facility Start: 06-29-2025 End: 06-29-[address] Mary Ellen Jules MD Work Phone: -[facility] Start: 06-29-2025 End: 06-29-[address] Mary Ellen Jules MD -[facility] Work Phone: Start: 06-29-2025 End: 06-29-2025 ambulatory [facility] Facility:[facility] Start: 06-08-2025 End: 06-08-[address] Mary Ellen Jules MD -[facility] Work Phone: Start: 06-08-2025 End: 06-08-[address] Mary Ellen Jules MD Work Phone: -[facility] [place] Start: 05-15-2025 End: 05-15-[address] Mary Ellen Jules MD Work Phone: -Laboratory Start: 05-15-2025 End: 05-15-[address] Mary Ellen Jules MD -Laboratory Work Phone: Start: 05-15-2025 End: 05-15-2025 [facility] Start: 05-11-2025 End: 05-11-[address] Mary Ellen Jules MD Work Phone: -Laboratory Start: 05-11-2025 End: 05-11-[address] Mary Ellen Jules MD -Laboratory Work Phone: Start: 05-10-2025 End: 05-10-[address] Mary Ellen Jules MD -[facility] [place] Work Phone: Start: 05-10-2025 End: 05-11-[address] Mary Ellen Jules MD Work Phone: -[facility] [place] Start: 05-09-2025 End: 05-09-[address] Mary Ellen Jules MD Work Phone: -Laboratory Specimen Start: 05-09-2025 End: 05-09-2025 Patient encounter procedure Isa Rogers -Laboratory Specimen Work Phone: Start: 05-09-2025 End: 05-09-2025 ambulatory Mary Ellen Jules Facility:[facility] Start: 03-30-2025 End: 03-30-[address] Mary Ellen Jules MD -[facility] [place] Work Phone: Start: 03-30-2025 End: 03-30-[address] Mary Ellen Jules MD Work Phone: [facility] Work Phone: Start: 02-28-2025 End: 02-28-[address] Mary Ellen Jules MD Work Phone: [facility] Work Phone: Start: 02-28-2025 End: 02-28-[address] Mary Ellen Jules MD -Laboratory, [facility] Start: 02-28-2025 End: 02-28-2025 ambulatory Mary Ellen Jules Facility:[facility] Start: 11-02-2024 ambulatory [facility] Facility [facility] Start: 11-01-2024 End: 11-01-2024 ambulatory Mary Ellengalen Jules Facility:[facility] Start: 07-25-2024 End: 07-25-2024 ambulatory Mary Ellen Jules Facility:[facility] Start: 10-14-2023 End: 10-15-2023 Evaluation and management of inpatient Dr. Mary Ellen Jules Work Phone: [facility]-Medical Surgical 3 Work Phone: Start: 10-14-2023 End: 10-15-[address] Mary Ellen Jules Work Phone: [facility] Work Phone: Start: 10-11-2023 End: 10-12-2023 Emergency department patient visit Dr. Mary Ellen Jules Work Phone: [facility]-Emergency Department Work Phone: Start: 10-07-2023 End: 10-07-2023 Non-patient / Non-visit Dr. Mary Ellen Jules Work Phone: [facility] Work Phone: Start: 10-07-2023 End: 10-07-2023 Admission to same day surgery center Dr. Mary Ellen Jules Work Phone: [facility]-Surgical Day Care Start: 10-07-2023 End: 10-07-[address] Mary Ellen Jules Work Phone: [facility] Work Phone: Start: 08-03-2023 End: 08-03-[address] Mary Ellen Jules Work Phone: [facility] Work Phone: Start: 08-03-2023 End: 08-03-[address] Mary Ellen Jules Work Phone: [facility] Work Phone: Start: 07-07-2023 End: 07-07-[address] Mary Ellen Jules Work Phone: [facility] Work Phone: Start: 06-17-2023 End: 06-17-[address] Mary Ellen Jules Work Phone: [facility] [place] Work Phone: Start: 12-25-2022 End: 12-25-2022 ambulatory [facility] Work Phone: Start: 12-25-2022 End: 12-25-2022 Patient encounter procedure [facility]-Laboratory Start: 04-18-2022 Refill Vita Watkins on PA-C Work Phone: [facility] Comment on above: Opened In Error Start: 04-07-2022 Refill Elissa Weiss MD Work Phone: [facility] Comment on above: Refill Request Procedures Date Procedure Procedure Detail Performing Clinician Start: 06-29-2025 MRI of brain without contrast Dr. Mary Ellen Jules MD Work Phone: Start: 05-15-[address] Mary Ellen Jules MD Work Phone: Comment on above: Test not performedTe st not performed Test not performedTe st not performedPerformed at: [place] [id number] Director: Luan Cheng PhD, Phone: [phone] Start: 05-15-[address] Mary [...] Date Care Activity Detail Author Start: 05-15-2025 [facility] Start: 05-10-2025 [facility] Start: 11-27-2023 DIABETES SCREEN DIABETES SCREEN [facility] Start: 10-15-2023 Patient discharge [facility] Start: 10-15-2023 Application of intermittent pneumatic compression device [facility] Start: 10-14-2023 Following clinical pathway protocol [facility] Start: 10-14-2023 Admission procedure [facility] Start: 10-14-2023 Measuring intake and output [facility] Start: 10-14-2023 Patient education [facility] Start: 10-14-2023 Provision of activity privileges [facility] Start: 10-14-2023 Taking patient vital signs [facility] Start: 10-14-2023 Vital signs measurements [facility] Start: 10-14-2023 [facility] Start: 10-14-2023 Hospital admission, emergency, from emergency room, medical nature [facility] Start: 10-14-2023 Consultation [facility] Start: 10-12-2023 [facility] Start: 10-07-2023 Ambulation without limitation [facility] Start: 10-07-2023 Medical regimen orders management [facility] Start: 10-07-2023 Medication education [facility] Start: 10-07-2023 Patient discharge [facility] Start: 10-07-2023 Taking patient vital signs [facility] Start: 10-07-2023 End: 10-07-2023 [facility] Start: 10-07-2023 Anes transurethral resection of bladder tumor ANESTH BLADDER TUMOR SURG [facility] Start: 10-07-2023 Cystourethroscopy w/dest &/rmvl med bladder gibran CYSTOSCOPY AND TREATMENT [facility] Start: 06-17-2023 Patient referral [facility] Work Phone: Start: 12-08-2021 Adult depression screening assessment DEPRESSION SCREENING [facility] Start: 11-29-2021 COVID-19 VACCINE (4 - Booster for Pfizer series) COVID-19 VACCINE (4 - Booster for Pfizer series) [facility] Start: 10-26-2021 ADVANCE DIRECTIVE DISCUSSION ADVANCE DIRECTIVE DISCUSSION [facility] Start: 06-14-2009 Urine microalbumin profile DTAP,TDAP,TD (1 - Tdap) [facility] Start: 1963 HEPATITIS C SCREENING HEPATITIS C SCREENING [facility] Cytology report of B yasmin fluid Cyto stain [facility] Glucose [Mass/volume ] in Serum or Plasma [facility] Glucose [Mass/volume ] in Serum or Plasma --2 hours post dose glucose [facility] Insulin [Mass/volume ] in Serum or Plasma [facility] Insulin [Units/volum e] in Serum or Plasma --fasting [facility] Insulin measurement [facility] Insulin, total measurement [facility] Patient Education ED Hematuria [facility] Work Phone: Patient referral [facility] Work Phone: Serum testosterone measurement [facility] Testosterone Free [Mass/volume] in Serum or Plasma [facility] Testosterone measurement [facility] Immunizations Immunization Date Immunization Notes Care Provider Fa cility 06-29-2025 Covid Pfizer Bivalen t Booster Dr. Mary Ellen Jules MD Work Phone: [facility] 06-29-2025 influenza, high dose seasonal, preservative-free Dr. Mary Ellen Jules MD Work Phone: [facility] 01-31-2025 Covid (Pfizer) Dr. Mary Ellen ríos MD Work Phone: [facility] 01-31-2025 Pfizer Covid-19 (Comirnaty) Dr. Mary Ellen Jules MD Work Phone: [facility] 06-22-2024 Covid Pfizer Bivalen t Booster Dr. Mary Ellen Jules MD Work Phone: [facility] 06-22-2024 influenza, high dose seasonal, preservative-free Dr. Mary Ellen Jules MD Work Phone: [facility] 06-22-2024 influenza, injectabl e, quadrivalent, preservative free Dr. Mary Ellen Jules MD Work Phone: [facility] 06-22-2024 Pfizer Covid-19 (Comirnaty) Dr. Mary Ellen Jules MD Work Phone: [facility] 08-04-2023 influenza, injectabl e, quadrivalent, preservative free Dr. Mary Ellen Jules Work Phone: [facility] 08-04-2023 Pfizer Covid-19 (Comirnaty) Dr. Mary Ellen Jules Work Phone: [facility] 08-01-2022 Covid Pfizer Bivalen t Booster Dr. Mary Ellen Jules Work Phone: [facility] 08-01-2022 influenza, injectabl e, quadrivalent, preservative free Dr. Mary Ellen Jules Work Phone: [facility] 02-06-2022 Covid (Pfizer) Dr. Mary Ellen ríos Work Phone: [facility] 08-19-2021 influenza, high dose seasonal, preservative-free Elissa Weiss MD Work Phone: [facility] 08-19-2021 influenza, injectabl e, quadrivalent, preservative free Dr. Mary Ellen Jules Work Phone: [facility] 07-29-2021 COVID-19 vaccine, ag e 12+ yr (PFIZER-BIONTECH - PURPLE TOP) Elissa Weiss MD Work Phone: [facility] 12-29-2020 COVID-19 vaccine, ag e 12+ yr (PFIZER-BIONTECH - PURPLE TOP) Elissa Weiss MD Work Phone: [facility] 12-08-2020 COVID-19 vaccine, ag e 12+ yr (PFIZER-BIONTECH - PURPLE [facility]) Elissa Weiss MD Work Phone: [facility] 10-24-2020 zoster vaccine recombinant Elissa Weiss MD Work Phone: [facility] 06-28-2020 influenza, injectabl e, quadrivalent, preservative free Dr. Mary Ellen Jules Work Phone: [facility] 06-28-2020 zoster vaccine recombinant Elissa Weiss MD Work Phone: [facility] 07-18-2019 Influenza, high dose seasonal Dr. Mary Ellen Jules MD Work Phone: [facility] 07-18-2019 influenza, high dose seasonal, preservative-free Elissa Weiss MD Work Phone: [facility] 01-17-2019 influenza, injectabl e, quadrivalent, preservative free Dr. Mary Ellen Jules Work Phone: [facility] 01-17-2019 pneumococcal polysaccharide vaccine, [address] Mary Ellen Jules Work Phone: [facility] 08-27-2018 Influenza, high dose seasonal Dr. Mary Ellen Jules MD Work Phone: [facility] 08-27-2018 influenza, high dose seasonal, preservative-free Elissa Weiss MD Work Phone: [facility] 08-25-2017 Influenza, high dose seasonal Dr. Mary Ellen Jules MD Work Phone: [facility] 08-25-2017 influenza, high dose seasonal, preservative-free Elissa Weiss MD Work Phone: [facility] 01-01-2017 pneumococcal polysaccharide vaccine, 23 valent Elissa Weiss MD Work Phone: [facility] Work Phone: 08-13-2016 Influenza, high dose seasonal Dr. Mary Ellen Jules MD Work Phone: [facility] 08-13-2016 influenza, high dose seasonal, preservative-free Elissa Weiss MD Work Phone: [facility] Work Phone: 07-26-2015 influenza, high dose seasonal, preservative-free Elissa Weiss MD Work Phone: [facility] 07-26-2015 influenza, injectabl e, quadrivalent, preservative free Dr. Mary Ellen Jules Work Phone: [facility] 06-27-2015 pneumococcal conjuga te vaccine, 13 valent Elissa Weiss MD Work Phone: [facility] 07-24-2014 influenza, injectabl e, quadrivalent, preservative free Dr. Mary Ellen Jules Work Phone: [facility] 07-24-2014 influenza, seasonal, injectable Elissa Weiss MD Work Phone: [facility] 08-12-2013 influenza virus vacc ine, unspecified formulation Elissa Weiss MD Work Phone: [facility] 08-13-2012 influenza virus vacc ine, unspecified formulation Elissa Weiss MD Work Phone: [facility] Work Phone: 08-06-2010 influenza, injectabl e, quadrivalent, preservative free Dr. Mary Ellen Jules Work Phone: [facility] 07-26-2009 zoster vaccine, live Elissa Weiss MD Work Phone: [facility] Work Phone: 06-13-2009 tetanus and diphther ia toxoids, adsorbed, preservative free, for adult use (2 Lf of tetanus toxoid and 2 Lf of diphtheria toxoid) Elissa Weiss MD Work Phone: [facility] 09-12-2008 influenza virus vacc ine, unspecified formulation Elissa Weiss MD Work Phone: [facility] 09-03-2007 influenza virus vacc ine, unspecified formulation Elissa Weiss MD Work Phone: [facility] Work Phone: 09-03-2007 pneumococcal polysaccharide vaccine, 23 valent Elissa Weiss MD Work Phone: [facility] Work Phone: Payers Date Payer Category Payer Private Health Insurance [facility] [id number] 2024 Self-pay [id number] 2010 Medicare AET[employer] MEDICARE A ETNA MEDICARE PPO [id number] 2010-Present [phone] [address] [place] [address] PPO [id number] Private Health Insurance AETNA [id number] Unknown [id number] 62 Unknown [id number] 62 Unknown [id number] 62 Unknown [id number] 62 Unknown [id number] 62 Unknown [id number] 62 Unknown [id number] 62 Unknown [id number] 62 Unknown [id number] 62 Unknown [id number] 62 Unknown [id number] 62 Social History Date Type Detail Facility Start: 05-26-2024 End: 05-09-2025 Tobacco smoking status NHIS Never smoked tobacco [facility] Start: 12-10-2020 Alcohol intake Current non-dr patient care director of alcohol (finding) [facility] Start: 03-20-2020 History SDOH Alcohol Frequency 3 [facility] Start: 03-20-2020 End: 12-08-2020 History SDOH Alcohol Std Drinks 1 [facility] Start: 03-20-2020 End: 12-08-2020 History SDOH Social Connections Phone 2 [facility] Start: 03-20-2020 History SDOH Social Connections Get Together 98 [facility] Start: 03-20-2020 History SDOH Financial 5 [facility] Start: 03-20-2020 Education 20 [facility] Start: 1945 Sex Assigned At Male [facility] Start: 05-22-2022 End: 10-14-2023 Tobacco smoking status NHIS Unknown if ever smoked [facility] Sex Male [facility] Medical Equipment Procedure Code Equipment Code [...] Assessment Result Facility 10-15-2023 Functional status Ambulates [facility] Work Phone: Mental Status Date Assessment Result Facility 10-15-2023 Cognitive function Voice/Name [facility] Work Phone: 10-07-2023 Cognitive function Level Of Cons ciousness Awake;Alert;Appropriate;Follow s Commands [facility] Work Phone: 10-07-2023 Cognitive function Voice/Name [facility] Work Phone: Clinical Notes 06-07-2015 to 03-30-2025 Note Date & Type Note Facility 03-30-2025 Evaluation note Diagnosis Onset Date Resolution Generalized weakness acute March 30, 2025 7:52am GERD (gastroesophageal reflux disease) acute March 30, 2025 7 :52am History of benign prostatic hyperplasia acute March 30, 2025 7:52am Shakiness acute March 30, 2025 7:52am [facility] Work Phone: 1(821) 619-847406-05-2025 Evaluation note* Diagnosis Onset Date Resolution Status Admit Date Generalized weakness acute March 30, 2025 7:52am GERD (gastroesophageal reflu x disease) acute March 30, 2025 7 :52am History of benign prostatic hyperplasia acute March 30, 2025 7 :52am Shakiness acute March 30, 2025 7:52am Fatigue acute May 10 1:44pm Generalized weakness acute May 10, 2025 1:44pm Shakiness acute May 10 1:44pm [facility] Work Phone: 1(445) 199-610106-05-2025 Evaluation note* Diagnosis Onset Date Resolution Status [...] Shakiness acute June 08, 2 025 11:20am [facility] Work Phone: 1(237) 797-775112-21-2023 Progress note Author Joseph Carpenter [facility] October 15, 2023 7:20am Note Date/Time October 15, 2023 7:20am [facility] Medical Records Department [address] [place] [address] Progress Note - Urology 10/15/23718 MR#: [id number] Acct: [id number] Name: ARIA HERNANDEZ Rep #:[id number] : 1945 78 From: Joseph Carpenter MD PCP: Dr. Mary Ellen Jules MD Status:ADM SOPHIA Location: [place]3 [id number] Subjective Subjective Status post TURBT was admitted [...] % (Auto) 67.3, Lymph % (Auto) 22.0, [place]% (Auto) 6.8, Eos % (Auto) 2.3, Baso [...] Cosigner Signature (if applicable): CC: ~ Signed [facility] Work Phone: 1(249) 826-126612-20-2023 Discharge summary Author Benedicto Garland [facility] October 14, 2023 9:55pm Note Date/Time October 14, 2023 5:12pm [facility] Medical Records Department [address] [place] [address] Emergency Department Summary 10/14/23 MR#: [id number] Acct: [id number] Name: ARIA HERNANDEZ Rep #:[id number] : 1945 78 From: Benedicto Garland MD PCP: Dr. Mary Ellen Jules MD Status:ADM SOPHIA Location: [place] [address] HPI <JESSE Muñoz - Last Filed: 10/14/23 [...] <JESSE Muñoz - Last Filed: 10/14/23 19:35> [facility] Medical History Abnormal prostate by palpation [...] Ox 98 Oxygen Delivery Method Room Air [facility] <JESSE Muñoz - Last Filed: 10/14/23 19:35> [facility] Narrative Medical decision making narrative: [...] % (Auto) 67.3 Lymph % (Auto) 22.0 [place] % (Auto) 6.8 Eos % (Auto) 2.3 [...] Garland MD - Last Filed: 10/14/23 21:55> [facility] MDM Narrative Medical decision making narrative: [...] % (Auto) 67.3 Lymph % (Auto) 22.0 [place] % (Auto) 6.8 Eos % (Auto) 2.3 [...] gross hematuria Disposition Disposition: Acute Care Hospital [facility] Discharge Date/Time: 10/14/23 19:08 What to do if you have Problems For any increased pain, shortness of breath, bleeding, nausea or vomiting, chest pain, or any unexpected problems, contact your Primary Care Provider. Call [facility] ([phone]) or report to the closest Emergency Room. Call 911 if necessary. 10/14/232154 <Electronically signed by Benedicto Garland MD> Cosigner Signature (if applicable): 10/14/231934 <Electronically signed by Stephanie MOLINA> CC: Dr. Mary Ellen Jules MD ~ Signed [facility] Work Phone: 1(180) 684-126412-20-2023 Discharge summary Author Joseph Carpenter [facility] October 14, 2023 6:26pm Note Date/Time October 14, 2023 6:26pm [facility] Medical Records Department [address] [place] [address] Instructions for Home/Discharge Instructions 10/14/23 1825 MR#: [id number] Acct: [id number] Name: ARIA HERNANDEZ Rep #:[id number] : 1945 78 From: Joseph Carpenter MD [...] Up With: Joseph Carpenter MD When: Call [phone] for an appointment Test Results: Test results [...] Dr. Mary Ellen Jules MD ~ Signed [facility] Work Phone: 1(246) 540-319112-20-2023 History and physical note Author Joseph Carpenter [facility] October 14, 2023 6:25pm Note Date/Time October 14, 2023 6:26pm [facility] Medical Records Department [address] [place] [address] History & Physical Exam 10/14/231823 MR#: [id number] Acct: [id number] Name: ARIA HERNANDEZ Rep #:[id number] : 1945 78 From: Joseph Carpenter MD [...] % (Auto) 67.3, Lymph % (Auto) 22.0, [place]% (Auto) 6.8, Eos % (Auto) 2.3, Baso [...] MD; Dr. Mary Ellen Jules MD~ Signed [facility] Work Phone: 1(734) 427-107712-18-2023 Discharge summary Author Jabari Elizabeth [facility] October 12, 2023 1:26am Note Date/Time October 11, 2023 10:58pm [facility] Medical Records Department [address] [place] [address] Emergency Department Summary 10/11/23 MR#: [id number] Acct: [id number] Name: ARIA HERNANDEZ Rep #:[id number] : 1945 78 From: Jabari Elizabeth MD [...] He is on no anticoagulants or antiplatelets. [facility] Medical History Abnormal prostate by palpation Alcohol [...] Clarity Cloudy Urine pH 6.5 Ur Specific [place] 1.020 Urine Protein 500 H Urine Glucose (UA) Normal Urine Ketones 5 H Urine Occult Blood 150 H Urine Nitrite Negative Urine Bilirubin Negative Urine Urobilinogen Normal Ur Leukocyte Esterase Negative Urine RBC > 100 SEEN Urine WBC 0 SEEN Ur Squamous Epith Cells 0-5 SEEN Amorphous Sediment 1+ URATE Urine Bacteria 0 SEEN Urine Mucus 0 SEEN Management Discussion w/another healthcare provider: Daycare Manager (Urology) Discharge Plan Triage Chief Complaint: Complaint [...] your Primary Care Provider. Call [facility] ([phone]) or report to the closest Emergency Room. Call 911 if necessary. 10/12/23 0126 <Electronically signed by Jabari Elizabeth MD> Cosigner Signature (if applicable): CC: Dr. Mary Ellen Jules MD ~ Signed [facility] Work Phone: 1(857) 494-124012-13-2023 Discharge summary Author Joseph Carpenter [facility] October 07, 2023 3:25pm Note Date/Time October 07, 2023 3:25pm [facility] Medical Records Department [address] [place] [address] Instructions for Home/Discharge Instructions 10/07/23 1525 MR#: [id number] Acct: [id number] Name: ARIA HERNANDEZ Rep #:[id number] : 1945 78 From: Joseph Carpenter MD PCP: Dr. Mary Ellen Jules MD Status:[facility] Discharge Instructions Diet Discharge Diet: No restrictions Activity Discharge Activity: Return to Normal Activity Dressing / Incision Catheter: Luis to leg bag and Luis to large bag Drain: [place] Follow Up Care Please Follow Up With: [...] Dr. Mary Ellen Jules MD ~ Signed [facility] Work Phone: 1(989) 150-299112-13-2023 History and physical note Author Joseph Carpenter [facility] [facility] October 07, 2023 2:51pm Note Date/Time October 07, 2023 2:52pm [facility] Medical Records Department [address] [place] [id number] History & Physical Exam 10/07/23 1451 MR#: [id number] Acct: [id number] Name: ARIA HERNANDEZ Rep #:[id number] : 1945 78 From: Joseph Carpenter MD PCP: Dr. Mary Ellen Jules MD Status:[facility] Location: [place] [address] HPI - General General Date of Service: 10/07/23 Chief Complaint: Bladder tumor HPI Narrative ARIA HERNANDEZ, is a 78 M who presents transurethral resection of a bladder tumor [facility] Medical History (Updated 09/16/23 @ 11:27 by [...] MD; Dr. Mary Ellen Jules MD~ Signed [facility] Work Phone: [phone] Procedure [facility] 04-18-2022 Miscellaneous Notes* Telephone Encounter - Lisbet Espino RN - 04/18/2022 10:44 AM EDT Opened in Error [facility] Miscellaneous Notes* Telephone Encounter - Saul [...] advise. Saul Newman LPN documented in this encounterMary [facility] History of Past illness Narrative* Problem Noted Date Resolved Date Diarrhea 06/07/2015 06/27/2015 Projectile vomiting with nausea 06/07/2015 07/18/2019 Skin lesion 06/09/2013 06/27/2015 Acute gastritis without mention of hemorrhage 07/18/2019 Other chest pain 11/08/2007 07/18/2019 Diverticulitis 07/18/2019 documented as of this encounter (statuses as of 04/08/2022) [facility] History of Past illness Narrative* Problem Noted Date Resolved Date Diarrhea 06/07/2015 06/27/2015 Projectile vomiting with nausea 06/07/2015 07/18/2019 Skin lesion 06/09/2013 06/27/2015 Acute gastritis without mention of hemorrhage 07/18/2019 Other chest pain 11/08/2007 07/18/2019 Diverticulitis 07/18/2019 documented as of this encounter (statuses as of 04/18/2022) [facility] Author Joseph Carpenter [facility] October 14, 2023 6:26pm Note Date/Time October 14, 2023 6:26pm [facility] Medical Records Department [address] [place] [address] Instructions for Home/Discharge Instructions 10/14/23 1825 MR#: [id number] Acct: [id number] Name: ARIA HERNANDEZ Rep #:[id number] : 1945 78 From: Joseph Carpenter MD [...] Up With: Joseph Carpenter MD When: Call [phone] for an appointment Test Results: Test results [...] Dr. Mary Ellen Jules MD ~ Signed [facility] Work Phone: Evaluation noteNo assessment information available [facility] Work Phone: Evaluation note* Diagnosis Onset Date Resolution Status Recurrent gross hematuria [place] Skin lesion of right leg acu te Skin lesion of right leg acu te [facility] Work Phone: Evaluation note* Diagnosis Onset Date Resolution Status Recurrent gross hematuria [place] Skin lesion of right leg acu te Skin lesion of right leg acu te Recurrent gross hematuria [place] [facility] Work Phone: Evaluation note* Diagnosis Onset Date Resolution Status Recurrent gross hematuria [place] Skin lesion of right leg acu te Skin lesion of right leg acu te Indwelling Luis catheter present acute Recurrent gross hematuria [place] [facility] Work Phone: Evaluation note* Diagnosis Onset Date Resolution Status Admit Date Bladder disease acute March 30, 2025 7:52am GERD (gastroesophageal reflu x disease) acute March 30, 2025 7 :52am History of benign prostatic hyperplasia acute March 30, 2025 7 :52am Shakiness acute March 30, 2025 7:52am [facility] Work Phone: History and physical note Author Joseph Carpenter [facility] October 14, 2023 6:25pm Note Date/Time October 14, 2023 6:26pm [facility] Medical Records Department [address] [place] [address] History & Physical Exam 10/14/234 MR#: [id number] Acct: [id number] Name: ARIA HERNANDEZ Rep #:[id number] : 1945 78 From: Joseph Carpenter MD [...] % (Auto) 67.3, Lymph % (Auto) 22.0, Screven% (Auto) 6.8, Eos % (Auto) 2.3, Baso [...] MD; Dr. Mary Ellen Jules MD~ Signed [facility] Work Phone: Reason for referral (narrative)No reason for referral information availableWMemorial Health System Work Phone: Summary Purpose Family History Relationship Condition Age at Onset Recorded Date/T aki mother Mental disorder Unknown Advance Directives Advance Directive Response Recorded Date/ Time Living Will Yes September 07, 8:17pm Power of Ladies' Locker Room Attendant Yes September 07, 2018 8:17pm Advance Directive Response Recorded Date/ Time Living Will Yes September 07 9:17pm Power of Ladies' Locker Room Attendant Yes September 07, 2018 9:17pm Advance Directive Response Recorded Date/ Time Name of Medical Power of Ladies' Locker Room Attendant September 16, 2023 11:10am Living Will Yes September 16 023 11:10am Power of Ladies' Locker Room Attendant Yes September 16, 2023 11:10am Advance Directive Response Recorded Date/ Time Name of Medical Power of Ladies' Locker Room Attendant September 16, 2023 11:10am Name of Medical Power of Ladies' Locker Room Attendant October 11, 2023 10:31pm Living Will Yes October 11 10:31pm Power of Ladies' Locker Room Attendant Yes October 11, 2023 10:31pm Advance Directive Response Recorded Date/ Time Name of Medical Power of Ladies' Locker Room Attendant kendrick, October 14, 2023 5:23pm Living Will Yes October 14 023 5:23pm Power of Ladies' Locker Room Attendant Yes October 14, 2023 5:23pm Name of Medical Power of Ladies' Locker Room Attendant September 16, 2023 11:10am Name of Medical Power of Ladies' Locker Room Attendant October 11, 2023 10:31pm Advance Directive Response Recorded Date/ Time Name of Medical Power of Ladies' Locker Room Attendant CALISTA GUO October 14, 2023 7:56pm Living Will Yes October 14 023 7:56pm Power of Ladies' Locker Room Attendant Yes October 14, 2023 7:56pm Name of Medical Power of Ladies' Locker Room Attendant September 16, 2023 11:10am Name of Medical Power of Ladies' Locker Room Attendant October 11, 2023 10:31pm Chief Complaint and [...] 7:52a m GERD (gastroesophageal reflux disease) J [facility] 2024 7:52am History of benign prostatic hyperplasia March 30, 2025 7:52am Shakiness March 30, 2025 7:52a m Chief Complaint Admit Date Shakiness March 30, 2025 7:52a m C67.2 May 09, 2025 4:12 pm Balance/Memory Issues May 10, 2025 1: 44pm Reason for Visit Admit Date Generalized weakness March 30, 2025 7:52 am GERD (gastroesophageal reflux disease) J [facility] 2024 7:52am History of benign [...] 7:52 am GERD (gastroesophageal reflux disease) J [facility] 2024 7:52am History of benign [...] 7:52 am GERD (gastroesophageal reflux disease) J [facility] 2024 7:52am History of benign [...] section and content) DATE CREATED AUTHOR 12/14/2021 [facility] DATE CREATED AUTHOR BRIANA POWERS 07/16/2025 [facility] Source Comments (unrecognize d section and content) In the event this informatio n is protected by the Federal Confidentiality of Alcohol and Drug Abuse Patient Records regulations: The Federal rules restrict any use of the information to criminally investigate or prosecute any alcohol or drug abuse patient.[facility] HospitalIn the event this information is protected by the Federal Confidentiality of Alcohol and Drug Abuse Patient Records regulations: The Federal rules restrict any use of the information to criminally investigate or prosecute any alcohol or drug abuse patient.[facility] Reason for Visit (unrecogniz ed section and content) Reason Onset Date Comments Refill Request 04/07/2022 Reason Onset Date Comments Opened In Error 04/18/2022 Care Teams (unrecognized sec tion and content) Package Dye Stand Loader Relationship Specialty Start Date End Date Vita Pacheco PA-C [address] [place] [address] PCP - General Family Practice 07/18/19 Package Dye Stand Loader Relationship Specialty Start Date End Date Vita Pacheco PA-C [address] [place], [place] [id number] PCP - General Family Practice 07/18/19 Team [...] Member Role Status Dates Dr. Mary Ellen Jlues MD Attending Provider Active Team Status: Inactive [...] MD Primary Care Provider Active Dr. Joseph Carpenetr MD Attending Provider, Referr ing Provider Active [...] Provider Active Start: May 09, 2025 Isa Marquette Attending Provider Active Start : May 09, 2025 Isa Marquette Referring Provider Active Start : May 09, [...] 09, 2025 End: May 09, 2025 Isa Marquette Attending Provider Active Start : May 09, 2025 End: May 09, 2025 Isa Marquette Referring Provider Active Start : May 09, [...] Jules MD Attending physician Active Start: May 11, [...] BE BASED ON THE PRIMARY CLINICAL RECORDS. [facility]. provides no warranty or guarantee of the accuracy or completeness of information in this document.
== END | disposition home or self-care (01) ==
PROVIDERS: PCP Internal Medicine; Referring Provider Internal Medicine; Visit Provider Internal Medicine
DX: N39.0 Urinary tract infection, site not specified (principal)
CPT/HCPCS: 81001; 87086

== ENCOUNTER → 2025-09-27 | Outpatient (CLI) | payer MEDICARE, SELFPAY ==
[2025-09-27 08:47] LABS: Mucous, Urine 0 SEEN /hpf (<or=2+); Squamous Epithelial Cells - UA 0 SEEN /hpf (0-5)
[2025-09-27 10:04] LABS: Color, Urine Yellow (Yellow); Glucose, Dipstick Normal (Normal); Ketone-Dipstick Negative (Negative); Leukocyte Esterase-Dipstick Negative /ul (Negative); Nitrite-Dipstick Negative (Negative); Occult Blood-Urine 10 /ul (Negative); Protein-Dipstick 15 mg/dl (Negative); Specific Gravity, Urine 1.025 (1.002-1.030); Urine Bilirubin Dipstick Negative (Negative)
[2025-09-27 10:10] LABS: Red Blood Cells-Urine 0-5 SEEN /hpf (0-5)
[2025-09-27 10:15] LABS: Hematocrit 47.7 % (40-54); Hemoglobin 15.4 g/dL (13.0-16.5); Immature Granulocytes Count 0.030 X10^3/uL (0.0-0.0); Mean Corp Hgb Conc 32.3 g/dL (32-36); Mean Corpuscular Volume 94.1 fL (80-94); Mean Platelet Vol. 9.7 fl (6.2-12.0); NRBC Flagged by Analyzer 0 % (0-5); Platelet Count 218 K/mm3 (150-450); RBC Distribution Width CV 12.9 % (11.6-14.6); RBC Distribution Width SD 44.6 fl (35.1-43.9); Red Blood Count 5.07 M/mm3 (4.6-6.2); White Blood Count 6.0 K/mm3 (4.4-11.0)
[2025-09-27 10:57] LABS: AST(SGOT) 26 U/L (<=37); Alanine Aminotransfer ALT/SGPT 28 U/L (<=46); Albumin, Serum 4.4 g/dL (3.4-4.8); Alkaline Phosphatase 47 U/L (40-129); Anion Gap 12 (5-15); BUN 15 mg/dL (4-19); BUN/Creat Ratio 15.9 RATIO (10-20); Calcium,Total 9.5 mg/dL (7.6-11.0); Carbon Dioxide 24.4 mmol/L (21.0-32.0); Chloride 104 mmol/L (98-108); Globulin 3.0 g/dL (2.2-4.2); Glucose 110 mg/dL (70-99); Magnesium 2.0 mg/dL (1.5-2.2); Potassium 4.0 mmol/L (3.3-5.1)
[2025-09-27 12:30] LABS: Free T3 3.3 pg/mL (2.18-3.98); Vitamin D,25 Hydroxy 18.2 ng/mL (30-100)
[2025-09-27 13:08] LABS: Vitamin B12 357 pg/mL (180-914)
== END | disposition home or self-care (01) ==
LOC: MTLAB 08:44
PROVIDERS: PCP Internal Medicine; Referring Provider Internal Medicine; Visit Provider Internal Medicine
DX: E88.819 Insulin resistance, unspecified (principal); R53.1 Weakness; R41.3 Other amnesia; R25.1 Tremor, unspecified; E55.9 Vitamin D deficiency, unspecified; E53.8 Deficiency of other specified B group vitamins; R73.9 Hyperglycemia, unspecified; N32.9 Bladder disorder, unspecified
CPT/HCPCS: 36415; 80053; 81001; 82306; 82607; 83036; 83735; 84439; 84443; 84481; 85025

== ENCOUNTER → 2025-10-03 | Outpatient (CLI) | payer MEDICARE, SELFPAY ==
--- NOTE | 2025-10-03 | CYSPIN_PTH ---
PATIENT: ARIA HERNANDEZ LOC: [facility] U#:[id number] AGE/SX: 80/M ROOM: RE10/03/[address]: Dr. Mary Ellen Jules MD : 1945 BED: DIS: 10/03/2025 SPEC #: [id number] RECD: 10/03/25 08:06 STATUS: ANGUS REDano #: [id number] NEO: 10/03/25 00:[address]: Mary Ellen Jules DEPT: CYTOLOGY RECD BY: Dain Henriquez Tissues: A - Urine Procedures: Pap Stain (control) Special Stain Group II Cytospin Fluid HEADER OPERATION: Not noted PRE-OP DIAGNOSIS: Bladder disorder, unspecified, TISSUE SUBMITTED: A- Urine for cytology DIAGNOSIS CYTOLOGY A. Urine, nos (cytospin): - No malignant cells identified. CYTOLOGY STUDY Slides are reviewed. CYTOLOGY GROSS A. Received is 80 ml of yellow-cloudy fluid labeled with the patient's name and and designated per the requisition as urine. Submitted for cytology preparation. Mr 10/03/2025 CPT: 90881
[2025-10-03 16:04] LABS: Cytology, Body Fluid / CSF SEE PATHOLOGY REPORT
== END | disposition home or self-care (01) ==
PROVIDERS: PCP Internal Medicine; Referring Provider Internal Medicine; Visit Provider Internal Medicine
DX: N39.0 Urinary tract infection, site not specified (principal); N32.9 Bladder disorder, unspecified
CPT/HCPCS: 88108; 88313